=== PATIENT | female | born 2005 | race Caucasian/White ===

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

== ENCOUNTER 2024-06-01 11:57 | Emergency (ER) | payer OTHER, SELFPAY ==
[2024-06-01 12:02] VITALS: BP 124/77; PULSE 92; TEMP 36.6; O2SAT 99; BMI 19.9
--- NOTE | 2024-06-01 12:13 | ED_ITS ---
HPI - Dental/Oral General Chief complaint: Dental/Oral Stated complaint: TOOTHACHE Time Seen by Provider: 06/01/24 12:05 Source: patient Mode of arrival: walk-in Limitations: no limitations History of Present Illness HPI Narrative: 18-year-old female presents to the ED for pain to tooth #17 area. She states she has had for the last day or 2 and it has been more than a year since she saw her dentist. She is going to call tomorrow to make an appointment. No difficulty breathing or swallowing. Related Data Home Medications ?Medication ?Instructions ?Recorded ?Confirmed buspirone 5 mg tablet mg 12/09/22 escitalopram oxalate 10 mg tablet 10 mg PO DAILY 12/09/22 12/09/22 lurasidone 60 mg tablet 60 mg PO DAILY 12/09/22 12/09/22 trazodone 50 mg tablet 50 mg PO .hs 12/09/22 12/09/22 Previous Rx's ?Medication ?Instructions ?Recorded acetaminophen 300 mg-codeine 30 mg 1 tab PO Q6H PRN pain 5 days #20 06/01/24 tablet tabs ibuprofen 800 mg tablet 800 mg PO Q8H PRN pain #20 tabs 06/01/24 penicillin V potassium 250 mg 250 mg PO QID 10 days #40 tabs 06/01/24 tablet Allergies Allergy/AdvReac Type Severity Reaction Status Date / Time No Known Allergies AdvReac Mild Verified 12/09/22 13:53 Review of Systems ROS Narrative A ten point review of systems is negative except as noted above. [facility] Medical History (Updated 06/01/24 @ 12:10 by Freddy England MD) Suicidal ideation ?R45.851 - Suicidal ideations (ICD-10) Depression ?F32.A - Depression, unspecified (ICD-10) Anxiety ?F41.9 - Anxiety disorder, unspecified (ICD-10) Syncope ?R55 - Syncope and collapse (ICD-10) Social History Little interest or pleasure in doing things: not at all Feeling down, depressed, or hopeless: not at all Exam Narrative Exam Narrative: Nurses note and vital signs reviewed and patient is not hypoxic. General: The patient appears well and in no apparent distress. Patient is resting comfortably on cart. Skin: Warm, dry, no pallor noted. There is no rash noted. Head: Normocephalic, atraumatic Eye: Normal conjunctiva, no drainage Ears, Nose, Mouth, and Throat: oral mucosa is moist. Nares patent. No facial swelling or erythema. No swelling to the floor of her mouth. No gingival swelling or erythema. No obvious dental caries noted Cardiovascular: Regular Rate and Rhythm Respiratory: Patient is in no distress, no accessory muscle use, lungs are clear to auscultation, no wheezing, rales or rhonchi Back: non-tender GI: Soft and nontender Musculoskeletal: The patient has no evidence of calf tenderness, no pitting edema, symmetrical pulses noted bilaterally Neurological: A&O, normal speech Psychiatric: Cooperative Constitutional Vital Signs, click to edit/add: Last Vital Signs Temp 97.8 F 06/01/24 12:02 Pulse 92 H 06/01/24 12:02 Resp 18 06/01/24 12:02 BP 124/77 06/01/24 12:02 Pulse Ox 99 06/01/24 12:02 O2 Del Method Room Air 06/01/24 12:02 Course Vital Signs Vital signs: Vital Signs Temperature 97.8 F 06/01/24 12:02 Pulse Rate 92 H 06/01/24 12:02 Respiratory Rate 18 06/01/24 12:02 Blood Pressure 124/77 06/01/24 12:02 Pulse Oximetry 99 06/01/24 12:02 Oxygen Delivery Method Room Air 06/01/24 12:02 Temperature 97.8 F 06/01/24 12:02 Pulse Rate 92 H 06/01/24 12:02 Respiratory Rate 18 06/01/24 12:02 Blood Pressure 124/77 06/01/24 12:02 Pulse Oximetry 99 06/01/24 12:02 Oxygen Delivery Method Room Air 06/01/24 12:02 MDM - Dental/Oral MDM Narrative Medical decision making narrative: She is provided pain medication and antibiotic prescriptions, penicillin, ibuprofen, and Tylenol 3. She will call her dentist in the morning. Treatment diagnosis and follow-up were discussed with the patient. Differential Diagnosis Differential diagnosis: Likely dental caries, toothache and dental abscess Discharge Plan Discharge Chief Complaint: Dental/Oral Clinical Impression: Toothache Patient Disposition: Home, Self-Care Time of Disposition Decision: 12:09 Condition: Good Mode of Transportation: Private Vehicle Prescriptions / Home Meds: New acetaminophen-codeine 300-30 mg tablet 1 tab PO Q6H PRN (Reason: pain) 5 Days Qty: 20 0RF penicillin V potassium 250 mg tablet 250 mg PO QID 10 Days Qty: 40 0RF ibuprofen 800 mg tablet 800 mg PO Q8H PRN (Reason: pain) Qty: 20 0RF No Action buspirone 5 mg tablet trazodone 50 mg tablet 50 mg PO .hs escitalopram oxalate 10 mg tablet 10 mg PO DAILY lurasidone 60 mg tablet 60 mg PO DAILY Print Language: Salvadorean Instructions: Toothache (ED) Additional Instructions: Call your dentist in the morning Referrals: LANCE MELLO [Primary Care Provider] - 1 week
== END 2024-06-01 12:19 | disposition home or self-care (01) ==
LOC: ER 12:18
PROVIDERS: Emergency Provider Emergency Medicine; PCP Nurse Practitioner Family
DX: K08.89 Other specified disorders of teeth and supporting structures (principal)
CPT/HCPCS: 99283

== ENCOUNTER 2024-08-19 10:33 | Emergency (ER) | payer OTHER, SELFPAY ==
--- OUTSIDE RECORDS SUMMARY | 2024-08-19 10:56 | XMS_ITS | CCD ---
Author Organization [facility] Informat ion [facility] Care Team Providers Care Forest [employer] Professor Name Role Phone Penny Newman Attending UnavailPenny Squires Admitting Unavailabl e NO FAMILY, PHYSICIAN Primary Care Unavailable PERLA ., PUSHPA Admitting Unavailable RIAZ, LANCE Primary Care Unavailable MARKER ., DR MAHMOOD Consulting Unavailable PERLA .PUSHPA Attending Unavailable MARKER ., DR MAHMOOD Admitting Unavailable RIAZ, LANCE Primary Care Unavailable MARKER ., DR MAHMOOD Attending Unavailable MARKER ., DR MAHMOOD Consulting Unavailable RIAZ, LANCE Attending Unavailable RIAZ, LANCE Primary Care Unavailable RIAZ, LANCE Admitting Unavailable RIAZ, LANCE Admitting Unavailable RIAZ, LANCE Attending Unavailable RIAZ, LANCE Primary Care Unavailable RIAZ, LANCE Admitting Unavailable RIAZ, LANCE Attending Unavailable RIAZ, LANCE Primary Care Unavailable RIAZ, LANCE Attending Unavailable RIAZ, LANCE Consulting Unavailable RIAZ, LANCE Primary Care Unavailable RIAZ, LANCE Admitting Unavailable RIAZ, LANCE Primary Care Unavailable BONITA MAGANA Admitting Unavailable CARLOS .CHET Consulting UnavailBONITA Fajardo Attending Unavailable Vazquez RIVERS Primary Care Physician EUGENIO HOPE Primary Care Physician EUGENIO HOPE Admitting Unavailable EUGENIO HOPE Attending Unavailable Erik Schwartz Attending Unavailable EUGENIO HOPE Primary Care Unavailable Clayton Beaver Attending Unavailable EUGENIO HOPE Admitting Unavailable EUGENIO HOPE Attending Unavailable Erik Schwartz Attending Unavailable EUGENIO HOPE Primary Care Unavailable EUGENIO KLINE Attending Unavailable EUGENIO KLINE Attending Unavailable EUGENIO KLINE Attending Unavailable EUGENIO HOPE Primary Care Unavailable Vasquez Oliver Referring Unavailable Vasquez Oliver Attending Unavailable Vasquez Oliver Admitting Unavailable EUGENIO HOPE Primary Care Unavailable EUGENIO HOPE Primary Care Unavailable Vasquez Oliver Attending Unavailable Unavailable Primary Care Provider Unavailvirginie DC, MARIANGEL Attending Unavailable TASHA, MARIANGEL Attending Unavailable TASHA, MARIANGEL Attending Unavailable DC, MARIANGEL Referring Unavailable DC, MARIANGEL Admitting Unavailable DC, MARIANGEL Attending Unavailable EUGENIO HOPE Primary Care Unavailable Vasquez Oliver Attending Unavailable EUGENIO HOPE Primary Care Unavailable SHERIF MURPHY Attending Unavailable TASHA, MARIANGEL Referring Unavailable EUGENIO HOPE Primary Care Unavailable DC, MARIANGEL Admitting Unavailable DC, MARIANGEL Attending Unavailable Allergies Allergy Classification Reported Allergen(s) Allergy Type Date of Onset Reaction(s) Facility (3 sources) No Known Medication Allergies; Translations: [No Known Medication Allergies] Propensity to adverse reactions (disorder) [facility] Repository Medications Current Medications Medication Drug Class(es) Dates Sig (Normalized) Sig (Original) 24 hr buPROPion hydrochloride 150 mg extended release oral tablet (5 sources) Aminoketone Start: 07-19-2023 take 1 tablet by mouth once daily in the morning WELLBUTRIN XL 150 mg 24 hr tablet 1 tablet in the morning Orally Once a day 07/19/2023 Active docusate sodium 100 mg oral capsule (4 sources) Start: 12-05-2023 ergocalciferol 1.25 mg oral capsule (4 sources) Provitamin D2 Compound Start: 09-12-2023 take 1 capsule by mouth every week ergocalciferol (DRISDOL) 1,250 mcg (50,000 unit) capsule Take 1 capsule (50,000 Units total) by mouth once a week. 12 capsule 09/12/2023 Active escitalopram 20 mg oral tablet (9 sources) Serotonin Reuptake Inhibitor Start: 05-17-2023 take 1 tablet by mouth once daily escitalopram (LEXAPRO) 20 mg tablet TAKE 1 TABLET BY MOUTH EVERY DAY 0 05/18/2023 Active Ethinyl Estradiol / Ferrous fumarate / Norethindrone (5 sources) Estrogen Start: 06-18-2023 End: 08-11-2024 take 1 tablet by mouth once in the morning 1 mg-20 mcg (24)/75 mg (4) per tablet Take 1 tablet by mouth in the morning. 06/18/2023 08/11/2024 Active Start: 06-18-2023 End: 08-11-2024 take 1 tablet by mouth once in the morning 1 mg-20 mcg (24)/75 mg (4) per tablet Take 1 tablet by mouth in the morning. 0 06/18/2023 08/11/2024 Active hydroxychloroquine sulfate 200 mg oral tablet (5 sources) Antimalarial, Antirheumatic Agent Start: 09-12-2023 End: 05-14-2024 hydroxychloroquine (PLAQUENIL) 200 mg tablet Two pills a day on Sunday/Sunday/Sunday and 1 pill a day on other days of the week 130 tablet 1 05/14/2024 Active lurasidone hydrochloride 60 mg oral tablet (9 sources) Atypical Antipsychotic Start: 08-02-2022 Latuda 60 mg oral tablet 0 Refill(s), Orally Once a day, Refills(s) 0, Depression Start Date: 08/02/22 Status: Ordered pantoprazole 40 mg delayed release oral tablet (4 sources) Proton Pump Inhibitor Start: 02-18-2024 take 1 tablet by mouth once daily Pantoprazole [address] Tab 40 mg = 1 tab(s), Oral, Daily, # 90 tab(s), Refills(s) 3, Pharmacy: [facility]/pharmacy #[id number], 167, cm, 03/24/24 12:12:00 EDT, Height/Length Dosing, 58.1, kg, 03/24/24 12:12:00 EDT, Weight Dosing Start Date: 03/24/24 Status: Ordered QUEtiapine 25 mg oral tablet (9 sources) Atypical Antipsychotic Start: 05-28-2023 QUEtiapine (SEROquel) 25 mg tablet TAKE 1 or 2 TABLET BY MOUTH EVERY DAY AT BEDTIME FOR 90 DAYS for 90 days 05/28/2023 Active sulfamethoxazole 800 mg / trimethoprim 160 mg oral tablet (1 source) Dihydrofolate Reductase Inhibitor Antibacterial, Sulfonamide Antimicrobial Start: 11-24-2023 End: 12-01-2023 Bactrim D.S. 800 mg-160 mg Tab 1 tab(s), Oral, BID for 7 day(s), 14 tab(s), Refill(s) 0, Take one tab by mouth twice a day for seven days, [facility]/pharmacy #[id number], 167, cm, 11/24/23 12:49:00 EDT, Height/Length Dosing, 59, kg, 11/24/23 12:49:00 EDT, Weight Dosing Start Date: 11/24/23 Stop Date: 12/01/23 Status: Ordered Completed/Discontinued Medications Medication Drug Class(es) Dates Sig (Normalized) Sig (Original) ferrous sulfate 60 mg/ml oral solution (5 sources) Start: 07-17-2024 End: 07-17-2024 take 5 mL by mouth in the morning ferrous sulfate (FEOSOL) 300 mg (60 mg elemental iron)/5 mL syrup Take 5 mL (300 mg total) by mouth in the morning. 500 mL 1 07/17/2024 07/17/2024 Discontinued Start: 09-12-2023 End: 05-14-2024 take 1 tablet by mouth once daily at breakfast ferrous sulfate (IRON) 325 (65 FE) mg tablet Take 1 tablet (325 mg total) by mouth daily with breakfast. 30 tablet 2 09/12/2023 05/14/2024 Discontinued ondansetron 4 mg oral tablet (1 source) Serotonin-3 Receptor Antagonist Start: 11-24-2023 take 1 tablet by mouth every six hours as needed for nausea Zofran 4 mg Tab 4 mg = 1 tab(s), Oral, q6hr, PRN Nausea, Take one tab by mouth every six hours as needed for nausea, # 10 tab(s), Refills(s) 0, Pharmacy: [facility]/pharmacy #[id number], 167, cm, 11/24/23 12:49:00 EDT, Height/Length Dosing, 59, kg, 11/24/23 12:49:00 EDT, Weight Dosing Start Date: 11/24/23 Status: Ordered Problems Active Problems Problem Classification Problem Date Documented Da te Episodic/Chronic Anxiety disorders (2 sources) Other specified anxiety disorders; Translations: [Anxiety disorder, unspecified] Onset: Chronic Pichardo (2 sources) Caustic injury gastritis 03-24-2024 Episodic Gastritis and duodenitis (1 source) Gastritis; Translations: [Other gastritis without bleeding] Onset: 4 Episodic Nausea and vomiting (11 sources) Nausea; Translations: [Nausea] Onset: 4 Episodic Nonspecific chest pain (6 sources) Chest pain; Translations: [Other chest pain] Onset: 4 Episodic Nutritional deficiencies (4 sources) Decreased vitamin D Onset: 3 02-05-2024 Chronic Nutritional deficiencies (6 sources) Iron deficiency; Translations: [Iron deficiency] Onset: 5 05-14-2024 Episodic Other aftercare (2 sources) Patient encounter status; Translations: [Encounter for therapeutic drug level monitoring] 05-14-2024 Episodic Other connective tissue disease (3 sources) Fibromyalgia; Translations: [Fibromyalgia] 05-14-2024 Episodic Other gastrointestinal disorders (2 sources) Other constipation; Translations: [Other constipation] Onset: 4 Episodic Other gastrointestinal disorders (4 sources) Chronic constipation 02-06-2024 Episodic Other screening for suspected conditions (not mental disorders or infectious disease) (4 sources) Encounter for observation for other suspected diseases and conditions ruled out; Translations: [Decreased vitamin D] Onset: 3 Episodic Suicide and intentional self-inflicted injury (4 sources) Suicidal ideations; Translations: [Suicidal thoughts] Onset: 3 Episodic Systemic lupus erythematosus and connective tissue disorders (2 sources) Undifferentiated connective tissue disease; 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 connective tissue, unspecified] 05-14-2024 Chronic Unclassified (1 source) New Patient Onset: 4 Urinary tract infections (1 source) Urinary tract infectious disease; Translations: [Urinary tract infection, site not specified] Onset: 4 Episodic Past or Other Problems Problem Classification Problem Date Documented Date Episodic/Chronic Cardiac dysrhythmias (1 source) Tachycardia, unspecified; Translations: [TACHYCARDIA UNSPECIFIED] Onset: 04-24-2022 Episodic Conditions associated with dizziness or vertigo (5 sources) Dizziness and giddiness; Translations: [DIZZINESS AND GIDDINESS] Onset: 03-13-2022 Episodic Deficiency and other anemia (1 source) Anemia, unspecified; Translations: [ANEMIA UNSPECIFIED] Onset: 10-24-2022 Episodic Diabetes mellitus without complication (1 source) Other abnormal glucose; Translations: [OTHER ABNORMAL GLUCOSE] Onset: 04-24-2022 Episodic Immunizations and screening for infectious disease (2 sources) Other specified abnormal immunological findings in serum; Translations: [Anti-nuclear factor positive] Onset: 08-28-2023 08-28-2023 Episodic Malaise and fatigue (2 sources) Other fatigue; Translations: [Fatigue] Onset: 08-28-2023 08-28-2023 Episodic Other connective tissue disease (1 source) Fibromyalgia; Translations: [Fibromyalgia] Onset: 08-28-2023 Episodic Other non-traumatic joint disorders (1 source) Pain in unspecified joint; Translations: [Pain in unspecified joint] Onset: 08-28-2023 Episodic Other non-traumatic joint disorders (1 source) Multiple joint pain; Translations: [Pain in unspecified joint] 08-28-2023 Episodic Results Test Name Value Interpretation Reference Range Facility CHEMISTRYOrdered By: SYSTEM SYSTEM on 07-16-2024 25-hydroxyvitamin D3 [Mass/Vol] 22.3 ng/mL Low 30.0 - 100.0 ng/mL Remisol Chem Ferritin [Mass/Vol] 7 ng/mL Low 11 - 307 ng/mL Remisol Chem Iron [Mass/Vol] 89 ug/dL Normal 35 - 153 mcg/dL Remisol Chem Iron binding capacity [Mass/Vol] 462 ug/dL High 250 - 400 mcg/dL Remisol Chem Transferrin [Mass/Vol] 330 mg/dL Normal 200 - 370 mg/dL Remisol Chem Ferritinon 07-16-2024 Ferritin [Mass/Vol] 7 ng/mL Low 11-[address] [facility] Comment on above: Performed By: #### [id number] #### [facility] [address] [place] [address] TIBC Calculatedon 07-16-2024 Iron binding capacity [Mass/Vol] 462 microgram/dL High 250-400 [facility] Comment on above: Performed By: #### [id number] #### [facility] [address] [place] [address] Transferrin [Mass/Vol] 330 mg/dL Normal 200-370 [facility] Comment on above: Performed By: #### [id number] #### [facility] [address] [place] [address] Vitamin D 25 Hydroxyon 07-16 25-hydroxyvitamin D3 [Mass/Vol] 22.3 ng/mL Low 30.0-100.0 [facility] Comment on above: Performed By: #### [id number] #### [facility] [address] [place] [address] Ambulatory Visit Summaryon 0 03-24-2024 Ambulatory Visit Summary Ambulatory Visit Summary ALLEGRA LOPEZ :2005 Visit Date:03/24/2024 Ambulatory Visit Instructions Your Diagnosis Nausea and vomiting Chronic constipation Chest pain, atypical Chemical gastritis Your Care Team Attending Physician - Vasquez Oliver MD Primary Care Physician - EUGENIO HOPE CNP This Is Your Medications List Contact prescribing physician if questions or concerns docusate (docusate sodium 100 mg Cap) escitalopram (escitalopram 20 mg Tab) lurasidone (Latuda 60 mg oral tablet) pantoprazole (Pantoprazole [address] Tab) quetiapine (quetiapine 25 mg Tab) Procedures Performed EGD - esophagogastroduodenoscopy (02/14/2024). Discharge Vitals Heart Rate (Peripheral) 93 Blood Pressure 102/72 Height 167 cm Height 66 in Weight 58.1 kg Weight 127.82 lb BMI 20.83 Medications What How Much When Instructions Unchanged docusate (docusate sodium 100 mg Cap) 2 times a day 1 Unknown, 0 Refill(s) Contact prescribing physician if questions or concerns Unchanged escitalopram (escitalopram 20 mg Tab) 0 Refill(s), TAKE 1 TABLET BY MOUTH EVERY DAY Contact prescribing physician if questions or concerns Unchanged lurasidone (Latuda 60 mg oral tablet) 0 Refill(s), Orally Once a day Contact prescribing physician if questions or concerns Unchanged pantoprazole (Pantoprazole [address] Tab) 1 Tablets By Mouth Every day Contact prescribing physician if questions or concerns Unchanged quetiapine (quetiapine 25 mg Tab) 1 Tablets By Mouth Once a day (at bedtime) 1 Unknown, 0 Refill(s) Contact prescribing physician if questions or concerns Allergies No Known Medication Allergies Problems Ongoing - Any problem that you are currently receiving treatment for. Chemical gastritis Chest pain, atypical Chronic constipation Nausea Nausea and vomiting Vitamin D below reference range Patient Survey You may receive a survey via text or e-mail asking about your office visit. Please share your experience with us by completing your survey. We appreciate your feedback and thank you for choosing us for your care. Cuca Yeung [facility] Gastroenterology Office/Clin ic Noteon 03-24-2024 Gastroenterology Office/Clinic Note Gastroenterology Office/Clinic Note Chief Complaint Abdominal pain yesterday and EGD results HPI Staff This is a 18 year old female who presents today for a follow-up to EGD. Vomiting has improved. Patient not taking pantoprazole. Last office visit w/ Dr Oliver History of Present Illness pt with lots of stomach issues throwing up jose at night tried to eat different things and she has been throwing up every single time if she does not throw up, stomach still hurts worse in the last 2 months was having issues with constipation since she was a kid she moves her bowels once a week no laxatives tried no straining with BMs some incomplete evacuation no recent stress reported no bloating no dysphagia or heartburn sharp pain in the chest Assessment/Plan 1. Nausea and vomiting (R11.2: Nausea with vomiting, unspecified) 2. Chronic constipation (K59.09: Other constipation) 3. 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 Pending IHC B: DUODENUM, BIOPSY: Chronic inflammation within lamina propria with focal edema and vascular congestion. Villi appear of normal size and shape K History of Present Illness I have reviewed HPI staff note, most recent labs and imaging, more than 30 minutes spent reviewing the chart, during encounter, placing orders and counseling the patient. PT has been doing well one episode of vomiting yesterday no other symptoms a little depressed lately since she ran out of her psych and depression meds Review of Systems PHQ Score Initial Depression Screen Score: 0 SCORE All systems reviewed, negative except as mentioned above Physical Exam Vitals & Measurements HR: 93(Peripheral) BP: 102/72 HT: 66 in HT: 167 cm WT: 58.1 kg WT: 127.82 lb BMI: 20.83 General: alert, no acute distress HEENT: atraumatic normocephalic Cardiovascular: regular rate and rhythm, normal peripheral perfusion Respiratory: Lungs CTA, respirations non labored Extremities: no deformity, no trauma Abdomen: Benign, soft, nontender nondistended Assessment/Plan 1. Nausea and vomiting (R11.2: Nausea with vomiting, unspecified) 2. Chronic constipation (K59.09: Other constipation) 3. Chest pain, atypical (R07.89: Other chest pain) 4. 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 Will prescribe Protonix 40 mg daily Advised to get her depression under good control and talk to PCP to refill her medications She may benefit from TCA in the future Follow-up No qualifying data available Problem List/Past Medical History Ongoing Chemical gastritis Chest pain, atypical Chronic constipation Nausea Nausea and vomiting Vitamin D below reference range Historical No qualifying data Procedure/Surgical History EGD - esophagogastroduodenoscopy (02/14/2024). Medications docusate sodium 100 mg Cap, BID escitalopram 20 mg Tab Latuda 60 mg oral tablet Pantoprazole [address] Tab, 40 mg= 1 tab(s), Oral, Daily, 3 refills quetiapine 25 mg Tab, 25 mg= 1 tab(s), Oral, Once a day (at bedtime), Not taking: Patient has not picked up prescription. Allergies No Known Medication Allergies Social History Alcohol - Denies Alcohol Use, 11/24/2023 Substance Abuse - Denies Substance Abuse, 11/24/2023 Tobacco - Denies Tobacco Use, 11/24/2023 Never (less than 100 in lifetime) Tobacco Use:. Never Smokeless Tobacco Use:., 03/24/2024 Family History Arthritis: Mother. Fibromyalgia: Mother. Immunizations Vaccine Date Status Comments meningococcal group B vaccine 02/15/2021 Recorded 2024-02-05: SYNCOPAL EPISODE WITNESSED. OBSERVED AN ADDITIONAL MINUTES AFTER CONSCIOUSNESS RETURNED. GIVEN COLD WATER TO DRINK AND A COLD RAG TO FOREHEAD. MOTHER STATES CLIENT HAS HAD THESE EPISODES BEFORE. CLIENT TAKES EFFEXOR BUT IT ISN'T REALLY WORKING SO IS meningococcal conjugate vaccine 02/15/2021 Recorded 2024-02-05: SYNCOPAL EPISODE WITNESSED. OBSERVED AN ADDITIONAL MINUTES AFTER CONSCIOUSNESS RETURNED. GIVEN COLD WATER TO DRINK AND A COLD RAG TO FOREHEAD. MOTHER STATES CLIENT HAS HAD THESE EPISODES BEFORE. CLIENT TAKES EFFEXOR BUT IT ISN'T REALLY WORKING SO IS human papillomavirus vaccine 07/20/2016 Recorded human papillomavirus vaccine 03/23/2016 Recorded diphtheria/pertussis, acel/tetanus adult 01/20/2016 Recorded meningococcal conjugate vaccine 01/20/2016 Recorded human papillomavirus vaccine 01/20/2016 Recorded influenza, whole 06/01/2015 Recorded varicella virus vaccine 12/03/2008 Recorded measles/mumps/rubella virus v (more content not included)... [facility] Comment on above: Result Comment: Elec tronically Signed By: Melody GARIBAY, Vasquez Magallon\.br\Date and Time Signed: 03/24/24 12:40 EDT Surgical Pathology Reporton 02-18-2024 Surgical Pathology Report [facility] [address] 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 Pending IHC B: DUODENUM, BIOPSY: Chronic inflammation within lamina propria with focal edema and vascular congestion. Villi appear of normal size and shape K (Electronic Signature) Gage Granado MD 02/18/2024 13:26 Clinical Information Nausea, vomiting, chronic constipation, chest pain Pre-Op Diagnosis: Nausea, vomiting, chronic constipation, chest pain Procedure: EGD Post-Op Diagnosis: Gastropathy Specimen(s) Received A: Gastric biopsy B: Duodenal biopsy Gross Description A: Received in formalin labeled with patient name, number, and gastric biopsy are three fragments of taveras/pink tissue ranging from 0.1 cm up to 0.3 cm in greatest dimension. Specimen is entirely submitted in one cassette. B: Received in formalin labeled with patient name, number, and duodenal biopsy are multiple fragments of taveras tissue ranging from less than 0.1 cm up to 0.3 cm in greatest dimension. Specimen is entirely submitted in one cassette. (DC) DC:MCA Microscopic Description Microscopic examination performed unless gross only specified. The use of one or more reagents in the above tests is regulated as an analyte specific reagent (ASR). The test or tests are ordered following initial H&E microscopic examination. The performance characteristics were determined by the [facility] of [facility]. They have not been cleared or approved by the US Food and Drug Administration. The FDA has determined that such clearance or approval is not necessary. These tests are used for clinical purposes. They should not be regarded as investigational or for research. Appropriate positive and negative controls are performed and are acceptable. Normal [facility] Comment on above: Performed By: #### [id number] #### [facility] [address] [place] [address] Main OR Intraoperative Recor don 02-15-2024 Main OR Intraoperative Record Main OR Intraoperative Record IntraOp Document Type FT Summary Primary Physician: Vasquez Oliver MD Finalized Date/Time: 02/15/24 10:29:18 Pt. Name: ZHAO LOPEZMASTER Rosenthal/Sex: 2005 Female Med Rec #: [id number] Physician: Vasquez Oliver MD Financial #: [id number] Pt. Type: O Room/Bed: / Admit/Disch: 02/14/24 12:21:41 - 02/14/24 23:59:59 Institution: Case Times FT Entry 1 Patient Times In Room 02/14/24 13:17:00 Out Room 02/14/24 13:27:00 Procedure Times Start 02/14/24 13:21:00 Stop 02/14/24 13:25:00 Anesthesia Times Start 02/14/24 13:17:00 Stop 02/14/24 13:27:00 Last Modified By: Ruby Mcginnis RN 02/14/24 13:26:56 General Comments: 02/15/24 Chart opened to review and send charges LRoth CSFA Case Attendance FT Entry 1 Entry 2 Entry 3 Case Attendee Murphy Jimenes RN, Rosalinda Brown Role Performed Anesthesiologist Tower [employer] Traffic Control Specialist - Primary Scrub - Primary Set Rider Time In 02/14/24 13:17:00 02/14/24 13:17:00 02/14/24 13:17:00 Time Out 02/14/24 13:27:00 02/14/24 13:27:00 02/14/24 13:27:00 Procedure EGD(.) EGD(.) EGD(.) Comments Dr. Medrano supervising Last Modified By: Ras RN, Ruby Mcginnis RN, Ruby Mcginnis RN, Ruby 02/14/24 13:26:57 02/14/24 13:26:57 02/14/24 13:26:57 Entry 4 Entry 5 Case Attendee Jono GARCIA, Sheila Oliver MD, Vasquez Yoder Role Performed Staff - Other Surgeon - Primary Time In 02/14/24 13:17:00 02/14/24 13:17:00 Time Out 02/14/24 13:27:00 02/14/24 13:27:00 Procedure EGD(.) EGD(.) Comments help in room Last Modified By: Ras RN, Ruby Mcginnis RN, Ruby 02/14/24 13:26:57 02/14/24 13:26:57 Perioperative Protocols FT Pre-Care Text: Implements protective measures prior to operative or invasive procedure, confirms identity before the operative or invasive procedure, verifies operative procedure, surgical site, and laterality Entry 1 Procedure(s) EGD(.) Patient Identity Birthday, ID Band Verified (select at Check, Patient least 2): Participation Consents / H and P Anesthesia Consent, Operative Site N/A Verified H&P, Surgery/Procedure Marking Verified Consent Surgical Site No Laterality Verified n/a Verified Procedure Verified Yes Correct Patient Yes Position Verified Availability Equipment, Medication Prep Dry n/a Verified (If Applicable) PreOp Antibiotic No Time Out Murphy Jimenes Workman RN, Bairon Beltran Micala E, Jono GARCIA, Melody June MD, Vasquez Magallon Time Out Complete 02/14/24 13:19:00 Outcomes Met? Yes Last Modified By: Ruby Mcginnis RN 02/14/24 13:22:39 Post-Care Text: The patient is free from signs and symptoms of injury caused by extraneous objects Allergy Information FT Pre-Care Text: Verifies allergies Entry 1 Allergies Reviewed? Yes Allergies Reviewed Self/Patient With Outcomes Met? Yes Last Modified By: Ruby Mcginnis RN 02/14/24 13:22:45 Post-Care Text: The patient received appropriate medication(s) safely administered during the perioperative period Surgical Procedures FT Entry 1 Procedure Description Procedure EGD Modifiers . Surgeon Description EGD with duodenal and gastric biopsies Primary Procedure Yes Primary Surgeon Melody GARIBAY, Vasquez Magallon Start 02/14/24 13:21:00 Stop 02/14/24 13:25:00 Anesthesia Type General Surgical Service Gastroenterology Wound Class 2 - Clean-Contaminated Last Modified By: Ruby Mcginnis RN 02/14/24 13:25:34 General Case Data FT Pre-Care Text: Classifies surgical wound, implements aseptic technique, initiates traffic control Entry 1 Case Information OR ENDO 1 FT Case Level Level 2 Wound Class 2 - Clean-Contaminated Specialty Gastroenterology ASA Class 2 Preop Diagnosis NAUSEA, AND VOMITING, Postop Same As Preop No CHRONIC CONSTIPATION, CHEST PAIN ATYPICAL Postop Diagnosis Gastropathy Outcomes Met? Yes Last Modified By: Ruby Mcginnis RN 02/14/24 13:25:40 Post-Care Text: The patient is free from signs and symptoms of infection Skin Assessment (Pre Procedure) FT Pre-Care Text: Implements protective measures to prevent skin/ tissue injury due to thermal or mechanical sources Evaluates for signs and symptoms of physical injury to skin and tissue Entry 1 Skin Integrity Intact, Briar, Warm, & Skin Abnormality No Dry Outcomes Met? Yes Last Modified By: Ruby Mcginnis RN 02/14/24 13:23:52 Post-Care Text: The patient is free from signs and symptoms of injury caused by extraneous objects Patient Positioning FT Pre-Care Text: Identifies physical alterations that require additional precautions for procedure-specific positioning, verifies presence of prosthetics or corrective devices, positions the patient, evaluates the patient for signs and symptoms of injury as a result of positioning Entry 1 Procedure EGD(.) Body Position Lateral, right side up Feet Uncrossed? Yes Left Arm P (more content not included)... Normal [facility] Discharge Instructionson Discharge Instructions Discharge Instructions ALLEGRA LOPEZ :2005 Visit Date:02/14/2024 Inpatient Discharge Instructions Your Care Team Admitting Physician - Vasquez Oliver MD Referring Physician - Vasquez Oliver MD Reason for Your Visit NAUSEA, AND VOMITING, CHRONIC CONSTIPATION, CHEST PAIN ATYPICAL Your Diagnosis Gastropathy Tests Performed Pathology Tissue Exam -- Results Pending -- Please visit your patient portal for your results or contact your primary care physician. This Is Your Medications List docusate (docusate sodium 100 mg Cap) escitalopram (escitalopram 20 mg Tab) lurasidone (Latuda 60 mg oral tablet) quetiapine (quetiapine 25 mg Tab) Procedure History EGD - esophagogastroduodenoscopy (02/14/2024). Discharge Vitals Temperature (Temporal Artery) 36.7 ?C Heart Rate (Monitored) 82 Respiratory Rate 15 Blood Pressure 108/77 Height 167 cm Weight 61 kg BMI 21.87 What to do next Instructions From Your Doctor Event Name Event Result Discharge Activity Resume normal activities in 24 hours Discharge Restrictions No driving for 24 hrs, Do not operate machinery or tools, Do not make important decisions for 24 hours, Do not drink alcoholic beverages for 24 hours Discharge Diet(s) Regular Call Your Doctor For Persistent or heavy bleeding, Temperature above 101.5 degrees, Persistent vomiting Discharge Instructions Discharge Instructions New Follow Up Appointments after Discharge Follow Up with Melody GARIBAY, Vasquez Magallon, [facility], [facility] When: Comments: Office will call to schedule follow up appointment and/or review any pending biopsy results Call for any problems. Where: [address] [place] [address], [address] [place] [address] [phone] Medications What How Much When Instructions Next Dose Unchanged docusate (docusate sodium 100 mg Cap) 2 times a day 1 Unknown, 0 Refill(s) Unchanged escitalopram (escitalopram 20 mg Tab) 0 Refill(s), TAKE 1 TABLET BY MOUTH EVERY DAY Unchanged lurasidone (Latuda 60 mg oral tablet) 0 Refill(s), Orally Once a day Unchanged quetiapine (quetiapine 25 mg Tab) 1 Tablets By Mouth Once a day (at bedtime) 1 Unknown, 0 Refill(s) Allergies No Known Medication Allergies Problems Ongoing - Any problem that you are currently receiving treatment for. Chest pain, atypical Chronic constipation Nausea Nausea and vomiting Vitamin D below reference range Education Materials Endoscopy Care After Procedure Please read the instructions outlined below and refer to this sheet in the next few weeks. These discharge instructions provide you with general information on caring for yourself after you leave the hospital. Your doctor may also give you specific instructions. While your treatment has been planned according to the most current medical practices available, unavoidable complications occasionally occur. If you have any problems or questions after discharge, please call your doctor. ACTIVITY ? You may resume your regular activity but move at a slower pace for the next 24 hours. ? Take frequent rest periods for the next 24 hours. ? Walking will help expel (get rid of) the air and reduce the bloated feeling in your abdomen. ? No driving for 24 hours (because of the anesthesia (medicine) used during the test). ? You may shower. ? Do not sign any important legal documents or operate any machinery for 24 hours (because of the anesthesia used during the test). NUTRITION ? Drink plenty of fluids. ? You may resume your normal diet. ? Begin with a light meal and progress to your normal diet. ? Avoid alcoholic beverages for 24 hours or as instructed by your caregiver. MEDICATIONS ? You may resume your normal medications unless your caregiver tells you otherwise. WHAT YOU CAN EXPECT TODAY ? You may experience abdominal discomfort such as a feeling of fullness or ?gas? pains. FOLLOW-UP ? Your doctor will discuss the results of your test with you. SEEK IMMEDIATE MEDICAL ATTENTION IF ANY OF THE FOLLOWING OCCUR: ? Excessive nausea (feeling sick to your stomach) and/or vomiting. ? Severe abdominal pain and distention (swelling). ? Trouble swallowing. ? Temperature over 100 F (37.8? C). ? Rectal bleeding or vomiting of blood. Document Released: 01/30/2005 Document Re-Released: 12/10/2006 ExitCare? Patient Information ?2009 [employer]. Common Emergency Awareness Tips IS IT A STROKE? Act FAST and Check for these signs: FACE Does the face look uneven? ARM Does one arm drift down? SPEECH Does their speech sound strange? TIME Call at any sign of stroke Heart Attack Signs Chest discomfort: Most heart attacks involve discomfort in the center of the chest and lasts more than a few minutes, or goes away and comes back. It can feel like uncomfortable pressure, squeezing, fullness or pain. Disco (more content not included)... Normal [facility] Comment on above: Result Comment: Elec tronically Signed By: Patrick CHOUDHARY, Renu\.br\Date and Time Signed: 02/14/24 13:52 EDT Inpatient Patient Summaryon 02-14-2024 Inpatient Patient Summary Inpatient Patient Summary [address] [address] [facility] Clinical Discharge Instructions PERSON INFORMATION Name: ALLEGRA LOPEZ PHYSICIANS Admitting Physician: Vasquez Oliver MD Attending Physician: Vasquez Oliver MD PCP: EUGENIO HOPE CNP Discharge Diagnosis: Comment: PATIENT EDUCATION INFORMATION Instructions: Endoscopy, Care After Procedure [facility] ([facility] Medication Leaflets: Follow up: With: Address: When: Vasquez Oliver MD, [address], [address] [place] [id number] [phone] Comments: Office will call to schedule follow up appointment and/or review any pending biopsy results Call for any problems. MEDICATION LIST Medications to Continue with No Changes Other Medications docusate (docusate sodium 100 mg Cap) 2 times a day. 1 Unknown, 0 Refill(s). escitalopram (escitalopram 20 mg Tab) 0 Refill(s), TAKE 1 TABLET BY MOUTH EVERY DAY. lurasidone (Latuda 60 mg oral tablet) 0 Refill(s), Orally Once a day. quetiapine (quetiapine 25 mg Tab) 1 Tablets By Mouth once a day (at bedtime). 1 Unknown, 0 Refill(s). Comment: Normal [facility] Main OR PACU I Recordon 01-30 Main OR PACU I Record Main OR PACU I Record PACU Phase I Document Type FT Summary Primary Physician: Vasquez Oliver MD Finalized Date/Time: 02/14/24 14:21:18 Pt. Name: ALLEGRA LOPEZ /Sex: 2005 Female Med Rec #: [id number] Physician: Vasquez Oliver MD Financial #: [id number] Pt. Type: O Room/Bed: / Admit/Disch: 02/14/24 12:21:41 - Institution: Case Times PACU I FT Pre-Care Text: Identifies barriers to communication and implements measures to provide psychological support Develops individualized plan of care, and ensures continuity of care Maintains patient's dignity and privacy, and maintains patient confidentiality Identifies and reports philosophical, cultural, and spiritual beliefs and values Identifies individual values and wishes concerning care Implements aseptic technique, and administers prescribed antibiotic therapy and immunizing agents as ordered Evaluates postoperative tissue perfusion Implements thermoregulation measures, and monitors body temperature Evaluates postoperative respiratory status Evaluates postoperative cardiac status Evaluates postoperative neurological status Assesses pain control, collaborated in initiating patient-controlled analgesia and implements alternative methods of pain control Verifies allergies, administers prescribed medications and solutions, evaluates response to medications Entry 1 In PACU I 02/14/24 13:29:00 Discharge from PACU 02/14/24 14:05:00 I Outcomes Met? Yes Last Modified By: Renu Nguyen RN 02/14/24 14:21:05 Post-Care Text: The patient demonstrates knowledge of the expected response to the operative or invasive procedure The patient's care is consistent with the individualized perioperative plan of care The patient's right to privacy is maintained The patient's value system, lifestyle, ethnicity, and culture are considered, respected, and incorporated into the perioperative plan of care The patient participates in decisions affecting his or her perioperative plan of care The patient is free from signs and symptoms of infection The patient has wound/tissue perfusion consistent with or improved from baseline levels established preoperatively The patient is at or returning to normothermia at the conclusion of the immediate postoperative period The patient's respiratory function is consistent with or improved from baseline levels established preoperatively The patient's cardiovascular status is consistent with or improved from baseline levels established preoperatively The patient's cardiovascular status is consistent with or improved from baseline levels established preoperatively The patient demonstrates and/or reports adequate pain control throughout the perioperative period The patient received appropriate medication(s), safely administered during the perioperative period Acuity Level PACU I FT Entry 1 Start Time 02/14/24 13:29:00 Stop Time 02/14/24 14:05:00 Acuity Level Acuity Level I Last Modified By: Renu Nguyen RN 02/14/24 14:21:13 Finalized By: Renu Nguyen RN Document Signatures Signed By: Renu Nguyen RN 02/14/24 14:21 Normal [facility] Main OR Preoperative Recordo n 02-14-2024 Main OR Preoperative Record Main OR Preoperative Record Holding Area Document Type FT Summary Primary Physician: Vasquez Oliver MD Finalized Date/Time: 02/14/24 13:01:52 Pt. Name: ALLEGRA LOPEZ Boy Rosenthal/Sex: 2005 Female Med Rec #: [id number] Physician: Vasquez Oliver MD Financial #: [id number] Pt. Type: O Room/Bed: / Admit/Disch: 02/14/24 12:21:41 - Institution: Case Times Holding FT Pre-Care Text: Verifies consent for planned procedure, identifies individual values and wishes concerning care, includes family members in perioperative teaching Secures patient's records' belongings, and valuables, maintains patient's dignity and privacy, and maintains patient confidentiality Entry 1 In Holding 02/14/24 12:45:00 Outcomes Met? Yes Last Modified By: Pipo Lema RN 02/14/24 12:58:58 Post-Care Text: The patient participates in decisions affecting his or her perioperative plan of care The patient's right to privacy is maintained Surgery Checklist FT Entry 1 Patient Birthday, ID Band Procedure History and Physical, Identification: Check, Patient Verification: Surgical Consent, With Participation Patient NPO after Midnight: Yes Results Reviewed n/a Comments: Personal Items no personal items Limitations: none Comment: Complaints of Pain: No Pain Comment: denies pain at this time Operative Site n/a Marked By: n/a Marking: Location: n/a Availability Equipment Verified: Does Patient Smoke No Patient states Yes Comment - Adult dad and grandma postop adult Supervision supervision available Case Cancelled in No Holding Area see comments below for reason Last Modified By: Pipo Lema RN 02/14/24 13:01:49 Finalized By: Pipo Lema RN Document Signatures Signed By: Pipo Lema RN 02/14/24 13:01 [facility] Operative Reporton Operative Report Operative Report Patient: ALLEGRA LOPEZ Age: 18 years Sex: Female : 2005 Associated Diagnoses: None Author: Vasquez Oliver MD Pre-Procedure Procedure Date 02/14/2024 13:28:00 . Procedure Type: Esophagogastroduodenoscopy with biopsy. Procedure provider Performed by Vasquez Oliver MD. Current history and physical Documented on chart. Informed Consent After discussing the rationale, risks and benefits, and alternatives to this procedure, the patient provided signed consent for the procedure. Pre-procedure diagnosis: anemia. Medications (Selected) Inpatient Medications Ordered Lactated Ringers IV Tayler 1000 mL 1,000 mL: 1,000 mL, IV, 100 mL/hr, Routine, Start date 02/14/24 13:01:00 EDT, 10 hour(s), Total volume (mL): 1,000, 61 kg, 1.68, m2 Sodium Chloride 0.9% IV Tayler 1000 mL 1,000 mL: 1,000 mL, IV, 20 mL/hr, Routine, Start date 02/14/24 7:09:00 EDT, 50 hour(s), Total volume (mL): 1,000, 61 kg, 1.68, m2 Documented Medications Documented Latuda 60 mg oral tablet: 0 Refill(s), Orally Once a day, Refills(s) 0, Depression docusate sodium 100 mg Cap: BID, 1 Unknown, 0 Refill(s), Refills(s) 0, Constipation escitalopram 20 mg Tab: 0 Refill(s), TAKE 1 TABLET BY MOUTH EVERY DAY, Refills(s) 0, Depression quetiapine 25 mg Tab: 25 mg = 1 tab(s), Oral, Once a day (at bedtime), 1 Unknown, 0 Refill(s), Refills(s) 0, Other (see comment) Anticoagulant/antiplatelet None. ASA Classification: Class II. . Monitoring: See anesthesia record. . Procedure The procedure was performed in the hospital. See anesthesia record for sedation given during procedure. The patient was positioned starting in the left lateral decubitus position and with safety measures. Endoscope type used was an adult-size, introduced orally, advanced to the 2nd portion of the duodenum. No difficulty was encountered during the procedure. Views were excellent. The patient tolerated the procedure well. Findings 1. Normal esophagus. Z-line at 39 cm 2. Erythema in the antrum, mild patchy. Otherwise normal stomach. Biopsies of the stomach were taken to rule out H. pylori. 3. Normal duodenum. Images Procedure images: [email or web address]__[id number]_ [id number].jpg [id number]_hd_video_2023__T12_ [id number].jpg [id number]_hd_video_2023__T12_ [id number]_[id number].jpg [id number]_hd_video_2023__T12_ [id number].jpg Rec1_hd_video_2023__T12_ [id number].jpg Rec1_hd_video_2023__T12_ [id number].jpg Rec1_hd_video_2023__T12_ [id number].jpg Rec1_hd_video_2023__T12_ [id number].jpg Rec1_hd_video_2023__T12_ [id number].jpg Rec1_hd_video_2023__T12_ [id number].jpg [id number]_hd_video_2023__T12_ [id number].jpg . Post-Procedure Complications: none. Estimated blood loss: minimal. Specimens: sent to pathology. Devices/ implants: none left in place. Impression and Plan Gastropathy Recommendations: -Resume previous diet -Resume home medications -Await pathology results, follow in GI clinic in 1-2 after discharge Will start Protonix and Carafate (office will call with prescription) [facility] Comment on above: Result Comment: Elec tronically Signed By: Melody GARIBAY, Vasquez Magallon\.br\Date and Time Signed: 02/14/24 13:31 EDT Other Comment: Maria T ferreira Attachment - attachment storage system not supported [id number] Can be viewed in source system Missing Attachment - attachment storage system not supported [id number] Can be viewed in source system Missing Attachment - attachment storage system not supported [id number] Can be viewed in source system Missing Attachment - attachment storage system not supported [id number] Can be viewed in source system Missing Attachment - attachment storage system not supported [id number] Can be viewed in source system Missing Attachment - attachment storage system not supported [id number] Can be viewed in source system Missing Attachment - attachment storage system not supported [id number] Can be viewed in source system Missing Attachment - attachment storage system not supported [id number] Can be viewed in source system Missing Attachment - attachment storage system not supported [id number] Can be viewed in source system Missing Attachment - attachment storage system not supported [id number] Can be viewed in source system Missing Attachment - attachment storage system not supported [id number] Can be viewed in source system Outpatient Surgery Discharge Instructionon 02-14-2024 Outpatient Surgery Discharge Instruction Outpatient Surgery Discharge Instruction [place] [id number] Patient Discharge Instructions PERSON INFORMATION Name: ALLEGRA LOPEZ Date of : 2005 Current Date: 02/14/2024 13:51:11 PHYSICIANS Admitting Physician: Vasquez Oliver MD Discharge Diagnosis: ALLEGRA LOPEZ has been given the following list of follow-up instructions, prescriptions, and patient education materials: PATIENT FOLLOW-UP INFORMATION Diet: Regular Discharge Activity: Resume normal activities in 24 hours Discharge Restrictions: No driving for 24 hrs, Do not operate machinery or tools, Do not make important decisions for 24 hours, Do not drink alcoholic beverages for 24 hours Call Your Doctor For: Persistent or heavy bleeding, Temperature above 101.5 degrees, Persistent vomiting IF UNABLE TO CONTACT YOUR PHYSICIAN AND YOU FEEL IT IS AN EMERGENCY, GO TO THE NEAREST EMERGENCY ROOM OR CALL 911 JESSICA Chirinos AMELIA F, have received the attached patient education materials/instructions and have verbalized understanding: May we do a follow up call? Yes No I was present when discharge instructions were given __ Patient Signature Date Clinican/Nurse Signature Date Follow up: With: Address: When: Melody GARIBAY, Vasquez Magallon, [facility], [address], [address] [place] [phone] Comments: Office will call to schedule follow up appointment and/or review any pending biopsy results Call for any problems. Pharmacy Information: You may receive a survey from [facility] asking you to rate your care experience. Your feedback is important and will help us understand what we do well and how we can improve the quality of care we provide to you, your loved ones and our community. It?s an honor to serve you. Thank you for choosing [facility] HERE ARE THE MEDICATION CHANGES THAT OCCURRED DURING YOUR HOSPITAL STAY Medications to Continue with No Changes Other Medications docusate (docusate sodium 100 mg Cap) 2 times a day. 1 Unknown, 0 Refill(s). escitalopram (escitalopram 20 mg Tab) 0 Refill(s), TAKE 1 TABLET BY MOUTH EVERY DAY. lurasidone (Latuda 60 mg oral tablet) 0 Refill(s), Orally Once a day. quetiapine (quetiapine 25 mg Tab) 1 Tablets By Mouth once a day (at bedtime). 1 Unknown, 0 Refill(s). PATIENT EDUCATION INFORMATION Instructions: Endoscopy Care After Procedure Please read the instructions outlined below and refer to this sheet in the next few weeks. These discharge instructions provide you with general information on caring for yourself after you leave the hospital. Your doctor may also give you specific instructions. While your treatment has been planned according to the most current medical practices available, unavoidable complications occasionally occur. If you have any problems or questions after discharge, please call your doctor. ACTIVITY ? You may resume your regular activity but move at a slower pace for the next 24 hours. ? Take frequent rest periods for the next 24 hours. ? Walking will help expel (get rid of) the air and reduce the bloated feeling in your abdomen. ? No driving for 24 hours (because of the anesthesia (medicine) used during the test). ? You may shower. ? Do not sign any important legal documents or operate any machinery for 24 hours (because of the anesthesia used during the test). NUTRITION ? Drink plenty of fluids. ? You may resume your normal diet. ? Begin with a light meal and progress to your normal diet. ? Avoid alcoholic beverages for 24 hours or as instructed by your caregiver. MEDICATIONS ? You may resume your normal medications unless your caregiver tells you otherwise. WHAT YOU CAN EXPECT TODAY ? You may experience abdominal discomfort such as a feeling of fullness or ?gas? pains. FOLLOW-UP ? Your doctor will discuss the results of your test with you. seek immediate medical attention if any of the following occur: ? Excessive nausea (feeling sick to your stomach) and/or vomiting. ? Severe abdominal pain and distention (swelling). ? Trouble swallowing. ? Temperature over 100 F (37.8? C). ? Rectal bleeding or vomiting of blood. Document Released: 01/30/2005 Document Re-Released: 12/10/2006 ExitCare? Patient Information ?2009 [employer]. Medication Leaflets: [facility] Ambulatory Visit Summaryon 0 02-06-2024 Ambulatory Visit Summary Ambulatory Visit Summary ALLEGRA LOPEZ :2005 Visit Date:02/06/2024 Ambulatory Visit Instructions Your Diagnosis Nausea and vomiting Chronic constipation Chest pain, atypical Your Care Team Attending Physician - Melody GARIBAY, Vasquez Magallon Primary Care Physician - JAYY VILLANUEVA, EUGENIO Delgado This Is Your Medications List Contact prescribing physician if questions or concerns docusate (docusate sodium 100 mg Cap) escitalopram (escitalopram 20 mg Tab) lurasidone (Latuda 60 mg oral tablet) quetiapine (quetiapine 25 mg Tab) Discharge Vitals Heart Rate (Peripheral) 93 Blood Pressure 110/72 Height 167 cm Height 66 in Weight 61 kg Weight 134.2 lb BMI 21.87 Medications What When Instructions Unchanged docusate (docusate sodium 100 mg Cap) 2 times a day 1 Unknown, 0 Refill(s) Contact prescribing physician if questions or concerns Unchanged escitalopram (escitalopram 20 mg Tab) 0 Refill(s), TAKE 1 TABLET BY MOUTH EVERY DAY Contact prescribing physician if questions or concerns Unchanged lurasidone (Latuda 60 mg oral tablet) 0 Refill(s), Orally Once a day Contact prescribing physician if questions or concerns Unchanged quetiapine (quetiapine 25 mg Tab) 1 Unknown, 0 Refill(s) Contact prescribing physician if questions or concerns Allergies No Known Medication Allergies Problems Ongoing - Any problem that you are currently receiving treatment for. Chest pain, atypical Chronic constipation Nausea Nausea and vomiting Vitamin D below reference range Patient Survey You may receive a survey via text or e-mail asking about your office visit. Please share your experience with us by completing your survey. We appreciate your feedback and thank you for choosing us for your care. [facility] Gastroenterology Office/Clin ic Noteon 02-06-2024 Gastroenterology Office/Clinic Note Gastroenterology Office/Clinic Note Chief Complaint nausea and vomiting that has worsened over the past 4 months. HPI Staff Patient is a 18 year old female who was referred by Kiran Her CNP for chronic nausea and vomiting. Per Referral: Patient has had nausea and vomiting since childhood. Zofran not helping and promethazine prescribed to take when Zofran doesn't work. [facility] [place] ED: 11/24/2023 Chief Complaint nausea, diarrhea, lower abdominal pain and cramping that started 3 days ago. states has been more dizzy and weak lately. chance of . History of Present Illness 17 female presents emergency department with concerns for . Patient states that she had intercourse for the first time last Sunday 8 days ago. Since then she has been very concerned that she may be she does use control. She also states that she has been having some lower abdominal cramping perhaps some dysuria as well. She is not concerned for any STI and has had no discharge. No prior abdominal surgeries. No other obvious aggravating or alleviating factors she has had some associated nausea and diarrhea but no vomiting. No prior treatments at home. No other aggravating or relieving factors no other associated symptoms no other prior treatments or complaints. Medical Decision Making test is negative patient is treated here with Zofran able to tolerate p.o. challenge. Urinalysis is positive for infection. Patient will be started on Bactrim given Zofran as needed at home for nausea we did send off urine cultures as well as GC chlamydia cultures follow-up in the outpatient setting return to ER symptoms change or worsen she is comfortable with this plan. [facility] [place] ED: 03/24/2023 History of Present Illness 17-year-old female comes to the ED for psychiatric evaluation. [facility] for evaluation of suicidal comments. The patient states that she made comments about how she was she was never born but does not actually feel suicidal. Denies any attempts at self-harm. Denies any drug or alcohol use. Denies any medical complaints. She is cooperative. History of Present Illness I have reviewed HPI staff note, most recent labs and imaging, more than 30 minutes spent reviewing the chart, during encounter, placing orders and counseling the patient. pt with lots of stomach issues throwing up jose at night tried to eat different things and she has been throwing up every single time if she does not throw up, stomach still hurts worse in the last 2 months was having issues with constipation since he was a kid she moves her bowels once a week no laxatives tried no straining with BMs some incomplete evacuation no recent stress reported no bloating no dysphagia or heartburn sharp pain in the chest Review of Systems PHQ Score Initial Depression Screen Score: 0 SCORE All systems reviewed, negative except as mentioned above Physical Exam Vitals & Measurements HR: 93(Peripheral) BP: 110/72 HT: 66 in HT: 167 cm WT: 61 kg WT: 134.2 lb BMI: 21.87 General: alert, no acute distress HEENT: atraumatic normocephalic Cardiovascular: regular rate and rhythm, normal peripheral perfusion Respiratory: Lungs CTA, respirations non labored Extremities: no deformity, no trauma Abdomen: Benign, soft, nontender nondistended Assessment/Plan 1. Nausea and vomiting (R11.2: Nausea with vomiting, unspecified) Ordered: EGD Endoscopy (Hospital Procedure) 2. Chronic constipation (K59.09: Other constipation) Ordered: EGD Endoscopy (Hospital Procedure) 3. Chest pain, atypical (R07.89: Other chest pain) Ordered: EGD Endoscopy (Hospital Procedure) Schedule upper endoscopy to assess worsening nausea/vomiting From PPI or TCA in the future Advised to use squatty potty and advised to use gentle laxatives as needed to have 1-2 bowel movements every day Follow-up No qualifying data available Problem List/Past Medical History Ongoing Chest pain, atypical Chronic constipation Nausea Nausea and vomiting Vitamin D below reference range Historical No qualifying data Medications docusate sodium 100 mg Cap, BID escitalopram 20 mg Tab Latuda 60 mg oral tablet quetiapine 25 mg Tab Allergies No Known Medication Allergies Social History Alcohol - Denies Alcohol Use, 11/24/2023 Substance Abuse - Denies Substance Abuse, 11/24/2023 Tobacco - Denies Tobacco Use, 11/24/2023 Never (less than 100 in lifetime) Tobacco Use:. Never Smokeless Tobacco Use:., 02/06/2024 Family History Arthritis: Mother. Fibromyalgia: Mother. Immunizations Vaccine Date Status Comments meningococcal group B vaccine 02/15/2021 Recorded 2024-02-05: SYNCOPAL EPISODE WITNESSED. OBSERVED AN ADDITIONAL MINUTES AFTER CONSCIOUSNESS RETURNED. GIVEN COLD WATER TO DRINK AND A COLD RAG TO FOREHEAD. MOTHER STATES CLIENT HAS HAD THESE EPISODES BEFORE. CLIENT TAKES EFFEXOR BUT IT ISN'T REALLY WORKING SO IS meningococcal conjuga (more content not included)... [facility] Comment on above: Result Comment: Elec tronically Signed By: Melody GARIBAY, Vaqsuez Magallon\.br\Date and Time Signed: 02/06/24 14:36 EDT Chlam/GC/Trich,NAAon 024 C. trachomatis rRNA EM+probe Ql (Unsp spec) Negative Invalid Interpretation Code Negative [facility] Comment on above: Performed By: #### 1 [id number] ####[facility] [address] [place] [address] N. gonorrhoeae rRNA EM+probe Ql (Unsp spec) Negative Invalid Interpretation Code Negative [facility] Comment on above: Performed By: #### 1 [id number] ####[facility] [address] [place] [address] T. vaginalis rRNA EM+probe Ql (Unsp spec) Negative Invalid Interpretation Code Negative [facility] Comment on above: Result Comment: Perf ormed at: =G [facility] [address] [id number] MD Santa Conrad Performed By: #### 1 [id number] ####[facility] [address] [place] [address] C Urineon 11-26-2023 Bacteria identified Cx Nom (U) Microbiology PROCEDURE: Urine Culture [R1] SOURCE: U CleanCatch BODY SITE: COLLECTED DATE/TIME: 11/24/2023 13:33 EDT RECEIVED DATE/TIME: 11/24/2023 14:28 EDT START DATE/TIME: 11/24/2023 14:28 EDT FREE TEXT SOURCE: Erik Schwartz DO, DO, John FINAL REPORTS Final Report [] Verified Date/Time: 11/26/2023 07:10 EDT 1,000 cfu/ml Mixed skin contaminants Performing Locations R1: This test was performed at: [facility], [address] [place] [address], [id number] , , [facility] Comment on above: Performed By: #### 2 [id number] #### [facility] [address] [place] [address] Consent for Treatmenton 10-31 Consent for Treatment [id number] [facility] Discharge Instructionson Discharge Instructions [id number] [facility] ED Clinical Summaryon 2023 ED Clinical Summary (Inserted Image. Alyson ble to display) [place] [id number] ED Clinical Summary Person Information Name: ALLEGRA LOPEZ [facility] Age: 17 Years : 2005 Sex: Female Language: Montenegrin PCP: EUGENIO HOPE CNP Marital Status: Single Visit Id: Visit Reason: Weakness or fatigue; Diarrhea; Abdominal pain; Nausea; DIZZINESS NAUSEA Speciality: Acuity: 3 Enc Type: Emergency Med Service: Emergency Arrival: 11/24/2023 12:21:37 Discharge: 11/24/2023 14:45:21 LOS: 000 02:24 Checkin: 11/24/2023 12:21:37 Checkout: 11/24/2023 14:45:21 Dispo Type: Home (Routine DC) EVENTS: Event Name Event Status Request Date/Time Start Date/Time Complete Date/Time Arrive Complete 11/24/2023 12:21:37 11/24/2023 12:21:37 11/24/2023 12:21:37 Document Home Meds Request 11/24/2023 12:21:37 Triage Complete 11/24/2023 12:21:37 11/24/2023 12:49:12 11/24/2023 12:49:12 Registration Complete 11/24/2023 12:24:20 11/24/2023 12:24:20 11/24/2023 12:24:20 Reg Complete Request 11/24/2023 12:24:20 Reg Bed Request Complete 11/24/2023 12:24:20 11/24/2023 12:24:20 11/24/2023 12:24:20 EKG Complete 11/24/2023 12:49:10 11/24/2023 13:11:45 Bed Assign Complete 11/24/2023 12:59:39 11/24/2023 12:59:39 11/24/2023 12:59:39 Dr Exam Complete 11/24/2023 12:59:39 11/24/2023 13:15:24 11/24/2023 13:15:24 RN Exam Complete 11/24/2023 12:59:39 11/24/2023 13:48:12 11/24/2023 13:48:12 Registration Request 11/24/2023 13:15:24 Pending Labs Complete 11/24/2023 13:23:58 11/24/2023 14:26:40 Lab Complete 11/24/2023 13:23:58 11/24/2023 14:26:40 Urine Collect Complete 11/24/2023 13:23:58 11/24/2023 14:26:40 Meds Admin Complete 11/24/2023 13:23:58 11/24/2023 13:45:51 Pending Labs Collected 11/24/2023 13:24:28 Pending Labs Inlab 11/24/2023 13:49:46 11/24/2023 13:49:46 Lab Inlab 11/24/2023 13:49:46 11/24/2023 13:49:46 Discharge Complete 11/24/2023 14:31:34 11/24/2023 14:45:26 11/24/2023 14:45:26 Transfer Complete 11/24/2023 14:45:26 11/24/2023 14:45:26 11/24/2023 14:45:26 ADDRESS: [address] [facility] [id number] PHYS DOC NOTES: MEDICAL INFORMATION: Prescriptions Given: New Medications [id number], [address], [place] [id number], [phone] ondansetron (Zofran 4 mg Tab) 1 Tablets By Mouth every 6 hours as needed Nausea. Take one tab by mouth every six hours as needed for nausea. Refills: 0. sulfamethoxazole-trimethopri m (Bactrim D.S. 800 mg-160 mg Tab) 1 Tablets By Mouth 2 times a day for 7 Days. Take one tab by mouth twice a day for seven days. Refills: 0. PATIENT EDUCATION INFORMATION: Instructions: Follow up: With: Address: When: [address] [place], [place] [address] Business (1) In 3 days DIAGNOSIS: Nausea; UTI (urinary tract infection) [facility] ED Note-Physicianon 11-24-19 ED Note-Physician Basic Information Time Seen: Erik Schwartz DO 11/24/2023 13:15 Chief Complaint nausea, diarrhea, lower abdominal pain and cramping that started 3 days ago. states has been more dizzy and weak lately. chance of . History of Present Illness 17 female presents emergency department with concerns for . Patient states that she had intercourse for the first time last Sunday 8 days ago. Since then she has been very concerned that she may be she does use control. She also states that she has been having some lower abdominal cramping perhaps some dysuria as well. She is not concerned for any STI and has had no discharge. No prior abdominal surgeries. No other obvious aggravating or alleviating factors she has had some associated nausea and diarrhea but no vomiting. No prior treatments at home. No other aggravating or relieving factors no other associated symptoms no other prior treatments or complaints. Family: Reviewed and noncontributory Social: lives at home Review of systems negative unless otherwise specified in the HPI. Physical Exam Vitals & Measurements T: 36.7 ?C(Oral) HR: 102(Peripheral) RR: 16 BP: 118/85 SpO2: 99% HT: 167 cm WT: 59 kg BMI: 21.16 General: The patient appears well and in no apparent distress. Patient is resting comfortably on cart. Skin: Warm, dry, no pallor noted. Head: Normocephalic, atraumatic Neck: No JVD Eye: PERRLA, EOMI ENT: Moist mucus membranes Cardiovascular: Regular rate normal peripheral perfusion Respiratory: No respiratory distress no accessory muscle use no obvious audible wheezing Chest Wall: no deformity Musculoskeletal: normal ROM, no deformity, no swelling GI: Soft no obvious distention. No rebound or rigidity. No guarding. No tenderness. : Exam deferred Neurological: A&O moves all extremities equal strength and symmetry Psychiatric: Cooperative and appropriate Medical Decision Making test is negative patient is treated here with Zofran able to tolerate p.o. challenge. Urinalysis is positive for infection. Patient will be started on Bactrim given Zofran as needed at home for nausea we did send off urine cultures as well as GC chlamydia cultures follow-up in the outpatient setting return to ER symptoms change or worsen she is comfortable with this plan. Assessment/Plan Nausea (R11.0: Nausea) UTI (urinary tract infection) (N39.0: Urinary tract infection, site not specified) Orders: ondansetron, 4 mg = 1 tab(s), Oral, q6hr, PRN Nausea, Take one tab by mouth every six hours as needed for nausea, # 10 tab(s), Refills(s) 0, Pharmacy: [id number], 167, cm, 11/24/23 12:49:00 EDT, Height/Length Dosing, 59, kg, 11/24/23 12:49:00 EDT, Weight D... ondansetron, 4 mg = 1 tab(s), Tab-Dis, Oral, Once, Stop date 11/24/23 13:23:00 EDT, STAT, Start date 11/24/23 13:23:00 EDT, 11/24/23 13:23:00 EDT sulfamethoxazole-trimethopri m, 1 tab(s), Oral, BID for 7 day(s), 14 tab(s), Refill(s) 0, Take one tab by mouth twice a day for seven days, [id number], 167, cm, 11/24/23 12:49:00 EDT, Height/Length Dosing, 59, kg, 11/24/23 12:49:00 EDT, Weight Dosing Chlam/GC/Trich,EM U Beta Hcg Qual UA with Cult Rflx Urine Culture Medications Administered Given Zofran ODT 4 mg Tab-Dis, 4 mg, Oral Disposition Plan Discharge Prescription List Prescriptions Bactrim D.S. 800 mg-160 mg Tab, 1 tab(s), Oral, BID Zofran 4 mg Tab, 4 mg= 1 tab(s), Oral, q6hr, PRN Follow-up With When Contact Information EUGENIO HOPE In 3 days [address], [place] [address]- Business (1) Additional Instructions: Problem List/Past Medical History Ongoing No qualifying data Historical No qualifying data Medications Inpatient Zofran ODT 4 mg Tab-Dis, 4 mg= 1 tab(s), Oral, Once Home No active home medications Allergies No Known Medication Allergies Social History Alcohol Substance Abuse Tobacco Never (less than 100 in lifetime) Tobacco Use:. Never Smokeless Tobacco Use:., 03/08/2023 Lab Results UA Spec Desc: Clean Catch (11/24/23 13:33:00) UA Color: Yellow (11/24/23 13:33:00) UA Clarity: Turbid Abnormal (11/24/23 13:33:00) UA Spec Grav: 1.034 (11/24/23 13:33:00) UA pH: 5.5 (11/24/23 13:33:00) UA Protein: Trace Abnormal (11/24/23 13:33:00) UA Glucose: Negat (11/24/23 13:33:00) UA Ketones: Negat (11/24/23 13:33:00) UA Bili: Negat (11/24/23 13:33:00) UA Blood: Negat (11/24/23 13:33:00) UA Nitrite: Negat (11/24/23 13:33:00) UA Urobilinogen: Negat (11/24/23 13:33:00) UA Leuk Est: 250 Ramy/uL Abnormal (11/24/23 13:33:00) UA RBC: 0-3 (11/24/23 13:33:00) UA Squam Epithelial: 5-8 Abnormal (11/24/23 13:33:00) UA WBC: 6-15 Abnormal (11/24/23 13:33:00) UA Mucous: 4+ Abnormal (11/24/23 13:33:00) U beta hCG Ql: Negative (11/24/23 13:33:00) Diagnostic Results No qualifying data available. EKG Results EC11/24/23: SINUS RHYTHM BORDERLINE RIGHT AXIS DEVIATION [QRS AXIS > 90] INCOMPLETE RI (more content not included)... [facility] Comment on above: Result Comment: Elec tronically Signed By: Erik Schwartz DO\.br\Date and Time Signed: 11/24/23 14:35 EDT ED Patient Education Noteon 11-24-2023 ED Patient Education Note [facility] ED Patient Summaryon 024 ED Patient Summary (Inserted Image. Alyson ble to display) [address] [address] Patient Discharge Instructions Person Information Name: ALLEGRA LOPEZ Age: 17 Years Arrival Date: 11/24/2023 12:21:37 Discharge Diagnosis: Nausea; UTI (urinary tract infection) Primary Care Physician: EUGENIO HOPE CNP Provider Information Primary Provider: Erik Schwartz DO [employer] Spec:None The exam and treatment you received in the Emergency Department were for an urgent problem and are not intended as complete care. It is important that you follow up with a doctor, nurse practitioner, or physician?s teachers assistant for ongoing care. If your symptoms become worse or you do not improve as expected and you are unable to reach your usual health care provider, you should return to the Emergency Department. We are available 24 hours a day. ALLEGRA LOPEZ has been given the following list of patient education materials, prescriptions and follow-up instructions: Follow-up Instructions: With: Address: When: EUGENIO HOPE [address] [place], [place] [address] [address] Business (1) In 3 days In the event that this physician does not participate in your insurance network, please consult with your insurance company to find a nearby participating provider. Patient Education Materials: A MESSAGE TO ALL PATIENTS REGARDING OPIOIDS PRESCRIPTION OPIOIDS: WHAT YOU NEED TO KNOW Prescription opioids can be used to help relieve rkhvrwzr-ds-qyppft pain and are often prescribed following a surgery or injury, or for certain health conditions. These medications can be an important part of the treatment but also come with serious risks. It is important to work with your healthcare provider to make sure you are getting the safest, most effective care. WHAT ARE THE RISKS AND SIDE EFFECTS OF OPIOID USE? Prescription opioids carry serious risks of addiction and overdose, especially with prolonged use. An opioid overdose, often marked by slowed breathing, can cause sudden . The use of prescription opioids can have a number of side effects as well, even when taken as directed: ? Tolerance?meaning you might need to take more of the medication for the same pain relief ? Physical dependence?meaning you have symptoms of withdrawal when a medication is stopped ? Increased sensitivity to pain ? Constipation ? Nausea, vomiting, and dry mouth ? Sleepiness and dizziness ? Confusion ? Depression ? Low levels of testosterone that can result in lower sex drive, energy, and strength ? Itching and sweating RISKS ARE GREATER WITH: ? History of drug misuse, substance use disorder, or overdose ? Mental health conditions (such as depression or anxiety) ? Sleep apnea ? Older age (65 years and older) ? Avoid alcohol while taking prescription opioids. Also, unless specifically advised by your health care provider, medications to avoid include: ? Benzodiazepines (such as Xanax or Valium) ? Muscle relaxants (such as Soma or Flexeril) ? Hypnotics (such as Ambien or Lunesta) ? Other prescription opioids KNOW YOUR OPTIONS Talk to your health care provider about ways to manage your pain that don?t involve prescription opioids. Some of these options may actually work better and have fewer risks and side effects. Options may include: ? Pain relievers such as acetaminophen, ibuprofen, and naproxen ? Some medication that are also used for depression or seizures ? Physical therapy and exercise ? Cognitive behavioral therapy, a psychological, goal-directed approach, in which patients learn how to modify physical, behavioral, and emotional triggers of pain and stress. IF YOU ARE PRESCRIBED OPIOIDS FOR PAIN: ? Never take opioids in greater amounts or more often than prescribed. ? Follow up with your primary health care provider. o Work together to create a plan on how to manage your pain. o Talk about ways to help manage your pain that don?t involve prescription opioids. o Talk about any and all concerns and side effects. ? Help prevent misuse and abuse o Never sell or share prescription opioids. o Never use another person?s prescription opioids. ? Store prescription opioids in a secure place and out of reach of others (this may include visitors, children, friends, and family). ? Safely dispose of unused prescription opioids: Find your community drug take-back program or your pharmacy mail-back program, or flush them down the toilet, following guidance from the Food and Drug Administration (www.fda.gov/Drugs/Resources ForYou). ? Visit www.cdc.gov/drugoverdose to learn about the risks of opioids abuse and overdose. ? If you believe you may be struggling with addiction, tell your health rn long term care and ask for guidance or call [facility]?S National Helpline at 8-283-288-ZTKM. o Source: [place] Department of Health and (more content not included)... [facility] SEROLOGYOrdered By: Susy Amaro on 11-24-2023 HCG.beta subunit (U) [Moles/Vol] Negative Normal [facility] [place] Man Sero U BetaHcg Qualon 11-24-2023 HCG.beta subunit (U) [Moles/Vol] Negative [facility] Comment on above: Performed By: #### 2 [id number] #### [facility] [address] [place] [address] UA with Cult Rflxon 11-24-19 24 Bilirubin Ql (U) Negative Normal Negative [facility] Comment on above: Performed By: #### 4 [id number] #### [facility] [address] [place] [address] Clarity (U) Turbid Abnormal Clear [facility] Comment on above: Performed By: #### 4 [id number] #### [facility] [address] [place] [address] Color (U) Yellow Normal Yellow [facility] Comment on above: Result Comment: Micr oscopic readings are only performed on those samples that meet specific criteria set forth by [facility]. Performed By: #### 4 [id number] #### [facility] [address] [place] [address] Epithelial cells.squamous Auto (Urine sed) [#/Area] 5-8 Abnormal 0-2 [facility] Comment on above: Performed By: #### 4 [id number] #### [facility] [address] [place] [address] Glucose Ql (U) Negative Normal Negative [facility] Comment on above: Performed By: #### 4 [id number] #### [facility] [address] [place] [address] Hemoglobin Auto test strip (U) [Mass/Vol] Negative Normal Negative [facility] Comment on above: Performed By: #### 4 [id number] #### [facility] [address] [place] [address] Ketones Auto test strip Ql (U) Negative Normal Negative [facility] Comment on above: Performed By: #### 4 [id number] #### [facility] [address] [place] [address] Leukocyte esterase Auto test strip Ql (U) 250 Ramy/uL Abnormal Negative [facility] Comment on above: Performed By: #### 4 [id number] #### [facility] [address] [place] [address] Mucus Auto Ql (U) 4+ CD:[id number] Abnormal Negative [facility] Comment on above: Performed By: #### 4 [id number] #### [facility] [address] [place] [address] Nitrite Auto test strip Ql (U) Negative Normal Negative [facility] Comment on above: Performed By: #### 4 [id number] #### [facility] [address] [place] [address] pH (U) 5.5 [pH] Invalid Interpretation Code 5.0-9.0 [facility] Comment on above: Performed By: #### 4 [id number] #### [facility] [address] [place] [address] Protein Ql (U) Trace Abnormal Negative [facility] Comment on above: Performed By: #### 4 [id number] #### [facility] [address] [place] [address] RBC Ql (U) 0-3 Normal 0-3 [facility] Comment on above: Performed By: #### 4 [id number] #### [facility] [address] [place] [address] Specific gravity (U) [Rel density] 1.034 Invalid Interpretation Code 1.005-1.030 [facility] Comment on above: Performed By: #### 4 [id number] #### [facility] [address] [place] [address] Urobilinogen (U) [Mass/Vol] Negative Normal Negative [facility] Comment on above: Performed By: #### 4 [id number] #### [facility] [address] [place] [address] WBC Auto (Urine sed) [#/Area] 6-15 Abnormal 0-5 [facility] Comment on above: Performed By: #### 4 [id number] #### [facility] [address] [place] [address] Type of Urine collection method Clean Catch Normal [facility] Comment on above: Performed By: #### 4 [id number] #### [facility] [address] [place] [id number] URINALYSISOrdered By: SYSTEM SYSTEM on 11-24-2023 Bilirubin Ql (U) Negative Normal Negativemg/ dL [facility] UA Auto SS Clarity (U) Turbid *ABN* (11/24/23 1:33 PM) Invalid Interpretation Code Clear [facility] UA Auto SS Color (U) Yellow 1 (11/24/23 1:33 PM) Normal Yellow [facility] UA Auto SS Comment on above: Interpretive Data: M icroscopic readings are only performed on those samples that meet specific criteria set forth by [facility]. Epithelial cells.squamous Auto (Urine sed) [#/Area] 5-8 graded/HPF Invalid Interpretation Code 0-2graded/H PF [facility] UA Auto SS Glucose Ql (U) Negative Normal Negativemg/ dL [facility] UA Auto SS Hemoglobin Auto test strip (U) [Mass/Vol] Negative Normal Negativemg/ dL [facility] UA Auto SS Ketones Auto test strip Ql (U) Negative Normal Negativemg/ dL [facility] UA Auto SS Leukocyte esterase Auto test strip Ql (U) 250 Ramy/uL Ramy/uL Invalid Interpretation Code NegativeLeu /uL [facility] UA Auto SS Mucus Auto Ql (U) 4+ graded/LPF Invalid Interpretation Code Negativegra ded/LPF [facility] UA Auto SS Nitrite Auto test strip Ql (U) Negative Normal Negativemg/ dL [facility] UA Auto SS pH (U) 5.5 *NA* (11/24/23 1:33 PM) Invalid Interpretation Code 5.0 - 9.0 [facility] UA Auto SS Protein Ql (U) Trace mg/dL Invalid Interpretation Code Negativemg/ dL [facility] UA Auto SS RBC Ql (U) 0-3 graded/HPF Normal 0-3graded/H PF [facility] UA Auto SS Specific gravity (U) [Rel density] 1.034 *NA* (11/24/23 1:33 PM) Invalid Interpretation Code 1.005 - 1.030 [facility] UA Auto SS Urobilinogen (U) [Mass/Vol] Negative Normal Negativemg/ dL [facility] UA Auto SS WBC Auto (Urine sed) [#/Area] 6-15 graded/HPF Invalid Interpretation Code 0-5graded/H PF [facility] UA Auto SS URINALYSISOrdered By: Erik boggs on 11-24-2023 UA Spec Desc Clean Catch (11/24/23 1:33 PM) Normal [facility] [place] UA Auto SS Work Phone: [employer] GENERIC ORDERon 024 TEST NAME [id number] DS DNA ANTIB BONNIE IGG BY IFA Normal [facility] Comment on above: Performed By: #### C 34, 37470-8, 27761-5, 1987-, FEPR, 2276- 4, 05192-0, ENAP, 76009-9 #### [facility] ([id number]) [address] [place] [address], [address] [place] [address] #### NAIFA #### [facility] ([id number]) [address] [place] [address], TEST RESULT SEE NOTE Normal [facility] Comment on above: Result Comment: NOTE Test name Result Flag Units RefIntvl Double-Stranded DNA (dsDNA) Ab IgG IFA <1:10 <1:10 INTERPRETIVE INFORMATION: Double-Stranded DNA (dsDNA) Antibody, IgG by IFA (using Crithidia luciliae) Positivity for anti-double stranded DNA (anti-dsDNA) IgG antibody is a diagnostic criterion of systemic lupus erythematosus (SLE). The presence of the anti-dsDNA IgG antibody is identified by IFA titer (Crithidia luciliae indirect fluorescent test [OLIVE]). OLIVE is highly specific for SLE with a sensitivity of 50-60 percent. Some patients with early or inactive SLE may be positive for anti-dsDNA IgG by LADY but negative by OLIVE. If the OLIVE result is negative but the patient has a positive LADY and clinical suspicion remains, consider antinuclear antibody (TYLOR) testing by IFA. Additional information and recommendations for testing may be found at [email or web address]. Performed By: [facility] [address] [place] [address] [place] Captain: Jerel Romo MD, PhD CLIA Number: [id number] Performed By: #### C 34, 41440-6, 15689-3, 1987-10, FEPR, 2276-4, 37097-2, ENAP, 71930-6 #### [facility] ([id number]) [address] [place] [address], [place] [address] #### NAIFA #### [facility] ([id number]) [address] [place] [address], Antinuclear AB, HE-p Substra te, (TYLOR by IFA)on 08-28-2023 TYLOR Pattern: Homogeneous Normal [facility] Comment on above: Result Comment: NOTE Test Performed by: [facility] [address] [place] [address] Biblical Languages Professor: Bowen Hastings M.D. Ph.D.; CLIA# [id number] Performed By: #### C 34, 70773-2, 97121-5, 1987-10, FEPR, 2276-4, 25690-7, ENAP, 20442-0 #### [facility] ([id number]) [address] [place] [address], [address] [place] [address] #### NAIFA #### [facility] ([id number]) [address] [place] [address], TYLOR Titer: 1:320 Normal [facility] Comment on above: Performed By: #### C 34, 45008-8, 76030-0, 1987-10, FEPR, 2276- 4, 67509-7, ENAP, 63519-6 #### [facility] ([id number]) [address], [address] [place] [address] #### NAIFA #### [facility] ([id number]) [address] [place] [address], Antinuclear Ab, HEp-2 Substrate, S Positive Abnormal <1:80 (Negative) [facility] Comment on above: Result Comment: NOTE ADDITIONAL INFORMATION Method: Immunofluorescence using HEp-2 cellular substrate. Performed By: #### C 34, 99689-1, 63514-5, 1987-10, FEPR, 6-4, 83440-3, ENAP, 46428-3 #### [facility] ([id number]) [address], [address] [place] [address] #### NAIFA #### [facility] ([id number]) [address] [place] [address], C REACTIVE PROTEINon 08-28- 024 CRP [Mass/Vol] mg/L Normal 0.000-0.744 [facility] Comment on above: Performed By: #### C 34, 63945-0, 39293-6, 1987-10, FEPR, 2276- 4, 86231-8, ENAP, 16645-9 #### [facility] ([id number]) [address], [address] [place] [address] #### NAIFA #### [facility] ([id number]) [address] [place] [address], C-reactive proteinon 024 CRP [Mass/Vol] mg/dL 0.000 - 0.744 mg/dL [facility] CCP Abon 08-28-2023 Cyclic citrullinated peptide IgG Qn U/ML NINF - 3.0 U/ML [facility] Comment on above: Interpretation-------- <3 Negative >=3 Positive COMPLEMENT PROFILEon 024 COMPLEMENT C3 121 mg/dL Normal 86-184 [facility] Comment on above: Performed By: #### C 34, 05059-1, 37340-0, 1987-10, FEPR, 2276- 4, 95103-1, ENAP, 56556-2 #### [facility] ([id number]) [address] [place] [address], [address] [address] #### NAIFA #### [facility] ([id number]) [address] [place] [address], COMPLEMENT C4 10 mg/dL Low 16-47 [facility] Comment on above: Performed By: #### C 34, 36489-3, 65107-6, 1987-10, FEPR, 2276- 4, 91007-4, ENAP, 73116-1 #### [facility] ([id number]) [address] [place] [address], [address] [place] [address] #### NAIFA #### [facility] ([id number]) [address] [place] [address], CRP [Mass/Vol]on 08-28-2023 [facility] Complement profile (C3 AND C 4)on 08-28-2023 Complement C3 [Mass/Vol] 121 mg/dL 86 - 184 mg/dL [facility] Complement C4 [Mass/Vol] 10 mg/dL Low 16 - 47 mg/dL [facility] Interpretation and review of laboratory results Abnormal [facility] Cyclic citrullinated peptide IgG Qnon 08-28-2023 [facility] CLARY PANELon 02-27-2024 ANTI-JONES AB IGG <0.2 Normal <1.0 [facility] Comment on above: Performed By: #### C 34, 44764-6, 02309-2, 1987-10, FEPR, 2276- 4, 74270-1, ENAP, 46450-5 #### [facility] ([id number]) [address] [facility], [address] [place] [address] #### NAIFA #### [facility] ([id number]) [address] [facility], JO1 ANTIBODY <0.2 Normal <1.0 [facility] Comment on above: Performed By: #### C 34, 43449-0, 88302-4, 1987-10, FEPR, 6- 4, 99678-5, ENAP, 47619-2 #### [facility] ([id number]) [address] [place] [address], [address] [place] [address] #### NAIFA #### [facility] ([id number]) [address] [place] [address], ELECTRIC REPAIR SUPERVISOR ANTIBODY IGG 0.7 AI Normal <1.0 [facility] Comment on above: Performed By: #### C 34, 36193-7, 24952-0, 1987-10, FEPR, 6- 4, 73222-6, ENAP, 44663-8 #### [facility] ([id number]) [address] [facility], [address] [place] [address] #### NAIFA #### [facility] ([id number]) [address] [facility], SCL 70 ANTIBODY <0.2 Normal <1.0 [facility] Comment on above: Performed By: #### C 34, 84975-3, 23567-6, 1987-10, FEPR, 2276- 4, 20125-9, ENAP, 70356-4 #### [facility] ([id number]) [address] [place] [address], [address] [place] [address] #### NAIFA #### [facility] ([id number]) [address] [place] [address], SSA ANTIBODY <0.2 Normal <1.0 [facility] Comment on above: Performed By: #### C 34, 48837-2, 02530-7, 1987-10, FEPR, 2276- 4, 56329-4, ENAP, 39441-5 #### [facility] ([id number]) [address] [place] [address], [address] [place] [address] #### NAIFA #### [facility] ([id number]) [address] [place] [address], SSB ANTIBODY <0.2 Normal <1.0 [facility] Comment on above: Performed By: #### C 34, 99897-6, 62015-0, 1987-10, FEPR, 2276- 4, 86271-2, ENAP, 80616-6 #### [facility] ([id number]) [address] [place] [address], [facility] [address] [place] [address] #### NAIFA #### [facility] ([id number]) [address] [place] [address] Panelon 08-28-2023 Anileridine Ql (U) [facility] Ribonucleoprotein extractable nuclear IgG Qn (S) 0.7 [facility] SCL-70 extractable nuclear Ab Ql (S) [facility] Sjogrens syndrome-A extractable nuclear Ab Qn (S) [facility] Sjogrens syndrome-B extractable nuclear IgG Qn (S) [facility] Jones extractable nuclear IgG Qn (S) [facility] ESR Photometric method (Bld) [Velocity]on 08-28-2023 [facility] ESR, ERYTHROCYTE SEDIMENTATION RATE 9 mm/h Normal 0-20 [facility] Comment on above: Performed By: #### C 34, 89370-6, 30348-0, 1987-10, FEPR, 2276- 4, 93918-5, ENAP, 09808-7 #### [facility] ([id number]) [address] [place] [address], [address] [place] [address] #### NAIFA #### [facility] ([id number]) [address] [place] [address], Erythrocyte Sedimentation Ra te (ESR)on 08-28-2023 ESR Photometric method (Bld) [Velocity] 9 mm/h 0 - 20 mm/h [facility] FERRITINon 08-28-2023 Ferritin [Mass/Vol] 6 ng/mL Low 11-307 [facility] Comment on above: Performed By: #### C 34, 52602-9, 79067-2, 1987-10, FEPR, 2276- 4, 62761-1, ENAP, 09403-8 #### [facility] ([id number]) [address] [place] [address], [address] [place] [address] #### NAIFA #### [facility] ([id number]) [address] [place] [address], Ferritinon 08-28-2023 Ferritin [Mass/Vol] 6 ng/mL Low 11 - 307 ng/mL [facility] IRON PROFILEon 08-28-2023 Iron [Mass/Vol] 60 ug/dL Normal 50-170 [facility] Comment on above: Performed By: #### C 34, 27558-2, 30653-5, 1987-10, FEPR, 2276- 4, 60080-0, ENAP, 46484-7 #### [facility] ([id number]) [address] [place] [address], [address] [place], [place] [address] #### NAIFA #### [facility] ([id number]) [address] [place] [address], IRON BINDING 531 ug/dL High 250-425 [facility] Comment on above: Performed By: #### C 34, 86848-7, 84716-6, 1987-10, FEPR, 2276- 4, 47558-1, ENAP, 80532-7 #### [facility] ([id number]) [address] [facility], [address] [place] [address] #### NAIFA #### [facility] ([id number]) [address] [facility], IRON SATURATION 11 % SATURATION Low 15-50 [facility] Comment on above: Performed By: #### C 34, 49186-7, 75253-9, 1987-10, FEPR, 2276- 4, 06459-7, ENAP, 48062-7 #### [facility] ([id number]) [address] [place] [address] #### NAIFA #### [facility] ([id number]) [facility], Iron and TIBCon 08-28-2023 Iron [Mass/Vol] 60 ug/dL 50 - 170 ug/dL [facility] Iron binding capacity [Mass/Vol] 531 ug/dL High 250 - 425 ug/dL [facility] Iron saturation [Mass fraction] 11 Low [facility] Laboratory comment Rusty (Repo rt)on 08-28-2023 [facility] UNLISTED LAB TEST Sent to reference lab Normal [facility] Comment on above: Performed By: #### C 34, 27346-5, 14622-1, 1987-10, FEPR, 2276- 4, 07499-5, ENAP, 89974-9 #### [facility] ([id number]) [facility], [facility] [address] [place] [address] #### NAIFA #### [facility] ([id number]) [address] [facility], No Panel Informationon 08-28 Interpretation and review of laboratory results Abnormal [facility] Rheumatoid factoron 08-28-19 24 Rheumatoid factor [facility]helometry Qn (S[facility]umatoid factor Nephelomet ry Qn (S)on 08-28-2023 RHEUMATOID FACTOR <10 Normal <20 [facility] Comment on above: Performed By: #### C 34, 21248-3, 19840-7, 1987-, FEPR, 2276- 4, 33647-0, ENAP, 10137-2 #### [facility] ([id number]) [address] [place] [address], [address] [place] [address] #### NAIFA #### [facility] ([id number]) [address] [facility], [facility] Test ds-dna ant ibody by obey ([facility])on 08-28-2023 Laboratory comment Rusty (Report) Sent to reference lab [facility] Vitamin D 25 hydroxyon 08-28 Vitamin D+Metabolites [Mass/Vol] 21.3 ng/mL Low 30 - 100 ng/mL [facility] Comment on above: Vitamin D status 25 [place] Vitamin D Deficiency <20 ng/mL Insufficiency 20-29 ng/mL Sufficiency 30-100 ng/mL Toxicity >100 ng/mL NOTE: A pediatric reference range has not been established by the non destructive testing specialist of this kit. The [employer] recommends a Vitamin D level of = or >20ng/mL in infants and children. Vitamin D+Metabolites [Mass/ Vol]on 08-28-2023 Interpretation and review of laboratory results Abnormal [facility] VITAMIN D 25 HYD TOT 21.3 ng/mL Low 30-100 [facility] Comment on above: Result Comment: Vitamin D status 25 [place] Vitamin D Deficiency <20 ng/mL Insufficiency 20-29 ng/mL Sufficiency 30-100 ng/mL Toxicity >100 ng/mL NOTE: A pediatric reference range has not been established by the non destructive testing specialist of this kit. The [place] recommends a Vitamin D level of = or >20ng/mL in infants and children. Performed By: #### C 34, 26505-3, 04608-3, 1988-5, FEPR, 2276-4, 99600-5, ENAP, 18198-1 #### [facility] ([id number]) [address] [place] [address], [address] [place] [address] #### NAIFA #### [facility] ([id number]) [address] [place] [address] TYLOR Martínez Individual Abson 024 Centromere protein B Ab Qn (S) 3.8 AI High 0.0-0.9 [facility] Comment on above: Performed By: #### 2 357037, 50867822, 07021293, 75032418, 17244285 ####[facility] [address] [place] [address] Chromatin Ab Qn 0.2 AI Invalid Interpretation Code 0.0-0.9 [facility] Comment on above: Performed By: #### 2 643040, 22478954, 86606645, 25457538, 27486466 ####[facility] [address] [place] [address] DNA double strand Ab Qn (S) 1 International_Unit/mL Invalid Interpretation Code 0-9 [facility] Comment on above: Result Comment: Nega tive <5 Equivocal 5 - 9 Positive >9 Performed By: #### 2 313904, 71880582, 15092618, 70050264, 77743058 ####[facility] [address] [place] [address] Shari-1 extractable nuclear Ab Qn (S) <0.2 Invalid Interpretation Code 0.0-0.9 [facility] Comment on above: Performed By: #### 2 938243, 83605871, 43591870, 75962293, 95914396 ####[facility] [address] [place] [address] Ribonucleoprotein extractable nuclear Ab Qn (S) 0.9 AI Invalid Interpretation Code 0.0-0.9 [facility] Comment on above: Performed By: #### 2 204935, 19323965, 43262688, 50949493, 45373689 ####[place] [address] [place] [address] SCL-70 extractable nuclear Ab Qn (S) <0.2 Invalid Interpretation Code 0.0-0.9 [facility] Comment on above: Performed By: #### 2 009978, 28762310, 89500105, 22361867, 52118157 ####[place] [address] See below: Comment Invalid Interpretation Code [facility] Comment on above: Result Comment: Auto antibody Disease Association Condition Frequency --------- Antinuclear Antibody, SLE, mixed connective Direct (TYLOR-D) tissue diseases --------- dsDNA SLE 40 - 60% --------- Chromatin Drug induced SLE 90% SLE 48 - 97% --------- SSA (Ro) SLE 25 - 35% Sjogren's Syndrome 40 - 70% Lupus 100% --------- SSB (La) SLE 10% Sjogren's Syndrome 30% --------- Sm (anti-Jones) SLE 15 - 30% --------- ELECTRIC REPAIR SUPERVISOR Mixed Connective Tissue Disease 95% (U1 nRNP, SLE 30 - 50% anti-ribonucleoprotein) Polymyositis and/or Dermatomyositis 20% --------- Scl-70 (antiDNA Scleroderma (diffuse) 20 - 35% topoisomerase) Crest 13% --------- Shari-1 Polymyositis and/or Dermatomyositis 20 - 40% --------- Centromere B Scleroderma - Crest variant 80% Performed at: [facility] [address] [place], [place] [id number] PhD Christopher Muñiz Performed By: #### 2 876851, 97369165, 75123075, 15309564, 57728838 ####[address] [address] Sjogrens syndrome-A extractable nuclear Ab Qn (S) <0.2 Invalid Interpretation Code 0.0-0.9 [facility] Comment on above: Performed By: #### 2 301805, 24713649, 55481602, 80800311, 73556862 ####[address] [address] Sjogrens syndrome-B extractable nuclear Ab Qn (S) <0.2 Invalid Interpretation Code 0.0-0.9 [facility] Comment on above: Performed By: #### 2 041256, 26242695, 08742227, 29143069, 87968981 ####[address] [address] Jones extractable nuclear Ab Qn (S) <0.2 Invalid Interpretation Code 0.0-0.9 [facility] Comment on above: Performed By: #### 2 775064, 14646476, 34242775, 65695576, 16873384 ####[address] [address] TYLOR w/Reflex if POSon 2023 Nuclear Ab Ql (S) Positive Abnormal Negative [facility] Comment on above: Result Comment: Perf ormed at: [facility] [address] [place], [place] [id number] PhD Christopher Muñiz Performed By: #### 2 186834, 62881018, 05243193, 67830819, 00941636 ####[address] [address] RF Quanton 07-20-2023 Rheumatoid factor Qn [IU]/mL Invalid Interpretation Code <14.0 [facility] Comment on above: Result Comment: Perf ormed at: [facility] [address] [place], [place] [id number] PhD Christopher Muñiz Performed By: #### 2 436134, 87864443, 80896471, 34349514, 03651763 ####[facility] [address] [place] [address] CHEMISTRYOrdered By: SYSTEM SYSTEM on 07-19-2023 Albumin [Mass/Vol] 4.6 g/dL Normal 3.3 - 5.0 gm/dL Remisol Chem Albumin/Globulin [Mass ratio] 1.5 {ratio} Normal 1.1 - 2.2 [facility] Alk Phos 57 [iU]/d Normal 21 - 98 Int._Unit/L [facility] ALT 8 [iU]/d Normal 6 - 46 Int._Unit/L [facility] Anion gap [Moles/Vol] 12 mmol/L Normal 6 - 16 mEq/L [facility] AST 15 [iU]/d Normal 5 - 43 Int._Unit/L [facility] Bili Total 0.7 mg/dL Normal 0.0 - 1.1 mg/dL [facility] Calcium [Mass/Vol] 9.5 mg/dL Normal 8.9 - 11. 1 mg/dL [facility] Chloride [Moles/Vol] 104 mmol/L Normal 101 - 111 mmol/L [facility] CO2 [Moles/Vol] 26 mmol/L Normal 21 - 31 mmol/L [facility] Creatinine [Mass/Vol] 0.9 mg/dL Normal 0.5 - 1.3 mg/dL [facility] eGFR 94 mL/min/1.73 m2 Normal >=59mL/min / 1.73 m2 [facility] Globulin (S) [Mass/Vol] 3.1 g/dL Normal 1.4 - 4.0 gm/dL [facility] Glucose [Mass/Vol] 86 mg/dL Normal 55 - 199 mg/dL [facility] Potassium [Moles/Vol] 3.4 mmol/L Low 3.5 - 5.3 mmol/L [facility] Protein [Mass/Vol] 7.7 g/dL Normal 6.0 - 7.8 gm/dL [facility] Sodium [Moles/Vol] 139 mmol/L Normal 135 - 145 mmol/L [facility] Urea nitrogen [Mass/Vol] 11 mg/dL Normal 5 - 21 mg/dL [facility] Urea nitrogen/Creatinine [Mass ratio] 12 mg/mg Normal 10 - 20 [facility] CMPon 07-19-2023 Albumin [Mass/Vol] 4.6 g/dL Normal 3.3-5.0 [facility] Comment on above: Performed By: #### 2 568470, 51347517, 85218322, 04931177, 02812477 ####[facility] [address] [place] [address] Albumin/Globulin [Mass ratio] 1.5 {ratio} Normal 1.1-2.2 [facility] Comment on above: Performed By: #### 2 126635, 26354834, 80221016, 37474985, 15879328 ####[facility] [address] [place] [address] Alk Phos 57 Int._Unit/L Normal 21-98 [facility] Comment on above: Performed By: #### 2 890585, 00440843, 32783010, 60486608, 24260055 ####[facility] [address] [place] [address] ALT 8 Int._Unit/L Normal 6-46 [facility] Comment on above: Performed By: #### 2 361585, 42924956, 66948747, 76439641, 06373084 ####[facility] [address] [place] [address] Anion gap [Moles/Vol] 12 mmol/L Normal 6-16 [facility] Comment on above: Performed By: #### 2 441898, 71783463, 59779050, 39365973, 94847755 ####[facility] [address] [place] [address] AST 15 Int._Unit/L Normal 5-43 [facility] Comment on above: Performed By: #### 2 452957, 69719051, 79038383, 56070410, 06386821 ####[facility] [address] [place] [address] Bili Total 0.7 mg/dL Normal 0.0-1.1 [facility] Comment on above: Performed By: #### 2 130114, 22232539, 07805309, 78823792, 00897531 ####[facility] [address] [place] [address] BUN/Creat Ratio 12 No Units Normal 10-20 [facility] Comment on above: Performed By: #### 2 624103, 48684629, 42146741, 74678720, 27710462 ####[facility] [address] [place] [address] Calcium [Mass/Vol] 9.5 mg/dL Normal 8.9-11.1 [facility] Comment on above: Performed By: #### 2 774823, 77556784, 25436733, 60315455, 55209468 ####[facility] [address] [place] [address] Chloride [Moles/Vol] 104 mmol/L Normal 101-111 [facility] Comment on above: Performed By: #### 2 627426, 53016062, 27048661, 41986075, 77149105 ####[facility] [address] [place] [address] CO2 [Moles/Vol] 26 mmol/L Normal 21-31 [facility] Comment on above: Performed By: #### 2 625203, 05220651, 26899934, 71325424, 79911610 ####[facility] [address] [place] [address] Creatinine [Mass/Vol] 0.9 mg/dL Normal 0.5-1.3 [facility] Comment on above: Performed By: #### 2 393835, 73292603, 18796189, 82571579, 23595088 ####[facility] [address] [place] [address] Globulin (S) [Mass/Vol] 3.1 g/dL Normal 1.4-4.0 [facility] Comment on above: Performed By: #### 2 290796, 72755197, 77245730, 80753905, 58210226 ####[facility] [address] [place] [address] Glucose [Mass/Vol] 86 mg/dL Normal 55-199 [facility] Comment on above: Performed By: #### 2 771107, 62511239, 85750800, 39706824, 03438562 ####[facility] [address] [place] [address] Potassium [Moles/Vol] 3.4 mmol/L Low 3.5-5.3 [facility] Comment on above: Performed By: #### 2 784573, 67065055, 86985479, 71040699, 34936152 ####[facility] [address] [place] [address] Protein [Mass/Vol] 7.7 g/dL Normal 6.0-7.8 [facility] Comment on above: Performed By: #### 2 670615, 55241336, 01012919, 19777154, 77461607 ####[facility] [address] [place] [address] Sodium [Moles/Vol] 139 mmol/L Normal 135-145 [facility] Comment on above: Performed By: #### 2 291422, 18873907, 93362494, 64865945, 76053305 ####[facility] [address] [place] [address] Urea nitrogen [Mass/Vol] 11 mg/dL Normal 5-21 [facility] Comment on above: Performed By: #### 2 886291, 54715179, 39845366, 51676188, 41145922 ####[facility] [address] [place] [address] Consent for Treatmenton 07-02 Consent for Treatment [id number]#[id number] Normal [facility] Physician Orderon 07-19-2023 Physician Order [id number]#[id number] Normal [facility] XR Shoulder Complete Lefton 07-19-2023 XR Shoulder Complete Left Exam Date/Time: 07/19/2023 10:42 EST Reason for Exam: M25.512 pain in left shoulder Report IMPRESSION: NO ACUTE OSSEOUS ABNORMALITY. EXAM: XR Shoulder Complete Left HISTORY: Shoulder pain and clicking. COMPARISON: None available TECHNIQUE: AP internal, external rotation views , axillary view, and a Y view of the shoulder obtained. FINDINGS: No acute osseous abnormality. The acromioclavicular joint is intact. Soft tissues are within normal limits. Ordering Provider: , FINAL REPORT Dictated: 07/19/2023 1:11 pm Murphy Swanson DO Signed (Electronic Signature): 07/19/2023 1:11 pm Signed by: Murphy Swanson DO Transcribed by: BALBINA Technologist: AJIT Technical Comments Radiation Dose: Ka,r in mGy = na DAP = na [facility] eGFRon 07-19-2023 eGFR 94 mL/min/1.73 m2 Normal >=59 [facility] Comment on above: Order Comment: Order added by Discern Expert. Performed By: #### 2 310102, 10039890, 23698634, 04834793, 42777988 ####[facility] [address] [place] [address] ED Note-Physicianon 03-30-20 ED Note-Physician Basic Information Time Seen: Jez Fabian PA-C 03/08/2023 18:23 Chief Complaint pt reports to ed from [facility] after making SI comments stating she wishes she was never born and it would be better if she was gone. pt takes latuda and lexapro daily. History of Present Illness 17-year-old female comes to the ED for psychiatric evaluation. [facility] evaluation of suicidal comments. The patient states that she made comments about how she was she was never born but does not actually feel suicidal. Denies any attempts at self-harm. Denies any drug or alcohol use. Denies any medical complaints. She is cooperative. Review of Systems A 10 point review of systems is negative except as noted above. Medical and Surgical History: Reviewed and noted Social history: Presents from homeless prison Tobacco: Denies Physical Exam Vitals & Measurements T: 36.9 ?C(Oral) HR: 100(Peripheral) RR: 14 BP: 116/70 SpO2: 99% HT: 167 cm WT: 51 kg BMI: 18.29 Nurses notes and vital signs reviewed and patient is not hypoxic. General: Awake and alert Skin: Warm, dry. Head: Atraumatic. Neck: No JVD. Eye: Normal conjunctiva. Ears, Nose, Mouth, and Throat: Moist mucous membranes. Cardiovascular: Strong distal pulses. Chest wall: Respiratory: Respirations are nonlabored. Back: Normal range of motion. Musculoskeletal: Normal ROM with no gross deformity. Gastrointestinal: Urological: Neurological: Awake and alert. No focal deficits. Follows commands. Psychiatric: Cooperative. Somewhat depressed affect. Denies any suicidal thoughts currently Medical Decision Making Patient presents for evaluation of suicidal comments. She is calm and cooperative on exam. Work-up is initiated and case is discussed with the oncoming physician for follow-up and disposition. The patient presented with suicidal comments. She denies any suicidal ideation to me. The patient was evaluated by P and the decision for safety plan was made. She will follow-up with P as outpatient. The patient feels comfortable with safety plan. She is instructed to return to the emergency room if her thoughts of hurting yourself recur or any new symptoms. Assessment/Plan 1. Suicide ideation (R45.851: Suicidal ideations) Orders: CBC w/ Auto Diff Communication Order Comprehensive Metabolic Panel Consult to Mental Health Drug Screen Urine ECG 12 Lead Adult Ethanol Level Disposition Plan Patient Discharge Condition Stable Discharge Disposition Discharged home Discharge Prescription List Prescriptions No active prescription medications Follow-up No qualifying data available Problem List/Past Medical History Ongoing No qualifying data Historical No qualifying data Medications Inpatient No active inpatient medications Home No active home medications Allergies No Known Medication Allergies Lab Results No qualifying data available. Diagnostic Results No qualifying data available. Patient was treated and evaluated by the Physician Set Rider. The attending physician was in the Emergency Department at all times and supervised care. The case was discussed with the attending physician and diagnostics were reviewed as needed. Normal [facility] Comment on above: Result Comment: Elec tronically Signed By: Sd GARIBAY, Clayton\.br\Date and Time Signed: 03/30/23 20:40 EDT Auto Diffon 03-19-2023 Basophils/100 WBC (Bld) 0.6 % Normal 0.0-2.0 [facility] Comment on above: Order Comment: Order Added by Discern Expert. Performed By: #### 1 1034925, 8674421, 611336425, 8971255, 63027354, 6774111, 5693378 ####[facility] [address] [place] [address] Basophils/Leukocyte s Auto (Bld) [Pure # fraction] 0.0 E9/L Normal 0.0-0.2 [facility] Comment on above: Order Comment: Order Added by Discern Expert. Performed By: #### 1 8646747, 9217007, 390990354, 8743780, 74994603, 0446348, 2162553 ####[facility] [address] [place] [address] Eosinophils/100 WBC (Bld) 2.2 % Normal 0.0-8.0 [facility] Comment on above: Order Comment: Order Added by Discern Expert. Performed By: #### 1 0354430, 0720101, 971048610, 9378380, 60311176, 9734619, 9314076 ####[facility] [address] [place] [address] Eosinophils/Leukocy caitlyn Auto (Bld) [Pure # fraction] 0.1 E9/L Normal 0.0-0.5 [facility] Comment on above: Order Comment: Order Added by Discern Expert. Performed By: #### 1 0491692, 0731009, 408566245, 7751744, 69981389, 5218557, 5781023 ####[facility] [address] [place] [address] Lymphocytes/100 WBC (Bld) 27.5 % Normal 14.0-50.0 [facility] Comment on above: Order Comment: Order Added by Discern Expert. Performed By: #### 1 5248391, 6127208, 359300116, 6317002, 44490357, 2725345, 5861716 ####[address] [place] [address] Lymphocytes/Leukocy caitlyn Auto (Bld) [Pure # fraction] 1.5 E9/L Normal 1.0-4.0 [facility] Comment on above: Order Comment: Order Added by Discern Expert. Performed By: #### 1 3771919, 7830593, 657234442, 8261165, 18094424, 8560663, 4521905 ####[address] [place] [address] Monocytes/100 WBC (Bld) 6.9 % Normal 4.0-14.0 [facility] Comment on above: Order Comment: Order Added by Discern Expert. Performed By: #### 1 7268159, 8272563, 816330213, 0038550, 23199757, 1986739, 8550491 ####[address] [address] Monocytes/Leukocyte s Auto (Bld) [Pure # fraction] 0.4 E9/L Normal 0.2-1.0 [facility] Comment on above: Order Comment: Order Added by Discern Expert. Performed By: #### 1 9405375, 7989734, 112375363, 4406641, 30088402, 7607556, 2040235 ####[address] [place] [address] Neutrophils/100 WBC (Bld) 62.8 % Normal 36.0-75.0 [facility] Comment on above: Order Comment: Order Added by Discern Expert. Performed By: #### 1 4972089, 5015312, 859326703, 9664921, 65945897, 1830789, 1864660 ####[address] [place] [address] Neutrophils/Leukocy caitlyn Auto (Bld) [Pure # fraction] 3.5 E9/L Normal 2.0-7.5 [facility] Comment on above: Order Comment: Order Added by Discern Expert. Performed By: #### 1 5594687, 8932646, 462081230, 5037458, 10525985, 1469653, 8128213 ####[facility] [address] [place] [address] CBC w/ Auto Diffon 3 Erythrocyte distribution width (RBC) [Ratio] 13.4 % Normal 10.9-14.2 [facility] Comment on above: Performed By: #### 1 3012740, 4274732, 222253310, 7876265, 45306282, 9897284, 0064298 ####[address] [place] [address] Hematocrit (Bld) [Volume fraction] 39.4 % Normal 34.0-46.0 [facility] Comment on above: Performed By: #### 1 3465023, 2083293, 646779949, 6705049, 27853453, 9944512, 8176171 ####[address] [place] [address] Hemoglobin (Bld) [Mass/Vol] 13.3 g/dL Normal 12.0-16.0 [facility] Comment on above: Performed By: #### 1 0007709, 0951486, 407452633, 3624880, 90839107, 0603844, 5743945 ####[facility] [address] [place] [address] MCH (RBC) [Entitic mass] 28.4 pg Normal 27.0-34.0 [facility] Comment on above: Performed By: #### 1 9502471, 5315751, 236453118, 6361672, 51489722, 0830466, 5650717 ####[facility] [address] [place] [address] MCHC (RBC) [Mass/Vol] 33.8 g/dL Normal 31.4-36.0 [facility] Comment on above: Performed By: #### 1 2577929, 6552490, 413383413, 5811365, 67247849, 8440081, 9729413 ####[address] [place] [address] MCV (RBC) [Entitic vol] 84.2 fL Normal 80.0-100.0 [facility] Comment on above: Performed By: #### 1 3372461, 5922165, 470075203, 4514385, 81002327, 7428153, 2665879 ####[address] [place] [address] Platelet mean volume (Bld) [Entitic vol] 8.9 fL Normal 6.4-10.8 [facility] Comment on above: Performed By: #### 1 6982267, 6773995, 520487397, 5113892, 37942812, 4834980, 4166733 ####[place] [address] Platelets (Bld) [#/Vol] 244.0 E9/L Normal 150.0-500.0 [facility] Comment on above: Performed By: #### 1 7111314, 1566360, 638571379, 0667861, 86122082, 7179078, 8489800 ####[address] [place] [address] RBC (Bld) [#/Vol] 4.7 E12/L Normal 4.3-5.9 [facility] Comment on above: Performed By: #### 1 8288273, 2516597, 049169144, 9914343, 21949664, 4713808, 7491279 ####[address] [place] [address] WBC corrected for nucl RBC Auto (Bld) [#/Vol] 5.5 E9/L Normal 4.0-11.0 [facility] Comment on above: Performed By: #### 1 7126808, 3517924, 849667511, 3000841, 27815809, 3692814, 5713219 ####[facility] [address] [place] [address] CHEMISTRYOrdered By: Cindy high on 03-19-2023 25-hydroxyvitamin D3 [Mass/Vol] 35.5 ng/mL Normal 30.0 - 100.0 ng/mL [facility] Remisol Albumin [Mass/Vol] 4.7 g/dL Normal 3.3 - 5.0 gm/dL [facility] Remisol Albumin/Globulin [Mass ratio] 1.5 {ratio} Normal 1.1 - 2.2 [facility] Remisol ALP [Catalytic activity/Vol] 54 [iU]/d Normal 21 - 98 Int._Unit/L [facility] Remisol ALT No additional P-5'-P [Catalytic activity/Vol] 12 [iU]/d Normal 6 - 46 Int._Unit/L [facility] Remisol Anion gap [Moles/Vol] 11 mmol/L Normal 6 - 16 mEq/L [facility] Remisol AST [Catalytic activity/Vol] 20 [iU]/d Normal 5 - 43 Int._Unit/L [facility] Bilirubin [Mass/Vol] 1.1 mg/dL Normal 0.0 - 1.1 mg/dL [facility] Calcium [Mass/Vol] 9.4 mg/dL Normal 8.9 - 11. 1 mg/dL [facility] Chloride [Moles/Vol] 106 mmol/L Normal 101 - 111 mmol/L [facility] CO2 [Moles/Vol] 24 mmol/L Normal 21 - 31 mmol/L [facility]isol Creatinine [Mass/Vol] 0.8 mg/dL Normal 0.5 - 1.3 mg/dL [facility] Remisol Globulin (S) [Mass/Vol] 3.2 g/dL Normal 1.4 - 4.0 gm/dL [facility] Glucose [Mass/Vol] 82 mg/dL Normal 55 - 199 mg/dL [facility] Remisol Potassium [Moles/Vol] 3.8 mmol/L Normal 3.5 - 5.3 mmol/L [facility] Protein [Mass/Vol] 7.9 g/dL High 6.0 - 7.8 gm/dL [facility] Sodium [Moles/Vol] 137 mmol/L Normal 135 - 145 mmol/L [facility] T4 [Mass/Vol] 6.6 ug/dL Normal 4.6 - 9.1 mcg/dL [facility] TSH Qn 5.77 m[IU]/L High 0.34 - 5.60 mcIU/mL [facility] Urea nitrogen [Mass/Vol] 14 mg/dL Normal 5 - 21 mg/dL [facility] Urea nitrogen/Creatinine [Mass ratio] 18 mg/mg Normal 10 - 20 [facility] [place] Remisol CHEMISTRYOrdered By: SYSTEM SYSTEM on 03-19-2023 Cobalamin (Vitamin B12) [Mass/Vol] 499 pg/mL Normal 50 - 1500 pg/mL [facility] [place] Remisol GFR/1.73 sq M.predicted among non-blacks MDRD (S/P/Bld) [Vol rate/Area] 109 mL/min/1.73 m2 Normal >=59mL/min/ 1.73 m2 [facility] [place] [place] Chem S CMPon 03-19-2023 Albumin [Mass/Vol] 4.7 g/dL Normal 3.3-5.0 [facility] Comment on above: Performed By: #### 1 6982772, 7250121, 793125581, 7321187, 40108147, 3715921, 2885735 ####[facility] [address] [place] [address] Albumin/Globulin (S) [Mass conc ratio] 1.5 Normal 1.1-2.2 [facility] Comment on above: Performed By: #### 1 1564610, 8897171, 446052870, 4362539, 69792177, 5558545, 8307192 ####[facility] [address] [place] [address] ALP [Catalytic activity/Vol] 54 Int._Unit/L Normal 21-98 [facility] Comment on above: Performed By: #### 1 4455070, 2545693, 182680379, 9028364, 32881249, 3791123, 7785658 ####[facility] [address] [place] [address] ALT No additional P-5'-P [Catalytic activity/Vol] 12 Int._Unit/L Normal 6-46 [facility] Comment on above: Performed By: #### 1 7187240, 1820044, 627178589, 0762052, 02177132, 4526456, 9384290 ####[facility] [address] [place] [address] Anion gap [Moles/Vol] 11 mmol/L Normal 6-16 [facility] Comment on above: Performed By: #### 1 7298164, 0093629, 126847260, 3847950, 25154612, 7300145, 9135500 ####[facility] [address] [place] [address] AST [Catalytic activity/Vol] 20 Int._Unit/L Normal 5-43 [facility] Comment on above: Performed By: #### 1 1638669, 6200697, 226522090, 3278993, 38199896, 9538708, 2772490 ####[facility] [address] [place] [address] Bilirubin [Mass/Vol] 1.1 mg/dL Normal 0.0-1.1 [facility] Comment on above: Performed By: #### 1 9237565, 2197115, 745317714, 7907557, 92573158, 0456126, 7469416 ####[facility] [address] [place] [address] Calcium [Mass/Vol] 9.4 mg/dL Normal 8.9-11.1 [facility] Comment on above: Performed By: #### 1 9432299, 9268807, 077206734, 4087789, 34181060, 5257021, 1624442 ####[facility] [address] [place] [address] Chloride [Moles/Vol] 106 mmol/L Normal 101-111 [facility] Comment on above: Performed By: #### 1 7386049, 3584563, 024549341, 3836447, 31631908, 4325996, 1436042 ####[facility] [address] [place] [address] CO2 [Moles/Vol] 24 mmol/L Normal 21-31 [facility] Comment on above: Performed By: #### 1 2297132, 2726558, 734529256, 7178270, 78950009, 2008246, 9228693 ####[facility] [address] [place] [address] Creatinine [Mass/Vol] 0.8 mg/dL Normal 0.5-1.3 [facility] Comment on above: Performed By: #### 1 7045342, 9769616, 028975918, 4339889, 94333146, 9786813, 4774633 ####[facility] [address] [place] [address] Globulin (S) [Mass/Vol] 3.2 g/dL Normal 1.4-4.0 [facility] Comment on above: Performed By: #### 1 7834567, 0632076, 859401985, 7267132, 00348371, 8672325, 5415602 ####[facility] [address] [place] [address] Glucose [Mass/Vol] 82 mg/dL Normal 55-199 [facility] Comment on above: Result Comment: If t his glucose result represents a fasting glucose, interpretation should refer to the following reference range: 55-99 mg/dL Performed By: #### 1 3606321, 0954161, 605034236, 7443435, 46979711, 6208528, 0490174 ####[facility] [address] [place] [address] Potassium [Moles/Vol] 3.8 mmol/L Normal 3.5-5.3 [facility] Comment on above: Performed By: #### 1 8781678, 1983542, 449377892, 2788521, 37404951, 4938395, 1302550 ####[facility] [address] [place] [address] Protein [Mass/Vol] 7.9 g/dL High 6.0-7.8 [facility] Comment on above: Performed By: #### 1 0424821, 4812097, 050384642, 7945945, 08242013, 1875242, 8278905 ####[facility] [address] [place] [address] Sodium [Moles/Vol] 137 mmol/L Normal 135-145 [facility] Comment on above: Performed By: #### 1 5324266, 7878372, 941296852, 5745934, 79912384, 1616466, 4664739 ####[facility] [address] [place] [address] Urea nitrogen [Mass/Vol] 14 mg/dL Normal 5-21 [facility] Comment on above: Performed By: #### 1 3251249, 1749475, 274905167, 6667257, 18610875, 4479808, 7456508 ####[facility] [address] [place] [address] Urea nitrogen/Creatinine [Mass ratio] 18 No Units Normal 10-20 [facility] Comment on above: Performed By: #### 1 3014284, 8535079, 793965118, 0849911, 86256677, 0805008, 0513051 ####[facility] [address] [place] [address] HEMATOLOGYOrdered By: SYSTEM SYSTEM on 03-19-2023 Basophils/100 WBC (Bld) 0.6 % Normal 0.0 - 2.0 % [facility]eAutoSS Basophils/Leukocyte s Auto (Bld) [Pure # fraction] 0.0 E9/L Normal 0.0 - 0.2 E9/L [facility] HemeAutoSS Eosinophils/100 WBC (Bld) 2.2 % Normal 0.0 - 8.0 % [facility] HemeAutoSS Eosinophils/Leukocy caitlyn Auto (Bld) [Pure # fraction] 0.1 E9/L Normal 0.0 - 0.5 E9/L [facility] HemeAutoSS Lymphocytes/100 WBC (Bld) 27.5 % Normal 14.0 - 50.0 % [facility] HemeAutoSS Lymphocytes/Leukocy caitlyn Auto (Bld) [Pure # fraction] 1.5 E9/L Normal 1.0 - 4.0 E9/L [facility] HemeAutoSS Monocytes/100 WBC (Bld) 6.9 % Normal 4.0 - 14.0 % [facility]eAutoSS Monocytes/Leukocyte s Auto (Bld) [Pure # fraction] 0.4 E9/L Normal 0.2 - 1.0 E9/L [facility] HemeAutoSS Neutrophils/100 WBC (Bld) 62.8 % Normal 36.0 - 75.0 % [facility] HemeAutoSS Neutrophils/Leukocy caitlyn Auto (Bld) [Pure # fraction] 3.5 E9/L Normal 2.0 - 7.5 E9/L [facility] HemeAutoSS HEMATOLOGYOrdered By: Yasmeen Velazco on 03-19-2023 Erythrocyte distribution width (RBC) [Ratio] 13.4 % Normal 10.9 - 14.2 % [facility] Hematocrit (Bld) [Volume fraction] 39.4 % Normal 34.0 - 46.0 % [facility] Hemoglobin (Bld) [Mass/Vol] 13.3 g/dL Normal 12.0 - 16.0 gm/dL [facility] MCH (RBC) [Entitic mass] 28.4 pg Normal 27.0 - 34.0 pg [facility]eAutoSS MCHC (RBC) [Mass/Vol] 33.8 g/dL Normal 31.4 - 36.0 gm/dL [facility] MCV (RBC) [Entitic vol] 84.2 fL Normal 80.0 - 100.0 fL [facility]eAutoSS Platelet mean volume (Bld) [Entitic vol] 8.9 fL Normal 6.4 - 10.8 fL [facility] Platelets (Bld) [#/Vol] 244.0 E9/L Normal 150.0 - 500.0 E9/L [facility]eAutoSS RBC (Bld) [#/Vol] 4.7 E12/L Normal 4.3 - 5.9 E12/L [facility] WBC corrected for nucl RBC Auto (Bld) [#/Vol] 5.5 E9/L Normal 4.0 - 11.0 E9/L [facility] Physician Orderon 03-19-2023 Physician Order [id number]#[id number]:127 Normal [facility] T4 & TSHon 03-19-2023 T4 [Mass/Vol] 6.6 microgram/dL Normal 4.6-9.1 Nils contreras [facility] Comment on above: Performed By: #### 1 8346016, 4428268, 284309593, 1572329, 99422688, 7409492, 8963765 ####[facility] [address] [place] [address] TSH Qn 5.77 m[IU]/L High 0.34-5.60 [facility] Comment on above: Performed By: #### 1 3754080, 2065737, 332861772, 8956006, 71216644, 1869748, 5788809 ####[facility] [address] [place] [address] Vit B12on 03-19-2023 Cobalamin (Vitamin B12) [Mass/Vol] 499 pg/mL Normal 50-1500 [facility] Comment on above: Performed By: #### 1 3457836, 9673608, 312795212, 1248242, 95523137, 0581166, 6575901 ####[facility] [address] [place] [address] Vitamin D 25 Hydroxyon 03-19 25-hydroxyvitamin D3 [Mass/Vol] 35.5 ng/mL Normal 30.0-100.0 [facility] Comment on above: Result Comment: Vit dc D deficiency has been defined as a level of serum 25-OH vitamin D less than 20 ng/mL (1,2) by the [place] of [employer] and an Endocrine Society practice guideline. The Endocrine Society further defined vitamin D insufficiency as a level between 21 and 29 ng/mL (2). 1. IOM ([place] of [employer]). 2010. Dietary reference intakes for calcium and D. [place]: The National Academies Press. 2. Gage MF, Julianna NC, Carol Ann DUARTE, et al. Evaluation, treatment, and prevention of vitamin D deficiency: an Endocrine Society clinical practice guideline. JCEM. 2010; 96 (7):1911-30. Performed By: #### 1 5205000, 1283747, 320949838, 5939160, 44118559, 9911431, 1840701 ####[facility] [address] [place] [address] eGFRon 03-19-2023 GFR/1.73 sq M.predicted among non-blacks MDRD (S/P/Bld) [Vol rate/Area] 109 mL/min/1.73 m2 Normal >=59 [facility] Comment on above: Order Comment: Order added by Discern Expert. Result Comment: T[employer] Maintenance Technician yanely kidney disease could be indicated at eGFR's of less than 60 mL/min/1.73m2. Kidney failure is indicated at less than 15 mL/min/1.73m2. Performed By: #### 1 8918669, 3154988, 139193511, 0669022, 28297240, 9554545, 0510002 ####[facility] [address] [place] [address] Discharge Instructionson Discharge Instructions [id number]#[id number]:127 Normal [facility] Outside Recordson 03-09-2023 Outside Records [id number]#[id number]:127 Normal [facility] Consent for Treatmenton Consent for Treatment [id number]#[id number]:127 Normal [facility] ED Clinical Summaryon 2022 ED Clinical Summary (Inserted Image. Alyson ble to display) [address] [address] ED Clinical Summary Person Information Name: ALLEGRA LOPEZ [place] Age: 17 Years : 2005 Sex: Female Language: Montenegrin PCP: SILVESTRE GARIBAY, [facility] Marital Status: Single Visit Id: Visit Reason: Suicidal ideation; SI Speciality: Acuity: 2 Enc Type: Emergency Med Service: Emergency Arrival: 03/08/2023 17:56:06 Discharge: 03/08/2023 21:57:40 LOS: 000 04:01 Checkin: 03/08/2023 17:56:06 Checkout: 03/08/2023 21:57:40 Dispo Type: Home (Routine DC) EVENTS: Event Name Event Status Request Date/Time Start Date/Time Complete Date/Time Arrive Complete 03/08/2023 17:56:06 03/08/2023 17:56:06 03/08/2023 17:56:06 Document Home Meds Request 03/08/2023 17:56:06 Triage Complete 03/08/2023 17:56:06 03/08/2023 18:19:41 03/08/2023 18:19:41 Bed Assign Complete 03/08/2023 18:15:55 03/08/2023 18:15:55 03/08/2023 18:15:55 Dr Exam Complete 03/08/2023 18:15:55 03/08/2023 18:23:47 03/08/2023 18:23:47 RN Exam Complete 03/08/2023 18:15:55 03/08/2023 19:10:49 03/08/2023 19:10:49 Registration Complete 03/08/2023 18:23:47 03/08/2023 18:50:04 03/08/2023 18:50:04 Consult Request 03/08/2023 18:24:11 EKG Cancel 03/08/2023 18:24:11 03/08/2023 21:51:11 Pending Labs Cancel 03/08/2023 18:24:11 03/08/2023 21:51:11 Lab Cancel 03/08/2023 18:24:11 03/08/2023 21:51:11 Urine Collect Cancel 03/08/2023 18:24:11 03/08/2023 21:51:11 Patient Care Cancel 03/08/2023 18:24:11 03/08/2023 21:51:11 Reg Complete Request 03/08/2023 18:50:04 Reg Bed Request Complete 03/08/2023 18:50:04 03/08/2023 18:50:04 03/08/2023 18:50:04 Dr Exam Complete 03/08/2023 19:43:01 03/08/2023 19:43:01 03/08/2023 19:43:01 Registration Request 03/08/2023 19:43:01 Discharge Complete 03/08/2023 21:52:32 03/08/2023 21:57:44 03/08/2023 21:57:44 Transfer Complete 03/08/2023 21:57:44 03/08/2023 21:57:44 03/08/2023 21:57:44 ADDRESS: [address] [place] [address] [id number] PHYS DOC NOTES: MEDICAL INFORMATION: Prescriptions Given: PATIENT EDUCATION INFORMATION: Instructions: Suicidal Feelings: How to Help Yourself Follow up: With: Address: When: [place] [phone] In 3 days 03/11/2023 Comments: Return to the emergency room if you develop thoughts of hurting yourself or any other concerns. With: Address: When: [facility] [address] [place] [address], [place] [address] [facility] (1) In 3 days DIAGNOSIS: 1:Suicide ideation Normal [facility] ED Note-Nursingon 03-08-2023 ED Note-Nursing MRSS in pt room at this time Normal [facility] ED Patient Education Noteon 03-08-2023 ED Patient Education Note Mental and Behavioral Health Suicidal Feelings: How to Help Yourself Suicide is when you end your own life. Suicidal ideation includes expressing thoughts about, or a preoccupation with, ending your own life. There are many things you can do to help yourself feel better when struggling with these feelings. Many services and people are available to support you and others who struggle with similar feelings. If you ever feel like you may hurt yourself or others, or have thoughts about taking your own life, get help right away. To get help: ? Go to your nearest emergency department. ? Call your local emergency services (911 in the [place] ? Call the [facility] and human services helpline (211 in the [place] ? Call or text a suicide hotline to speak with a trained counselor. The following suicide hotlines are available in the [place]: ? 8-034-528-TALK ( or 508 in the [place] ? 6-375-NEOXQUT ( ). ? Text 979397. This is the Crisis Text Line in the [place] ? . This is a hotline for Icelandic speakers. ? . This is a hotline for TTY users. ? 6-052-5-U-LANDON ( ). This is a hotline for lesbian, gilliland, bisexual, transgender, or questioning youth. ? For a list of hotlines in [place], visit suicide.org/hotlines/interna tional/rxgzwq-vitrfpg-gwdexk es.html ? Contact a crisis center or a local suicide prevention center. To find a crisis center or suicide prevention center: ? Call your local hospital, clinic, community service organization, mental health center, social service provider, or health department. Ask for help with connecting to a crisis center. ? For a list of crisis centers in the [place], visit: suicidepreventionlifeline.or g ? For a list of crisis centers in [place], visit: suicideprevention.ca How to help yourself feel better ? Promise yourself that you will not do anything bad or extreme when you have suicidal feelings. Remember the times you have felt hopeful. ? Many people have gotten through suicidal thoughts and feelings, and you can too. ? If you have had these feelings before, remind yourself that you can get through them again. ? Let family, friends, teachers, or counselors know how you are feeling. Do not separate yourself from those who care about you and want to help you. ? Talk with someone every day, even if you do not feel like talking to anyone or being with other people. ? Gpqi-ug-ydzq conversation is best to help them understand your feelings. ? Contact a mental health care provider and work with this person regularly. ? Make a safety plan that you can follow during a crisis. ? Include phone numbers of suicide prevention hotlines, mental health professionals, and trusted friends and family members you can call during an emergency. ? Save these numbers on your phone. ? If you are thinking of taking a lot of medicine, give your medicine to someone who can give it to you as prescribed. ? If you are on antidepressants and are concerned you will overdose, tell your health care provider so that he or she can give you safer medicines. ? Try to stick to your routines and follow a schedule every day. Make self-care a priority. ? Make a list of realistic goals, and cross them off when you achieve them. Accomplishments can give you a sense of worth. ? Wait until you are feeling better before doing things that you find difficult or unpleasant. ? Do things that you have always enjoyed to take your mind off your feelings. ? Try reading a book, or listening to or playing music. ? Spending time outside, in nature, may help you feel better. Follow these instructions at home: ? Visit your primary health care provider every year for a physical and a mental health checkup. ? Take liyh-igp-izwzcai and prescription medicines only as told by your health care provider. ? Ask your health care provider about the possible side effects of any medicines you are taking. ? Ask your health care provider about whether suicidal ideation is a possible side effect of any of your medicines. ? Learn about suicidal ideation and what increases the risk for the development of suicidal thoughts. ? Eat a well-balanced diet, and eat regular meals. ? Get plenty of rest. ? Exercise if you are able. Just 30 minutes of exercise each day can help you feel better. ? Keep your living space well lit. ? Do not use alcohol or drugs. Remove these substances from your home. General recommendations ? Remove weapons, poisons, knives, and other deadly items from your home. ? Work with a mental health care provider as needed. ? When you are feeling well, write yourself a letter with tips and support that you can read when you are not feeling well. ? Remember that life's difficulties can be sorted out with help. Conditions can be treated, and you can learn behaviors and ways of thinking that will hel (more content not included)... [facility] ED Patient Summaryon 023 ED Patient Summary (Inserted Image. Alyson ble to display) [address] [address] Patient Discharge Instructions Person Information Name: ALLEGRA LOPEZ Age: 17 Years Arrival Date: 03/08/2023 17:56:06 Discharge Diagnosis: 1:Suicide ideation Primary Care Physician: Vazquez RIVERS MD Provider Information Primary Provider: Ashlee Huffman M.D. [employer] Spec:Jez Fabian PA-C The exam and treatment you received in the Emergency Department were for an urgent problem and are not intended as complete care. It is important that you follow up with a doctor, nurse practitioner, or physician?s teachers assistant for ongoing care. If your symptoms become worse or you do not improve as expected and you are unable to reach your usual health care provider, you should return to the Emergency Department. We are available 24 hours a day. ALLEGRA LOPEZ has been given the following list of patient education materials, prescriptions and follow-up instructions: Follow-up Instructions: With: Address: When: [facility] In 3 days 03/11/2023 Comments: Return to the emergency room if you develop thoughts of hurting yourself or any other concerns. With: Address: When: Vazquez RIVERS [address] [place] [address]., [address] [place] [id number] Business (1) In 3 days In the event that this physician does not participate in your insurance network, please consult with your insurance company to find a nearby participating provider. Patient Education Materials: Suicidal Feelings: How to Help Yourself A MESSAGE TO ALL PATIENTS REGARDING OPIOIDS PRESCRIPTION OPIOIDS: WHAT YOU NEED TO KNOW Prescription opioids can be used to help relieve nrjhtody-np-heoipm pain and are often prescribed following a surgery or injury, or for certain health conditions. These medications can be an important part of the treatment but also come with serious risks. It is important to work with your healthcare provider to make sure you are getting the safest, most effective care. WHAT ARE THE RISKS AND SIDE EFFECTS OF OPIOID USE? Prescription opioids carry serious risks of addiction and overdose, especially with prolonged use. An opioid overdose, often marked by slowed breathing, can cause sudden . The use of prescription opioids can have a number of side effects as well, even when taken as directed: ? Tolerance?meaning you might need to take more of the medication for the same pain relief ? Physical dependence?meaning you have symptoms of withdrawal when a medication is stopped ? Increased sensitivity to pain ? Constipation ? Nausea, vomiting, and dry mouth ? Sleepiness and dizziness ? Confusion ? Depression ? Low levels of testosterone that can result in lower sex drive, energy, and strength ? Itching and sweating RISKS ARE GREATER WITH: ? History of drug misuse, substance use disorder, or overdose ? Mental health conditions (such as depression or anxiety) ? Sleep apnea ? Older age (65 years and older) ? Avoid alcohol while taking prescription opioids. Also, unless specifically advised by your health care provider, medications to avoid include: ? Benzodiazepines (such as Xanax or Valium) ? Muscle relaxants (such as Soma or Flexeril) ? Hypnotics (such as Ambien or Lunesta) ? Other prescription opioids KNOW YOUR OPTIONS Talk to your health care provider about ways to manage your pain that don?t involve prescription opioids. Some of these options may actually work better and have fewer risks and side effects. Options may include: ? Pain relievers such as acetaminophen, ibuprofen, and naproxen ? Some medication that are also used for depression or seizures ? Physical therapy and exercise ? Cognitive behavioral therapy, a psychological, goal-directed approach, in which patients learn how to modify physical, behavioral, and emotional triggers of pain and stress. IF YOU ARE PRESCRIBED OPIOIDS FOR PAIN: ? Never take opioids in greater amounts or more often than prescribed. ? Follow up with your primary health care provider. o Work together to create a plan on how to manage your pain. o Talk about ways to help manage your pain that don?t involve prescription opioids. o Talk about any and all concerns and side effects. ? Help prevent misuse and abuse o Never sell or share prescription opioids. o Never use another person?s prescription opioids. ? Store prescription opioids in a secure place and out of reach of others (this may include visitors, children, friends, and family). ? Safely dispose of unused prescription opioids: Find your community drug take-back program or your pharmacy mail-back program, or flush them down the toilet, following guidance from the Food and Drug Administration (www.fda.gov/Drugs/Resources ForYou). ? Visit www.cdc.gov/drugoverdose to learn about the risks of opioids abu (more content not included)... [facility] Pre-Arrival Noteon 3 Pre-Arrival Note Pre-Arrival Summary Name: andrea Current Date: 03/08/2023 17:58:17 EDT Gender: Female Date of : Age: 17 Pre-Arrival Type: EMS ETA: 03/08/2023 18:17:00 EDT Primary Care Physician: Presenting Problem: SI Pre-Arrival User: Mi Dow RN Referring Source: Location: [place] Completion Date/Time: 03/08/2023 17:47:00 [facility] Emergency Department Pre-Hospital Report Form Vital Signs: Pre-Hospital Report: Treatment in Route: Response to Treatment: Misc. Issues: [facility] ACETAMINOPHENon 11-09-2022 Acetaminophen [Mass/Vol] ug/mL Critically low 10.0-30.0 [facility] Comment on above: Performed By: #### S ALYC, ETH, BMP, ACET ####[facility] [address] [place], [place] [address]Dr. Angela Rodriguez CBC AUTO DIFFon 11-09-2022 BASO # 0.1 103/ul Normal 0.0-0.1 [facility] Comment on above: Performed By: #### C BC ####[facility] [address] [place] [address]Dr. Angela Rodriguez Basophils/100 WBC (Bld) 1.1 % Normal 0.2-2.0 [facility] Comment on above: Performed By: #### C BC ####[facility] [address] [place], [place] [address]Dr. Angela Rodriguez EO # 0.1 103/ul Normal 0.0-0.7 [facility] Comment on above: Performed By: #### C BC ####[facility] Rvuqdljuun[address] [place], [place] [address]Dr. Angela Sherif Eosinophils/100 WBC (Bld) 2.0 % Normal 0.9-7.0 [facility] Comment on above: Performed By: #### C BC ####[facility] Lsvhimwulq[address] [place], [place] [address]Dr. Elenamaurilio Rodriguez Erythrocyte distribution width (RBC) [Ratio] 12.8 % Normal 11.0-15.0 [facility] Comment on above: Performed By: #### C BC ####[facility] Dzfxb[address] [place], [place] [address]Dr. Elenamaurilio Rodriguez Hematocrit (Bld) [Volume fraction] 36.3 % Normal 36.0-48.0 [facility] Comment on above: Performed By: #### C BC ####[facility] Iojq[address] [place], [place] [address]Dr. Angela Rodriguez Hemoglobin (Bld) [Mass/Vol] 12.2 g/dL Normal 12.0-16.0 [facility] Comment on above: Performed By: #### C BC ####[facility] Jlgbt[address]azy[address] [place], [place] [address]Dr. Angela Rodriguez IG # 0.02 10e3/ul Normal 0.00-0.03 [facility] Comment on above: Performed By: #### C BC ####[facility] Grinv[address] [place], [place] [address]Dr. Angela Rodriguez IG % 0.3 % Normal 0.0-0.5 [facility] Comment on above: Performed By: #### C BC ####[facility] Zfdmwvzduz[address] [place], [place] [address]Dr. Angela Rodriguez LYMPH # 2.2 103/ul Normal 1.2-3.8 [facility] Comment on above: Performed By: #### C BC ####[facility] W[address] [place], [place] [address]Dr. Angela Rodriguez Lymphocytes/100 WBC (Bld) 33.7 % Normal 20.5-60.0 [facility] Comment on above: Performed By: #### C BC ####[facility] [address] [place] [address]DrDe Rodriguez MANUAL DIFF REQ NO Normal [facility] Comment on above: Performed By: #### C BC ####[facility] [address] [place] [address]Dr. Angela Rodriguez MCH (RBC) [Entitic mass] 28.6 pg Normal 26.7-34.0 [facility] Comment on above: Performed By: #### C BC ####[facility] Ygxqsolbeg[address] [place], [place] [address]Dr. Angela Rodriguez MCHC (RBC) [Mass/Vol] 33.6 g/dL Normal 29.9-35.2 [facility] Comment on above: Performed By: #### C BC ####[facility] Kjmvdxneqs[address] [place], [place] [address]Dr. Angela Rodriguez MCV (RBC) [Entitic vol] 85.2 fL Normal 81.0-99.0 [facility] Comment on above: Performed By: #### C BC ####[facility] Xtis[address] [place], [place] [address]DrDe Rodriguez MONO # 0.6 103/ul Normal 0.3-0.8 [facility] Comment on above: Performed By: #### C BC ####[facility] Sspeup[address] [place], [place] [address]DrDe Rodriguez Monocytes/100 WBC (Bld) 8.4 % Normal 1.7-12.0 [facility] Comment on above: Performed By: #### C BC ####[facility] Nvgodosexk[address] [place], [place] [address]DrDe Rodriguez NEUT # 3.6 103/ul Normal 1.4-6.5 [facility] Comment on above: Performed By: #### C BC ####[facility] Yer[address] [place], [place] [address]DrDe Rodriguez Neutrophils/100 WBC (Bld) 54.5 % Normal 43.0-75.0 [facility] Comment on above: Performed By: #### C BC ####[facility] [address] [place] [address]Dr. Angela Rodriguez Platelet mean volume (Bld) [Entitic vol] 9.5 fL Normal 9.5-13.5 [facility] Comment on above: Performed By: #### C BC ####[facility] [address] [place] [address]Dr. Angela Rodriguez PLT 268 103/ul Normal 150-450 [facility] Comment on above: Performed By: #### C BC ####[facility] [address]se[address] [place], [place] [address]Dr. Angela Rodriguez RBC 4.26 106/ul Normal 4.20-5.40 [facility] Comment on above: Performed By: #### C BC ####[facility] Cdqlpd[address]uq[address] [place], [place] [address]Dr. Angela Rodriguez WBC 6.6 103/ul Normal 4.0-11.0 [facility] Comment on above: Performed By: #### C BC ####[facility] [address]feb[address] [place], [place] [address]Dr. Eelnamaurilio Rodriguez DRUG SCREEN RAPID (URINE)on 11-09-2022 AMP Negative Normal NEGATIVE [facility] Comment on above: Performed By: #### U MICRO, DRUGRPD, PREGU, ERUR ####[facility] C[address]zmp[address] [place], [place] [address]Dr. Angela Rodriguez BAR Negative Normal NEGATIVE [facility] Comment on above: Performed By: #### U MICRO, DRUGRPD, PREGU, ERUR ####[facility] [address] [place] [address]Dr. Angela Rodriguez BUP Negative Normal NEGATIVE [facility] Comment on above: Performed By: #### U MICRO, DRUGRPD, PREGU, ERUR ####[facility] [address] [place] [address]Dr. Angela Rodriguez BZO Negative Normal NEGATIVE [facility] Comment on above: Performed By: #### U MICRO, DRUGRPD, PREGU, ERUR ####[facility] [address] [place] [address]Dr. Angela Rodriguez RENATO Negative Normal NEGATIVE [facility] Comment on above: Performed By: #### U MICRO, DRUGRPD, PREGU, ERUR ####[facility] [address] [place] [address]Dr. Angela Rodriguez CUT-OFFS SEE BELOW Normal [facility] Comment on above: Result Comment: AMP (Amphetamine): 500ng/mL, BAR (Barbituates): 200 ng/mL, BZO (Benzodiazepines): 150 ng/mL, BUP (Buprenorphine): 10 ng/mL, RENATO (Cocaine): 150 ng/mL, mAMP (Methamphetamine): 500 ng/mL, MTD (Methadone): 200 ng/mL, OPI (Opiates): 100 ng/mL, OXY (Oxycodone): 100 ng/mL, PCP (Phencyclidine): 25 ng/mL, PPX (Propoxyphene): 300 ng/mL, THC (Cannabinoids): 50 ng/mL, TCA (Trycyclic Antidepressants): 300 ng/mL Performed By: #### U MICRO, DRUGRPD, PREGU, ERUR ####[facility] [address] [place], [place] [address]Dr. Angela Rodriguez DRUG CUT HEADER DRUG CLASS TEST SYST EM CUT-OFF CONCENTRATIONS ARE FOLLOWS: Normal [facility] Comment on above: Performed By: #### U MICRO, DRUGRPD, PREGU, ERUR ####[facility] [address] [place], [place] [address]Dr. Angela Rodriguez mAMP Negative Normal NEGATIVE [facility] Comment on above: Performed By: #### U MICRO, DRUGRPD, PREGU, ERUR ####[facility] [address] [place], [place] [address]Dr. Angela Rodriguez MTD Negative Normal NEGATIVE [facility] Comment on above: Performed By: #### U MICRO, DRUGRPD, PREGU, ERUR ####[facility] [address] [place], [place] [address]Dr. Angela Rodriguez OPI Negative Normal NEGATIVE [facility] Comment on above: Performed By: #### U MICRO, DRUGRPD, PREGU, ERUR ####[facility] [address] [place] [address]Dr. Angela Rodriguez OXY Negative Normal NEGATIVE [facility] Comment on above: Performed By: #### U MICRO, DRUGRPD, PREGU, ERUR ####[facility] [address] [place] [address]Dr. Angela Rodriguez PCP Negative Normal NEGATIVE [facility] Comment on above: Performed By: #### U MICRO, DRUGRPD, PREGU, ERUR ####[facility] [address] [place] [address]Dr. Angela Rodriguez PPX Negative Normal NEGATIVE [facility] Comment on above: Performed By: #### U MICRO, DRUGRPD, PREGU, ERUR ####[facility] [address]xf[address] [place] [address]Dr. Angela Rodriguez TCA Negative Normal NEGATIVE [facility] Comment on above: Performed By: #### U MICRO, DRUGRPD, PREGU, ERUR ####[facility] [address] [place] [address]Dr. Angela Rodriguez THC Negative Normal NEGATIVE [facility] Comment on above: Performed By: #### U MICRO, DRUGRPD, PREGU, ERUR ####[facility] [address] [place] [address]Dr. Angela Rodriguez ER URINE PROFILEon 3 Bilirubin Ql (U) Negative Normal NEGATIVE [facility] Comment on above: Performed By: #### U MICRO, DRUGRPD, PREGU, ERUR #### [facility] [address] [place] [address] [address] Angela Rodriguez Clarity (U) CLEAR Normal CLEAR [facility] Comment on above: Performed By: #### U MICRO, DRUGRPD, PREGU, ERUR #### [facility] [address] [place] [address] [address] Angela Rodriguez Color (U) LT. YELLOW Normal YELLOW [facility] Comment on above: Performed By: #### U MICRO, DRUGRPD, PREGU, ERUR #### [facility] [address] [place] [address] [address] Angela DIXON A micrscopic examina tion will be performed if indicated. Normal [facility] Comment on above: Performed By: #### U MICRO, DRUGRPD, PREGU, ERUR #### [facility] [address] [place] [address] [address] Angela Rodriguez Glucose Ql (U) Negative Normal NEGATIVE [facility] Comment on above: Performed By: #### U MICRO, DRUGRPD, PREGU, ERUR #### [facility] [address] [place] [address] [address] Angela Rodriguez Hemoglobin Ql (U) LARGE Abnormal NEGATIVE [facility] Comment on above: Performed By: #### U MICRO, DRUGRPD, PREGU, ERUR #### [facility] [address] [place] [address] [address] Agnela Rodriguez Ketones Ql (U) Negative Normal NEGATIVE [facility] Comment on above: Performed By: #### U MICRO, DRUGRPD, PREGU, ERUR #### [facility] [address] [place] [address] [address] Angela Rodriguez LEUKOCYTES Negative Normal NEGATIVE [facility] Comment on above: Performed By: #### U MICRO, DRUGRPD, PREGU, ERUR #### [facility] [address] [place] [address] [address] Angela Rodriguez Nitrite Ql (U) Negative Normal NEGATIVE [facility] Comment on above: Performed By: #### U MICRO, DRUGRPD, PREGU, ERUR #### [facility] [address] [place] [address] [address] Angela Rodriguez pH (U) 5.5 [pH] Normal 5-9 [facility] Comment on above: Performed By: #### U MICRO, DRUGRPD, PREGU, ERUR #### [facility] [address] [place] [address] [address] Angela Rodriguez SPEC GRAVITY 1.025 Normal 1.005-<=1.0 25 [facility] Comment on above: Performed By: #### U MICRO, DRUGRPD, PREGU, ERUR #### [facility] [address] [place] [address] [address] Angela Rodriguez UA PROTEIN Negative Normal NEGATIVE/ TRACE [facility] Comment on above: Performed By: #### U MICRO, DRUGRPD, PREGU, ERUR #### [facility] [address] [place] [address] [address] Angela Rodriguez UR MICRO IND INDICATED Normal [facility] Comment on above: Performed By: #### U MICRO, DRUGRPD, PREGU, ERUR #### [facility] [address] [place] [address] [address] Angela Rodriguez Urobilinogen Qn (U) 0.2 {Andre'U}/dL Normal 0.2 - 1. 0 [facility] Comment on above: Performed By: #### U MICRO, DRUGRPD, PREGU, ERUR #### [facility] [address] [place] [address] [address] Angela Rodriguez ETHANOL (BLD ALC)on 11-10-19 ALC NOTE NOTE: 80 mg/dl is th e legal limit for a blood alcohol level Normal [facility] Comment on above: Performed By: #### S ALYC, ETH, BMP, ACET ####[facility] [address] [place] [address]Dr. Angela Rodriguez Ethanol [Mass/Vol] mg/dL Normal [facility] Comment on above: Performed By: #### S ALYC, ETH, BMP, ACET ####[facility] [address] [place] [address]Dr. Angela Rodriguez URon 11-09-2022 , QUAL Negative Normal NEGATIVE [facility] Comment on above: Performed By: #### U MICRO, DRUGRPD, PREGU, ERUR #### [facility] [address] [place] [address] [address] Angela Rodriguez PROF CHEM 8 (BAS METB)on Anion gap [Moles/Vol] 12.1 mmol/L Normal [facility] Comment on above: Performed By: #### S ALYC, ETH, BMP, ACET ####[facility] [address] [place] [address]Dr. Angela Rodriguez Calcium [Mass/Vol] 8.7 mg/dL Normal 8.5-10.1 [facility] Comment on above: Performed By: #### S ALYC, ETH, BMP, ACET ####[facility] [address] [place] [address]Dr. Angela Rodriguez Chloride [Moles/Vol] 104 mmol/L Normal 98-107 [facility] Comment on above: Performed By: #### S ALYC, ETH, BMP, ACET ####[facility] [address] [place] [address]Dr. Angela Rodriguez CO2 [Moles/Vol] 25.3 mmol/L Normal 21.0-32.0 [facility] Comment on above: Performed By: #### S ALYC, ETH, BMP, ACET ####[facility] [address] [place] [address]Dr. Angela Rodriguez Creatinine [Mass/Vol] 1.09 mg/dL Critically high 0.55-1.02 [facility] Comment on above: Performed By: #### S ALYC, ETH, BMP, ACET ####[facility] [address] [place], [place] [address]Dr. Angela Rodriguez EGFR-AF CITIZ[place] >60 Normal >=60 [facility] Comment on above: Performed By: #### S ALYC, ETH, BMP, ACET ####[facility] [address] [place] [address]Dr. Angela Rodriguez EGFR-NON AF CITIZEN OF [place] >60 Normal >=60 [facility] Comment on above: Performed By: #### S ALYC, ETH, BMP, ACET ####[facility] [address] [place] [address]Dr. Angela Rodriguez Glucose [Mass/Vol] 93 mg/dL Normal 74-106 [facility] Comment on above: Performed By: #### S ALYC, ETH, BMP, ACET ####[facility] [address] [place] [address]Dr. Angela Rodriguez Potassium [Moles/Vol] 3.4 mmol/L Critically low 3.5-5.1 [facility] Comment on above: Performed By: #### S ALYC, ETH, BMP, ACET ####[facility] [address] [place] [address]Dr. Angela Rodriguez Sodium [Moles/Vol] 138 mmol/L Normal 136-145 [facility] Comment on above: Performed By: #### S ALYC, ETH, BMP, ACET ####[facility] [address] [place] [address]Dr. Angela Rodriguez Urea nitrogen [Mass/Vol] 17.0 mg/dL Normal 6.4-19.3 [facility] Comment on above: Performed By: #### S ALYC, ETH, BMP, ACET ####[facility] [address] [place] [address]Dr. Angela Rodriguez Urea nitrogen/Creatinine [Mass ratio] 15.6 mg/mg Normal [facility] Comment on above: Performed By: #### S ALYC, ETH, BMP, ACET ####[facility] [address] [place] [address]Dr. Angela Rodriguez SALICYLATEon 11-09-2022 SALICYLATE <2.8 Normal <=19.9 [facility] Comment on above: Performed By: #### S ALYC, ETH, BMP, ACET ####[facility] [address] [place] [address]Dr. Angela Rodriguez URINE MICROSCOPIC ONLYon BACTERIA TRACE Abnormal NONE SEEN [facility] Comment on above: Performed By: #### U MICRO, DRUGRPD, PREGU, ERUR #### [facility] [address] [place] [address] [address] Angela Rodriguez Bacteria identified Cx Nom (U) NOT INDICATED Normal [facility] Comment on above: Performed By: #### U MICRO, DRUGRPD, PREGU, ERUR #### [facility] [address] [place] [address] [address] Angela Rodriguez CAST NONE SEEN Normal NONE SEEN [facility] Comment on above: Performed By: #### U MICRO, DRUGRPD, PREGU, ERUR #### [facility] [address] [address] [address] Angela Rodriguez Crystals LM Nom (Urine sed) NONE SEEN Normal NONE SEEN [facility] Comment on above: Performed By: #### U MICRO, DRUGRPD, PREGU, ERUR #### [facility] [address] [address] [address] Angela Rodriguez Epithelial cells LM Ql (Urine sed) RARE Normal NONE SEEN /RARE [facility] Comment on above: Performed By: #### U MICRO, DRUGRPD, PREGU, ERUR #### [facility] [address] [address] [address] Angela Rodriguez MUCOUS NONE SEEN Normal NONE SEEN [facility] Comment on above: Performed By: #### U MICRO, DRUGRPD, PREGU, ERUR #### [facility] [address] [place] [address] [address] Angela Rodriguez RBC 20-50 Abnormal 0-2 [facility] Comment on above: Performed By: #### U MICRO, DRUGRPD, PREGU, ERUR #### [facility] [address] [place] [address] [address] Angela Rodriguez WBC NONE SEEN Normal NONE SEEN [facility] Comment on above: Performed By: #### U MICRO, DRUGRPD, PREGU, ERUR #### [facility] [address] [place] [address] [address] Angela Rodriguez INSULINon 04-20-2022 Insulin 9.7 uIU/mL Normal 2.6-24.9 [facility] Comment on above: Performed By: #### I NSULIN #### [facility] [address] [address] Dr. Angela Rodriguez CBC AUTO DIFFon 04-19-2022 BASO # 0.1 103/ul Normal 0.0-0.1 [facility] Comment on above: Performed By: #### C BC ####[facility] [address] [place] [address]Dr. Angela Rodriguez Basophils/100 WBC (Bld) 1.3 % Normal 0.2-2.0 [facility] Comment on above: Performed By: #### C BC ####[facility] [address] [place], [place] [address]Dr. Angela Rodriguez EO # 0.1 103/ul Normal 0.0-0.7 [facility] Comment on above: Performed By: #### C BC ####[facility] [address] [place], [place] [address]Dr. Angela Rodriguez Eosinophils/100 WBC (Bld) 1.6 % Normal 0.9-7.0 [facility] Comment on above: Performed By: #### C BC ####[facility] [address] [place], [place] [address]Dr. Angela Rodriguez Erythrocyte distribution width (RBC) [Ratio] 12.3 % Normal 11.0-15.0 [facility] Comment on above: Performed By: #### C BC ####[facility] [address] [place], [place] [address]Dr. Angela Rodriguez Hematocrit (Bld) [Volume fraction] 39.9 % Normal 36.0-48.0 [facility] Comment on above: Performed By: #### C BC ####[facility] [address] [place], [place] [address]Dr. Angela Rodriguez Hemoglobin (Bld) [Mass/Vol] 13.5 g/dL Normal 12.0-16.0 [facility] Comment on above: Performed By: #### C BC ####[facility] [address] [place], [place] [address]Dr. Angela Rodriguez IG # 0.01 10e3/ul Normal 0.00-0.03 [facility] Comment on above: Performed By: #### C BC ####[facility] [address] [place], [place] [address]Dr. Angela Rodriguez IG % 0.2 % Normal 0.0-0.5 [facility] Comment on above: Performed By: #### C BC ####[facility] [address] [place], [place] [address]DrDe Rodriguez LYMPH # 1.7 103/ul Normal 1.2-3.8 [facility] Comment on above: Performed By: #### C BC ####[facility] [address] [place] [address]Dr. Angela Rodriguez Lymphocytes/100 WBC (Bld) 30.9 % Normal 20.5-60.0 [facility] Comment on above: Performed By: #### C BC ####[facility] [address] [place], [place] [address]DrDe Rodriguez MANUAL DIFF REQ NO Normal [facility] Comment on above: Performed By: #### C BC ####[facility] [address] [place] [address]DrDe Rodriguez MCH (RBC) [Entitic mass] 28.9 pg Normal 26.7-34.0 [facility] Comment on above: Performed By: #### C BC ####[facility] [address] [place], [place] [address]Dr. Angela Rodriguez MCHC (RBC) [Mass/Vol] 33.8 g/dL Normal 29.9-35.2 [facility] Comment on above: Performed By: #### C BC ####[facility] [address] [place], [place] [address]DrDe Rodriguez MCV (RBC) [Entitic vol] 85.4 fL Normal 81.0-99.0 [facility] Comment on above: Performed By: #### C BC ####[facility] [address] [place], [place] [address]DrDe Rodriguez MONO # 0.4 103/ul Normal 0.3-0.8 [facility] Comment on above: Performed By: #### C BC ####[facility] [address] [place], [place] [address]DrDe Rodriguez Monocytes/100 WBC (Bld) 7.6 % Normal 1.7-12.0 [facility] Comment on above: Performed By: #### C BC ####[facility] [address] [place], [place] [address]DrDe Rodriguez NEUT # 3.2 103/ul Normal 1.4-6.5 [facility] Comment on above: Performed By: #### C BC ####[facility] [address] [place] [address]Dr. Angela Rodriguez Neutrophils/100 WBC (Bld) 58.4 % Normal 43.0-75.0 [facility] Comment on above: Performed By: #### C BC ####[facility] [address] [place] [id number]. Angela Rodriguez Platelet mean volume (Bld) [Entitic vol] 9.8 fL Normal 9.5-13.5 [facility] Comment on above: Performed By: #### C BC ####[facility] [address] [place] [address]Dr. Angela Rodriguez PLT 216 103/ul Normal 150-450 [facility] Comment on above: Performed By: #### C BC ####[facility] [address] [address]Dr. Angela Rodriguez RBC 4.67 106/ul Normal 4.20-5.40 [facility] Comment on above: Performed By: #### C BC ####[facility] [address] [id number]. Angela Rodriguez WBC 5.5 103/ul Normal 4.0-11.0 [facility] Comment on above: Performed By: #### C BC ####[facility] [address] [id number]. Angela Rodriguez ECHOCARDIO M/2D COMPLETEon 1 ECHOCARDIO M/2D COMPLETE Patient: ALLEGRA LOPEZ Exam Date: 04/19/2022 : 2005 Gender:F Ordering : [facility] Admission #: [id number] Family : Order #: [id number] CLICK HERE TO VIEW EXAM ECHOCARDIOGRAM REPORT PROCEDURE: CARDIO PULMONARY ECHOCARDIO M/2D COMP INDICATIONS: Tachycardia COMPARISON: None. DESCRIPTION: COMPLETE ECHOCARDIOGRAM Real-time transthoracic echocardiography with 2D, M-mode, spectral and color flow Doppler performed. QUALITY: Technical quality was adequate. LEFT VENTRICLE: Normal chamber size. Normal left ventricular wall thickness. LV EF: Global left ventricular systolic function is normal. Visual estimation of left ventricular ejection fraction is 60% DIASTOLIC: Normal diastolic function. ATRIAL SEPTUM: Technically difficult, not well visualized. LEFT ATRIUM: Normal chamber size. RIGHT ATRIUM: Normal chamber size. RIGHT VENTRICLE: Normal chamber size. Normal right ventricular systolic function. TRICUSPID VALVE: Normal mobility and thickness. No stenosis with trivial regurgitation. No evidence of pulmonary hypertension. RVSP 28mmHg. MITRAL VALVE: The mitral valve leaflets appear somewhat redundant; no obvious prolapse. No evidence of mitral valve stenosis. There is no mitral annular calcification. No mitral regurgitation. AORTIC VALVE: Normal trileaflet appearance. No visible sclerosis. Normal leaflet mobility. No evidence of aortic valve stenosis. No aortic regurgitation. AORTIC ROOT: Normal diameter and appearance. PULMONIC VALVE: Normal thickness and mobility. No stenosis. Trivial regurgitation. PERICARDIUM: No evidence of pericardial effusion. IVC: Collapses with inspirations. Normal size. CONCLUSION: Global left ventricular systolic function is normal; visually estimated ejection fraction is 55 to 60%. No wall motion abnormalities. The right ventricle is normal in size and systolic function. No significant valvular abnormalities. Adult Echocardiography Procedure Report Left Ventricle LVEDD (3.7 - 5.6 cm): 3.73 cm LVESD (2.2 - 4.0 cm): 2.58 cm LVIVS thickness (0.6 - 1.2 cm): 0.66 cm LVPW thickness (0.5 - 1.0 cm): 0.67 cm e': 0.16 m/s E - e': 6.15 LVOT Max Gradient: 2.90 mm[Hg] Peak Velocity (LVOT): 0.85 m/s LVOT Diameter 1.98 cm Left Ventricular Ejection Fraction: 59.20 %, 59.20 % Left Atrium LA Volume Index (2D A2C): 19.96 ml, 19.96 ml Left Atrium Systolic Dimension: 1.69 cm Mitral Valve MV E to A Ratio: 1.51, 1.62 Mitral Valve A-Wave Peak Velocity: 0.65 m/s, 0.65 m/s Mitral Valve E-Wave Peak Velocity: 0.98 m/s, 1.05 m/s Right Ventricle RV Internal Diastolic Dimension: 2.54 cm Aorta AO Root Diam: 2.64 cm Ascending Ao Diam: 1.94 cm Aortic Valve AoV Area (Peak Suman): 2.59 cm2, 2.59 cm2 Peak Velocity(Antegrade Flow): 1.01 m/s Peak Gradient(Antegrade Flow): 4.12 mm[Hg] Tricuspid Valve Peak Velocity (Regurgitant Flow): 2.12 m/s, 2.18 m/s, 2.16 m/s, 2.27 m/s, 2.51 m/s Peak Velocity: 0.74 m/s Pulmonic Valve Mean Gradient: 1.91 mm[Hg] Mean Velocity: 0.64 m/s Peak Velocity: 0.93 m/s, 1.01 m/s Peak Gradient: 3.47 mm[Hg], 4.10 mm[Hg] Right Atrium Right Atrium Systolic Pressure: 26.94 ml, 26.94 ml Dictated by: Ulices Funk M.D. on 04/24/2022 at 11:49 Approved by: Ulices Funk M.D. on 04/24/2022 at 11:52 Normal [facility] FREE THYROXINE INDEX T7on FTI 1.92 Normal 1.30-4.50 [facility] Comment on above: Performed By: #### T SH, LIPID, CMP, T7 #### [facility] [address] [address] [address] Angela Rodriguez T3U 31.0 % Normal 30.0-39.0 [facility] Comment on above: Performed By: #### T SH, LIPID, CMP, T7 #### [facility] [address] [address] [address] Angela Rodriguez T4 [Mass/Vol] 6.20 ug/dL Normal 5.40-10.60 [facility] Comment on above: Performed By: #### T SH, LIPID, CMP, T7 #### [facility] [address] [place] [address] Dr. Angela Rodriguez GLYCOHEMOGLOBIN A1Con 2021 ADA RECOMMENDATION SEE BELOW Normal [facility] Comment on above: Result Comment: ADA RECOMMENDED LIMIT 4.0 - 6.0 ADA THERAPEUTIC TARGET < 7.0 ACTION SUGGESTED > 7.0 Performed By: #### A 1C ####[facility] [address] [place], [place] [address]TaDr. Angela Rodriguez Glucose [Mass/Vol] 88 mg/dL Normal [facility] Comment on above: Performed By: #### A 1C ####[facility] [address] [place], [place] [address]PjDr. Angela Rodriguez HbA1c (Bld) [Mass fraction] 4.7 % Normal 4.5-6.2 [facility] Comment on above: Performed By: #### A 1C ####[facility] [address] [place] [id number]. Angela Rodriguez IRONon 04-19-2022 Iron [Mass/Vol] 103.0 ug/dL Normal 50.0-170.0 [facility] Comment on above: Performed By: #### I JETHRO #### [facility] [address] [place] [address] Dr. Angela Rodriguez LIPID PROFILEon 04-19-2022 CHOL-HDL RATIO NORM SEE BELOW Normal [facility] Comment on above: Result Comment: 3.3 - 4.4 LOW RISK 4.4 - 7.1 AVERAGE RISK 7.1 - 11.0 MODERATE RISK >11.0 HIGH RISK Performed By: #### T SH, LIPID, CMP, T7 #### [facility] [address] [address] [address] Angela Rodriguez Cholesterol [Mass/Vol] 150 mg/dL Normal 104-227 [facility] Comment on above: Performed By: #### T SH, LIPID, CMP, T7 #### [facility] [address] [address] [address] Angela Rodriguez Cholesterol in HDL [Mass/Vol] 52 mg/dL Normal 29-69 [facility] Comment on above: Performed By: #### T SH, LIPID, CMP, T7 #### [facility] [address] [address] [address] Angela Rodriguez Cholesterol in LDL [Mass/Vol] 88.8 mg/dL Normal 46.0-140.0 [facility] Comment on above: Performed By: #### T SH, LIPID, CMP, T7 #### [facility] [address] [address] [address] Angela Rodriguez Cholesterol.total/C holesterol in HDL [Mass ratio] 2.9 {ratio} Normal [facility] Comment on above: Performed By: #### T SH, LIPID, CMP, T7 #### [facility] [address] [address] [address] Angela Rodriguez HDL NORMAL > or = 60 mg/dl - LO W CARDIOVASCULAR RISK <40 mg/dl - HIGH CARDIOVASCULAR RISK Normal [facility] Comment on above: Performed By: #### T SH, LIPID, CMP, T7 #### [facility] [address] [address] [address] Angela Rodriguez LDL CALC NORMAL SEE BELOW Normal [facility] Comment on above: Result Comment: <100 mg/dl OPTIMAL 100 - 129 mg/dl NEAR OR ABOVE OPTIMAL 130 - 159 mg/dl BORDERLINE HIGH 160 - 189 mg/dl HIGH >190 mg/dl VERY HIGH Performed By: #### T SH, LIPID, CMP, T7 #### [facility] [address] [address] [address] Angela Rodriguez Triglyceride [Mass/Vol] 46 mg/dL Critically low 53-208 [facility] Comment on above: Performed By: #### T SH, LIPID, CMP, T7 #### [facility] [address] [address] [address] Angela Rodriguez VLDL CALC 9.2 mg/dL Normal [facility] Comment on above: Performed By: #### T SH, LIPID, CMP, T7 #### [facility] [address] [address] [address] Angela Rodriguez PROF 14(COMP METB)on 022 Albumin [Mass/Vol] 4.3 g/dL Normal 3.4-5.0 [facility] Comment on above: Performed By: #### T SH, LIPID, CMP, T7 #### [facility] [address] [place] [address] Dr. Angela Rodriguez Albumin/Globulin [Mass ratio] 1.2 {ratio} Normal [facility] Comment on above: Performed By: #### T SH, LIPID, CMP, T7 #### [facility] [address] [address] [address] Angela Rodriguez ALP [Catalytic activity/Vol] 58 U/L Normal 46-116 [facility] Comment on above: Performed By: #### T SH, LIPID, CMP, T7 #### [facility] [address] [address] [address] Angela Rodriguez ALT [Catalytic activity/Vol] 46 U/L Normal 14-59 [facility] Comment on above: Performed By: #### T SH, LIPID, CMP, T7 #### [facility] [address] [address] [address] Angela Rodriguez Anion gap [Moles/Vol] 11.8 mmol/L Normal [facility] Comment on above: Performed By: #### T SH, LIPID, CMP, T7 #### [facility] [address] [address] [address] Angela Rodriguez AST [Catalytic activity/Vol] 26 U/L Normal 15-37 [facility] Comment on above: Performed By: #### T SH, LIPID, CMP, T7 #### [facility] [address] [address] [address] Angela Rodriguez Bilirubin [Mass/Vol] 0.5 mg/dL Normal 0.2-1.0 [facility] Comment on above: Performed By: #### T SH, LIPID, CMP, T7 #### [facility] [address] [address] [address] Angela Rodriguez Calcium [Mass/Vol] 8.8 mg/dL Normal 8.5-10.1 [facility] Comment on above: Performed By: #### T SH, LIPID, CMP, T7 #### [facility] [address] [address] [address] Angela Rodriguez Chloride [Moles/Vol] 103 mmol/L Normal 98-107 [facility] Comment on above: Performed By: #### T SH, LIPID, CMP, T7 #### [facility] [address] [place] [address] Dr. Angela Rodriguez CO2 [Moles/Vol] 25.8 mmol/L Normal 21.0-32.0 [facility] Comment on above: Performed By: #### T SH, LIPID, CMP, T7 #### [facility] [address] [address] [address] Angela Rodriguez Creatinine [Mass/Vol] 0.67 mg/dL Normal 0.55-1.02 [facility] Comment on above: Performed By: #### T SH, LIPID, CMP, T7 #### [facility] [address] [place] [address] Dr. Angela Rodriguez EGFR-AF CITIZ[place] >60 Normal >=60 [facility] Comment on above: Performed By: #### T SH, LIPID, CMP, T7 #### [facility] [address] [place] [address] Dr. Angela Rodriguez EGFR-NON AF CITIZEN OF [place] >60 Normal >=60 [facility] Comment on above: Performed By: #### T SH, LIPID, CMP, T7 #### [facility] [address] [place] [address] Dr. Angela Rodriguez Globulin (S) [Mass/Vol] 3.5 g/dL Normal [facility] Comment on above: Performed By: #### T SH, LIPID, CMP, T7 #### [facility] [address] [place] [address] Dr. Angela Rodriguez Glucose [Mass/Vol] 96 mg/dL Normal 74-106 [facility] Comment on above: Performed By: #### T SH, LIPID, CMP, T7 #### [facility] [address] [place] [address] Dr. Angela Rodriguez Potassium [Moles/Vol] 3.6 mmol/L Normal 3.5-5.1 [facility] Comment on above: Performed By: #### T SH, LIPID, CMP, T7 #### [facility] [address] [place] [address] Dr. Angela Rodriguez Protein [Mass/Vol] 7.8 g/dL Normal 6.4-8.2 [facility] Comment on above: Performed By: #### T SH, LIPID, CMP, T7 #### [facility] [address] [place] [address] Dr. Angela Rodriguez Sodium [Moles/Vol] 137 mmol/L Normal 136-145 [facility] Comment on above: Performed By: #### T SH, LIPID, CMP, T7 #### [facility] [address] [address] [address] Angela Rodriguez Urea nitrogen [Mass/Vol] 13.0 mg/dL Normal 6.4-19.3 [facility] Comment on above: Performed By: #### T SH, LIPID, CMP, T7 #### [facility] [address] [address] [address] Angela Rodriguez Urea nitrogen/Creatinine [Mass ratio] 19.4 mg/mg Normal [facility] Comment on above: Performed By: #### T SH, LIPID, CMP, T7 #### [facility] [address] [place] [address] Dr. Angela Rodriguez TSHon 04-19-2022 TSH 9.346 uIU/mL Critically high 0.516-4.130 [facility] Comment on above: Performed By: #### T SH, LIPID, CMP, T7 #### [facility] [address] [place] [address] Dr. Angela Rodriguez Vital Signs Date Time Vital Sign Value Performing Clinician Facility 07-17-2024 15:10-0500 Body height 170.2 cm Sherif Murphy MD Work Phone: [facility] 07-17-2024 15:10-0500 Body mass index (BMI) [Ratio] 20.76 kg/m2 Sherif Murphy MD Work Phone: [facility] 07-17-2024 15:10-0500 Body temperature 98.01 [degF] Sherif Murphy MD Work Phone: [facility] 07-17-2024 15:10-0500 Body weight 60.15 kg Sherif Murphy MD Work Phone: [facility] 07-17-2024 15:10-0500 Diastolic blood pressure 69 mm[Hg] Sherif Murphy MD Work Phone: [facility] 07-17-2024 15:10-0500 Heart rate 100 /min Sherif Murphy MD Work Phone: [facility] 07-17-2024 15:10-0500 Respiratory rate 20 /min Sherif Murphy MD Work Phone: [facility] 07-17-2024 15:10-0500 SaO2% (BldA) [Mass fraction] 100 % Sherif Murphy MD Work Phone: [facility] 07-17-2024 15:10-0500 Systolic blood pressure 94 mm[Hg] Sherif Murphy MD Work Phone: [facility] 03-24-2024 12:07-0400 Blood Pressure Location Mohamad Mouchli [facility] 03-24-2024 12:07-0400 Diastolic blood pressure 72 mm[Hg] Mohamad Mouchli [facility] 03-24-2024 12:07-0400 Heart rate 93 /min Mohamad Mouchli [facility] 03-24-2024 12:07-0400 Systolic blood pressure 102 mm[Hg] Mohamad Mouchli [facility] 02-14-2024 13:55-0400 Blood Pressure Location Mohamad Mouchli [facility] 02-14-2024 13:55-0400 Diastolic blood pressure 74 mm[Hg] Mohamad Mouchli [facility] 02-14-2024 13:55-0400 Heart rate 74 /min Mohamad Mouchli [facility] 02-14-2024 13:55-0400 Mean blood pressure 86 mm[Hg] Mohamad Mouchli [facility] 02-14-2024 13:55-0400 Respiratory rate 12 /min Mohamad Mouchli [facility] 02-14-2024 13:55-0400 SaO2% (BldA) [Mass fraction] 100 % Mohamad Mouchli [facility] 02-14-2024 13:55-0400 Systolic blood pressure 109 mm[Hg] Mohamad Mouchli [facility] 02-14-2024 13:45-0400 Blood Pressure Location Mohamad Mouchli [facility] 02-14-2024 13:45-0400 Diastolic blood pressure 77 mm[Hg] Mohamad Mouchli [facility] 02-14-2024 13:45-0400 Heart rate 82 /min Mohamad Mouchli [facility] 02-14-2024 13:45-0400 Mean blood pressure 87 mm[Hg] Mohamad Mouchli [facility] 02-14-2024 13:45-0400 Respiratory rate 15 /min Mohamad Mouchli [facility] 02-14-2024 13:45-0400 SaO2% (BldA) [Mass fraction] 100 % Mohamad Mouchli [facility] 02-14-2024 13:45-0400 Systolic blood pressure 108 mm[Hg] Mohamad Mouchli [facility] 02-14-2024 13:40-0400 Blood Pressure Location Mohamad Mouchli [facility] 02-14-2024 13:40-0400 Diastolic blood pressure 63 mm[Hg] Mohamad Mouchli [facility] 02-14-2024 13:40-0400 Heart rate 75 /min Mohamad Mouchli [facility] 02-14-2024 13:40-0400 Mean blood pressure 74 mm[Hg] Mohamad Mouchli [facility] 02-14-2024 13:40-0400 Respiratory rate 16 /min Mohamad Mouchli [facility] 02-14-2024 13:40-0400 SaO2% (BldA) [Mass fraction] 96 % Mohamad Mouchli [facility] 02-14-2024 13:40-0400 Systolic blood pressure 95 mm[Hg] Mohamad Mouchli [facility] 02-14-2024 13:35-0400 Respiratory rate 18 /min Mohamad Mouchli [facility] 02-14-2024 13:29-0400 Body temperature 98.06 [degF] Mohamad Mouchli [facility] 02-14-2024 13:25-0400 Respiratory rate 1 /min Mohamad Mouchli [facility] 02-14-2024 13:20-0400 Respiratory rate 12 /min Mohamad Mouchli [facility] 02-14-2024 12:44-0400 Body temperature 99.14 [degF] Mohamad Mouchli [facility] 02-06-2024 14:21-0400 Blood Pressure Location Mohamad Mouchli [facility] 02-06-2024 14:21-0400 Diastolic blood pressure 72 mm[Hg] Mohamad Mouchli [facility] 02-06-2024 14:21-0400 Heart rate 93 /min Vasquez Oliver [facility] 02-06-2024 14:21-0400 Systolic blood pressure 110 mm[Hg] Vasquez Oliver [facility] 11-24-2023 14:39-0400 Diastolic blood pressure 82 mm[Hg] Erik Schwartz [facility] 11-24-2023 14:39-0400 Heart rate 83 /min Erik Schwartz [facility] 11-24-2023 14:39-0400 Respiratory rate 18 /min Erik Schwartz [facility] 11-24-2023 14:39-0400 SaO2% (BldA) [Mass fraction] 99 % Erik Schwartz [facility] 11-24-2023 14:39-0400 Systolic blood pressure 110 mm[Hg] Erik Schwartz [facility] 11-24-2023 12:44-0400 Body temperature 98.06 [degF] Erik Schwartz [facility] 11-24-2023 12:44-0400 bodymassindex -0.17 kg/m2 Erik Schwartz [facility] Comment on above: Result Comment: ^~:!ZScore Source -[facility] 11-24-2023 12:44-0400 Diastolic blood pressure 85 mm[Hg] Erik Schwartz [facility] 11-24-2023 12:44-0400 Heart rate 102 /min Erik Schwartz [facility] 11-24-2023 12:44-0400 Height/Length Percentile 71.45 1 Erik Allene [facility] Comment on above: Result Comment: ^~:!Percentile [facility] 11-24-2023 12:44-0400 Height/Length Z-Score 0.57 1 Erik Schwartz [facility] Comment on above: Result Comment: ^~:!ZScore [facility] 11-24-2023 12:44-0400 Respiratory rate 16 /min Erik Schwartz [facility] 11-24-2023 12:44-0400 SaO2% (BldA) [Mass fraction] 99 % Erik Schwartz [facility] 11-24-2023 12:44-0400 Systolic blood pressure 118 mm[Hg] Erik Schwartz [facility] 11-24-2023 12:44-0400 Weight Percentile 53.24 % Erik Schwartz [facility] Comment on above: Result Comment: ^~:!Percentile Source [facility] 11-24-2023 12:44-0400 Weight Z-Score 0.08 1 Erik Schwartz [facility] Comment on above: Result Comment: ^~:!ZScore [facility] 08-28-2023 13:08-0500 Body height 170.2 cm Mariangel Dc MD Work Phone: [facility] 08-28-2023 13:08-0500 Body mass index (BMI) [Ratio] 19.73 kg/m2 Mariangel Dc MD Work Phone: [facility] 08-28-2023 13:08-0500 Body weight 57.15 kg Mariangel Dc MD Work Phone: [facility] 08-28-2023 13:08-0500 Respiratory rate 16 /min Mariangel Dc MD Work Phone: [facility] 03-08-2023 21:54-0400 Diastolic blood pressure 60 mm[Hg] Clayton Beaver [facility] 03-08-2023 21:54-0400 Heart rate 83 /min Clayton Beaver [facility] 03-08-2023 21:54-0400 Mean blood pressure 77 mm[Hg] Clayton Beaver [facility] 03-08-2023 21:54-0400 Respiratory rate 17 /min Clayton Beaver [facility] 03-08-2023 21:54-0400 SaO2% (BldA) [Mass fraction] 98 % Clayton Beaver [facility] 03-08-2023 21:54-0400 Systolic blood pressure 110 mm[Hg] Clayton Beaver [facility] 03-08-2023 18:16-0400 Body temperature 98.42 [degF] Clayton Beaver [facility] 03-08-2023 18:16-0400 bodymassindex -1.36 Clayton Beaver [facility] Comment on above: Result Comment: ^~:!ZScore [facility] 03-08-2023 18:16-0400 Diastolic blood pressure 70 mm[Hg] Clayton Beaver [facility] 03-08-2023 18:16-0400 Heart rate 100 /min Clayton Beaver [facility] [facility]23 18:16-0400 Height/Length Percentile 71.72 Clayton Beaver [facility] Comment on above: Result Comment: ^~:!Percentile Source -[facility] 03-08-2023 18:16-0400 Height/Length Z-Score 0.57 Clayton Beaver [facility] Comment on above: Result Comment: ^~:!ZScore [facility] 03-08-2023 18:16-0400 Respiratory rate 14 /min Clayton Beaver [facility] 03-08-2023 18:16-0400 SaO2% (BldA) [Mass fraction] 99 % Clayton Beaver [facility] 03-08-2023 18:16-0400 Systolic blood pressure 116 mm[Hg] Clayton Beaver [facility] 03-08-2023 18:16-0400 weight -0.82 Clayton Beaver [facility] Comment on above: Result Comment: ^~:!ZScore Source -[facility] 03-08-2023 18:16-0400 Weight Percentile 20.48 % Clayton Beaver [facility] Comment on above: Result Comment: ^~:!Percentile Source - [place] Encounters Encounter Date Encounter Type Care Provider Facility Start: 07-17-2024 End: 07-17-2024 Office outpatient new 30 minutes Sherif Murphy MD Work Phone: Jenny Smiley [facility] - Medical Oncology Comment on above: Iron deficiency Start: 07-17-2024 End: 07-18-2024 ambulatory SHERIF MURPHY [facility] Start: 07-17-2024 End: 07-17-2024 Refill Sherif Murphy MD Work Phone: [facility] Start: 07-16-2024 End: 07-16-2024 ambulatory MARIANGEL DC Facility:[facility] Start: 07-16-2024 End: 07-16-2024 Patient encounter procedure MARIANGEL DC [facility] Start: 05-14-2024 End: 05-14-2024 Office outpatient visit 25 minutes Mariangel Dc MD Work Phone: 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); Fibromyalgia; Iron deficiency; Low serum vitamin D; Medication monitoring encounter Start: 05-14-2024 End: 05-14-2024 ambulatory MARIANGEL DC [facility] Start: 03-24-2024 End: 03-24-2024 ambulatory [facility] Start: 03-24-2024 End: 03-24-2024 Patient encounter procedure Vasquez Oliver [facility] Start: 02-14-2024 End: 02-14-2024 ambulatory EUGENIO HOPE Facility:[facility] Start: 02-14-2024 End: 02-14-2024 Patient encounter procedure Vasquez Oliver [facility] Start: 02-06-2024 End: 02-06-2024 ambulatory [facility] Start: 02-06-2024 End: 02-06-2024 Patient encounter procedure Vasquez Oliver [facility] Start: 01-22-2024 ambulatory EUGENIO HOPE Fac ility:[facility] Start: 12-11-2023 End: 12-11-2023 ambulatory EUGENIO KLINE Not Available Start: 11-24-2023 End: 11-24-2023 Emergency department patient visit Erik Schwartz Facility:[facility] Start: 11-24-2023 End: 11-24-2023 Emergency department patient visit Erik Schwartz [facility] Start: 10-18-2023 End: 10-18-2023 ambulatory EUGENIO KLINE Not Available Start: 09-12-2023 End: 09-12-2023 ambulatory MARIANGEL DC [facility] Start: 09-12-2023 End: 09-12-2023 Office outpatient visit 25 minutes Mariangel Dc MD Work Phone: 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 Comment on above: TYLOR positive (Primar y Dx); Fibromyalgia; Fatigue, unspecified type; Multiple joint pain Start: 07-19-2023 End: 07-20-2023 ambulatory EUGENIO HOPE Facility:[facility] Start: 07-19-2023 End: 07-19-2023 Patient encounter procedure EUGENIO HOPE [facility] Start: 06-18-2023 End: 06-18-2023 ambulatory EUGENIO KLINE Not Available Start: 05-14-2023 ambulatory Idamay Start: 03-19-2023 End: 03-19-2023 Lab Drop off EUGENIO HOPE [facility] Start: 03-19-2023 End: 03-20-2023 ambulatory EUGENIO HOPE Facility:[facility] Start: 03-08-2023 End: 03-08-2023 Emergency department patient visit Clayton Beaver Facility:[facility] Start: 03-08-2023 End: 03-08-2023 Emergency department patient visit Clayton Beaver [facility] Start: 11-29-2022 End: 11-29-2022 ambulatory LANCE MELLO Facility: Start: 11-09-2022 End: 11-10-2022 ambulatory PUSHPA DUNCAN . Facility:[facility] Start: 11-09-2022 ambulatory Penny Ramos cility:[facility] Start: 07-03-2022 ambulatory LANCE MELLO Facility: [facility] Start: 04-28-2022 ambulatory LANCE MELLO Facility: [facility] Start: 04-19-2022 End: 04-20-2022 ambulatory LANCE MELLO Facility:[facility] Start: 03-31-2022 ambulatory LANCE MELLO Facility: [facility] Start: 03-10-2022 End: 03-10-[address] TIMOTEO GALICIA . Facility: Procedures Date Procedure Procedure Detail Performing Clinician Start: 02-14-2024 Esophagogastroduodenoscopy Pelonglorygregory Pramod krystal Start: 08-28-2023 Cyclic citrullinated peptide antibody MARIANGEL DC Comment on above: Result Comment: Interpretation-------- <3 Negative >=3 Positive Performed By: #### C 34, 39711-1, 36768-8, 1988-5, FEPR, 2276-4, 38371-3, ENAP, 09957-4 #### [facility] ([id number]) [address] [place] [address], [address] [place] [address] #### NAIFA #### [facility] ([id number]) [address] [place] [address] Plan of Treatment Date Care Activity Detail Author Start: 01-19-2026 DTaP,Tdap and Td Vaccines (6 - Td or Tdap) DTaP,Tdap and Td Vaccines (6 - Td or Tdap) [facility] Start: 07-17-2025 Adult BMI Screening Adult BMI Screen ing [facility] Start: 07-17-2025 Tobacco Screening Tobacco Screening [facility] Start: 07-16-2025 End: 07-16-2025 Telemedicine consultation with patient 07/16/2025 1:00 PM EST Telemedicine Jenny Rosario [facility] - [facility] Oncology [address] [place] [phone] Sherif Murphy MD [address] [facility] [address] [place] [id number] Jenny Rosario [facility] Start: 08-28-2024 Adult BMI Screening Adult BMI Screen ing [facility] Start: 03-02-2024 Influenza vaccination Influenza Vacc ine [facility] Start: 09-12-2023 End: 09-12-2023 Telemedicine consultation with patient 09/12/2023 12:30 PM EDT Telemedicine [facility] [address] [phone] Mariangel Dc MD [address] [address] [facility] Start: 03-02-2023 Influenza vaccination Influenza Vacc ine [facility] Start: 11-26-2022 DTaP,Tdap and Td Vaccines (1 - Tdap) DTaP,Tdap and Td Vaccines (1 - Tdap) [facility] Start: 2015 Depression Screening Depression Scre ening [facility] Start: 2015 Tobacco Screening Tobacco Screening [facility] End: 08-28-2024 Antinuclear Ab, HEp-2 Substrate, S Antinuclear Ab, HEp-2 Substrate, S Lab Routine TYLOR positive 1 Occurrences starting 08/28/2023 until 08/28/2024 YR Free Work Phone: Comment on above: 1 Occurrences starti ng 08/28/2023 until 08/28/2024 Antinuclear Ab, HEp- 2 Substrate, S Antinuclear Ab, HEp-2 Substrate, S Lab Routine TYLOR positive 08/28/2023 1:46 PM EST [facility] End: 05-14-2025 Ferritin [Mass/volume] in Serum or Plasma Ferritin Lab Routine Iron deficiency 1 Occurrences starting 05/14/2024 until 05/14/2025 YR Free Work Phone: Comment on above: 1 Occurrences starti ng 05/14/2024 until 05/14/2025 End: 05-14-2025 Iron and TIBC Iron and TIBC Lab Routine Iron deficiency 1 Occurrences starting 05/14/2024 until 05/14/2025 [facility] Comment on above: 1 Occurrences starti ng 05/14/2024 until 05/14/2025 End: 05-14-2025 Vitamin D 25 hydroxy Vitamin D 25 hydroxy Lab Routine Low serum vitamin D 1 Occurrences starting 05/14/2024 until 05/14/[address] [facility] Comment on above: 1 Occurrences starti ng 05/14/2024 until 05/14/2025 Immunizations Immunization Date Immunization Notes Care Provider Richard [email or web address] 02-15-2021 meningococcal ACWY vaccine, unspecified formulation Mohamad Mouchli [facility] Comment on above: Result Comment: 2023: SYNCOPAL EPISODE WITNESSED. OBSERVED AN ADDITIONAL MINUTES AFTER CONSCIOUSNESS RETURNED. GIVEN COLD WATER TO DRINK AND A COLD RAG TO FOREHEAD. MOTHER STATES CLIENT HAS HAD THESE EPISODES BEFORE. CLIENT TAKES EFFEXOR BUT IT ISN'T REALLY WORKING SO IS 02-15-2021 meningococcal B vacc ine, fully recombinant Mohamad Mouchli [facility] Comment on above: Result Comment: 2023: SYNCOPAL EPISODE WITNESSED. OBSERVED AN ADDITIONAL MINUTES AFTER CONSCIOUSNESS RETURNED. GIVEN COLD WATER TO DRINK AND A COLD RAG TO FOREHEAD. MOTHER STATES CLIENT HAS HAD THESE EPISODES BEFORE. CLIENT TAKES EFFEXOR BUT IT ISN'T REALLY WORKING SO IS 07-20-2016 HPV, unspecified formulation Mohamad Mouchli [facility] 03-23-2016 HPV, unspecified formulation Mohamad Mouchli [facility] 01-20-2016 HPV, unspecified formulation Mohamad Mouchli [facility] 01-20-2016 meningococcal ACWY vaccine, unspecified formulation Mohamad Mouchli [facility] 01-20-2016 tetanus toxoid, redu lily diphtheria toxoid, and acellular pertussis vaccine, adsorbed Mohamad Mouchli [facility] 06-01-2015 influenza, whole Mohamad Kailey chli [facility] 06-01-2015 influenza virus vacc ine, unspecified formulation Mariangel Dc MD Work Phone: [facility] 12-03-2008 DTaP, unspecified formulation Mohamad Mouchli [facility] 12-03-2008 Hep A, unspecified formulation Mohamad Mouchli [facility] 12-03-2008 measles, mumps and rubella virus vaccine Mohamad Mouchli [facility] 12-03-2008 varicella virus vaccine Moha mad Mouchli [facility] 06-04-2008 DTaP, unspecified formulation Mohamad Mouchli [facility] 06-04-2008 Hep A, unspecified formulation Mohamad Mouchli [facility] 06-04-2008 influenza, whole Pelonamad Kailey chli [facility] 06-04-2008 poliovirus vaccine, unspecified formulation Mohamad Mouchli [facility] 04-30-2008 DTaP-hepatitis B and poliovirus vaccine Mohamad Mouchli [facility] 04-30-2008 Hib, unspecified formulation Mohamad Mouchli [facility] 04-30-2008 measles, mumps and rubella virus vaccine Mohamad Mouchli [facility] 04-30-2008 varicella virus vaccine Moha mad Mouchli [facility] 07-06-2004 DTaP, unspecified formulation Mohamad Mouchli [facility] 07-06-2004 poliovirus vaccine, unspecified formulation Vasquez Oliver [facility] 2003 hepatitis B vaccine, pediatric or pediatric/adolescent dosage Vasquez Benavidezkrystal [facility] Payers Date Payer Category Payer Medicaid [facility] O [id number] 2023-Present [phone] [address] [place] [address] [id number] 2023 Medicaid HMO [employer] [id number] 2003 Unknown [id number] 2.16.840.1.723912.3.579.2.59 2003 Unknown [id number] 2.16.840.1.961743.3.579.2.593 2003 Unknown [id number] 2.16.840.1.033304.3.579.2.59 2003 Unknown [id number] 2.16.840.1.779391.3.579.2.593 2003 Unknown [id number] 2.16.840.1.642917.3.579.2.593 2003 Unknown [id number] 2.16.840.1.913354.3.579.2.593 2003 Unknown [id number] 2.16.840.1.509507.3.579.2.727 2003 Unknown [id number] 2.16.840.1.335185.3.579.2.727 2003 Unknown [id number] 2.16.840.1.095786.3.579.2.727 2003 Unknown [id number] 2.16.840.1.416494.3.579.2.727 2003 Unknown [id number] 2.16.840.1.693229.3.579.2.1259 2003 Unknown [id number] 2.16.840.1.576136.3.579.2.1259 2003 Unknown [id number] 2.16.840.1.305357.3.579.2.1259 2003 Unknown [id number] 2.16.840.1.252330.3.579.2.72 2003 Unknown [id number] 2.16.840.1.624948.3.579.2.72 2003 Unknown [id number] 2.16.840.1.773535.3.579.2.727 2003 Unknown [id number] 2.16.840.1.898376.3.579.2.128 2003 Unknown [id number] 2.16.840.1.752000.3.579.2.128 2003 Unknown [id number] 2.16.840.1.677363.3.579.2.1285 2003 Unknown [id number] 2.16.840.1.049378.3.579.2.128 2003 Unknown [id number] 2.16.840.1.590125.3.579.2.727 2003 Unknown [id number] 2.16.840.1.826225.3.579.2.727 2003 Unknown [id number] 2.16.840.1.482388.3.579.2.1286 1980 Unknown [id number] 2.16.840.1.192844.3.579.2.593 1980 Unknown [id number] 2.16.840.1.826964.3.579.2.727 1959 Self-pay 1959 Unknown [id number] 1959 Unknown [id number] Unknown [id number] 2.16.840.1.242513.3.579.2.531 Social History Date Type Detail Facility Start: 03-08-2023 End: 07-17-2024 Tobacco smoking status Never smoked tobacco (finding) [facility] Tobacco smoking status Never [facility] Start: 07-17-2024 Sex Assigned At Female F [facility] Tobacco smoking status [facility] Tobacco smoking consumption unknown [facility] Start: 2003 Sex assigned at Not on file P [facility] Start: 08-08-2023 Sex Female (finding) [facility] Start: 07-17-2024 Tobacco use and exposure Smokeless tobacco non-user [facility] Start: 07-17-2024 History of Social function [facility] Functional Status Date Assessment Result Facility 03-24-2024 Functional Status N/A [facility] 02-14-2024 Functional Status N/A [facility] 02-06-2024 Functional Status N/A [facility] 11-24-2023 Functional Status N/A [facility] 03-08-2023 Functional Status N/A [facility] Clinical Notes 03-08-2023 to 07-17-2024 Sherif Murphy MD - 07/17/2024 3:30 PM ESTPatient Randal Dc MD - 05/14/2024 1:00 PM EST Note Date & Type Note Facility 07-17-2024 History of Present illness Narrative Images from the original note were not included. [facility] 07/17/24 Allegra Lopez is a 18 y.o. year old female seen today in the oncology clinic. No chief complaint on file. History of Present Illness: Ms. Lopez is a 18 y.o. female with history of iron deficiency from menorrhagia. She had tried oral iron supplement and doesn't like the taste of the pills. She complains about fatigue and was found to have persistent iron deficiency. She was referred to hematology for further evaluation The patient doesn't like needle poke and told me that she wants to avoid IV treatment if possible. History reviewed. No pertinent past medical history. History reviewed. No pertinent surgical history. History reviewed. No pertinent family history. Social History Socioeconomic History Marital status: Single Tobacco Use Smoking status: Never Smokeless tobacco: Never No Known Allergies Medication List Accurate as of July 17, 2024 9:02 PM. If you have any questions, ask your nurse or doctor. New Medications Ordered This Visit ferrous sulfate 300 mg (60 mg elemental iron)/5 mL syrup Quantity: 500 mL Refills: 1 Dose: 300 mg Signed by: Sherif Murphy 300 mg, oral, Daily Commonly known as: FEOSOL Started by: Sherif Murphy Medications Continued This Visit ergocalciferol 1,250 mcg (50,000 unit) capsule Quantity: 12 capsule Refills: 0 Dose: 50,000 Units Signed by: Dr. Mariangel Dc MD 50,000 Units, oral, Weekly Commonly known as: DRISDOL escitalopram 20 mg tablet Refills: 0 Commonly known as: LEXAPRO hydroxychloroquine 200 mg tablet Quantity: 130 tablet Refills: 1 Doctor's comments: Indication: Connective tissue disease Signed by: Dr. Mariangel Dc MD Two pills a day on Sunday/Sunday/Sunday and 1 pill a day on other days of the week Commonly known as: PLAQUENIL JUNEL FE 24 1 mg-20 mcg (24)/75 mg (4) per tablet Refills: 0 Dose: 1 tablet Generic drug: norethindrone-e.estradioL-iron lurasidone 60 mg tablet tablet Refills: 0 Commonly known as: LATUDA QUEtiapine 25 mg tablet Refills: 0 Commonly known as: SEROquel WELLBUTRIN XL 150 mg 24 hr tablet Refills: 0 Generic drug: buPROPion XL Review of Symptoms: Review of Systems ECO- Symptomatic; fully ambulatory Physical Exam: General: Well appearing, in no acute distress. Vitals: BP 94/69 Pulse 100 Temp 36.7 C (98 F) (Oral) Resp 20 Ht 170.2 cm (5' 7.01 ) Wt 60.1 kg (132 lb 9.6 oz) SpO2 100% BMI 20.76 kg/m Body mass index is 20.76 kg/m . Eyes: No icterus, no conjuctival erythema ENT: Pharyngeal mucosa was moist without exudate and inflammation or ulcerations. Tongue was midline and appeared normal.Gums were unremarkable. Lymph nodes: No palpable adenopathy Neck: Supple. There were no masses, tenderness. Trachea was midline. Respiratory: Respirations were non-labored. Lungs were clear to auscultation. There was no dullness to percussion. Cardiac: Regular rate and rhythm, S1 and S2 sounds were normal. There were no rubs or gallops. Abdomen: Soft, non-tender, Nondistended. Bowel sounds audible in all four quadrants. There were no palpable masses. The liver and spleen were not enlarged. Extremities: There was no clubbing, Cyanosis, edema. Skin: There was no obvious rashes, bruising or ecchymosis. Back exam: No palpable tenderness was appreciated. Neurologic: There was no unilateral weakness. Mood and affect: Normal. Recent Imaging: No results found. Recent Labs: No results found for this or any previous visit (from the past 2 weeks). Diagnosis Problem list: Problem List Items Addressed This Visit Digestive Iron deficiency Impression: Iron deficiency Heavy menses Needle phobia Plan: I reviewed the patient's blood work over the past 12 months. She had borderline iron deficiency. Most likely due to heavy menses. Since patient has needle phobia, I recommend her to try oral liquid form iron supplement. She can slowly increase the intake as tolerated. Rx sent to pharmacy. CBC iron studies every 3 months, print out orders. Patient will have it done at local labs. F/u in 1 year, video visit. Thank you. Sherif Murphy MD Please note that portions of this note were generated using voice recognition M*Modal dictation software. Although every effort was made to ensure the accuracy of this automated anthropology faculty member, some errors in anthropology faculty member may have occurred. CC: No care maintenance team member to display PCP:No primary care provider on file. Referring MD: Mariangel Dc MD documented in this encounter [facility] 07-17-2024 Instructions Sherif Murphy MD - 07/17/2024 3:30 PM EST CBC iron studies every 3 months, print out orders. F/u in 1 year, video visit. documented in this encounter [facility] 05-14-2024 History of Present illness Narrative Images from the original note were not included. [address] [phone] Date of Service: 05/14/2024 Video Visit via Real-time Synchronous Audiovisual Provider Location: [facility] [address] [facility] [phone] Patient Location: Patient's home Patient Location Veneer Sorter: None Video Visit Consent Statement: I discussed risks, benefits, and alternatives of a real-time synchronous audiovisual consultation with the patient (and any accompanying persons) including the risks that the patient's personal health details and medical records will be discussed over real-time, synchronous, interactive video/audio/telecommunication technology, the visit will not be recorded without the express consent of both the provider and the patient, and that there are some limitations compared to [id number] evaluations. We elected to proceed. Chief Complaint: Pain and fatigue. SUBJECTIVE: Allegra Lopez is a 18 y.o. female who has video visit with rheumatology clinic in follow-up evaluation of possible underlying autoimmune disease. The problem has been present for several years. Patient has history of anxiety/depression. She was seen her PCP for having body ache and pain and found to have +TYLOR. Current Symptoms include pain, tenderness to touch of all over body . Onset was gradual. The symptoms are of moderate and severe severity. They are made worse by: movement, sitting, standing, and walking. They are helped by nothing. Associated symptoms include: arthralgia, fatigue, and memory loss. Previously used rheumatologic medications include NSAIDS - Problems: not effective. Limitation on activities include: difficulty with walking and difficulty with ADLs. Rheumatology Family Hx: Fibromyalgia Relation to patient: mother. Previous Meds tried: Previous Procedures: REVIEW OF SYSTEMS: CONSTITUTIONAL: Admits: [] Weight Loss [] Fever [] Frequent Night Sweats OPHTHALMOLOGIC: Admits: [] Glaucoma [] History or Current Inflammatory Eye Disease [] Cataracts ENT: Admits: [] Oral/Nasal Ulcers [] epistaxis [] Recurrent Sinusitis [] Dry Eyes [] Dry mouth CARDIOVASCULAR: Admits: [] Chest pain [] Pericarditis/Pleuritis [] Palpitations [] Edema RESPIRATORY: Admits: [] hemoptysis [] Dyspnea on Exertion [] Cough [] Wheezing GASTROINTESTINAL: Admits: [] Bloody Stool [] Diarrhea [] Vomitting GENITOURINARY: Admits: [] Blood in urine [] Genital Ulcers [] Burning/pain with urination MUSCULOSKELETAL: Admits: [x] Muscle Pain [x] Joint Pain INTEGUMENTARY: Admits: [] Skin changes [] Sclerodactyly [] Raynauds [] Photosensitivity [] Alopecia NEUROLOGIC: Admits: [] Recurrent Headaches [] Limb Weakness [] Numbness/Tingling PSYCHIATRIC: Admits: [x] Insomnia [x] Depression [x] Anxiety ENDOCRINE: Admits: [] Thyroid abnormalities HEMATOLOGY/LYMPH: Admits: [] Notable Swollen Lymph Nodes [] History of Cytopenias [] Bruising tendency [] History of DVT/PE All non checked boxes, patient denies. All other 10 point ROS reviewed and negative. PHYSICAL EXAMINATION: Constitutional: There were no vitals taken for this visit.: reviewed Comfortable, pleasant, no acute distress Eyes: Conjunctiva clear and moist, eyelids without lesions. Extraocular movements fully intact. Ears/Nose/Mouth/Throat: External inspection of ears/nose is normal - no scars, lesions, masses No oral ulcers or lesions on mucosa of inner mouth, tongue. Neck: Symmetrical, tongue midline, no masses, no lymphadenopathy, no thyromegaly Respiratory: Inspiratory and expiratory effort normal. Clear to auscultation bilaterally. No crackles or wheezes. Cardiovascular: Palpation of heart reveals normal PMI. Auscultation: regular rate rhythm, no murmurs/rubs/gallops. Carotid arteries symmetric and 2+. No edema of extremities Gastrointestinal: Soft, nontender, bowel sounds in all quadrants. No hepatosplenomegaly on palpation. Lymphatic: No lymphadenopathy in neck Neurologic: Facial muscles symmetric and of normal strength. Tongue is midline. Dermatologic: Inspection and palpation of skin and subcutaneous tissue of all four extremities without rashes Nailfold capillary exam normal Psychiatric: Normal affect. Judgement/insight intact. Musculoskeletal: Neck: Full ROM. no swelling, No tenderness, Shoulder: Bilateral full active ROM. no swelling, No tenderness, Elbows: Full ROM. no swelling, No tenderness, Wrists: Full ROM. no swelling, No tenderness, Hands: Full ROM. no swelling, No tenderness, Hips: Normal ROM. No swelling, No tenderness, Knees: Normal ROM, no swelling, No tenderness, Feet: Full ROM. no swelling, No tenderness, Ankles: Normal ROM,no swelling, No tenderness, Spine: no tenderness throughout spine, no sacroiliac joint tenderness Tender on 14/16 point Labs & Imaging: Labs and Imaging reviewed and discussed with the patient during the visit. Lab Results Component Value Date C3 121 08/28/2023 C4 10 (L) 08/28/2023 No results found for: WBC , HGB , HCT , MCV , PLT No results found for: CREATININE , BUN , NA , K , CL , CO2 No results found for: ALT , AST , GGT , ALKPHOS , LABBILI Lab Results Component Value Date SEDRATE 9 08/28/2023 Lab Results Component Value Date CRP <0.1 08/28/2023 No results found. ASSESSMENT/PLAN: Allegra was seen today for new patient. 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 - She denies hx of photosensitivity, no dry eye/mouth, no recurrent oral/nasal ulcer, no Raynaud's, no DVT/PE, no miscarriage, no pleurisy. Her energy is low, denies patchy hair loss. She has lots of arthralgia - Based on history and ph/ex, few sign and symptoms of connective tissue disease. - she has low C4 level - she agrees to try Plaquenil. - Antinuclear Ab, HEp-2 Substrate, S; Future - Complement profile (C3 AND C4); Future - Unlisted Lab Test; Future - CLARY Panel; Future Fibromyalgia - She complains of lots of body ache and pain. - Symptoms are worse with daily activity and stress. - She has ineffective sleep. Some headaches but not often, good appetite but complains of constipation. - Exam is benign except of having 14/18 tender point. - W/up including TYLOR, RF and inflammatory markers are all within normal range. - symptoms are related to Fibromyalgia. - she is on Cymbalta, the dose can be increased. Neurontin and Lyrica can be considered. Muscle relaxer can be helpful in patients with Fibromyalgia. - Handouts about Fibro and the Flyer for Support group is given to the patient. Iron deficiency - severe low ferritin level - she could not tolerate oral iron - referring to Hematology for iron infusion . Low serum vitamin-D level - try ergocalciferol Medication monitoring encounter I have explained potential side effects of Plaquenil including short term acute vision changes, nausea, vomiting, weight loss, skin discoloration, mcc risk of retinal toxicity and need for annual retinal eye exams Follow up in 6 months. Total time spent with the patient face to face was 30 minutes which included obtaining and reviewing history, performing an exam, educating and counseling the patient, communicating test results to the patient. Preparing to see the patient (reviewing all results, history, medications, my office notes, other physician notes), ordering tests/medications/referrals, documenting in the patient's health record time spent was 10 minutes This note was created with the assistance of a speech recognition program. While intending to generate a timely document that accurately reflects the content of the visit, no guarantee can be provided that every grammatical or spelling mistake has been or will be identified or corrected. Thank you for your understanding. Any information carried forward was reviewed, updated, and is pertinent to the current visit [facility] Rheumatology Dr. Mariangel Dc M.D. [address] [place] [address], [address] [place] [address] Office: [phone] 05/14/2024 documented in this encounter [facility] 02-14-2024 Hospital Discharge instructions Patient Education 02/14/2024 13:50:02 Endoscopy, Care After Procedure [facility] [place]) Endoscopy Care After Procedure Please read the instructions outlined below and refer to this sheet in the next few weeks. These discharge instructions provide you with general information on caring for yourself after you leave the hospital. Your doctor may also give you specific instructions. While your treatment has been planned according to the most current medical practices available, unavoidable complications occasionally occur. If you have any problems or questions after discharge, please call your doctor. ACTIVITY You may resume your regular activity but move at a slower pace for the next 24 hours. Take frequent rest periods for the next 24 hours. Walking will help expel (get rid of) the air and reduce the bloated feeling in your abdomen. No driving for 24 hours (because of the anesthesia (medicine) used during the test). You may shower. Do not sign any important legal documents or operate any machinery for 24 hours (because of the anesthesia used during the test). NUTRITION Drink plenty of fluids. You may resume your normal diet. Begin with a light meal and progress to your normal diet. Avoid alcoholic beverages for 24 hours or as instructed by your caregiver. MEDICATIONS You may resume your normal medications unless your caregiver tells you otherwise. WHAT YOU CAN EXPECT TODAY You may experience abdominal discomfort such as a feeling of fullness or gas pains. FOLLOW-UP Your doctor will discuss the results of your test with you. SEEK IMMEDIATE MEDICAL ATTENTION IF ANY OF THE FOLLOWING OCCUR: Excessive nausea (feeling sick to your stomach) and/or vomiting. Severe abdominal pain and distention (swelling). Trouble swallowing. Temperature over 100 F (37.8 C). Rectal bleeding or vomiting of blood. Document Released: 01/30/2005 Document Re-Released: 12/10/2006 ExitCare Patient Information 2009 [employer]. Follow Up Care 02/06/2024 14:50:29 With:Melody GARIBAY, LLOYD Benjamin, [facility] Address: [facility] [address], [address] [place] [address]- [phone] When: Unknown Comments:Office will call to schedule follow up appointment and/or review any pending biopsy resultsCall for any problems. [facility] 02-14-2024 Note Progress Note-Physic simon Patient: ALLEGRA LOPEZ Age: 18 years Sex: Female : 2005 Associated Diagnoses: None Author: Sylvester Medrano Jr., DO Postoperative Information Postoperative disposition: Postoperative disposition: Home. Optimetrix number: Optimetrix number [id number]. Anesthetic utilized: General. Physical Examination Vital Signs 02/14/2024 13:55 EDT Heart Rate Monitored 74 bpm Respiratory Rate 12 br/min LOW Systolic Blood Pressure 109 mmHg Diastolic Blood Pressure 74 mmHg Blood Pressure Location Left arm Mean Arterial Pressure, Cuff 86 mmHg SpO2 100 % 02/14/2024 13:45 EDT Heart Rate Monitored 82 bpm Respiratory Rate Monitored 15 br/min Systolic Blood Pressure 108 mmHg Diastolic Blood Pressure 77 mmHg Blood Pressure Location Left arm Mean Arterial Pressure, Cuff 87 mmHg SpO2 100 % 02/14/2024 13:40 EDT Heart Rate Monitored 75 bpm Respiratory Rate Monitored 16 br/min Systolic Blood Pressure 95 mmHg Diastolic Blood Pressure 63 mmHg Blood Pressure Location Left arm Mean Arterial Pressure, Cuff 74 mmHg SpO2 96 % 02/14/2024 13:35 EDT Heart Rate Monitored 76 bpm Respiratory Rate Monitored 18 br/min Systolic Blood Pressure 99 mmHg Diastolic Blood Pressure 61 mmHg Blood Pressure Location Left arm SpO2 97 % 02/14/2024 13:29 EDT Temperature Temporal Artery 36.7 DegC Heart Rate Monitored 80 bpm Respiratory Rate Monitored 18 br/min Systolic Blood Pressure 98 mmHg Diastolic Blood Pressure 61 mmHg Blood Pressure Location Left arm SpO2 96 % Pain Assessment: Controlled. General: Awake, Alert, Appropriate. Respiratory: Adequate air exchange, Non-labored. Cardiovascular: Stable, Normal peripheral perfusion. Neurological: Neurologic exam at baseline. No changes.. Assessment Anesthetic outcome No anesthetic complications noted. No nausea/vomiting. Review / Management Condition: Stable. Plan Transfer/Discharge: Transfer/Discharge Discharge when meets criteria ( From PACU to Ambulatory Surgery Unit, and To home ). [facility] Comment on above: Result Comment: Elec tronically Signed By: Sylvester Medrano Jr., DO\.br\Date and Time Signed: 02/14/24 14:41 EDT 02-14-2024 Evaluation + Plan note Extrac mignon from: Title:ANES Post-operative Note - General Author: Sylvester Medrano Jr., DO Date:02/14/24 Plan Transfer/Discharge: Transfer/Discharge Discharge when meets criteria ( From PACU to Ambulatory Surgery Unit, and To home ). Extracted from: Title:EGD Bx Author:Vasquez Oliver MD te:02/14/24 Patient: ALLEGRA LOPEZ Age: 18 years Sex: Female : 2005 Associated Diagnoses: None Author: Vasquez Oliver MD Pre-Procedure Procedure Date 02/14/2024 13:28:00 . Procedure Type: Esophagogastroduodenoscopy with biopsy. Procedure provider Performed by Vasquez Oliver MD. Current history and physical Documented on chart. Informed Consent After discussing the rationale, risks and benefits, and alternatives to this procedure, the patient provided signed consent for the procedure. Pre-procedure diagnosis: anemia. Medications (Selected) Inpatient Medications Ordered Lactated Ringers IV Tayler 1000 mL 1,000 mL: 1,000 mL, IV, 100 mL/hr, Routine, Start date 02/14/24 13:01:00 EDT, 10 hour(s), Total volume (mL): 1,000, 61 kg, 1.68, m2 Sodium Chloride 0.9% IV Tayler 1000 mL 1,000 mL: 1,000 mL, IV, 20 mL/hr, Routine, Start date 02/14/24 7:09:00 EDT, 50 hour(s), Total volume (mL): 1,000, 61 kg, 1.68, m2 Documented Medications Documented Latuda 60 mg oral tablet: 0 Refill(s), Orally Once a day, Refills(s) 0, Depression docusate sodium 100 mg Cap: BID, 1 Unknown, 0 Refill(s), Refills(s) 0, Constipation escitalopram 20 mg Tab: 0 Refill(s), TAKE 1 TABLET BY MOUTH EVERY DAY, Refills(s) 0, Depression quetiapine 25 mg Tab: 25 mg = 1 tab(s), Oral, Once a day (at bedtime), 1 Unknown, 0 Refill(s), Refills(s) 0, Other (see comment) Anticoagulant/antiplatelet None. ASA Classification: Class II. . Monitoring: See anesthesia record. . Procedure The procedure was performed in the hospital. See anesthesia record for sedation given during procedure. The patient was positioned starting in the left lateral decubitus position and with safety measures. Endoscope type used was an adult-size, introduced orally, advanced to the 2nd portion of the duodenum. No difficulty was encountered during the procedure. Views were excellent. The patient tolerated the procedure well. Findings 1. Normal esophagus. Z-line at 39 cm 2. Erythema in the antrum, mild patchy. Otherwise normal stomach. Biopsies of the stomach were taken to rule out H. pylori. 3. Normal duodenum. Images Procedure images: [email or web address]_hd_video_[id number]__[id number].jpg [id number]_hd_video_2023__[id number].jpg Rec1_hd_video___30_[id number].jpg Rec1_hd_video_2023__T1_[id number].jpg Rec1_hd_video_2023__T1_[id number].jpg Rec1_hd_video_2023__T1_[id number].jpg Rec1_hd_video_2023__T1_[id number].jpg Rec1_hd_video__T1_32_02_[id number].jpg Rec1_hd_video__T1_[id number].jpg Rec1_hd_video__T1_[id number].jpg Rec1_hd_video__T1_33_13_[id number].jpg . Post-Procedure Complications: none. Estimated blood loss: minimal. Specimens: sent to pathology. Devices/ implants: none left in place. Impression and Plan Gastropathy Recommendations: -Resume previous diet -Resume home medications -Await pathology results, follow in GI clinic in 1-2 after discharge Addendum by Melody GARIBAY, Johanny Magallon on February 14, 2024 13:31 EDT Will start Protonix and Carafate (office will call with prescription) Extracted from: Title:SUDHIR Pre-operative Note - Endo Author:Lilli mcgee Jr. Sylvester THAPA Date:02/14/24 Plan [place] [employer] Anesthesiologists (ASA) physical status classification: Class II. Anesthetic Preoperative Plan: Anesthesia General, and -TIVA. [facility] 08-15-2024 NotePatient Education - Text Endoscopy Care After Procedure Please read the instructions outlined below and refer to this sheet in the next few weeks. These discharge instructions provide you with general information [facility] Your doctor may also give you specific instructions. While your treatment has been planned according to the most current medical practices available, unavoidable complications occasionally occur. If you have any problems or questions after discharge, please call your doctor. ACTIVITY ? You may resume your regular activity but move at a slower pace for the next 24 hours. ? Take frequent rest periods for the next 24 hours. ? Walking will help expel (get rid of) the air and reduce the bloated feeling in your abdomen. ? No driving for 24 hours (because of the anesthesia (medicine) used during the test). ? You may shower. ? Do not sign any important legal documents or operate any machinery for 24 hours (because of the anesthesia used during the test). NUTRITION ? Drink plenty of fluids. ? You may resume your normal diet. ? Begin with a light meal and progress to your normal diet. ? Avoid alcoholic beverages for 24 hours or as instructed by your caregiver. MEDICATIONS ? You may resume your normal medications unless your caregiver tells you otherwise. WHAT YOU CAN EXPECT TODAY ? You may experience abdominal discomfort such as a feeling of fullness or ?gas? pains. FOLLOW-UP ? Your doctor will discuss the results of your test with you. seek immediate medical attention if any of the following occur: ? Excessive nausea (feeling sick to your stomach) and/or vomiting. ? Severe abdominal pain and distention (swelling). ? Trouble swallowing. ? Temperature over 100 F (37.8? C). ? Rectal bleeding or vomiting of blood. Document Released: 01/30/2005 Document Re-Released: 12/10/2006 ExitCare? Patient Information ?2009 [employer].[facility] 02-14-2024 NoteProgress Note-Physician Patient: ALLEGRA LOPEZ Age: 18 years Sex: Female : 2005 Associated Diagnoses: None Author: Sylvester Medrano Jr., DO Preoperative Information Anesthesia history: Patient history: No prior anesthetic problems. Informed consent: Signed by patient. Re-evaluation prior to induction: Initial evaluation reviewed: No significant change. Review of Systems Respiratory: Negative except as documented in history of present illness. Cardiovascular: Negative except as documented in history of present illness. Health Status Allergies: Allergic Reactions (Selected) No Known Medication Allergies, Allergies (1) Active Severity Reaction No Known Medication Allergies None Documented Current medications: (Selected) Inpatient Medications Ordered Sodium Chloride 0.9% IV Tayler 1000 mL 1,000 mL: 1,000 mL, IV, 20 mL/hr, Routine, Start date 02/14/24 7:09:00 EDT, 50 hour(s), Total volume (mL): 1,000, 61 kg, 1.68, m2 Documented Medications Documented Latuda 60 mg oral tablet: 0 Refill(s), Orally Once a day, Refills(s) 0, Depression docusate sodium 100 mg Cap: BID, 1 Unknown, 0 Refill(s), Refills(s) 0, Constipation escitalopram 20 mg Tab: 0 Refill(s), TAKE 1 TABLET BY MOUTH EVERY DAY, Refills(s) 0, Depression quetiapine 25 mg Tab: 25 mg = 1 tab(s), Oral, Once a day (at bedtime), 1 Unknown, 0 Refill(s), Refills(s) 0, Other (see comment), Home Medications (4) Active docusate sodium 100 mg Cap , BID escitalopram 20 mg Tab Latuda 60 mg oral tablet quetiapine 25 mg Tab 25 mg = 1 tab(s), Oral, Once a day (at bedtime) , Medications (1) Active Scheduled: (0) Continuous: (1) Sodium Chloride 0.9% 1,000 mL 1,000 mL, IV, 20 mL/hr PRN: (0) Problem list: All Problems Chest pain, atypical / SNOMED CT 752419873 / Confirmed Chronic constipation / SNOMED CT 695445229 / Confirmed Nausea / SNOMED CT 5145420995 / Confirmed Nausea and vomiting / SNOMED CT 89193172 / Confirmed Vitamin D below reference range / [facility] 438[facility] / Confirmed Histories Past Medical History: No active or resolved past medical history items have been selected or recorded. Procedure history: No active procedure history items have been selected or recorded. Social History Social & Psychosocial Habits Alcohol Comment: denadryan - 03/08/2023 19:10 - Light Pipo CHOUDHARY 02/06/2024 Risk Assessment: Denies Alcohol Use Substance Abuse Comment: denies - 03/08/2023 19:10 - Light Pipo CHOUDHARY 02/06/2024 Risk Assessment: Denies Substance Abuse Tobacco 02/06/2024 Risk Assessment: Denies Tobacco Use 02/06/2024 Tobacco Use: Never (less than 100 in l Smokeless tobacco use: Never . Physical Examination Vital Signs 02/14/2024 12:44 EDT Temperature Temporal Artery 37.3 DegC Heart Rate Monitored 101 bpm HI Respiratory Rate Monitored 12 br/min Systolic Blood Pressure 112 mmHg Diastolic Blood Pressure 81 mmHg Blood Pressure Location Left arm SpO2 100 % Airway: Mallampati classification: II (soft palate, fauces, uvula visible). Respiratory: Lungs are clear to auscultation, Respirations are non-labored. Cardiovascular: Regular rhythm. Plan [place] [employer] Anesthesiologists (ASA) physical status classification: Class II. Anesthetic Preoperative Plan: Anesthesia General, and -[facility]IVA[facility] Comment: Electronically Signed By: Sylvester Medrano Jr., DO.laith\Date and Time Signed: 02/14/24 13:01 [id number] Hospital Discharge instructions Follow Up Care 11/24/2023 12:22:46 With:EUGENIO HOPE Address: [address] [place] [id number] Business (1) When:Within 3 Day(s) [facility]05-25-2024 Evaluation + Plan noteExtracted from: Title:ED Note Author:Erik Schwartz DO Date:10/31 11/22 Nausea (R11.0: Nausea) UTI (urinary tract infection) (N39.0: Urinary tract infection, site not specified) Orders: ondansetron, 4 mg = 1 tab(s), Oral, q6hr, PRN Nausea, Take one tab by mouth every six hours as needed for nausea, # 10 tab(s), Refills(s) 0, Pharmacy: [id number], 167, cm, 11/24/23 12:49:00 EDT, Height/Length Dosing, 59, kg, 11/24/23 12:49:00 EDT, Weight D... ondansetron, 4 mg = 1 tab(s), Tab-Dis, Oral, Once, Stop date 11/24/23 13:23:00 EDT, STAT, Start date 11/24/23 13:23:00 EDT, 11/24/23 13:23:00 EDT sulfamethoxazole-trimethoprim, 1 tab(s), Oral, BID for 7 day(s), 14 tab(s), Refill(s) 0, Take one tab by mouth twice a day for seven days, [id number], 167, cm, 11/24/23 12:49:00 EDT, Height/Length Dosing, 59, kg, 11/24/23 12:49:00 EDT, Weight Dosing Chlam/GC/Trich,EM U Beta Hcg Qual UA with Cult Rflx Urine Culture Diagnostic Tests Pending * Chlam/GC/Trich,EM 11/24/23 * Urine Culture 11/24/23 [facility]03-13-2024 History of Present illness Narrative* Mariangel Dc MD - 09/12/2023 12:30 PM EDT Images from the original note were not included. [address] [id number] Date of Service: 09/12/2023 Video Visit via Real-time Synchronous Audiovisual Provider Location: [facility] [address] [place] [id number] Patient Location: Patient's home Patient Location Veneer Sorter: None Video Visit Consent Statement: I discussed risks, benefits, and alternatives of a real-time synchronous audiovisual consultation with the patient (and any accompanying persons) including the risks that the patient's personal health details and medical records will be discussed over real-time, synchronous, interactive video/audio/telecommunication technology, the visit will not be recorded withoutthe express consent of both the provider and the patient, and that there are some limitations compared to [id number] evaluations. We elected to proceed. Chief Complaint: Pain and fatigue. SUBJECTIVE: Allegra Lopez is a 17 y.o. female who has video visit with rheumatology clinic in follow-up evaluation of possible underlying autoimmune disease. The problem has been present for several years. Patient has history of anxiety/depression. She was seen her PCP for having body ache and pain and found to have +TYLOR. Current Symptoms include pain, tenderness to touch of all over body . Onset was gradual. The symptoms are of moderate and severe severity. They are made worse by: movement, sitting, standing, and walking. They are helped by nothing. Associated symptoms include: arthralgia, fatigue, and memory loss. Previously used rheumatologic medications include NSAIDS - Problems: not effective. Limitation on activities include: difficulty with walking and difficulty with ADLs. Rheumatology Family Hx: Fibromyalgia Relation to patient: mother. Previous Meds tried: Previous Procedures: REVIEW OF SYSTEMS: CONSTITUTIONAL: Admits: [] Weight Loss [] Fever [] Frequent Night Sweats OPHTHALMOLOGIC: Admits: [] Glaucoma [] History or Current Inflammatory Eye Disease [] Cataracts ENT: Admits: [] Oral/Nasal Ulcers [] epistaxis [] Recurrent Sinusitis [] Dry Eyes [] Dry mouth CARDIOVASCULAR: Admits: [] Chest pain [] Pericarditis/Pleuritis [] Palpitations [] Edema RESPIRATORY: Admits: [] hemoptysis [] Dyspnea on Exertion [] Cough [] Wheezing GASTROINTESTINAL: Admits: [] Bloody Stool [] Diarrhea [] Vomitting GENITOURINARY: Admits: [] Blood in urine [] Genital Ulcers [] Burning/pain with urination MUSCULOSKELETAL: Admits: [x] Muscle Pain [x] Joint Pain INTEGUMENTARY: Admits: [] Skin changes [] Sclerodactyly [] Raynauds [] Photosensitivity [] Alopecia NEUROLOGIC: Admits: [] Recurrent Headaches [] Limb Weakness [] Numbness/Tingling PSYCHIATRIC: Admits: [x] Insomnia [x] Depression [x] Anxiety ENDOCRINE: Admits: [] Thyroid abnormalities HEMATOLOGY/LYMPH: Admits: [] Notable Swollen Lymph Nodes [] History of Cytopenias [] Bruising tendency [] History of DVT/PE All non checked boxes, patient denies. All other 10 point ROS reviewed and negative. PHYSICAL EXAMINATION: Constitutional: There were no vitals taken for this visit.: reviewed Comfortable, pleasant, no acute distress Eyes: Conjunctiva clear and moist, eyelids without lesions. Extraocular movements fully intact. Ears/Nose/Mouth/Throat: External inspection of ears/nose is normal - no scars, lesions, masses No oral ulcers or lesions on mucosa of inner mouth, tongue. Neck: Symmetrical, tongue midline, no masses, no lymphadenopathy, no thyromegaly Respiratory: Inspiratory and expiratory effort normal. Clear to auscultation bilaterally. No crackles or wheezes. Cardiovascular: Palpation of heart reveals normal PMI. Auscultation: regular rate rhythm, no murmurs/rubs/gallops. Carotid arteries symmetric and 2+. No edema of extremities Gastrointestinal: Soft, nontender, bowel sounds in all quadrants. No hepatosplenomegaly on palpation. Lymphatic: No lymphadenopathy in neck Neurologic: Facial muscles symmetric and of normal strength. Tongue is midline. Dermatologic: Inspection and palpation of skin and subcutaneous tissue of all four extremities without rashes Nailfold capillary exam normal Psychiatric: Normal affect. Judgement/insight intact. Musculoskeletal: Neck: Full ROM. no swelling, No tenderness, Shoulder: Bilateral full active ROM. no swelling, No tenderness, Elbows: Full ROM. no swelling, No tenderness, Wrists: Full ROM. no swelling, No tenderness, Hands: Full ROM. no swelling, No tenderness, Hips: Normal ROM. No swelling, No tenderness, Knees: Normal ROM, no swelling, No tenderness, Feet: Full ROM. no swelling, No tenderness, Ankles: Normal ROM,no swelling, No tenderness, Spine: no tenderness throughout spine, no sacroiliac joint tenderness Tender on 14/16 point Labs & Imaging: Labs and Imaging reviewed and discussed with the patient during the visit. Lab Results Component Value Date C3 121 08/28/2023 C4 10 (L) 08/28/2023 No results found for: WBC , HGB , HCT , MCV , PLT No results found for: CREATININE , BUN , NA , K , CL , CO2 No results found for: ALT , AST , GGT , ALKPHOS , LABBILI Lab Results Component Value Date SEDRATE 9 08/28/2023 Lab Results Component Value Date CRP <0.1 08/28/2023 No results found. ASSESSMENT/PLAN: Allegra was seen today for new patient. 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 - She denies hx of photosensitivity, no dry eye/mouth, no recurrent oral/nasal ulcer, no Raynaud's,no DVT/PE, no miscarriage, no pleurisy. Her energy is low, denies patchy hair loss. She has lots ofarthralgia - Based on history and ph/ex, few sign and symptoms of connective tissue disease. - she has low C4 level - she agrees to try Plaquenil. - Antinuclear Ab, HEp-2 Substrate, S; Future - Complement profile (C3 AND C4); Future - Unlisted Lab Test; Future - CLARY Panel; Future Fibromyalgia - She complains of lots of body ache and pain. - Symptoms are worse with daily activity and stress. - She has ineffective sleep. Some headaches but not often, good appetite but complains of constipation. - Exam is benign except of having 14/18 tender point. - W/up including TYLOR, RF and inflammatory markers are all within normal range. - symptoms are related to Fibromyalgia. - she is on Cymbalta, the dose can be increased. Neurontin and Lyrica can be considered. Muscle relaxer can be helpful in patients with Fibromyalgia. - Handouts about Fibro and the Flyer for Support group is given to the patient. Iron deficiency - severe low ferritin level - she prefers to try oral iron . Low serum vitamin-D level - try ergocalciferol Medication monitoring encounter I have explained potential side effects of Plaquenil including short term acute vision changes, nausea, vomiting, weight loss, skin discoloration, marketing production specialist risk of retinal toxicity and need for annual retinal eye exams Follow up in 3 months. Total time spent with the patient face to face was 30 minutes which included obtaining and reviewing history, performing an exam, educating and counseling the patient, communicating test results to the patient. Preparing to see the patient (reviewing all results, history, medications, my office notes, other physician notes), ordering tests/medications/referrals, documenting in the patient's health record time spent was 10 minutes This note was created with the assistance of a speech recognition program. While intending to generate a timely document that accurately reflects the content of the visit, no guarantee can be provided that every grammatical or spelling mistake has been or will be identified or corrected. Thank you for your understanding. Any information carried forward was reviewed, updated, and is pertinent to the current visit [facility] Dr. Mariangel Dc M.D. [address], [address] [place] [address] Office: [phone] 09/12/2023 documented in this encounterAvita Health SystemYappsa App Store [id number] History of Present illness Narrative* Mariangel Dc MD - 08/28/2023 1:00 PM EST Images from the original note were not included. [address] [facility] [address] [facility] [id number] Date of Service: 08/28/2023 Thank you for the referral to evaluate Allegra Lopez for TYLOR. This is a new patient and is seen at the request of No primary care provider on file.. Chief Complaint: Pain and fatigue. SUBJECTIVE: Allegra Lopez is a 17 y.o. female who came to rheumatology clinic for new patient evaluation of possible underlying autoimmune disease. The problem has been present for several years. Patient has history of anxiety/depression. She was seen her PCP for having body ache and pain and found to have +TYLOR. Current Symptoms include pain, tenderness to touch of all over body . Onset was gradual. The symptoms are of moderate and severe severity. They are made worse by: movement, sitting, standing, and walking. They are helped by nothing. Associated symptoms include: arthralgia, fatigue, and memory loss. Previously used rheumatologic medications include NSAIDS - Problems: not effective. Limitation on activities include: difficulty with walking and difficulty with ADLs. Rheumatology Family Hx: Fibromyalgia Relation to patient: mother. Previous Meds tried: Previous Procedures: Current Outpatient Medications Medication Sig Dispense Refill escitalopram (LEXAPRO) 20 mg tablet TAKE 1 TABLET BY MOUTH EVERY DAY 1 mg-20 mcg (24)/75 mg (4) per tablet Take 1 tablet by mouth in the morning. lurasidone (LATUDA) 60 mg tablet tablet TAKE 1 TABLET BY MOUTH EVERY DAY IN THE EVENING WITH FOOD QUEtiapine (SEROquel) 25 mg tablet TAKE 1 or 2 TABLET BY MOUTH EVERY DAY AT BEDTIME FOR 90 DAYS for90 days WELLBUTRIN XL 150 mg 24 hr tablet 1 tablet in the morning Orally Once a day No current facility-administered medications for this visit. reviewed. There is no problem list on file for this patient. reviewed. No past surgical history on file. reviewed. reviewed. No past medical history on file. reviewed. Social History Social History Narrative Not on file reviewed No family history on file. reviewed. No Known Allergies reviewed. The following portions of the patient's history were reviewed and updated as appropriate: allergies, current medications, past family history, past medical history, past social history, past surgicalhistory and problem list. REVIEW OF SYSTEMS: CONSTITUTIONAL: Admits: [] Weight Loss [] Fever [] Frequent Night Sweats OPHTHALMOLOGIC: Admits: [] Glaucoma [] History or Current Inflammatory Eye Disease [] Cataracts ENT: Admits: [] Oral/Nasal Ulcers [] epistaxis [] Recurrent Sinusitis [] Dry Eyes [] Dry mouth CARDIOVASCULAR: Admits: [] Chest pain [] Pericarditis/Pleuritis [] Palpitations [] Edema RESPIRATORY: Admits: [] hemoptysis [] Dyspnea on Exertion [] Cough [] Wheezing GASTROINTESTINAL: Admits: [] Bloody Stool [] Diarrhea [] Vomitting GENITOURINARY: Admits: [] Blood in urine [] Genital Ulcers [] Burning/pain with urination MUSCULOSKELETAL: Admits: [x] Muscle Pain [x] Joint Pain INTEGUMENTARY: Admits: [] Skin changes [] Sclerodactyly [] Raynauds [] Photosensitivity [] Alopecia NEUROLOGIC: Admits: [] Recurrent Headaches [] Limb Weakness [] Numbness/Tingling PSYCHIATRIC: Admits: [x] Insomnia [x] Depression [x] Anxiety ENDOCRINE: Admits: [] Thyroid abnormalities HEMATOLOGY/LYMPH: Admits: [] Notable Swollen Lymph Nodes [] History of Cytopenias [] Bruising tendency [] History of DVT/PE All non checked boxes, patient denies. All other 10 point ROS reviewed and negative. PHYSICAL EXAMINATION: Constitutional: Resp 16 Ht 170.2 cm (5' 7 ) Wt 57.2 kg (126 lb) BMI 19.73 kg/m : reviewed Comfortable, pleasant, no acute distress Eyes: Conjunctiva clear and moist, eyelids without lesions. Extraocular movements fully intact. Ears/Nose/Mouth/Throat: External inspection of ears/nose is normal - no scars, lesions, masses No oral ulcers or lesions on mucosa of inner mouth, tongue. Neck: Symmetrical, tongue midline, no masses, no lymphadenopathy, no thyromegaly Respiratory: Inspiratory and expiratory effort normal. Clear to auscultation bilaterally. No crackles or wheezes. Cardiovascular: Palpation of heart reveals normal PMI. Auscultation: regular rate rhythm, no murmurs/rubs/gallops. Carotid arteries symmetric and 2+. No edema of extremities Gastrointestinal: Soft, nontender, bowel sounds in all quadrants. No hepatosplenomegaly on palpation. Lymphatic: No lymphadenopathy in neck Neurologic: Facial muscles symmetric and of normal strength. Tongue is midline. Dermatologic: Inspection and palpation of skin and subcutaneous tissue of all four extremities without rashes Nailfold capillary exam normal Psychiatric: Normal affect. Judgement/insight intact. Musculoskeletal: Neck: Full ROM. no swelling, No tenderness, Shoulder: Bilateral full active ROM. no swelling, No tenderness, Elbows: Full ROM. no swelling, No tenderness, Wrists: Full ROM. no swelling, No tenderness, Hands: Full ROM. no swelling, No tenderness, Hips: Normal ROM. No swelling, No tenderness, Knees: Normal ROM, no swelling, No tenderness, Feet: Full ROM. no swelling, No tenderness, Ankles: Normal ROM,no swelling, No tenderness, Spine: no tenderness throughout spine, no sacroiliac joint tenderness Tender on 14/16 point Labs & Imaging: Labs and Imaging reviewed and discussed with the patient during the visit. No results found for: RF , C3 , C4 No results found for: WBC , HGB , HCT , MCV , PLT No results found for: CREATININE , BUN , NA , K , CL , CO2 No results found for: ALT , AST , GGT , ALKPHOS , LABBILI No results found for: SEDRATE No results found for: CRP No results found. ASSESSMENT/PLAN: Allegra was seen today for new patient. Diagnoses and all orders for this visit: TYLOR positive - The TYLOR was checked by PCP as pt has lots of pain and fatigue. - She denies hx of photosensitivity, no dry eye/mouth, no recurrent oral/nasal ulcer, no Raynaud's,no DVT/PE, no miscarriage, no pleurisy. Her energy is low, denies patchy hair loss. - Based on history and ph/ex, no sign and symptoms of connective tissue disease. - Will complete the w/up by checking serologies as below - If the w/up would be unremarkable will continue monitor symptoms - Antinuclear Ab, HEp-2 Substrate, S; Future - Complement profile (C3 AND C4); Future - Unlisted Lab Test; Future - CLARY Panel; Future Fibromyalgia - She complains of lots of body ache and pain. - Symptoms are worse with daily activity and stress. - She has ineffective sleep. Some headaches but not often, good appetite but complains of constipation. - Exam is benign except of having 14/18 tender point. - W/up including TYLOR, RF and inflammatory markers are all within normal range. - symptoms are related to Fibromyalgia. - she is on Cymbalta, the dose can be increased. Neurontin and Lyrica can be considered. Muscle relaxer can be helpful in patients with Fibromyalgia. - Handouts about Fibro and the Flyer for Support group is given to the patient. Fatigue, unspecified type - Ineffective sleep. - It can be considered to get sleep test. - Ferritin; Future - Iron and TIBC; Future - Vitamin D 25 hydroxy; Future Multiple joint pain - No active synovitis on exam. - The pain is secondary to fibromyalgia. - CCP Ab; Future - Rheumatoid factor; Future - C-reactive protein; Future - Erythrocyte Sedimentation Rate (ESR); Future Follow up in 6 weeks. Total time spent with the patient face to face was 45 minutes which included obtaining and reviewing history, performing an exam, educating and counseling the patient, communicating test results to the patient. Preparing to see the patient (reviewing all results, history, medications, my office notes, other physician notes), ordering tests/medications/referrals, documenting in the patient's health record time spent was 10 minutes This note was created with the assistance of a speech recognition program. While intending to generate a timely document that accurately reflects the content of the visit, no guarantee can be provided that every grammatical or spelling mistake has been or will be identified or corrected. Thank you for your understanding. [facility] Dr. Mariangel Dc M.D. [address], [address] [place] [address] Office: [phone] 08/28/2023 documented in this encounterSpring[facility] HospitalBrand[facility] Evaluation + Plan note Diagnostic Tests Pending * TYLOR w/Reflex if POS 07/19/23 * Rheumatoid Factor Quantitative 07/19/23 [facility]09-07-[facility]23 Hospital Discharge instructions Patient Education 03/08/2023 21:57:45 Suicidal Feelings: How to Help Yourself Suicidal Feelings: How to Help Yourself Suicide is when you end your own life. Suicidal ideation includes expressing thoughts about, or a preoccupation with, ending your own life. There are many things you can do to help yourself feel better when struggling with these feelings. Many services and people are available to support you and others who struggle with similar feelings. If you ever feel like you may hurt yourself or others, or have thoughts about taking your own life,get help right away. To get help: Go to your nearest emergency department. Call your local emergency services (911 in the [place] Call the [facility] health and human services helpline (211 in the [place] Call or text a suicide hotline to speak with a trained counselor. The following suicide hotlines are available in the [place]: ?3-784-571-TALK ( or 988 in the [place] ?3-701-NOZVKVD ( ). ?Text 753217. This is the Crisis Text Line in the [place] ? . This is a hotline for Icelandic speakers. ? . This is a hotline for TTY users. ?7-173-7-U-LANDON ( ). This is a hotline for lesbian, gilliland, bisexual, transgender, or questioning youth. ?For a list of hotlines in [place], visit suicide.org/hotlines/international/mdgpfz-wijqywu-udbttnys.html Contact a crisis center or a local suicide prevention center. To find a crisis center or suicide prevention center: ?Call your local hospital, clinic, community service organization, mental health center, social service provider, or health department. Ask for help with connecting to a crisis center. ?For a list of crisis centers in the [place], visit: suicidepreventionlifeline.org ?For a list of crisis centers in [place], visit: suicideprevention.ca How to help yourself feel better Promise yourself that you will not do anything bad or extreme when you have suicidal feelings. Remember the times you have felt hopeful. ?Many people have gotten through suicidal thoughts and feelings, and you can too. ?If you have had these feelings before, remind yourself that you can get through them again. Let family, friends, teachers, or counselors know how you are feeling. Do not separate yourself from those who care about you and want to help you. ?Talk with someone every day, even if you do not feel like talking to anyone or being with other people. ?Pdrk-gj-scjf conversation is best to help them understand your feelings. Contact a mental health care provider and work with this person regularly. Make a safety plan that you can follow during a crisis. ?Include phone numbers of suicide prevention hotlines, mental health professionals, and trusted friends and family members you can call during an emergency. ?Save these numbers on your phone. If you are thinking of taking a lot of medicine, give your medicine to someone who can give it to you as prescribed. ?If you are on antidepressants and are concerned you will overdose, tell your health care provider so that he or she can give you safer medicines. Try to stick to your routines and follow a schedule every day. Make self-care a priority. Make a list of realistic goals, and cross them off when you achieve them. Accomplishments can give you a sense of worth. Wait until you are feeling better before doing things that you find difficult or unpleasant. Do things that you have always enjoyed to take your mind off your feelings. ?Try reading a book, or listening to or playing music. ?Spending time outside, in nature, may help you feel better. Follow these instructions at home: Visit your primary health care provider every year for a physical and a mental health checkup. Take blce-vgd-xgngjur and prescription medicines only as told by your health care provider. ?Ask your health care provider about the possible side effects of any medicines you are taking. ?Ask your health care provider about whether suicidal ideation is a possible side effect of any of your medicines. Learn about suicidal ideation and what increases the risk for the development of suicidal thoughts. Eat a well-balanced diet, and eat regular meals. Get plenty of rest. Exercise if you are able. Just 30 minutes of exercise each day can help you feel better. Keep your living space well lit. Do not use alcohol or drugs. Remove these substances from your home. General recommendations Remove weapons, poisons, knives, and other deadly items from your home. Work with a mental health care provider as needed. When you are feeling well, write yourself a letter with tips and support that you can read when youare not feeling well. Remember that life's difficulties can be sorted out with help. Conditions can be treated, and you can learn behaviors and ways of thinking that will help you. ?Work with your health care provider or counselor to learn ways of coping with your thoughts and feelings. Where to find more information National Suicide Prevention Lifeline: www.suicidepreventionlifeline.org Hopeline: www.hopeline.com [place] for Suicide Prevention: www.afsp.org The [place] Project (for lesbian, gilliland, bisexual, transgender, or questioning youth): www.thetrevorproject.org National [place] of Mental Health: www.nimh.nih.gov/health/topics/suicide-prevention Suicide Prevention Resources: afsp.org/qwpljvt-shcbjzmdpr-qvpftzvil Contact a health care provider if: You feel as though you are a burden to others. You feel agitated, angry, vengeful, or have extreme mood swings. You have withdrawn from family and friends. You are frequently using drugs or alcohol. Get help right away if: You are talking about suicide or wishing to . You start making plans for how to commit suicide. You feel that you have no reason to live. You start making plans for putting your affairs in order, saying goodbye, or giving your possessions away. You feel guilt, shame, or unbearable pain, and it seems like there is no way out. You are engaging in risky behaviors that could lead to . If you have any of these thoughts or symptoms, get help right away: Go to your nearest emergency department or crisis center. Call emergency services (911 in the [place] Call or text a suicide crisis helpline. Summary Suicide is when you take your own life. Suicidal feelings are thoughts about ending your own life. Promise yourself that you will not do anything bad or extreme when you have suicidal feelings. Let family, friends, teachers, or counselors know how you are feeling. Get help right away if you start making plans for how to commit suicide. This information is not intended to replace advice given to you by your health care provider. Make sure you discuss any questions you have with your health care provider. Document Revised: 01/12/2022 Document Reviewed: 10/27/2021 [employer] Patient Education 2022 [employer]. Follow Up Care 03/08/2023 17:56:24 With:[facility] Address:Unknown When:03/11/2023 21:51:52 Comments:Return to the emergency room if you develop thoughts of hurting yourself or any other concerns. 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 Unspecified diffuse connective tissue disease Fibromyalgia Unspecified myalgia and myositis Iron deficiency Disorders of iron metabolism Low serum vitamin D Medication monitoring encounter Encounter for therapeutic drug monitoring [facility] Diagnosis Iron deficiency Disorders of iron metabolism [facility]* Diagnosis TYLOR positive- Primary Fibromyalgia Unspecified myalgia and myositis Fatigue, unspecified type Multiple joint pain Pain in joint, multiple sites [facility]* Diagnosis 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 Unspecified diffuse connective tissue disease Fibromyalgia Unspecified myalgia and myositis Iron deficiency Disorders of iron metabolism Low serum vitamin D Medication monitoring encounter Encounter for therapeutic drug monitoring documented [facility] No data available for this section [facility] CenterInstructionsNot on filedocumented in this encounter [facility]Not on filedocumented in this encounter [facility]* Attachments The following attachments cannot be sent through Care Everywhere. * Fibromyalgia ([place]gr[place]) documented in [facility] encounterOhio[facility] HospitalInstructions* Attachments The following attachments cannot be sent through Care Everywhere. * Hydroxychloroquine, ADULT ([place]) documented in this encounterOhioHealth [facility]in [facility] HospitalProgress note No data available for this section [facility] CenterReason for visit Narrative* Consultation (Routine) - Pending Review Specialty Diagnoses / Procedures Referred By Cara ontiveros Referred To Contact Medical Oncology / Hematology and Oncology Diagnoses Iron deficiency Mariangel Dc MD [address] [address] Phone: tel: fax: Sherif Murphy MD [address] [place] [address] Phone: tel: fax: Referral ID Status Reason Start Date Expiration Date Visits Requested Visits Authorized [id number] Pending Review Specialty Services Required 4 05/14/2025 1 1 [facility] Summary Purpose Family History No Family History Records FoundNo Family History Records FoundNo Family History Records Found No data available for this section No data available for this section No Family History Records FoundNo Family History Records FoundNo Family History Records FoundNo Family History Records FoundNo Family History Records Found No data available for this section No data available for this section No Family History Records FoundNo Family History Records Found No data available for this section No Family History Records Found No data available for this section No Family History Records FoundNo Family History Records FoundNo Family History Records FoundNo Family History Records FoundNo Family History Records Found Advance Directives No Advanced Directives Records FoundNo Advanced Directives Records FoundNo Advanced Directives Records FoundNo Advanced Directives Records FoundNo Advanced Directives Records FoundNo Advanced Directives Records FoundNo Advanced Directives Records FoundNo Advanced Directives Records FoundNo Advanced Directives Records FoundNo Advanced Directives Records FoundNo Advanced Directives Records FoundNo Advanced Directives Records FoundNo Advanced Directives Records FoundNo Advanced Directives Records FoundNo Advanced Directives Records FoundNo Advanced Directives Records Found Additional Source Comments INFORMATION SOURCE (unrecogn ized section and content) DATE CREATED AUTHOR 11/13/2022 [facility] DATE CREATED AUTHOR AUTHOR'S ORGANIZ ATION 12/08/2022 [facility] DATE CREATED AUTHOR AUTHOR'S ORGANIZ ATION 05/28/2023 [facility] DATE CREATED AUTHOR AUTHOR'S ORGANIZ ATION 11/26/2023 [facility] DATE CREATED AUTHOR AUTHOR'S ORGANIZ ATION 2023 [facility] DATE CREATED AUTHOR AUTHOR'S ORGANIZ ATION 12/11/2023 [facility] DATE CREATED AUTHOR AUTHOR'S ORGANIZ ATION 02/16/2024 [facility] DATE CREATED AUTHOR AUTHOR'S ORGANIZ ATION 02/19/2024 [facility] DATE CREATED AUTHOR AUTHOR'S ORGANIZ ATION 05/16/2024 [facility] DATE CREATED AUTHOR AUTHOR'S ORGANIZ ATION 07/19/2024 [facility] DATE CREATED AUTHOR AUTHOR'S ORGANIZ ATION 07/20/2024 [facility] DATE CREATED AUTHOR AUTHOR'S ORGANIZ ATION 07/24/2024 [facility] Patient Care team informatio n (unrecognized section and content) Personnel Name: Vazquez RIVERS MD Address: Address: [address] [place] [address] Personnel Name: Vazquez RIVERS MD Address: Address: [address] [place], [place] [id number] Personnel Name: Vazquez RIVERS MD Address: Address: [address] [place] [address] Personnel Name: EUGENIO HOPE CNP Address: Address: [address] [place] [address] Personnel Name: EUGENIO HOPE CNP Address: Address: [address] [place] [address]- Personnel Name: EUGENIO HOPE CNP Address: Address: [place] [address]- Personnel Name: EUGENIO HOPE CNP Address: Address: [address] [place], [address] Personnel Name: EUGENIO HOPE CNP Address: Address: [address] [place], [place] [address]- Reason for Visit (unrecogniz ed section and content) Reason Comments Med Change Request Reason Comments New Patient R76.8 TYLOR positive FOR RECORDS PERTAINING TO PATIENTS WHO ARE OR HAVE BEEN ENROLLED IN A CHEMICAL DEPENDENCY/SUBSTANCEABUSE PROGRAM, SOME INFORMATION MAY BE OMITTED. This clinical summary was aggregated from multiple sources. Caution should be exercised in using it in the provision of clinical care. This summary normalizes information from multiple sources, and as a consequence, information in this document may materially change the coding, format and clinical context of patient data. In addition, data may be omitted in some cases. CLINICAL DECISIONS SHOULD BE BASED ON THE PRIMARY CLINICAL RECORDS. [employer] [facility]. provides no warranty or guarantee of the accuracy or completeness of information in this document.
[2024-08-19 10:59] VITALS: BP 114/75; PULSE 88; TEMP 36.8; O2SAT 98
--- NOTE | 2024-08-19 11:04 | ECG_ITS ---
[facility] Test Date: 2024-08-19 Pat Name: BECKY LOPEZ Department: Room: - Gender: Female Rn Transport: : 2005 Requested By: [id number] Order Number: [id number] Reading MD: REAGAN YANG Measurements Intervals [place] Rate: 90 P: 91 WI: 120 QRS: 95 QRSD: 102 T: 61 QT: 376 QTc: 424 Interpretive Statements 1100 Sinus rhythm 2440 Incomplete right bundle branch block 7102 Moderate right axis deviation 0101 Possible arm leads reversed, check lead requested 9130 borderline ECG Electronically Signed On 08-20-2024 7:07:00 EST by REAGAN YANG
--- NOTE | 2024-08-19 13:01 | ED_ITS ---
HPI HPI - General Adult General Chief complaint: Extremity Problem, Nontraumatic Stated complaint: URTI COMPLAINTS Time Seen by Provider: 08/19/24 12:30 Source: patient Mode of arrival: walk-in Limitations: no limitations History of Present Illness HPI narrative: 18-year-old female to the emergency department with chief complaint of pain in her left shoulder region. She reports a sharp pain radiates down from her neck into her left side scapular region. She reports she has had pain like this before when she slept funny on things. No shortness of breath. No chest pain. Otherwise at her baseline health. No trauma or injuries. Related Data Home Medications ?Medication ?Instructions ?Recorded ?Confirmed buspirone 5 mg tablet mg 12/09/22 escitalopram oxalate 10 mg tablet 10 mg PO DAILY 12/09/22 12/09/22 lurasidone 60 mg tablet 60 mg PO DAILY 12/09/22 12/09/22 trazodone 50 mg tablet 50 mg PO .hs 12/09/22 12/09/22 Previous Rx's ?Medication ?Instructions ?Recorded acetaminophen 300 mg-codeine 30 mg 1 tab PO Q6H PRN pain 5 days #20 06/01/24 tablet tabs ibuprofen 800 mg tablet 800 mg PO Q8H PRN pain #20 tabs 06/01/24 penicillin V potassium 250 mg 250 mg PO QID 10 days #40 tabs 06/01/24 tablet naproxen 500 mg tablet 500 mg PO BID PRN pain #14 tabs 08/19/24 Allergies Allergy/AdvReac Type Severity Reaction Status Date / Time No Known Allergies AdvReac Mild Verified 12/09/22 13:53 Opioid HPI Opioid Management Most Recent Opioid Data: No Data to Display Review of Systems ROS Status of ROS 10 or more systems reviewed and unremark able except as noted in history and below [facility] Medical History (Updated 08/19/24 @ 12:44 by Tien Keating MD) Suicidal ideation ?R45.851 - Suicidal ideations (ICD-10) Depression ?F32.A - Depression, unspecified (ICD-10) Anxiety ?F41.9 - Anxiety disorder, unspecified (ICD-10) Syncope ?R55 - Syncope and collapse (ICD-10) Social History Little interest or pleasure in doing things: not at all Feeling down, depressed, or hopeless: not at all Exam Narrative Exam Narrative: VITALS: I have reviewed the triage vital signs. GENERAL: Well developed, well appearing adult in no acute distress. NEURO: Alert and oriented. Moves all extremities. Face is symmetric and expressive. EYES: PERRL. No scleral icterus or conjunctival injection. No discharge. HENT: Normocephalic, atraumatic. Hearing is grossly intact. Nares grossly patent and without discharge. Mucous membranes moist. NECK: No JVD. Patient moves neck without restriction. CARDIO: Rhythm regular. Normal rate. No murmur, rub, or gallop. Pulses equal bilaterally in the upper and lower extremity. No lower extremity edema. PULM: Lungs clear to auscultation in all geronimo. No wheezes, rales, or rhonchi. No conversational dyspnea. No splinting, stridor, or accessory muscle use. GI/: Abdomen is soft and non-tender. Normoactive bowel sounds. EXTREMITIES: Symmetric muscle bulk. No joint swelling. No clubbing, cyanosis, or deformity. SKIN: Warm and dry. Normal turgor. No rash or lesions appreciated. PSYCH: Mood, affect, and interaction is appropriate to the setting. Constitutional Vital Signs, click to edit/add: Last Vital Signs Temp 98.2 F 08/19/24 10:59 Pulse 88 08/19/24 10:59 Resp 18 08/19/24 10:59 BP 114/75 08/19/24 10:59 Pulse Ox 98 08/19/24 10:59 Course Vital Signs Vital signs: Vital Signs Temperature 98.2 F 08/19/24 10:59 Pulse Rate 88 08/19/24 10:59 Respiratory Rate 18 08/19/24 10:59 Blood Pressure 114/75 08/19/24 10:59 Pulse Oximetry 98 08/19/24 10:59 Temperature 98.2 F 08/19/24 10:59 Pulse Rate 88 08/19/24 10:59 Respiratory Rate 18 08/19/24 10:59 Blood Pressure 114/75 08/19/24 10:59 Pulse Oximetry 98 08/19/24 10:59 Medical Decision Making [facility] Narrative Medical decision making narrative: 18-year-old female to the emergency department chief complaint of left-sided upper extremity pain. Vital stable, the patient is afebrile. PERC negative, effectively ruling out VTE in this low risk patient. Chest x-ray and shoulder x-ray without acute findings. EKG without evidence of ischemia. Discussed conservative management with NSAIDs. Return precautions were discussed. All questions were answered. The patient was discharged home. Medical Records Medical records reviewed: Yes I reviewed the patient's medical records Lab Data Lab results reviewed: Yes I reviewed the patient's lab results Imaging Data Chest x-ray: Attestation: I have reviewed the pertinent imaging results. Radiologist's impression: Negative study ECG Data Attestation: I personally reviewed and interpreted this ECG as follows: (Normal sinus rhythm at a rate of 90. No STEMI. Normal QTc. ) Discharge Plan Discharge Chief Complaint: Extremity Problem, Nontraumatic Clinical Impression: Muscle strain Patient Disposition: Home, Self-Care Time of Disposition Decision: 12:44 Condition: Good Mode of Transportation: Private Vehicle Prescriptions / Home Meds: New naproxen 500 mg tablet 500 mg PO BID PRN (Reason: pain) Qty: 14 0RF No Action buspirone 5 mg tablet trazodone 50 mg tablet 50 mg PO .hs escitalopram oxalate 10 mg tablet 10 mg PO DAILY lurasidone 60 mg tablet 60 mg PO DAILY acetaminophen-codeine 300-30 mg tablet 1 tab PO Q6H PRN (Reason: pain) 5 Days Qty: 20 0RF penicillin V potassium 250 mg tablet 250 mg PO QID 10 Days Qty: 40 0RF ibuprofen 800 mg tablet 800 mg PO Q8H PRN (Reason: pain) Qty: 20 0RF Print Language: Icelandic Instructions: Muscle Strain (ED) Additional Instructions: Call the office of your primary care doctor to arrange for follow-up within the above-stated timeframe. Your ED visit was focused on your acute issue and does not replace primary care. You should review your labs, imaging, and diagnoses from this ED visit with your primary care physician. There may be non-emergent/ incidental findings that need further evaluation. You should review your vital signs including blood pressure with your PCP. If you were prescribed medications you should discuss possible side-effects and drug interactions with your pharmacist. Call 911 or go to the nearest Emergency Department if you develop any new or worsening symptoms. Seek immediate medical attention if you develop: worsening chest pain, new chest pain, nausea, vomiting, weakness, numbness, tingling, excessive sweating, shortness of breath, difficulty breathing, loss of motion in your arms or legs, or any new or worsening symptoms. Referrals: EUGENIO HOPE [Primary Care Provider] - 1 week
[2024-08-19] MEDS: KETOROLAC TROMETHAMINE 30 MG/ML VIAL IM (13:03)
[2024-08-19 13:07] VITALS: PULSE 84; O2SAT 100
== END 2024-08-19 13:07 | disposition home or self-care (01) ==
PROVIDERS: Emergency Provider Student in an Organized Health Care Education/Training Program; PCP Nurse Practitioner Family
DX: M25.512 Pain in left shoulder (principal); S46.812A Strain of other muscles, fascia and tendons at shoulder and upper arm level, left arm, initial encounter
CPT/HCPCS: 71046; 73020; 73030; 93005; 96372; 99285; J1885

== ENCOUNTER 2025-03-14 15:28 | Emergency (ER) | payer OTHER, SELFPAY ==
[2025-03-14 15:39] VITALS: BP 155/71; PULSE 90; TEMP 36.6; O2SAT 100; BMI 18.8
--- OUTSIDE RECORDS SUMMARY | 2025-03-14 15:41 | XMS_ITS | CCD ---
Author Organization [facility] Care Team Providers Care Residential Real Estate Sales Manager Name Role Phone PUSHPA GARY Admitting Unavailable RIAZ, LANCE Primary Care Unavailable MARKER ., DR MAHMOOD Consulting Unavailable PERLA ., PUSHPA Attending Unavailable MARKER ., DR MAHMOOD Admitting [...] Care Unavailable RIAZ, LANCE Admitting Unavailable RIAZ, ALNCE Primary Care Unavailable BONITA MAGANA Admitting Unavailable CARLOS ., CHET GARCIA Consulting Unavailabl BONITA Garsia Attending Unavailable Vazquez RIVERS Primary Care Physician [phone] KEYA HOPE Primary Care Physician [phone] KEYA HOPE Admitting Unavailable KEYA HOPE Attending Unavailable Erik Schwartz Attending Unavailable KEYA HOPE Primary Care Unavailable Clayton Beaver Attending Unavailable KEYA HOPE Admitting Unavailable KEYA HOPE Attending Unavailable Erik Schwartz Attending Unavailable KEYA HOPE Primary Care Unavailable KEYA KLINE Attending Unavailable KEYA KLINE Attending Unavailable KEYA KLINE Attending Unavailable KEYA HOPE Primary Care Unavailable Vasquez Oliver Referring Unavailable Vasquez Oliver Attending Unavailable Vasquez Oliver Admitting Unavailable KEYA HOPE Primary Care Unavailable KEYA HOPE Primary Care Unavailable Vasquez Oliver Attending Unavailable DC, MARIANGEL Attending Unavailable DC, MARIANGEL Attending Unavailable DC, MARIANGEL Attending Unavailable DC, ALI Referring Unavailable Unavailable Primary Care Provider Unavailvirginie e DC, ALI Admitting Unavailable DC, ALI Attending Unavailable KEYA HOPE Primary Care Unavailable Vasquez Oliver Attending Unavailable KEYA HOPE Primary Care Unavailable SHERIF MURPHY Attending Unavailable DC, ALI Referring Unavailable KEYA HOPE Primary Care Unavailable DC, ALI Admitting Unavailable DC, ALI Attending Unavailable NO FAMILY, PHYSICIAN Primary Care Provider Gilberto Mora MD Attending Provider [facility], PHYSICIAN Primary Care Provider Gilberto Mora MD Attending Provider Gilbetro Espinal MD Referring Provider [facility] Primary Care Provider Gilberto Espinal Admitting Unavai lable Teddy, Gilberto [place] Attending Julia ramirez NO [facility], PHYSICIAN Primary Care Unavailable [facility] Primary Care Unavaila ble Gilberto Espinal Admitting Unavai labfeliciano Espinal, Gilberto [place] Attending Gilberto Gonzalez Referring Gilberto Gonzalez MD Attending Provider [facility] Primary Care Provider Unallocated , [place]oms Provider Primary Care Provi angie Allergies Allergy Classification Reported Allergen(s) Allergy Type Date of Onset Reaction(s) Facility (3 sources) No Known Medication Allergies; Translations: [No Known Medication Allergies] Propensity to adverse reactions (disorder) [facility] Repository Medications Current Medications Medication Drug [...] once a week. 12 capsule 09/12/2023 Active Ethinyl Estradiol / Ferrous fumarate / Norethindrone (6 sources) Estrogen Start: 03-03-2025 take 1 tablet by mouth once daily norethindrone-ethin yl estradiol-ferrous fumarate (Blisovi 24 Fe) 1-20 MG-MCG(24) tablet Indications: Dysmenorrhea , Menorrhagia with irregular cycle TAKE 1 TABLET BY MOUTH EVERY DAY 28 tablet 03/03/2025 Active Start: 06-18-2023 End: 08-11-2024 take 1 tablet by mouth once in the morning FE 24 1 mg-20 mcg (24)/75 mg (4) per tablet Take 1 tablet by mouth in the morning. 06/18/2023 08/11/2024 Active Start: 06-18-2023 End: 08-11-2024 take 1 tablet by mouth once in the morning FE 24 1 mg-20 mcg (24)/75 mg (4) per tablet Take 1 tablet by mouth in the morning. 0 06/18/2023 08/11/2024 Active sulfamethoxazole 800 mg / trimethoprim 160 mg oral tablet (1 source) Dihydrofolate Reductase Inhibitor Antibacterial, Sulfonamide Antimicrobial Start: 11-24-2023 End: 12-01-2023 Bactrim D.S. 800 mg-160 mg Tab 1 tab(s), Oral, BID for 7 day(s), 14 tab(s), Refill(s) 0, Take one tab by mouth twice a day for seven days, [facility]/pharmacy #[id number], 167, cm, 11/24/23 12:49:00 EDT, Height/Length Dosing, 59, kg, 11/24/23 12:49:00 EDT, Weight Dosing Start Date: 11/24/23 Stop Date: 12/01/23 Status: Ordered Completed/Discontinued Medications Medication Drug Class(es) Dates Sig (Normalized) Sig (Original) escitalopram 20 mg oral tablet (14 sources) Serotonin Reuptake Inhibitor Start: 05-17-2023 End: 01-28-2025 take 1 tablet by mouth once daily Escitalopram Oxalate 20 mg tablet Discontinued 20 MG PO Daily August 27, 2024 1:00am January 28, 2025 2:24pm ferrous sulfate 60 mg/ml oral solution (5 [...] breakfast. 30 tablet 2 09/12/2023 05/14/2024 Discontinued hydroxychloroquine sulfate 200 mg oral tablet (9 sources) Antimalarial, Antirheumatic Agent Start: 08-27-2024 End: 01-28-2025 take 1 tablet by mouth once daily Hydroxychloroquine 200 mg tablet Discontinued 200 MG PO Daily August 27, 2024 1:00am January 28, 2025 2:24pm Start: 09-12-2023 End: 05-14-2024 hydroxychloroquine (PLAQUENI L) 200 mg tablet Two pills a day on Sunday/Sunday/Sunday and 1 pill a day on other days of the week 130 tablet 1 05/14/2024 Active lurasidone hydrochloride 20 mg oral tablet (14 sources) Atypical Antipsychotic Start: 08-27-2024 End: 01-28-2025 Lurasidone (Latuda) 20 mg tablet Discontinued 20 MG PO Every morning August 27, 2024 1:00am January 28, 2025 2:24pm must administer with food (at least 350 calories) Start: 08-02-2022 take 1 tablet by kailey th once daily at mealtime lurasidone (Latuda) 60 MG tablet TAKE 1 TABLET BY MOUTH EVERY DAY IN THE EVENING WITH FOOD 06/10/2023 Active naproxen 500 mg oral tablet (4 sources) Nonsteroidal Anti-inflammatory Drug Start: 08-28-2024 End: 01-28-2025 take 1 tablet by mouth twice daily as needed Naproxen 500 mg tablet Discontinued 500 MG PO Twice daily as needed August 28, 2024 1:00am January 28, 2025 2:24pm ondansetron 4 mg oral tablet (10 sources) Serotonin-3 Receptor Antagonist Start: 08-27-2024 End: 01-28-2025 take 1 tablet by mouth every eight hours as needed Ondansetron Hcl 4 mg tablet Discontinued 4 MG PO Every 8 hours as needed August 28, 2024 2:26pm January 28, 2025 2:24pm Start: 11-24-2023 take 1 tablet by kailey th every six hours as needed for nausea Zofran 4 mg Tab 4 mg = 1 tab(s), Oral, q6hr, PRN Nausea, Take one tab by mouth every six hours as needed for nausea, # 10 tab(s), Refills(s) 0, Pharmacy: [facility]/pharmacy #[id number], 167, cm, 11/24/23 12:49:00 EDT, Height/Length Dosing, 59, kg, 11/24/23 12:49:00 EDT, Weight Dosing Start Date: 11/24/23 Status: Ordered pantoprazole 40 mg delayed release oral tablet (8 sources) Proton Pump Inhibitor Start: 08-27-2024 End: 01-28-2025 take 1 tablet by mouth once daily Pantoprazole 40 mg tablet,delayed release (DR/EC) Discontinued 40 MG PO Daily August 27, 2024 1:00am January 28, 2025 2:24pm Start: 02-18-2024 take 1 tablet by kailey th once daily Pantoprazole [address] Tab 40 mg = 1 tab(s), Oral, Daily, # 90 tab(s), Refills(s) 3, Pharmacy: [facility]/pharmacy #[id number], 167, cm, 03/24/24 12:12:00 EDT, Height/Length Dosing, 58.1, kg, 03/24/24 12:12:00 EDT, Weight Dosing Start Date: 03/24/24 Status: Ordered QUEtiapine 50 mg oral tablet (18 sources) Atypical Antipsychotic Start: 08-28-2024 End: 01-28-2025 take 2 tablets by mouth once daily at bedtime Quetiapine 50 mg tablet Discontinued 100 MG PO Daily at bedtime August 28, 2024 2:27pm January 28, 2025 2:25pm Start: 08-27-2024 End: 08-28-2024 take 1 tablet by mouth once daily at bedtime Quetiapine 50 mg tablet Discontinued 50 MG PO Daily at bedtime August 27, 2024 1:00am August 28, 2024 2:27pm Start: 2023 take 1 tablet by kailey th once daily at bedtime QUEtiapine Fumarate 150 MG tablet TAKE 1 TABLET BY MOUTH EVERY DAY AT BEDTIME FOR 30 DAYS 2023 Active Start: 05-28-2023 QUEtiapine (SE ROquel) 25 mg tablet TAKE 1 or 2 TABLET BY MOUTH EVERY DAY AT BEDTIME FOR 90 DAYS for 90 days 05/28/2023 Active Problems Active Problems Problem Classification Problem Date Documented Da te Episodic/Chronic Anxiety disorders (2 sources) Other specified anxiety disorders; Translations: [Anxiety disorder, unspecified] Onset: 2 Chronic Pichardo (2 sources) Caustic injury gastritis 03-24-2024 Episodic Cardiac dysrhythmias (8 sources) Tachycardia, unspecified; Translations: [Palpitations] Onset: 2 08-28-2024 Episodic Conditions associated with dizziness or vertigo (12 sources) Dizziness and giddiness; Translations: [Postural dizziness] Onset: 2 Episodic Gastritis and duodenitis (1 source) Gastritis; Translations: [Other gastritis without bleeding] Onset: 4 Episodic Menstrual disorders (2 sources) Dysmenorrhea; Translations: [Dysmenorrhea, unspecified] 02-28-2025 Chronic Nausea and vomiting (11 sources) Nausea; Translations: [Nausea] Onset: 4 Episodic Nonspecific chest pain (6 sources) Chest pain; Translations: [Other chest pain] Onset: 4 Episodic Nutritional deficiencies (4 sources) Decreased vitamin D Onset: 3 02-05-2024 Chronic Nutritional deficiencies (6 sources) Iron deficiency; Translations: [Iron deficiency] Onset: 5 07-17-2024 Episodic Other gastrointestinal disorders (2 sources) Other constipation; Translations: [Other constipation] Onset: 4 Episodic Other gastrointestinal disorders (4 sources) Chronic constipation 02-06-2024 Episodic Suicide and intentional self-inflicted injury (4 sources) Suicidal ideations; Translations: [Suicidal thoughts] Onset: 3 Episodic Syncope (11 sources) Syncope; Translations: [Syncope and collapse] Onset: 5 08-28-2024 Episodic Systemic lupus erythematosus and connective tissue disorders (2 sources) Undifferentiated connective tissue disease; 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 connective tissue, unspecified] 09-12-2023 Chronic Unclassified (1 source) New Patient Onset: 4 Urinary tract infections (1 source) Urinary tract infectious disease; Translations: [Urinary tract infection, site not specified] Onset: 4 Episodic Past or Other Problems Problem Classification Problem Date Documented Date Episodic/Chronic Deficiency and other anemia (1 source) Anemia, unspecified; Translations: [ANEMIA UNSPECIFIED] Onset: 04-24-2022 Episodic Diabetes mellitus without complication (1 source) Other abnormal glucose; Translations: [OTHER ABNORMAL GLUCOSE] Onset: 04-24-2022 Episodic Immunizations and screening for infectious disease (2 sources) Other specified abnormal immunological findings in serum; Translations: [Anti-nuclear factor positive] Onset: 08-28-2023 08-28-2023 Episodic Malaise and fatigue (2 sources) Other fatigue; Translations: [Fatigue] Onset: 08-28-2023 08-28-2023 Episodic Other aftercare (2 sources) Patient encounter status; Translations: [Encounter for therapeutic drug level monitoring] 09-12-2023 Episodic Other connective tissue disease (1 source) Fibromyalgia; Translations: [Fibromyalgia] Onset: 08-28-2023 Episodic Other connective tissue disease (3 sources) Fibromyalgia; Translations: [Fibromyalgia] 08-28-2023 Episodic Other non-traumatic joint disorders (1 source) Pain in unspecified joint; Translations: [Pain in unspecified joint] Onset: 08-28-2023 Episodic Other non-traumatic joint disorders (1 source) Multiple joint pain; Translations: [Pain in unspecified joint] 08-28-2023 Episodic Other screening for suspected conditions (not mental disorders or infectious disease) (4 sources) Encounter for observation for other suspected diseases and conditions ruled out; Translations: [Decreased vitamin D] Onset: 05-14-2023 Episodic Results Test Name Value Interpretation Reference Range Facility Alanine aminotransferase [En zymatic activity/volume] in Serum or PlasmaOrdered By: Gilberto Espinal on 09-29-2024 ALT [Catalytic activity/Vol] Alanine aminotransferase [Enzymatic activity/volume] in Serum or Plasma Low 7-52 [facility] Albumin [Mass/volume] in Ser um or Plasma by Bromocresol green (BCG) dye binding methoOrdered By: Gilberto Espinal on 09-29-2024 Albumin BCG dye [Mass/Vol] Albumin [Mass/volume] in Serum or Plasma by Bromocresol green (BCG) dye binding metho 3.5-5.7 [facility] Alkaline phosphatase [Enzyma tic activity/volume] in Serum or PlasmaOrdered By: Gilberto Espinal on 09-29-2024 ALP [Catalytic activity/Vol] Alkaline phosphatase [Enzymatic activity/volume] in Serum or Plasma 34-104 [facility] Aspartate aminotransferase [ Enzymatic activity/volume] in Serum or PlasmaOrdered By: Gilberto Espinal on 09-29-2024 AST [Catalytic activity/Vol] Aspartate aminotransferase [Enzymatic activity/volume] in Serum or Plasma 13-39 [facility] Basophils Auto (Bld) [#/Vol] Ordered By: Gilberto Espinal on 09-29-2024 Basophils (Bld) [#/Vol] Automated basophil count 0.0-0.2 [facility] Basophils/100 WBC Auto (Bld) Ordered By: Gilberto Espinal on 09-29-2024 Basophils/100 WBC (Bld) Automated basophil % . [facility] Bilirubin.total [Mass/volume ] in Serum or PlasmaOrdered By: Gilberto Espinal on 09-29-2024 Bilirubin [Mass/Vol] Bilirubin.total [Mass/volume] in Serum or Plasma 0.3-1.0 [facility] Calcium [Mass/volume] in Ser um or PlasmaOrdered By: Gilberto Espinal on 09-29-2024 Calcium [Mass/Vol] Calcium [Mass/volume ] in Serum or Plasma 8.6-10.3 [facility] Carbon dioxide, total [Moles /volume] in Serum or PlasmaOrdered By: Gilberto Espinal on 09-29-2024 CO2 [Moles/Vol] Carbon dioxide, tota l [Moles/volume] in Serum or Plasma 21.0-31.0 [facility] Chloride [Moles/volume] in S margaret or PlasmaOrdered By: Gilberto Espinal on 09-29-2024 Chloride [Moles/Vol] Chloride [Moles/vol ume] in Serum or Plasma 98-107 [facility] Complete Blood Count Auto Di ffon 09-29-2024 Basophils (Bld) [#/Vol] 0.0 10*3/uL Normal 0.0-0.2 [facility] Comment on above: Result Comment: PERF ORMED BY: [place] [address] PATHOLOGIST TON CONTAINER SHIPPER AYSE FULLER M.D. Performed By: #### T SH3 wRFLX, CMP, T4F, CBC #### [address] Basophils/100 WBC (Bld) 0.6 % Normal . [facility] Comment on above: Performed By: #### T SH3 wRFLX, CMP, T4F, CBC #### [address] Eosinophils (Bld) [#/Vol] 0.0 10*3/uL Normal 0.0-0.45 [facility] Comment on above: Performed By: #### T SH3 wRFLX, CMP, T4F, CBC #### [address] Eosinophils/100 WBC (Bld) 0.1 % Normal . [facility] Comment on above: Performed By: #### T SH3 wRFLX, CMP, T4F, CBC #### [address] Erythrocyte distribution width (RBC) [Ratio] 13.1 % Normal 11.9-15.3 [facility] Comment on above: Performed By: #### T SH3 wRFLX, CMP, T4F, CBC #### [address] Hematocrit (Bld) [Volume fraction] 37.3 % Normal 34.0-46.4 [facility] Comment on above: Performed By: #### T SH3 wRFLX, CMP, T4F, CBC #### [address] Hemoglobin (Bld) [Mass/Vol] 12.8 g/dL Normal 11.8-15.4 [facility] Comment on above: Performed By: #### T SH3 wRFLX, CMP, T4F, CBC #### [address] Lymphocytes (Bld) [#/Vol] 1.4 10*3/uL Normal 1.00-4.8 [facility] Comment on above: Performed By: #### T SH3 wRFLX, CMP, T4F, CBC #### [address] Lymphocytes/100 WBC (Bld) 29.2 % Normal . [facility] Comment on above: Performed By: #### T SH3 wRFLX, CMP, T4F, CBC #### [address] MCH (RBC) [Entitic mass] 28.3 pg Normal 24.7-34.3 [facility] Comment on above: Performed By: #### T SH3 wRFLX, CMP, T4F, CBC #### [address] MCV (RBC) [Entitic vol] 82.4 fL Normal 80-100 [facility] Comment on above: Performed By: #### T SH3 wRFLX, CMP, T4F, CBC #### [address] Mean Corpuscular HGB Conc 34.4 g/dL Normal 32.0-35.0 [facility] Comment on above: Performed By: #### T SH3 wRFLX, CMP, T4F, CBC #### [address] Monocytes (Bld) [#/Vol] 0.4 10*3/uL Normal 0.0-0.8 [facility] Comment on above: Performed By: #### T SH3 wRFLX, CMP, T4F, CBC #### [address] Monocytes/100 WBC (Bld) 8.7 % Normal . [facility] Comment on above: Performed By: #### T SH3 wRFLX, CMP, T4F, CBC #### [address] Neutrophils (Bld) [#/Vol] 2.9 10*3/uL Normal 1.8-7.7 [facility] Comment on above: Performed By: #### T SH3 wRFLX, CMP, T4F, CBC #### [address] Neutrophils/100 WBC (Bld) 61.4 % Normal . [facility] Comment on above: Performed By: #### T SH3 wRFLX, CMP, T4F, CBC #### [address] NRBC% 0.1 /100{WBC} Normal 0-0.5 [facility] Comment on above: Performed By: #### T SH3 wRFLX, CMP, T4F, CBC #### [address] Platelet mean volume (Bld) [Entitic vol] 7.6 fL Normal 6.3-10.7 [facility] Comment on above: Performed By: #### T SH3 wRFLX, CMP, T4F, CBC #### [address] Platelets (Bld) [#/Vol] 241 10*3/uL Normal 150-450 [facility] Comment on above: Performed By: #### T SH3 wRFLX, CMP, T4F, CBC #### [address] RBC (Bld) [#/Vol] 4.53 10*6/uL Normal 3.60-5.00 [facility] Comment on above: Performed By: #### T SH3 wRFLX, CMP, T4F, CBC #### [address] WBC (Bld) [#/Vol] 4.8 10*3/uL Normal 3.8-11.6 [facility] Comment on above: Performed By: #### T SH3 wRFLX, CMP, T4F, CBC #### [address] Comprehensive Metabolic Pane wilver 09-29-2024 Albumin [Mass/Vol] 4.6 g/dL Normal 3.5-5.7 [facility] Comment on above: Performed By: #### T SH3 wRFLX, CMP, T4F, CBC #### [address] Albumin/Globulin [Mass ratio] 1.8 {ratio} Normal [facility] Comment on above: Performed By: #### T SH3 wRFLX, CMP, T4F, CBC #### [address] ALP [Catalytic activity/Vol] 50 U/L Normal 34-104 [facility] Comment on above: Performed By: #### T SH3 wRFLX, CMP, T4F, CBC #### [address] ALT [Catalytic activity/Vol] 6 U/L Low 7-52 [facility] Comment on above: Performed By: #### T SH3 wRFLX, CMP, T4F, CBC #### [address] Anion gap [Moles/Vol] 8.6 mmol/L Normal 6.0-15.0 [facility] Comment on above: Performed By: #### T SH3 wRFLX, CMP, T4F, CBC #### [address] AST [Catalytic activity/Vol] 13 U/L Normal 13-39 [facility] Comment on above: Performed By: #### T SH3 wRFLX, CMP, T4F, CBC #### [address] Bilirubin [Mass/Vol] 0.6 mg/dL Normal 0.3-1.0 [facility] Comment on above: Performed By: #### T SH3 wRFLX, CMP, T4F, CBC #### [address] Calcium [Mass/Vol] 8.7 mg/dL Normal 8.6-10.3 [facility] Comment on above: Performed By: #### T SH3 wRFLX, CMP, T4F, CBC #### [address] Chloride [Moles/Vol] 107 mmol/L Normal 98-107 [facility] Comment on above: Performed By: #### T SH3 wRFLX, CMP, T4F, CBC #### [address] CO2 [Moles/Vol] 24.5 mmol/L Normal 21.0-31.0 [facility] Comment on above: Performed By: #### T SH3 wRFLX, CMP, T4F, CBC #### [address] Creatinine [Mass/Vol] 0.70 mg/dL Normal 0.60-1.20 [facility] Comment on above: Performed By: #### T SH3 wRFLX, CMP, T4F, CBC #### [address] GFR/1.73 sq M.predicted MDRD (S/P/Bld) [Vol rate/Area] mL/min/{1.73_m2} Normal [facility] Comment on above: Performed By: #### T SH3 wRFLX, CMP, T4F, CBC #### [address] Globulin (S) [Mass/Vol] 2.6 g/dL Normal [facility] Comment on above: Performed By: #### T SH3 wRFLX, CMP, T4F, CBC #### [address] Glucose [Mass/Vol] 85 mg/dL Normal 70-100 [facility] Comment on above: Result Comment: [facility] Glucose Reference Range is dependent on time and content of last meal. Glucose of more than 200 mg/dL in a nonstressed, ambulatory subject supports the diagnosis of Diabetes Mellitus. ADA recommended reference range Performed By: #### T SH3 wRFLX, CMP, T4F, CBC #### [address] Potassium [Moles/Vol] 4.1 mmol/L Normal 3.5-5.1 [facility] Comment on above: Performed By: #### T SH3 wRFLX, CMP, T4F, CBC #### [address] Protein [Mass/Vol] 7.2 g/dL Normal 6.4-8.9 [facility] Comment on above: Performed By: #### T SH3 wRFLX, CMP, T4F, CBC #### [address] Sodium [Moles/Vol] 136 mmol/L Normal 136-145 [facility] Comment on above: Performed By: #### T SH3 wRFLX, CMP, T4F, CBC #### [place] [address] [place] Urea nitrogen [Mass/Vol] 14 mg/dL Normal 7-25 [facility] Comment on above: Performed By: #### T SH3 wRFLX, CMP, T4F, CBC #### [place] [address] [place] Creatinine [Mass/volume] in Serum or PlasmaOrdered By: Gilberto Espinal on 09-29-2024 Creatinine [Mass/Vol] Creatinine [Mass/v olume] in Serum or Plasma 0.60-1.20 [facility] ECH echo transthoracicon [facility] echo transthoracic [facility] Main [place] [address] [place] [address] Echocardiogram Signed Patient: Allegra Lopez MR#: [id number] : 2005 Acct:[id number] Age/Sex: 18 / F ADM Date: 09/29/24 Loc: Room: Type: [facility] Attending Dr: Gilberto Espinal MD Ordering Provider: Gilberto Espinal MD Date of Service: 09/29/24 ECH/ECH echo transthoracic: R55 - Syncope and collapse Copies to: Gilberto Espinal MD Allegra Brunson AM Patient Location: : 2005 Gender: Female (MM/DD/YYYY) Age: 18 Years Ordering Physician: Gilberto Espinal Height: 66.93 in Referring Physician: Gilberto Espinal Weight: 132.002 lb Performed By: Vanna Bolton RDCS BSA: 1.69 m2 BP: 105 / 77 mmHg HR: 100 bpm Reason For Study: R55 - Syncope and collapse History: No cardiac history per patient + + Interpretation Summary Ejection Fraction = 60-65%. The left ventricular wall motion is normal. The left ventricular size and thickness are normal. There is trace tricuspid regurgitation. There is no comparison study available. Procedure/Quality: A two-dimensional transthoracic echocardiogram with color flow, Doppler and injection of contrast agent Definity was performed. The study was technically fair in quality. Left Ventricle: The left ventricular size and thickness are normal. Ejection Fraction = 60-65%. Inadequate for diastolic assessment. The left ventricular wall motion is normal. Left Atrium: The left atrium appears normal in size. Right Atrium: The right atrium appears normal in size. Right Ventricle: The right ventricle is not well visualized. The right ventricle is grossly normal size. The right ventricular systolic function is normal. Aortic Valve: The aortic valve is normal in structure. No hemodynamically significant valvular aortic stenosis. No aortic regurgitation is present. Mitral Valve: The mitral valve is normal in structure. No significant mitral valve stenosis. There is no mitral regurgitation noted. Tricuspid Valve: The tricuspid valve is normal in structure. There is trace tricuspid regurgitation. Pulmonic Valve: The pulmonic valve is not well visualized. No significant pulmonic regurgitation. Arteries: The aortic root is normal size. Pericardium/Pleura: No pericardial effusion seen. IVC/Hepatic Veins: The inferior vena cava is normal in size, with a normal collapsibility index. MMode/2D Measurements Calculations IVSd (0.7-1.1 cm): 0.68 cm LVIDd (3.7-5.4 cm): 3.6 cm LVPWd (0.7-1.1 cm): 0.81 cm LVIDs (2.3-3.6 cm): 2.46 cm LA dimension (2.3-4.0 Ao root diam (2.0-3.2 cm): 2.7 cm): 1.76 cm cm FS: 31.5 % Ao root area: 5.8 cm2 EDV(Teich): 54.2 ml LVOT diam: 1.96 cm ESV(Teich): 21.5 ml LVOT area: 3.0 cm2 EF(Teich): 60.3 % LAV(MOD-sp2): 13.9 ml LAV(MOD-sp4): 14.0 ml LA A2 area: 8.2 cm2 LA A4 area: 7.7 cm2 LA length (vol): 3.4 cm LA vol: 15.8 ml LA vol index: 9.3 ml/m2 Doppler Measurements Calculations MV E max madan: 91.7 cm/sec Ao V2 max: 108.6 cm/sec MV A max madan: 59.7 cm/sec Ao max P.7 mmHg MV V2 VTI: 27.6 cm Ao mean P.0 mmHg MV dec time: 0.25 sec Ao V2 mean: 82.3 cm/sec MV dec slope: 367.4 cm/sec?? Ao V2 VTI: 20.2 cm E/E' lat: 6.2 TERESA(I,D): 2.23 cm2 E/E' med: 7.8 TERESA(V,D): 2.6 cm2 TV max P.0 mmHg LV V1 max: 92.5 cm/sec TR max madan: 216.0 cm/sec LV V1 max P.4 mmHg TR max P.7 mmHg LV V1 mean: 67.1 cm/sec RAP systole: 3.0 mmHg LV V1 mean P.97 mmHg LV V1 VTI: 14.9 cm + + + + + + + : Electronically : : signed by: Gilberto : : : : Teddy : : : : on: 09/29/2024, : : : : 9:27 PM : + + + Transcribed By: SCV Performed At: 09/29/24830 Signed By: Gilberto Espinal MD 09/29/242126 Normal [facility] Eosinophils Auto (Bld) [#/Vo l]Ordered By: Gilberto Espinal on 09-29-2024 Eosinophils (Bld) [#/Vol] Automated eosinophil count 0.0-0.45 [facility] Eosinophils/100 WBC Auto (Bl d)Ordered By: Gilberto Espinal on 09-29-2024 Eosinophils/100 WBC (Bld) Automated eosinophil % . [facility] Erythrocyte distribution wid th Auto (RBC) [Ratio]Ordered By: Gilberto Espinal on 09-29-2024 Erythrocyte distribution width (RBC) [Ratio] Erythrocyte distribution width [Ratio] by Automated count 11.9-15.3 [facility] Free T4 (Free Thyroxine)on 0 09-29-2024 Free T4 [Mass/Vol] 0.66 ng/dL Normal 0.61-1.12 [facility] Comment on above: Performed By: #### T SH3 wRFLX, CMP, T4F, CBC #### [facility] [address] Globulin Calc (S) [Mass/Vol] Ordered By: Gilberto Espinal on 09-29-2024 Globulin (S) [Mass/Vol] Serum globulin measurement by calculation (mass/volume) [facility] Glucose [Mass/volume] in Ser um or PlasmaOrdered By: Gilberto Espinal on 09-29-2024 Glucose [Mass/Vol] Glucose [Mass/volume ] in Serum or Plasma 70-100 [facility] Comment on above: ADA recommended refe rence rangeRandom Glucose Reference Range is dependent on time and content of last meal. Glucose of more than 200 mg/dL in a nonstressed, ambulatory subject supports the diagnosis of Diabetes Mellitus. Hematocrit Auto (Bld) [Volum e fraction]Ordered By: Gilberto Espinal on 09-29-2024 Hematocrit (Bld) [Volume fraction] Hematocrit [Volume Fraction] of Blood by Automated count 34.0-46.4 [facility] Hemoglobin [Mass/volume] in BloodOrdered By: Gilberto Espinal on 09-29-2024 Hemoglobin (Bld) [Mass/Vol] Hemoglobin [Mass/volume] in Blood 11.8-15.4 [facility] Leukocytes [#/volume] correc mignon for nucleated erythrocytes in Blood by Automated counOrdered By: Gilberto Espinla on 09-29-2024 WBC corrected for nucl RBC Auto (Bld) [#/Vol] Leukocytes [#/volume] corrected for nucleated erythrocytes in Blood by Automated coun 3.8-11.6 [facility] Lymphocytes Auto (Bld) [#/Vo l]Ordered By: Gilberto Espinal on 09-29-2024 Lymphocytes (Bld) [#/Vol] Lymphocytes [#/volume] in Blood by Automated count 1.00-4.8 [facility] Lymphocytes/100 WBC Auto (Bl d)Ordered By: Gilberto Espinal on 09-29-2024 Lymphocytes/100 WBC (Bld) Lymphocytes/100 leukocytes in Blood by Automated count . [facility] MCH Auto (RBC) [Entitic mass ]Ordered By: Gilberto Espinal on 09-29-2024 MCH (RBC) [Entitic mass] MCH [Entitic mass] by Automated count 24.7-34.3 [facility] MCHC Auto (RBC) [Mass/Vol]Or dered By: Gilberto Espinal on 09-29-2024 MCHC (RBC) [Mass/Vol] MCHC [Mass/volume] by Automated count 32.0-35.0 [facility] MCV Auto (RBC) [Entitic vol] Ordered By: Gilberto Espinal on 09-29-2024 MCV (RBC) [Entitic vol] MCV [Entitic volume] by Automated count 80-100 [facility] Monocytes Auto (Bld) [#/Vol] Ordered By: Gilberto Espinal on 09-29-2024 Monocytes (Bld) [#/Vol] Automated blood monocyte count 0.0-0.8 [facility] Monocytes/100 WBC Auto (Bld) Ordered By: Gilberto Espinal on 09-29-2024 Monocytes/100 WBC (Bld) Automated monocyte % . [facility] Neutrophils Auto (Bld) [#/Vo l]Ordered By: Gilberto Espinal on 09-29-2024 Neutrophils (Bld) [#/Vol] Neutrophils [#/volume] in Blood by Automated count 1.8-7.7 [facility] Neutrophils/100 WBC Auto (Bl d)Ordered By: Gilberto Espinal on 09-29-2024 Neutrophils/100 WBC (Bld) Automated neutrophil % . [facility] No Panel InformationOrdered By: Gilberto Espinal on 09-29-2024 Estimated GFR (CKD-EPI) > 60.0 mL/Min [facility] Creatinine Clearance (Chem N/A [facility] Nucleated erythrocytes [Pres ence] in Blood by Automated countOrdered By: Gilberto Espinal on 09-29-2024 Nucleated RBC Auto Ql (Bld) Nucleated erythrocytes [Presence] in Blood by Automated count 0-0.5 [facility] Platelet mean volume Auto (B ld) [Entitic vol]Ordered By: Gilberto Espinal on 09-29-2024 Platelet mean volume (Bld) [Entitic vol] Platelet mean volume [Entitic volume] in Blood by Automated count 6.3-10.7 [facility] Platelets Auto (Bld) [#/Vol] Ordered By: Gilberto Espinal on 09-29-2024 Platelets (Bld) [#/Vol] Platelets [#/volume] in Blood by Automated count 150-450 [facility] Potassium [Moles/volume] in Serum or PlasmaOrdered By: Gilberto Espinal on 09-29-2024 Potassium [Moles/Vol] Potassium [Moles/v olume] in Serum or Plasma 3.5-5.1 [facility] Protein [Mass/volume] in Ser um or PlasmaOrdered By: Gilberto Espinal on 09-29-2024 Protein [Mass/Vol] Protein [Mass/volume ] in Serum or Plasma 6.4-8.9 [facility] RBC Auto (Bld) [#/Vol]Ordere d By: Gilberto Espinal on 09-29-2024 RBC (Bld) [#/Vol] Erythrocytes [#/volu me] in Blood by Automated count 3.60-5.00 [facility] Serum or plasma albumin/glob ulin mass ratioOrdered By: Gilberto Espinal on 09-29-2024 Albumin/Globulin [Mass ratio] Serum or plasma albumin/globulin mass ratio [facility] Serum or plasma anion gap de terminationOrdered By: Gilberto Espinal on 09-29-2024 Anion gap [Moles/Vol] Serum or plasma an ion gap determination 6.0-15.0 [facility] Sodium [Moles/volume] in Ser um or PlasmaOrdered By: Gilberto Espinal on 09-29-2024 Sodium [Moles/Vol] Sodium [Moles/volume ] in Serum or Plasma 136-145 [facility] Thyroid Stim Hormone w/Rflxo n 09-29-2024 Thyroid Stim Hormone w/Rflx 6.02 u[iU]/mL High 0.45-5.33 [facility] Comment on above: Result Comment: PERF ORMED BY: [place] [address] PATHOLOGIST TON CONTAINER SHIPPER AYSE FULLER M.D. Performed By: #### T SH3 wRFLX, CMP, T4F, CBC #### [facility] [address] [place] [address] Thyrotropin [Units/volume] i n Serum or PlasmaOrdered By: Gilberto Espinal on 09-29-2024 TSH Qn Thyrotropin [Units/v olume] in Serum or Plasma High 0.45-5.33 [facility] Thyroxine (T4) free [Mass/vo lume] in Serum or PlasmaOrdered By: Gilberto Espinal on 09-29-2024 Free T4 [Mass/Vol] Thyroxine (T4) free [Mass/volume] in Serum or Plasma 0.61-1.12 [facility] Urea nitrogen [Mass/volume] in Serum or PlasmaOrdered By: Gilberto Espinal on 09-29-2024 Urea nitrogen [Mass/Vol] Urea nitrogen [Mass/volume] in Serum or Plasma 01-23 [facility] WBC Auto (Bld) [#/Vol]Ordere d By: Gilberto Espinal on 09-29-2024 WBC (Bld) [#/Vol] Leukocytes [#/volume ] in Blood by Automated count 3.8-11.6 [facility] FPG ECG *CARDIOLOGY ONLY*on 08-28-2024 FPG ECG *CARDIOLOGY ONLY* [facility] Main [place] [address] [place] [address] Electrocardiograph Report Signed Patient: Allegra Lopez MR#: [id number] 285 : 2005 Acct:[id number] Age/Sex: 18 / F ADM Date: 08/28/24 Loc: EKGCARDIO Room: Type: [facility] Attending Dr: Gilberto Espinal MD Ordering Provider: Gilberto Espinal MD Date of Service: 08/28/24 ECG/FPG ECG *CARDIOLOGY ONLY*: R55 - Syncope and collapse Copies to: Test Reason : Blood Pressure : */* mmHG Vent. Rate : 92 BPM Atrial Rate : 92 BPM P-R Int : 112 ms QRS Dur : 110 ms QT Int : 380 ms P-R-T Axes : 71 94 71 degrees QTcB Int : 469 ms Normal sinus rhythm Rightward axis Incomplete right bundle branch block Borderline ECG No previous ECGs available Confirmed by Gilberto Espinal ([id number]) on 08/28/2024 8:35:40 PM Referred By: Electronically Signed By: Gilberto Espinal Transcribed By: MUS Signed By Gilberto Espinal MD 08/28/242034 Normal [facility] CHEMISTRYOrdered By: SYSTEM SYSTEM on 07-16-2024 25-hydroxyvitamin [...] [Mass/Vol] 7 ng/mL Low 11-307 [facility] Comment on above: Performed By: #### 2 [id number] #### [facility] [address] [place] [address] TIBC Calculatedon 07-16-2024 Iron binding capacity [Mass/Vol] 462 microgram/dL High 250-400 [facility] Comment on above: Performed By: #### 1 [id number] #### [facility] [address] [place] [address] Transferrin [Mass/Vol] 330 mg/dL Normal 200-370 [facility] Comment on above: Performed By: #### 1 [id number] #### [facility] [address] [place] [address] Vitamin D 25 Hydroxyon 07-16 25-hydroxyvitamin D3 [Mass/Vol] 22.3 ng/mL Low 30.0-100.0 [facility] Comment on above: Performed By: #### 5 [id number] #### [facility] [address] [place] [address] Ambulatory Visit Summaryon 0 03-24-2024 Ambulatory Visit Summary Ambulatory Visit Summary ALLEGRA LOPEZ :2005 Visit Date:03/24/2024 Ambulatory Visit Instructions Your Diagnosis Nausea and vomiting Chronic constipation Chest pain, atypical Chemical gastritis Your Care Team Attending Physician - Melody GARIBAY, Vasquez Magallon Primary Care Physician - KEYA HOPE CNP This Is Your Medications List [...] you for choosing us for your care. Normal [facility] Gastroenterology Office/Clin ic Noteon 03-24-2024 Gastroenterology [...] measles/mumps/rubella virus v (more content not included)... Normal [facility] Comment on above: Result Comment: Elec tronically Signed By: Melody GARIBAY, Vasquez Magallon\.br\Date and Time Signed: 03/24/24 12:40 EDT Surgical Pathology Reporton 02-18-2024 Surgical Pathology Report [facility] [address] [facility] [place] [address]- Surgical Pathology Report Collected Date/Time: 02/14/2024 13:25 [...] characteristics were determined by the Laboratory of [facility]. They have not been cleared or approved by the US Food and Drug Administration. The FDA has determined that such clearance or approval is not necessary. These tests are used for clinical purposes. They should not be regarded as investigational or for research. Appropriate positive and negative controls are performed and are acceptable. Normal [facility] Comment on above: Performed By: #### 4 [id number] #### [facility] [address] [place] [address] Main OR Intraoperative Recor don 02-15-2024 Main OR Intraoperative Record Main OR Intraoperative Record IntraOp Document Type FT Summary Primary Physician: Vasquez Oliver MD Finalized Date/Time: 02/15/24 10:29:18 Pt. Name: JESSICA ALLEGRAMASTER Rosenthal/Sex: 2005 Female Med Rec #: [id number] Physician: Vasquez Oliver MD Financial #: [id number] Pt. Type: O Room/Bed: / Admit/Disch: 02/14/24 [...] 1 Entry 2 Entry 3 Case Attendee Bao BROWN, Murphy Mcginnis RN, Rosalinda Brown Role Performed Anesthesiologist Blueprint Clerk - Primary Scrub - Primary Structural Steel Shop Supervisor Time In 02/14/24 13:17:00 02/14/24 13:17:00 02/14/24 13:17:00 Time Out 02/14/24 13:27:00 02/14/24 13:27:00 02/14/24 13:27:00 Procedure EGD(.) EGD(.) EGD(.) Comments Dr. Medrano supervising Last Modified By: Ras CHOUDHARY, Ruby Mcginnis RN, Ruby Mcginnis RN, Ruby 02/14/24 13:26:57 02/14/24 13:26:57 02/14/24 13:26:57 Entry 4 Entry 5 Case Attendee Jono GARCIA, Sheila Oliver MD, Vasquez Yoder Role Performed Staff - Other Surgeon - Primary Time In 02/14/24 13:17:00 02/14/24 13:17:00 Time Out 02/14/24 13:27:00 02/14/24 13:27:00 Procedure EGD(.) EGD(.) Comments help in room Last Modified By: Ras CHOUDHARY, Ruby Mcginnis RN, Ruby 02/14/24 13:26:57 02/14/24 [...] PreOp Antibiotic No Time Out Murphy Jimenes Given Participants Ras Anglin RN, Bairon Beltran Micala E, Jono GARCIA, [...] and tissue Entry 1 Skin Integrity Intact, [place], Warm, & Skin Abnormality No Dry Outcomes [...] Arm P (more content not included)... Normal [facility] Discharge Instructionson Discharge Instructions Discharge Instruc tions ALLEGRA LOPEZ :2005 Visit Date:02/14/2024 Inpatient Discharge [...] Follow Up with Melody GARIBAY, Vasquez Magallon, [facility], [facility] When: Comments: Office will call to schedule follow up appointment and/or review any pending biopsy results Call for any problems. Where: [address] [place] [address], [address] [place] [address]- [phone] Medications What How Much When Instructions Next [...] Document Re-Released: 12/10/2006 ExitCare? Patient Information ?2009 [employer]. Common Emergency Awareness Tips IS IT A [...] pain. Disco (more content not included)... Normal [facility] Comment on above: Result Comment: Elec tronically Signed By: Patrick CHOUDHARY, Renu\.br\Date and Time Signed: 02/14/24 13:52 EDT Inpatient Patient Summaryon 02-14-2024 Inpatient Patient Summary Inpatient Patient Summary [address] [address] [facility] Clinical Discharge Instructions PERSON INFORMATION Name: ALLEGRA LOPEZ PHYSICIANS Admitting Physician: Vasquez Oliver MD Attending Physician: Vasquez Oliver MD PCP: KEYA HOPE CNP Discharge Diagnosis: Comment: PATIENT EDUCATION INFORMATION Instructions: Endoscopy, Care After Procedure [facility] (CUSTOM) Medication Leaflets: Follow up: With: Address: When: Vasquez Oliver MD, [facility], [address], [address] [place] [phone] Comments: Office will call to schedule follow [...] bedtime). 1 Unknown, 0 Refill(s). Comment: Normal [facility] Main OR PACU I Recordon 01-30 Main OR PACU I Record Main OR PACU I Rec ord PACU Phase I Document Type FT Summary Primary Physician: Vasquez Oliver MD Finalized Date/Time: 02/14/24 14:21:18 Pt. Name: ALLEGRA LOPEZ /Sex: 2005 Female Med Rec #: [id number] Physician: Vasquez Oliver MD Financial #: [id number] Pt. Type: O Room/Bed: / Admit/Disch: 02/14/24 [...] Signed By: Renu Nguyen RN 02/14/24 14:21 [facility] Main OR Preoperative Recordo n 02-14-2024 Main OR Preoperative Record Main OR Preoperative Record Holding Area Document Type FT Summary Primary Physician: Vasquez Oliver MD Finalized Date/Time: 02/14/24 13:01:52 Pt. Name: ALLEGRA LOPEZ Boy WeaverB./Sex: 2005 Female Med Rec #: [id number] Physician: Vasquez Oliver MD Financial #: [id number] Pt. Type: O Room/Bed: / Admit/Disch: 02/14/24 [...] Signed By: Pipo Lema RN 02/14/24 13:01 Normal [facility] Operative Reporton Operative Report Operative Report [...] pylori. 3. Normal duodenum. Images Procedure images: Rec1_hd_video_2023__T12 _[id number]_041.jpg Rec1_hd_video_2023__T12 _30_24_272.jpg Rec1_hd_video_2023__T12 _30_30_035.jpg Rec1_hd_video_2023__T12 _30_40_701.jpg Rec1_hd_video_2023__T12 _30_45_054.jpg Rec1_hd_video_2023__T12 _30_57_268.jpg Rec1_hd_video_2023__T12 _31_03_098.jpg Rec1_hd_video_2023__T12 _32_02_400.jpg Rec1_hd_video_2023__T12 _32_44_817.jpg Rec1_hd_video__T12 _33_01_751.jpg Rec1_hd_video__T12 _33_13_500.jpg . Post-Procedure Complications: none. Estimated blood loss: minimal. Specimens: sent to pathology. Devices/ implants: none left in place. Impression and Plan Gastropathy Recommendations: -Resume previous diet -Resume home medications -Await pathology results, follow in GI clinic in 1-2 after discharge Will start Protonix and Carafate (office will call with prescription) Normal [facility] Comment on above: Result Comment: Elec tronically Signed By: Vasquez Oliver MD\.br\Date and Time Signed: 02/14/24 13:31 EDT Other Comment: Maria T ferreira Attachment - attachment storage system not supported [id number] Can be viewed in source system Missing Attachment - attachment storage system not supported [id number] Can be viewed in source system Missing Attachment - attachment storage system not supported [id number] Can be viewed in source system Missing Attachment - attachment storage system not supported [id number] Can be viewed in source system Missing Attachment - attachment storage system not supported [id number] Can be viewed in source system Missing Attachment - attachment storage system not supported [id number] Can be viewed in source system Missing Attachment - attachment storage system not supported [id number] Can be viewed in source system Missing Attachment - attachment storage system not supported [id number] Can be viewed in source system Missing Attachment - attachment storage system not supported [id number] Can be viewed in source system Missing Attachment - attachment storage system not supported [id number] Can be viewed in source system Missing Attachment - attachment storage system not supported [id number] Can be viewed in source system Outpatient Surgery Discharge Instructionon 02-14-2024 Outpatient Surgery Discharge Instruction Outpatient Surgery Discharge Instruction [place] [id number] Patient Discharge Instructions PERSON INFORMATION Name: ALLEGRA LOPEZ Date of : 2005 Current Date: 02/14/2024 13:51:11 PHYSICIANS Admitting Physician: Vasquez Oliver MD Discharge Diagnosis: LALEGRA LOPEZ has been given the following list [...] THE NEAREST EMERGENCY ROOM OR CALL 911 I, ALLEGRA LOPEZ, have received the attached patient education materials/instructions and have verbalized understanding: May we do a follow up call? Yes No I was present when discharge instructions were given ___ Patient Signature Date Clinican/Nurse Signature Date Follow up: With: Address: When: Melody GARIBAY, Vasquez Magallon [facility], [address], [address] [place] [phone] Comments: Office will call to schedule follow up appointment and/or review any pending biopsy results Call for any problems. Pharmacy Information: You may receive a survey from [employer] asking you to rate your care experience. Your feedback is important and will help us understand what we do well and how we can improve the quality of care we provide to you, your loved ones and our community. It?s an honor to serve you. Thank you for choosing [facility] HERE ARE THE MEDICATION CHANGES THAT OCCURRED [...] Document Re-Released: 12/10/2006 ExitCare? Patient Information ?2009 [employer]. Medication Leaflets: [facility] Ambulatory Visit Summaryon 0 02-06-2024 Ambulatory Visit Summary Ambulatory Visit Summary ALLEGRA LOPEZ :2005 Visit Date:02/06/2024 Ambulatory Visit Instructions Your Diagnosis Nausea and vomiting Chronic constipation Chest pain, atypical Your Care Team Attending Physician - Melody GARIBAY, Vasquez Magallon Primary Care Physician - JAYY VILLANUEVA, KEYA Delgado This Is Your Medications List Contact [...] you for choosing us for your care. Normal [facility] Gastroenterology Office/Clin ic Noteon 02-06-2024 Gastroenterology [...] prescribed to take when Zofran doesn't work. [facility] ED: 11/24/2023 Chief Complaint [...] worsen she is comfortable with this plan. [facility] ED: 03/24/2023 History of Present Illness 17-year-old female comes to the ED for psychiatric evaluation. She presents from a homeless half-way for evaluation of suicidal comments. The patient [...] meningococcal conjuga (more content not included)... Normal [facility] Comment on above: Result Comment: Elec tronically Signed By: Melody GARIBAY, Vasquez Magallon\.br\Date and Time Signed: 02/06/24 14:36 EDT Chlam/GC/Trich,NAAon 024 C. trachomatis rRNA EM+probe Ql (Unsp spec) Negative Invalid Interpretation Code Negative [facility] Comment on above: Performed By: #### 1 [id number] ####[facility] [address] [place] [address] N. gonorrhoeae rRNA EM+probe Ql (Unsp spec) Negative Invalid Interpretation Code Negative [facility] Comment on above: Performed By: #### 1 [id number] ####[facility] [address] [place] [address] T. vaginalis rRNA EM+probe Ql (Unsp spec) Negative Invalid Interpretation Code Negative [facility] Comment on above: Result Comment: Perf ormed at: =G [facility] [address] [id number] MD [place] Conrad Performed By: #### 1 [id number] ####[facility] [address] [place] [address] C Urineon 11-26-2023 Bacteria identified Cx Nom (U) Microbiology PROCEDURE: Urine Culture [R1] SOURCE: U CleanCatch BODY SITE: COLLECTED DATE/TIME: 11/24/2023 13:33 EDT RECEIVED DATE/TIME: 11/24/2023 14:28 EDT START DATE/TIME: 11/24/2023 14:28 EDT FREE TEXT SOURCE: Erik Schwartz DO, DO, Erik FINAL REPORTS Final Report [] Verified Date/Time: 11/26/2023 07:10 EDT 1,000 cfu/ml Mixed skin contaminants Performing Locations R1: [facility]: [facility], [address] [place] [address], [address] , , [facility] Comment on above: Performed By: #### 2 [id number] #### [address] [address] Consent for Treatmenton 10-31 Consent for Treatment [id number] [facility] Discharge Instructionson Discharge Instructions [id number] Normal [facility] ED Clinical Summaryon 2023 ED Clinical Summary (Inserted Image. Alyson ble to display) [address] [address] ED Clinical Summary Person Information Name: ALLEGRA LOPEZ [place] Age: 17 Years : 2005 Sex: Female Language: Thai PCP: KEYA HOPE CNP Marital Status: Single Visit Id: [...] 11/24/2023 14:45:26 11/24/2023 14:45:26 ADDRESS: [address] [facility] [id number] PHYS DOC NOTES: MEDICAL INFORMATION: Prescriptions Given: New Medications [facility]/pharmacy #[id number], [address], [place] [id number], [phone] ondansetron (Zofran 4 mg Tab) 1 Tablets By Mouth every 6 hours as needed Nausea. Take one tab by mouth every six hours as needed for nausea. Refills: 0. sulfamethoxazole-trimethopr im (Bactrim D.S. 800 mg-160 mg Tab) 1 Tablets By Mouth 2 times a day for 7 Days. Take one tab by mouth twice a day for seven days. Refills: 0. PATIENT EDUCATION INFORMATION: Instructions: Follow up: With: Address: When: [place] [address] [facility] (1) In 3 days DIAGNOSIS: Nausea; UTI (urinary tract infection) Normal [facility] ED Note-Physicianon 11-24-19 ED Note-Physician Basic [...] nausea, # 10 tab(s), Refills(s) 0, Pharmacy: [facility]/pharmacy #[id number], 167, cm, 11/24/23 12:49:00 EDT, Height/Length Dosing, 59, kg, 11/24/23 12:49:00 EDT, Weight D... ondansetron, 4 mg = 1 tab(s), Tab-Dis, Oral, Once, Stop date 11/24/23 13:23:00 EDT, STAT, Start date 11/24/23 13:23:00 EDT, 11/24/23 13:23:00 EDT sulfamethoxazole-trimethopr im, 1 tab(s), Oral, BID for 7 day(s), [...] q6hr, PRN Follow-up With When Contact Information KEYA HOPE In 3 days [address] [place] [address]- Business (1) Additional Instructions: Problem [...] INCOMPLETE RI (more content not included)... Normal [facility] Comment on above: Result Comment: Elec tronically Signed By: Erik Schwartz DO\.laith\Date and Time Signed: 11/24/23 14:35 EDT ED Patient Education Noteon 11-24-2023 ED Patient Education Note Normal [facility] ED Patient Summaryon 024 ED Patient Summary (Inserted Image. Alyson ble to display) [address] [place] [address] Patient Discharge Instructions Person Information Name: ALLEGRA LOPEZ Age: 17 Years Arrival Date: 11/24/2023 12:21:37 Discharge Diagnosis: Nausea; UTI (urinary tract infection) Primary Care Physician: KEYA HOPE CNP Provider Information Primary Provider: Erik Schwartz DO Advanced Corner Bead Operator:None The exam and treatment you received in the Emergency Department were for an urgent problem and are not intended as complete care. It is important that you follow up with a doctor, nurse practitioner, or physician?s equal opportunity assistant for ongoing care. If your symptoms become worse or you do not improve as expected and you are unable to reach your usual health care provider, you should return to the Emergency Department. We are available 24 hours a day. ALLEGRA LOPEZ has been given the following list of patient education materials, prescriptions and follow-up instructions: Follow-up Instructions: With: Address: When: KEYA HOPE [address] [place] [address] [place] [phone] Business (1) In 3 days In the event that this physician does not participate in your insurance network, please consult with your insurance company to find a nearby participating provider. Patient Education Materials: A MESSAGE TO ALL PATIENTS REGARDING OPIOIDS PRESCRIPTION OPIOIDS: WHAT YOU NEED TO KNOW Prescription opioids can be used to help relieve ovjyqnft-eu-zswzlu pain and are often prescribed following a [...] guidance from the Food and Drug Administration (www.fda.gov/Drugs/Resource sForYou). ? Visit www.cdc.gov/drugoverdose to learn about the risks of opioids abuse and overdose. ? If you believe you may be struggling with addiction, tell your health director of career resources and ask for guidance or call SAMHSA?S National Helpline at 7-543-112-HELP. v Source: US Department of Health and (more content not included)... [facility] SEROLOGYOrdered By: Susy Amaro on 11-24-2023 HCG.beta subunit (U) [Moles/Vol] Negative Normal [facility] Man Sero U BetaHcg Qualon 11-24-2023 HCG.beta subunit (U) [Moles/Vol] Negative Normal [facility] Comment on above: Performed By: #### 2 [id number] #### [facility] [address] [place] [address] UA with Cult Rflxon 11-24-19 24 Bilirubin Ql (U) Negative Normal Negative [facility] Comment on above: Performed By: #### 4 [id number] #### [facility] [address] [place] [address] Clarity (U) Turbid Abnormal Clear [facility] Comment on above: Performed By: #### 4 [id number] #### [facility] [address] [place] [address] Color (U) Yellow Normal Yellow [facility] Comment on above: Result Comment: Micr oscopic readings are only performed on those samples that meet specific criteria set forth by [facility]. Performed By: #### 4 [id number] #### [facility] [address] [place] [address] Epithelial cells.squamous Auto (Urine sed) [#/Area] 5-8 Abnormal 0-2 [facility] Comment on above: Performed By: #### 4 [id number] #### [facility] [address] [place] [address] Glucose Ql (U) Negative Normal Negative [facility] Comment on above: Performed By: #### 4 [id number] #### [facility] [address] [place] [address] Hemoglobin Auto test strip (U) [Mass/Vol] Negative Normal Negative [facility] Comment on above: Performed By: #### 4 [id number] #### [facility] [address] [place] [address] Ketones Auto test strip Ql (U) Negative Normal Negative [facility] Comment on above: Performed By: #### 4 [id number] #### [facility] [address] [place] [address] Leukocyte esterase Auto test strip Ql (U) 250 Ramy/uL Abnormal Negative [facility] Comment on above: Performed By: #### 4 [id number] #### [facility] [address] [place] [address] Mucus Auto Ql (U) 4+ [id number] Abnormal Negative [facility] Comment on above: Performed By: #### 4 [id number] #### [facility] [address] [place] [address] Nitrite Auto test strip Ql (U) Negative Normal Negative [facility] Comment on above: Performed By: #### 4 [id number] #### [facility] [address] [place] [address] pH (U) 5.5 [pH] Invalid Interpretation Code 5.0-9.0 [facility] Comment on above: Performed By: #### 4 [id number] #### [facility] [address] [place] [address] Protein Ql (U) Trace Abnormal Negative [facility] Comment on above: Performed By: #### 4 [id number] #### [facility] [address] [place] [address] RBC Ql (U) 0-3 Normal 0-3 [facility] Comment on above: Performed By: #### 4 [id number] #### [facility] [address] [place] [address] Specific gravity (U) [Rel density] 1.034 Invalid Interpretation Code 1.005-1.03 0 [facility] Comment on above: Performed By: #### 4 [id number] #### [facility] [address] [place] [address] Urobilinogen (U) [Mass/Vol] Negative Normal Negative [facility] Comment on above: Performed By: #### 4 [id number] #### [facility] [address] [place] [address] WBC Auto (Urine sed) [#/Area] 6-15 Abnormal 0-5 [facility] Comment on above: Performed By: #### 4 [id number] #### [facility] [address] [place] [address] Type of Urine collection method Clean Catch Normal [facility] Comment on above: Performed By: #### 4 [id number] #### [facility] [address] [place] [address] URINALYSISOrdered By: SYSTEM SYSTEM on 11-24-2023 Bilirubin Ql (U) Negative Normal Negativemg /dL [facility] UA Auto SS Clarity (U) Turbid *ABN* (11/24/23 1:33 PM) Invalid Interpretation Code Clear [facility] UA Auto SS Color (U) Yellow 1 (11/24/23 1:33 PM) Normal Yellow [facility] UA Auto SS Comment on above: Interpretive Data: M icroscopic readings are only performed on those samples that meet specific criteria set forth by [facility]. Epithelial cells.squamous Auto (Urine sed) [#/Area] 5-8 graded/HPF Invalid Interpretation Code 0-2graded/ HPF [facility] UA Auto SS Glucose Ql (U) Negative Normal Negativemg /dL [facility] UA Auto SS Hemoglobin Auto test strip (U) [Mass/Vol] Negative Normal Negativemg /dL [facility] UA Auto SS Ketones Auto test strip Ql (U) Negative Normal Negativemg /dL [facility] UA Auto SS Leukocyte esterase Auto test strip Ql (U) 250 Ramy/uL Ramy/uL Invalid Interpretation Code NegativeLe u/uL [facility] UA Auto SS Mucus Auto Ql (U) 4+ graded/LPF Invalid Interpretation Code Negativegr aded/LPF [facility] UA Auto SS Nitrite Auto test strip Ql (U) Negative Normal Negativemg /dL [facility] UA Auto SS pH (U) 5.5 *NA* (11/24/23 1:33 PM) Invalid Interpretation Code 5.0 - 9.0 [facility] UA Auto SS Protein Ql (U) Trace mg/dL Invalid Interpretation Code Negativemg /dL [facility] UA Auto SS RBC Ql (U) 0-3 graded/HPF Normal 0-3graded/ HPF [facility] UA Auto SS Specific gravity (U) [Rel density] 1.034 *NA* (11/24/23 1:33 PM) Invalid Interpretation Code 1.005 - 1.030 [facility] UA Auto SS Urobilinogen (U) [Mass/Vol] Negative Normal Negativemg /dL [facility] UA Auto SS WBC Auto (Urine sed) [#/Area] 6-15 graded/HPF Invalid Interpretation Code 0-5graded/ HPF [facility] UA Auto SS URINALYSISOrdered By: Erik boggs on 11-24-2023 UA Spec Desc Clean Catch (11/24/23 1:33 PM) Normal [facility] UA Auto SS Work Phone: [employer] GENERIC ORDERon 024 TEST NAME [id number] DS DNA ANTIB BONNIE IGG BY IFA Normal [facility] Comment on above: Performed By: #### C 34, 43734-4, 80791-0, 1987-, FEPR, 2276- 4, 17699-5, ENAP, 07380-4 #### [facility] ([id number]) [address] [place] [address], [address] [place] [address] #### NAIFA #### [facility] ([id number]) [address] [place] [address], TEST RESULT SEE NOTE Normal [facility] Comment on above: Result Comment: NOTE Test [...] recommendations for testing may be found at [email or web address]. Performed By: [employer] [address] [place] [address] Gage Maker: Jerel Romo MD, PhD CLIA Number: [id number] Performed By: #### C 34, 18224-3, 09537-1, 1987-10, FEPR, 2276-4, 83186-6, ENAP, 22849-7 #### [facility] ([id number]) [address] [place] [address], [place] [address] #### NAIFA #### [facility] ([id number]) [address] [place] [address], Antinuclear AB, HE-p Substra te, (TYLOR by IFA)on 08-28-2023 TYLOR Pattern: Homogeneous Normal [facility] Comment on above: Result Comment: NOTE Test Performed by: [facility] [address] [place] [address] Warehouse Selector: Bowen Hastings M.D. Ph.D.; CLIA# [id number] Performed By: #### C 34, 17920-8, 83033-3, 1987-10, FEPR, 2276-4, 53027-2, ENAP, 31227-1 #### [facility] ([id number]) [address] [place] [address], [address] [place] [address] #### NAIFA #### [facility] ([id number]) [address] [place] [address], TYLOR Titer: 1:[address] [facility] Comment on above: Performed By: #### C 34, 94650-7, 34308-6, 1987-10, FEPR, 2276- 4, 29899-0, ENAP, 23949-5 #### [facility] ([id number]) [address] [place] [address], [place] [address] #### NAGAYEA #### [facility] ([id number]) [address] [place] [address], Antinuclear Ab, HEp-2 Substrate, S Positive Abnormal <1:80 (Negative) [facility] Comment on above: Result Comment: NOTE ADDITIONAL INFORMATION Method: Immunofluorescence using HEp-2 cellular substrate. Performed By: #### C 34, 22217-3, 60534-8, 1987-10, FEPR, 2276-4, 30853-1, ENAP, 44893-7 #### [facility] ([id number]) [address] [place] [address] #### NAIFA #### [facility] ([id number]) [address] [place] [address], C REACTIVE PROTEINon 08-28- 024 CRP [Mass/Vol] mg/L Normal 0.000-0.[address] [facility] Comment on above: Performed By: #### C 34, 22806-5, 49245-2, 1987-10, FEPR, 2276- 4, 84395-0, ENAP, 32063-7 #### [facility] ([id number]) [address] [place] [address], [place] [address] #### NAIFA #### [facility] ([id number]) [address] [place] [address], C-reactive proteinon 2 024 CRP [Mass/Vol] mg/dL 0.000 - 0.744 mg/dL [facility] [employer] [facility] CCP Abon 08-28-2023 Cyclic citrullinated peptide IgG Qn U/ML NINF - 3.0 U/ML [facility] Comment on above: Interpretation-------- <3 Negative >=3 Positive COMPLEMENT PROFILEon 024 COMPLEMENT C3 121 mg/dL Normal 86-[address] [facility] Comment on above: Performed By: #### C 34, 17688-4, 42416-2, 1987-10, FEPR, 6- 4, 27250-5, ENAP, 79928-3 #### [facility] ([id number]) [address] [place] [address], [address] [place] [address] #### NAIFA #### [facility] ([id number]) [address] [place] [address], COMPLEMENT C4 10 mg/dL Low 16-[address] [facility] Comment on above: Performed By: #### C 34, 40822-2, 80070-3, 1987-10, FEPR, 2276- 4, 01923-5, ENAP, 99483-6 #### [facility] ([id number]) [address] [place] [address], [address] [place] [address] #### NAIFA #### [facility] ([id number]) [address] [place] [address], CRP [Mass/Vol]on 08-28-2023 [facility] Complement profile (C3 AND C 4)on 08-28-2023 Complement C3 [Mass/Vol] 121 mg/dL 86 - 184 mg/dL [facility] Complement C4 [Mass/Vol] 10 mg/dL Low 16 - 47 mg/dL [facility] Interpretation and review of laboratory results Abnormal [facility] Cyclic citrullinated peptide IgG Qnon 08-28-2023 [facility] CLARY PANELon 08-28-2023 ANTI-JONES AB IGG <0.2 Normal <1.0 [facility] Comment on above: Performed By: #### C 34, 11765-1, 52722-4, 1987-10, FEPR, 2276- 4, 24224-0, ENAP, 29907-8 #### [facility] ([id number]) [address] [place] [address], [address] [place] [address] #### NAIFA #### [facility] ([id number]) [address] [facility], JO1 ANTIBODY <0.2 Normal <1.[address] [facility] Comment on above: Performed By: #### C 34, 00092-5, 36170-5, 1987-10, FEPR, 2276- 4, 33133-5, ENAP, 47273-8 #### [facility] ([id number]) [address] [place] [address], [address] [place] [address] #### NAIFA #### [facility] ([id number]) [address] [place] [address], [employer] ANTIBODY IGG 0.7 AI Normal <1.0 [facility] Comment on above: Performed By: #### C 34, 31416-0, 02683-5, 1987-10, FEPR, 2275- , 19923-8, ENAP, 60508-2 #### [facility] ([id number]) [address] [place] [address], [address] [place] [id number] #### NAIFA #### [facility] ([id number]) [address] [place] [address], SCL 70 ANTIBODY <0.2 Normal <1.[address] [facility] Comment on above: Performed By: #### C 34, 73938-1, 70903-8, 1987-10, FEPR, 2275- , 43336-9, ENAP, 31062-4 #### [facility] ([id number]) [address] [place] [address], [address] [place] [address] #### NAIFA #### [facility] ([id number]) [address] [place] [address], SSA ANTIBODY <0.2 Normal <1.[address] [facility] Comment on above: Performed By: #### C 34, 32756-9, 40446-4, 1987-10, FEPR, 2276- 4, 61140-6, ENAP, 62855-9 #### [facility] ([id number]) [address] [facility], [address] [place] [address] #### NAIFA #### [facility] ([id number]) [address] [facility], SSB ANTIBODY <0.2 Normal <1.[address] [facility] Comment on above: Performed By: #### C 34, 66203-2, 49310-4, 1987-10, FEPR, 2275- , 75859-5, ENAP, 45069-2 #### [facility] ([id number]) [address] [place] [address], [address] [place] [address] #### NAIFA #### [facility] ([id number]) [address] [facility] CLARY Panelon 08-28-2023 Anileridine Ql (U) [facility] Ribonucleoprotein extractable nuclear IgG Qn (S) 0.7 [facility] SCL-70 extractable nuclear Ab Ql (S) [facility] Sjogrens syndrome-A extractable nuclear Ab Qn (S) [facility] Sjogrens syndrome-B extractable nuclear IgG Qn (S) [facility] Jones extractable nuclear IgG Qn (S) [facility] ESR Photometric method (Bld) [Velocity]on 08-28-2023 [facility] ESR, ERYTHROCYTE SEDIMENTATION RATE 9 mm/h Normal 0-[address] [facility] Comment on above: Performed By: #### C 34, 76985-3, 71244-9, 1987-10, FEPR, 2276- 4, 72005-7, ENAP, 92749-7 #### [facility] ([id number]) [facility] [place] [address], [place] [address] #### NAIFA #### [facility] ([id number]) [address] [place] [address], Erythrocyte Sedimentation Ra te (ESR)on 08-28-2023 ESR Photometric method (Bld) [Velocity] 9 mm/h 0 - 20 mm/h [facility] FERRITINon 08-28-2023 Ferritin [Mass/Vol] 6 ng/mL Low 11-[address] [facility] Comment on above: Performed By: #### C 34, 68259-3, 65222-8, 1987-10, FEPR, 2276- 4, 83886-5, ENAP, 05557-5 #### [facility] ([id number]) [address] [place] [address], [place] [address] #### NAIFA #### [facility] ([id number]) [address] [place] [address], Ferritinon 08-28-2023 Ferritin [Mass/Vol] 6 ng/mL Low 11 - 307 ng/mL [facility] IRON PROFILEon 08-28-2023 Iron [Mass/Vol] 60 ug/dL Normal 50-[address] [facility] Comment on above: Performed By: #### C 34, 54154-1, 07331-4, 1987-10, FEPR, 2276- 4, 96251-7, ENAP, 35364-3 #### [facility] ([id number]) [address] [place] [address], [place] [address] #### NAIFA #### [facility] ([id number]) [address] [place] [address], IRON BINDING 531 ug/dL High 250-[address] [facility] Comment on above: Performed By: #### C 34, 73619-0, 07470-1, 1987-10, FEPR, 2276- 4, 61148-7, ENAP, 32721-5 #### [facility] ([id number]) [address] [place] [address], [address] [place] [address] #### NAIFA #### [facility] ([id number]) [address] [place] [address], IRON SATURATION 11 % SATURATION Low 15-50 [facility] Comment on above: Performed By: #### C 34, 89925-6, 64879-2, 1987-10, FEPR, 2276- 4, 80910-2, ENAP, 74544-2 #### [facility] ([id number]) [address] [place] [address], [place] [address] #### NAIFA #### [facility] ([id number]) [address] [place] [address], Iron and TIBCon 08-28-2023 Iron [Mass/Vol] 60 ug/dL 50 - 170 ug/dL [facility] Iron binding capacity [Mass/Vol] 531 ug/dL High 250 - 425 ug/dL [facility] Iron saturation [Mass fraction] 11 Low [facility] Laboratory comment Rusty (Repo rt)on 08-28-2023 [facility] UNLISTED LAB TEST Sent to reference lab Normal [facility] Comment on above: Performed By: #### C 34, 64593-3, 14505-7, 1987-10, FEPR, 2276- 4, 62584-2, ENAP, 74548-3 #### [facility] ([id number]) [address] [place] [address] #### NAIFA #### [facility] ([id number]) [address] [place] [address], No Panel Informationon 08-28 Interpretation and review of laboratory results Abnormal [facility] Rheumatoid factoron 08-28-19 Rheumatoid factor Nephelometry Qn (S) NINF [facility] Rheumatoid factor Nephelomet ry Qn (S)on 08-28-2023 RHEUMATOID FACTOR <10 Normal <20 [facility] Comment on above: Performed By: #### C 34, 98145-7, 72137-7, 1988-5, FEPR, 2276- 4, 32276-1, ENAP, 64257-8 #### [facility] ([id number]) [address] [facility], [address] [place] [address] #### KEIKO #### [facility] ([id number]) [address] [facility] Test ds-dna ant ibody by obey ([facility])on 08-28-2023 Laboratory comment Rusty (Report) Sent to reference lab [facility] [employer] [facility] Vitamin D 25 hydroxyon 08-28 Vitamin D+Metabolites [Mass/Vol] 21.3 ng/mL Low 30 - 100 ng/mL [facility] Comment on above: Vitamin D status 25 [place] Vitamin D Deficiency <20 ng/mL Insufficiency 20-29 ng/mL Sufficiency 30-100 ng/mL Toxicity >100 ng/mL NOTE: A pediatric reference range has not been established by the fitness centre manager of this kit. The [place] [employer] recommends a Vitamin D level of = or >20ng/mL in infants and children. Vitamin D+Metabolites [Mass/ Vol]on 08-28-2023 Interpretation and review of laboratory results Abnormal [facility] VITAMIN D 25 HYD TOT 21.3 ng/mL Low 30-100 [facility] Comment on above: Result Comment: Vitamin D status 25 [place] Vitamin D Deficiency <20 ng/mL Insufficiency 20-29 ng/mL Sufficiency 30-100 ng/mL Toxicity >100 ng/mL NOTE: A pediatric reference range has not been established by the fitness centre manager of this kit. The [place] [employer] recommends a Vitamin D level of = or >20ng/mL in infants and children. Performed By: #### C 34, 32115-4, 32660-2, 1988-5, FEPR, 2276-4, 31928-5, ENAP, 05144-6 #### [facility] ([id number]) [address] [place] [address], [address] [place] [address] #### NAIFA #### [facility] ([id number]) [address] [place] [address] TYLOR Martínez Individual Abson 024 Centromere protein B Ab Qn (S) 3.8 AI High 0.0-0.9 [facility] Comment on above: Performed By: #### 2 996441, 56041301, 52589799, [id number], [id number] ####[facility] [address] [place] [address] Chromatin Ab Qn 0.2 AI Invalid Interpretation Code 0.0-0.9 [facility] Comment on above: Performed By: #### 2 197695, 00152952, 54945005, 24447114, [id number] ####[facility] [address] [place] [address] DNA double strand Ab Qn (S) 1 International_Unit/mL Invalid Interpretation Code 0-9 [facility] Comment on above: Result Comment: Nega tive <5 Equivocal 5 - 9 Positive >9 Performed By: #### 2 550642, [id number], 41788236, 92623205, [id number] ####[facility] [address] [place] [address] Shari-1 extractable nuclear Ab Qn (S) <0.2 Invalid Interpretation Code 0.0-0.9 [facility] Comment on above: Performed By: #### 2 089359, 77686147, 76325408, 11820399, 74325430 ####[facility] [address] [place] [address] Ribonucleoprotein extractable nuclear Ab Qn (S) 0.9 AI Invalid Interpretation Code 0.0-0.9 [facility] Comment on above: Performed By: #### 2 031419, 99914861, 05074133, 47163697, [id number] ####[facility] [address] [place] [address] SCL-70 extractable nuclear Ab Qn (S) <0.2 Invalid Interpretation Code 0.0-0.9 [facility] Comment on above: Performed By: #### 2 678748, 96895896, 86758569, 53922171, 84464757 ####[facility] [address] [place] [address] See below: Comment Invalid Interpretation Code [facility] Comment on above: Result Comment: Auto [...] Sm (anti-Jones) SLE 15 - 30% --------- [employer] Mixed Connective Tissue Disease 95% (U1 nRNP, SLE 30 - 50% anti-ribonucleoprotein) Polymyositis and/or Dermatomyositis 20% --------- Scl-70 (antiDNA Scleroderma (diffuse) 20 - 35% topoisomerase) Crest 13% --------- Shari-1 Polymyositis and/or Dermatomyositis 20 - 40% --------- Centromere B Scleroderma - Crest variant 80% Performed at: [facility] [id number] PhD Christopher Muñiz Performed By: #### 2 204664, 71305561, 63336035, 18485776, 36546908 ####[facility] [address] [address] Sjogrens syndrome-A extractable nuclear Ab Qn (S) <0.2 Invalid Interpretation Code 0.0-0.9 [facility] Comment on above: Performed By: #### 2 809767, 46893122, 28624820, 31172404, 62788790 ####[place] [address] [place] [address] Sjogrens syndrome-B extractable nuclear Ab Qn (S) <0.2 Invalid Interpretation Code 0.0-0.9 [facility] Comment on above: Performed By: #### 2 506311, 18716119, 81173666, 76250430, 28895963 ####[place] [address] [place] [address] Jones extractable nuclear Ab Qn (S) <0.2 Invalid Interpretation Code 0.0-0.9 [facility] Comment on above: Performed By: #### 2 261821, 66234525, 85912452, 93128944, 03754690 ####[place] [address] [place] [address] TYLOR w/Reflex if POSon 2023 Nuclear Ab Ql (S) Positive Abnormal Negative [facility] Comment on above: Result Comment: Perf ormed at: [address] [id number] PhD Christopher Muñiz Performed By: #### 2 823158, 07888411, 41869805, 13299823, [id number] ####[place] [address] [place] [address] RF Quanton 07-20-2023 Rheumatoid factor Qn [IU]/mL Invalid Interpretation Code <14.0 [facility] Comment on above: Result Comment: Perf ormed at: [address] [id number] PhD Christopher Muñiz Performed By: #### 2 917461, 56484592, 25011011, 59601206, [id number] ####[facility] [address] [place] [address] CHEMISTRYOrdered By: SYSTEM SYSTEM on 07-19-2023 Albumin [Mass/Vol] 4.6 g/dL Normal 3.3 - 5.0 gm/dL Remisol Chem Albumin/Globulin [Mass ratio] 1.5 {ratio} Normal 1.1 - 2.2 Remisol Chem Alk Phos 57 [iU]/d Normal 21 - 98 Int._Unit/ L Remisol Chem ALT 8 [iU]/d Normal 6 - 46 Int._Unit/ L [facility] Anion gap [Moles/Vol] 12 mmol/L Normal 6 - 16 mEq/L [facility] AST 15 [iU]/d Normal 5 - 43 Int._Unit/ L [facility] Bili Total 0.7 mg/dL Normal 0.0 - 1.1 mg/dL [facility] Calcium [Mass/Vol] 9.5 mg/dL Normal 8.9 - 11. 1 mg/dL [facility] Chloride [Moles/Vol] 104 mmol/L Normal 101 - 1 11 mmol/L [facility] CO2 [Moles/Vol] 26 mmol/L Normal 21 - 31 mmol/L [facility] Creatinine [Mass/Vol] 0.9 mg/dL Normal 0.5 - 1.3 mg/dL [facility] eGFR 94 mL/min/1.73 m2 Normal >=59mL/min /1.73 m2 [facility] Globulin (S) [Mass/Vol] 3.1 [...] 07-19-2023 Albumin [Mass/Vol] 4.6 g/dL Normal 3.3-5.0 [facility] Comment on above: Performed By: #### 2 803339, 05822913, 39730235, 53874897, 49061542 ####[facility] [address] [place] [address] Albumin/Globulin [Mass ratio] 1.5 {ratio} Normal 1.1-2.2 [facility] Comment on above: Performed By: #### 2 041695, 13162670, 82535472, 68103261, 95636557 ####[facility] [address] [place] [address] Alk Phos 57 Int._Unit/L Normal 21-98 [facility] Comment on above: Performed By: #### 2 750624, 73927344, 05262430, 32801837, 24617561 ####[facility] [address] [place] [address] ALT 8 Int._Unit/L Normal 6-46 [facility] Comment on above: Performed By: #### 2 047453, 31078854, 09263345, 92834127, 05811337 ####[facility] [address] [place] [address] Anion gap [Moles/Vol] 12 mmol/L Normal 6-16 [facility] Comment on above: Performed By: #### 2 784874, 71005804, 58028477, 44028984, 59455877 ####[facility] [address] [place] [address] AST 15 Int._Unit/L Normal 5-43 [facility] Comment on above: Performed By: #### 2 719880, 88370561, 50267004, 46397411, 80988360 ####[facility] [address] [place] [address] Bili Total 0.7 mg/dL Normal 0.0-1.1 [facility] Comment on above: Performed By: #### 2 491022, 83816864, 58461419, 40124684, 90607407 ####[facility] [address] [place] [address] BUN/Creat Ratio 12 No Units Normal 10-20 [facility] Comment on above: Performed By: #### 2 614140, 74856546, 39283117, 57505562, 18129351 ####[facility] [address] [place] [address] Calcium [Mass/Vol] 9.5 mg/dL Normal 8.9-11.1 [facility] Comment on above: Performed By: #### 2 902133, 11612620, 40711212, 71668682, 92316443 ####[facility] [address] [place] [address] Chloride [Moles/Vol] 104 mmol/L Normal 101-111 [facility] Comment on above: Performed By: #### 2 585963, 40739180, 14875518, 01795253, 09981290 ####[facility] [address] [place] [address] CO2 [Moles/Vol] 26 mmol/L Normal 21-31 [facility] Comment on above: Performed By: #### 2 894628, 05817465, 03838274, 56602075, 99004257 ####[facility] [address] [place] [address] Creatinine [Mass/Vol] 0.9 mg/dL Normal 0.5-1.3 [facility] Comment on above: Performed By: #### 2 461580, 74320560, 12080041, 68156787, 33890826 ####[facility] [address] [place] [address] Globulin (S) [Mass/Vol] 3.1 g/dL Normal 1.4-4.0 [facility] Comment on above: Performed By: #### 2 870654, 62116936, 46625459, 66101511, 08100482 ####[facility] [address] [place] [address] Glucose [Mass/Vol] 86 mg/dL Normal 55-199 [facility] Comment on above: Performed By: #### 2 932713, 31612576, 63946256, 56752764, 17732164 ####[facility] [address] [place] [address] Potassium [Moles/Vol] 3.4 mmol/L Low 3.5-5.3 [facility] Comment on above: Performed By: #### 2 676962, 64931553, 42448119, 37201675, 52508687 ####[facility] [address] [place] [address] Protein [Mass/Vol] 7.7 g/dL Normal 6.0-7.8 [facility] Comment on above: Performed By: #### 2 077762, 85394909, 21299364, 31582269, 72248524 ####[facility] [address] [place] [address] Sodium [Moles/Vol] 139 mmol/L Normal 135-145 [facility] Comment on above: Performed By: #### 2 981923, 66432273, 13157534, 54927539, 86884175 ####[facility] [address] [place] [address] Urea nitrogen [Mass/Vol] 11 mg/dL Normal 5-21 [facility] Comment on above: Performed By: #### 2 624852, 11503850, 98172284, 97101982, 52041778 ####[facility] [address] [place] [address] Consent for Treatmenton 07-02 Consent for Treatment [id number]#1.00TIFF Normal [facility] Physician Orderon 07-19-2023 Physician Order [id number]#1.00TIFF Normal [facility] XR Shoulder Complete Lefton 07-19-2023 XR [...] mGy = na DAP = na Normal [facility] eGFRon 07-19-2023 eGFR 94 mL/min/1.73 m2 Normal >=59 [facility] Comment on above: Order Comment: Order added by Discern Expert. Performed By: #### 2 786791, 39584069, 08160189, 70332069, 07221108 ####[facility] [address] [place] [address] ED Note-Physicianon 03-30-20 ED Note-Physician Basic Information Time Seen: Jez Fabian PA-C 03/08/2023 18:23 Chief Complaint pt reports to ed from [facility] after making SI comments stating she wishes she was never born and it would be better if she was gone. pt takes latuda and lexapro daily. History of Present Illness 17-year-old female comes to the ED for psychiatric evaluation. She presents from a homeless half-way for evaluation of suicidal comments. The patient [...] and noted Social history: Presents from homeless half-way Tobacco: Denies Physical Exam Vitals & Measurements [...] to me. 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 The attending physician was in the Emergency Department at all times and supervised care. The case was discussed with the attending physician and diagnostics were reviewed as needed. Normal [facility] Comment on above: Result Comment: Elec tronically Signed By: Sd GARIBAY, Clayton\.br\Date and Time Signed: 03/30/23 20:40 EDT Auto Diffon 03-19-2023 Basophils/100 WBC (Bld) 0.6 % Normal 0.0-2.0 [facility] Comment on above: Order Comment: Order Added by Discern Expert. Performed By: #### 1 3414048, 5724218, 125006553, 5214056, 05505665, 4365834, 7426871 ####[address] [place] [address] Basophils/Leukocytes Auto (Bld) [Pure # fraction] 0.0 E9/L Normal 0.0-0.2 [facility] Comment on above: Order Comment: Order Added by Discern Expert. Performed By: #### 1 4555225, 2514154, 117850708, 7167453, 32232604, 2119913, 6711880 ####[address] [address] Eosinophils/100 WBC (Bld) 2.2 % Normal 0.0-8.0 [facility] Comment on above: Order Comment: Order Added by Discern Expert. Performed By: #### 1 4485201, 1662523, 344201722, 6326424, 53200689, 6253462, 5143412 ####[address] [address] Eosinophils/Leukocytes Auto (Bld) [Pure # fraction] 0.1 E9/L Normal 0.0-0.5 [facility] Comment on above: Order Comment: Order Added by Discern Expert. Performed By: #### 1 1677250, 0105923, 707513953, 5548710, 05314531, 4352112, 5546678 ####[address] [place] [address] Lymphocytes/100 WBC (Bld) 27.5 % Normal 14.0-50.0 [facility] Comment on above: Order Comment: Order Added by Megan Expert. Performed By: #### 1 3354387, 5421419, 741585860, 3455623, 23515597, 0584006, 2935991 ####[address] [place] [address] Lymphocytes/Leukocytes Auto (Bld) [Pure # fraction] 1.5 E9/L Normal 1.0-4.0 [facility] Comment on above: Order Comment: Order Added by Discern Expert. Performed By: #### 1 1475377, 4847145, 535614351, 9207869, 23620496, 3504606, 4975879 ####[address] [place] [address] Monocytes/100 WBC (Bld) 6.9 % Normal 4.0-14.0 [facility] Comment on above: Order Comment: Order Added by Discern Expert. Performed By: #### 1 1822051, 9419796, 611703103, 0808290, 81206348, 5547653, 1428048 ####[address] [address] Monocytes/Leukocytes Auto (Bld) [Pure # fraction] 0.4 E9/L Normal 0.2-1.0 [facility] Comment on above: Order Comment: Order Added by Discern Expert. Performed By: #### 1 9999487, 9628676, 449313346, 4965936, 30669864, 3942088, 9023944 ####[address] [place] [address] Neutrophils/100 WBC (Bld) 62.8 % Normal 36.0-75.0 [facility] Comment on above: Order Comment: Order Added by Discern Expert. Performed By: #### 1 8729796, 6904943, 802004731, 8887195, 15580633, 1464296, 8605549 ####[address] [place] [address] Neutrophils/Leukocytes Auto (Bld) [Pure # fraction] 3.5 E9/L Normal 2.0-7.5 [facility] Comment on above: Order Comment: Order Added by Discern Expert. Performed By: #### 1 7722621, 5840773, 196832151, 5966691, 11736718, 8898477, 4881593 ####[facility] [address] [place] [address] CBC w/ Auto Diffon 3 Erythrocyte distribution width (RBC) [Ratio] 13.4 % Normal 10.9-14.2 [facility] Comment on above: Performed By: #### 1 2822892, 1638829, 153321633, 6382107, 03627835, 3073308, 5037157 ####[facility] [address] [place] [address] Hematocrit (Bld) [Volume fraction] 39.4 % Normal 34.0-46.0 [facility] Comment on above: Performed By: #### 1 4573063, 2356854, 005776166, 2933836, 64543902, 2464056, 2259723 ####[facility] [address] [place] [address] Hemoglobin (Bld) [Mass/Vol] 13.3 g/dL Normal 12.0-16.0 [facility] Comment on above: Performed By: #### 1 7125039, 5048064, 136146201, 8821378, 51330892, 4177083, 6232631 ####[facility] [address] [place] [address] MCH (RBC) [Entitic mass] 28.4 pg Normal 27.0-34.0 [facility] Comment on above: Performed By: #### 1 5852675, 9274479, 393548907, 3953582, 81342617, 5076196, 8842135 ####[facility] [address] [place] [address] MCHC (RBC) [Mass/Vol] 33.8 g/dL Normal 31.4-36.0 [facility] Comment on above: Performed By: #### 1 1861691, 3359303, 849642971, 7061988, 25944878, 0456852, 6585111 ####[address] [place] [address] MCV (RBC) [Entitic vol] 84.2 fL Normal 80.0-100.0 [facility] Comment on above: Performed By: #### 1 1702854, 2122328, 318820792, 1422605, 64627557, 4046720, 3064259 ####[facility] [address] [place] [address] Platelet mean volume (Bld) [Entitic vol] 8.9 fL Normal 6.4-10.8 [facility] Comment on above: Performed By: #### 1 9298528, 0103513, 027957973, 5301831, 88510544, 1526922, 8529334 ####[facility] [address] [place] [address] Platelets (Bld) [#/Vol] 244.0 E9/L Normal 150.0-500. 0 [facility] Comment on above: Performed By: #### 1 0854886, 8254856, 205250541, 8311724, 55583961, 7342825, 1230889 ####[facility] [address] [place] [address] RBC (Bld) [#/Vol] 4.7 E12/L Normal 4.3-5.9 [facility] Comment on above: Performed By: #### 1 1842323, 1308355, 794182360, 1664392, 72175397, 5580613, 0588908 ####[facility] [address] [place] [address] WBC corrected for nucl RBC Auto (Bld) [#/Vol] 5.5 E9/L Normal 4.0-11.0 [facility] Comment on above: Performed By: #### 1 8910414, 2090191, 894903948, 2666782, 31467929, 0625232, 2049269 ####[facility] [address] [place] [address] CHEMISTRYOrdered By: Cindy high on 03-19-2023 25-hydroxyvitamin D3 [Mass/Vol] 35.5 ng/mL Normal 30.0 - 100.0 ng/mL [facility] Remisol Albumin [Mass/Vol] 4.7 g/dL Normal 3.3 - 5.0 gm/dL [facility] Remisol Albumin/Globulin [Mass ratio] 1.5 {ratio} Normal 1.1 - 2.2 [facility] Remisol ALP [Catalytic activity/Vol] 54 [iU]/d Normal 21 - 98 Int._Unit/ L [facility] Remisol ALT No additional P-5'-P [Catalytic activity/Vol] 12 [iU]/d Normal 6 - 46 Int._Unit/ L [facility] Remisol Anion gap [Moles/Vol] 11 mmol/L Normal 6 - 16 mEq/L [facility] Remisol AST [Catalytic activity/Vol] 20 [iU]/d Normal 5 - 43 Int._Unit/ L [facility] Remisol Bilirubin [Mass/Vol] 1.1 mg/dL Normal 0.0 - 1 .1 mg/dL [facility] Remisol Calcium [Mass/Vol] 9.4 mg/dL Normal 8.9 - 11. 1 mg/dL [facility]isol Chloride [Moles/Vol] 106 mmol/L Normal 101 - 1 11 mmol/L [facility]isol CO2 [Moles/Vol] 24 mmol/L [...] 137 mmol/L Normal 135 - 145 mmol/L [facility] Remisol T4 [Mass/Vol] 6.6 ug/dL Normal 4.6 - 9.1 mcg/dL [facility] Remisol TSH Qn 5.77 m[IU]/L High 0.34 - 5.60 mcIU/mL [facility] Remisol Urea nitrogen [Mass/Vol] 14 mg/dL Normal 5 - 21 mg/dL [facility] Remisol Urea nitrogen/Creatinine [Mass ratio] 18 mg/mg Normal 10 - 20 [facility] Remisol CHEMISTRYOrdered By: SYSTEM SYSTEM on 03-19-2023 Cobalamin (Vitamin B12) [Mass/Vol] 499 pg/mL Normal 50 - 1500 pg/mL [facility] Remisol GFR/1.73 sq M.predicted among non-blacks MDRD (S/P/Bld) [Vol rate/Area] 109 mL/min/1.73 m2 Normal >=59mL/min /1.73 m2 [facility] Chem S CMPon 03-19-2023 Albumin [Mass/Vol] 4.7 g/dL Normal 3.3-5.0 [facility] Comment on above: Performed By: #### 1 5452370, 9428357, 683847658, 1479104, 92851920, 3392683, 9766400 ####[facility] [address] [place] [address] Albumin/Globulin (S) [Mass conc ratio] 1.5 Normal 1.1-2.2 [facility] Comment on above: Performed By: #### 1 2706843, 4830836, 640599911, 0455601, 46895366, 8679478, 5334856 ####[facility] [address] [place] [address] ALP [Catalytic activity/Vol] 54 Int._Unit/L Normal 21-98 [facility] Comment on above: Performed By: #### 1 0468657, 9322279, 054300944, 0249025, 33914934, 1215427, 7263826 ####[facility] [address] [place] [address] ALT No additional P-5'-P [Catalytic activity/Vol] 12 Int._Unit/L Normal 6-46 [facility] Comment on above: Performed By: #### 1 0375585, 5822796, 114361370, 5728419, 46394279, 1596374, 2179438 ####[facility] [address] [place] [address] Anion gap [Moles/Vol] 11 mmol/L Normal 6-16 [facility] Comment on above: Performed By: #### 1 1420816, 3462025, 333351369, 5265191, 97723106, 1518012, 3275751 ####[facility] [address] [place] [address] AST [Catalytic activity/Vol] 20 Int._Unit/L Normal 5-43 [facility] Comment on above: Performed By: #### 1 0441903, 9006503, 033741196, 5311097, 43681731, 7445598, 0522085 ####[facility] [address] [place] [address] Bilirubin [Mass/Vol] 1.1 mg/dL Normal 0.0-1.1 [facility] Comment on above: Performed By: #### 1 6157225, 4761242, 165673357, 9194361, 99285375, 4183293, 3605076 ####[facility] [address] [place] [address] Calcium [Mass/Vol] 9.4 mg/dL Normal 8.9-11.1 [facility] Comment on above: Performed By: #### 1 8259698, 2370089, 382374355, 3327660, 86827675, 9392123, 8632679 ####[facility] [address] [place] [address] Chloride [Moles/Vol] 106 mmol/L Normal 101-111 [facility] Comment on above: Performed By: #### 1 2238343, 8310786, 073412256, 7542938, 89798169, 5947469, 1460741 ####[facility] [address] [place] [address] CO2 [Moles/Vol] 24 mmol/L Normal 21-31 [facility] Comment on above: Performed By: #### 1 5881474, 5126450, 004087085, 0515745, 96113496, 3640530, 8077504 ####[facility] [address] [place] [address] Creatinine [Mass/Vol] 0.8 mg/dL Normal 0.5-1.3 [facility] Comment on above: Performed By: #### 1 8038432, 3631235, 780487419, 8903633, 34317537, 1360589, 6661775 ####[facility] [address] [place] [address] Globulin (S) [Mass/Vol] 3.2 g/dL Normal 1.4-4.0 [facility] Comment on above: Performed By: #### 1 3071417, 0394642, 357456807, 8745325, 79355985, 4714533, 5391200 ####[facility] [address] [place] [address] Glucose [Mass/Vol] 82 mg/dL Normal 55-199 [facility] Comment on above: Result Comment: If t his glucose result represents a fasting glucose, interpretation should refer to the following reference range: 55-99 mg/dL Performed By: #### 1 9935231, 9813227, 953255193, 2053722, 63197641, 8329588, 1999648 ####[facility] [address] [place] [address] Potassium [Moles/Vol] 3.8 mmol/L Normal 3.5-5.3 [facility] Comment on above: Performed By: #### 1 5937533, 7911441, 188137163, 4241262, 44512275, 0028820, 1976476 ####[facility] [address] [place] [address] Protein [Mass/Vol] 7.9 g/dL High 6.0-7.8 [facility] Comment on above: Performed By: #### 1 3789125, 5650593, 866757150, 6919165, 50476156, 0838913, 5452023 ####[facility] [address] [place] [address] Sodium [Moles/Vol] 137 mmol/L Normal 135-145 [facility] Comment on above: Performed By: #### 1 9607178, 6895243, 705221775, 6406786, 05182302, 1499987, 9641170 ####[facility] [address] [place] [address] Urea nitrogen [Mass/Vol] 14 mg/dL Normal 5-21 [facility] Comment on above: Performed By: #### 1 7986491, 1505986, 563873444, 5533241, 41713824, 8278329, 5670430 ####[facility] [address] [place] [address] Urea nitrogen/Creatinine [Mass ratio] 18 No Units Normal 10-20 [facility] Comment on above: Performed By: #### 1 7658410, 9295660, 306100262, 9648032, 34816821, 2409092, 2724791 ####[facility] [address] [place] [address] HEMATOLOGYOrdered By: SYSTEM SYSTEM on 03-19-2023 Basophils/100 WBC (Bld) 0.6 % Normal 0.0 - 2.0 % [facility] HemeAutoSS Basophils/Leukocytes Auto (Bld) [Pure # fraction] 0.0 E9/L Normal 0.0 - 0.2 E9/L [facility] HemeAutoSS Eosinophils/100 WBC (Bld) 2.2 % Normal 0.0 - 8.0 % [facility] HemeAutoSS Eosinophils/Leukocytes Auto (Bld) [Pure # fraction] 0.1 E9/L Normal 0.0 - 0.5 E9/L [facility] HemeAutoSS Lymphocytes/100 WBC (Bld) 27.5 % Normal 14.0 - 50.0 % [facility] HemeAutoSS Lymphocytes/Leukocytes Auto (Bld) [Pure # fraction] 1.5 E9/L Normal 1.0 - 4.0 E9/L [facility] HemeAutoSS Monocytes/100 WBC (Bld) 6.9 % Normal 4.0 - 14.0 % [facility] HemeAutoSS Monocytes/Leukocytes Auto (Bld) [Pure # fraction] 0.4 E9/L Normal 0.2 - 1.0 E9/L [facility] HemeAutoSS Neutrophils/100 WBC (Bld) 62.8 % Normal 36.0 - 75.0 % [facility] HemeAutoSS Neutrophils/Leukocytes Auto (Bld) [Pure # fraction] 3.5 E9/L Normal 2.0 - 7.5 E9/L [facility] HemeAutoSS HEMATOLOGYOrdered By: Yasmeen Velazco on 03-19-2023 Erythrocyte distribution width (RBC) [Ratio] 13.4 % Normal 10.9 - 14.2 % [facility] HemeAutoSS Hematocrit (Bld) [Volume fraction] 39.4 % Normal 34.0 - 46.0 % [facility] HemeAutoSS Hemoglobin (Bld) [Mass/Vol] 13.3 g/dL Normal 12.0 - 16.0 gm/dL [facility] HemeAutoSS MCH (RBC) [Entitic mass] 28.4 pg Normal 27.0 - 34.0 pg [facility] HemeAutoSS MCHC (RBC) [Mass/Vol] 33.8 g/dL Normal 31.4 - 36.0 gm/dL [facility] HemeAutoSS MCV (RBC) [Entitic vol] 84.2 fL Normal 80.0 - 100.0 fL [facility]eAutoSS Platelet mean volume (Bld) [Entitic vol] 8.9 fL Normal 6.4 - 10.8 fL [facility] HemeAutoSS Platelets (Bld) [#/Vol] 244.0 E9/L Normal 150.0 - 500.0 E9/L [facility] HemeAutoSS RBC (Bld) [#/Vol] 4.7 E12/L Normal 4.3 - 5.9 E12/L [facility] HemeAutoSS WBC corrected for nucl RBC Auto (Bld) [#/Vol] 5.5 E9/L Normal 4.0 - 11.0 E9/L [facility] HemeAutoSS Physician Orderon 03-19-2023 Physician Order [id number]#1.00CD:127 Normal [facility] T4 & TSHon 03-19-2023 T4 [Mass/Vol] 6.6 microgram/dL Normal 4.6-9.[address] [facility] Comment on above: Performed By: #### 1 8913583, 7248797, 768335299, 2539985, 19469319, 2317053, 4040411 ####[facility] [address] [place] [address] TSH Qn 5.77 m[IU]/L High 0.34-5.60 [facility] Comment on above: Performed By: #### 1 0119474, 8783377, 784551115, 9784974, 63375381, 3742119, 4810800 ####[facility] [address] [place] [address] Vit B12on 03-19-2023 Cobalamin (Vitamin B12) [Mass/Vol] 499 pg/mL Normal 50-1500 [facility] Comment on above: Performed By: #### 1 6228074, 4569330, 075670547, 9150120, 58733349, 7694177, 6665790 ####[facility] [address] [place] [address] Vitamin D 25 Hydroxyon 03-19 25-hydroxyvitamin D3 [Mass/Vol] 35.5 ng/mL Normal 30.0-100.0 [facility] Comment on above: Result Comment: Vit dc D deficiency has been defined as a level of serum 25-OH vitamin D less than 20 ng/mL (1,2) by the [place] of Medicine and an Endocrine Society practice guideline. The Endocrine Society further defined vitamin D insufficiency as a level between 21 and 29 ng/mL (2). 1. IOM ([place] of Medicine). 2010. Dietary reference intakes for calcium and D. [place]: The National Academies Press. 2. Gage MF, Julianna NC, Carol Ann DUARTE, et al. Evaluation, treatment, and prevention of vitamin D deficiency: an Endocrine Society clinical practice guideline. JCEM. 2010; 96 (7):1911-30. Performed By: #### 1 5835026, 3149652, 900591240, 0566757, 57787651, 3264397, 3476019 ####[facility] [address] [place] [address] eGFRon 03-19-2023 GFR/1.73 sq M.predicted among non-blacks MDRD (S/P/Bld) [Vol rate/Area] 109 mL/min/1.73 m2 Normal >=59 [facility] Comment on above: Order Comment: Order added by Discern Expert. Result Comment: Tape Recorder Repairer yanely kidney disease could be indicated at eGFR's of less than 60 mL/min/1.73m2. Kidney failure is indicated at less than 15 mL/min/1.73m2. Performed By: #### 1 5551715, 6050250, 938703358, 6791178, 02422858, 0788106, 5837603 ####[facility] [address] [place] [address] Discharge Instructionson Discharge Instructions [id number]#1.00CD:127 Normal [facility] Outside Recordson 03-09-2023 Outside Records [id number]#1.00CD:127 Normal [facility] Consent for Treatmenton Consent for Treatment [id number]#[id number]:127 Normal [facility] ED Clinical Summaryon 2022 ED Clinical Summary (Inserted Image. Alyson ble to display) [address] [address] ED Clinical Summary Person Information Name: ALLEGRA LOPEZ [place] Age: 17 Years : 2005 Sex: Female Language: Thai PCP: Vazquez RIVERS MD Marital Status: Single MRN: [id number] Visit Id: Visit Reason: Suicidal ideation; SI [...] 03/08/2023 21:57:44 03/08/2023 21:57:44 03/08/2023 21:57:44 ADDRESS: [address] [place] [address] [address] [facility] [id number] PHYS DOC NOTES: MEDICAL INFORMATION: Prescriptions Given: PATIENT EDUCATION INFORMATION: Instructions: Suicidal Feelings: How to Help Yourself Follow up: With: Address: When: [facility] In 3 days 03/11/2023 Comments: Return to the emergency room if you develop thoughts of hurting yourself or any other concerns. With: Address: When: Vazquez RIVERS [address] [place] [address], [place] [address] [facility] (1) In 3 days DIAGNOSIS: 1:Suicide ideation Normal [facility] ED Note-Nursingon 03-08-2023 ED Note-Nursing PEDRO LUIS in pt room at t his time Normal [facility] ED Patient Education Noteon 03-08-2023 ED [...] (911 in the [place] ? Call the [facility] health and human services helpline (211 in the [place] ? Call or text a suicide hotline to speak with a trained counselor. The following suicide hotlines are available in the [place]: ? 9-570-477-TALK ( or 848 in the [place] ? 1-732-MTHLGAC ( ). ? Text 911744. This is the Crisis Text Line in the [place] ? . This is a hotline for Vincentian speakers. ? . This is a hotline for TTY users. ? 9-228-9-U-LANDON ( ). This is a hotline for lesbian, gilliland, bisexual, transgender, or questioning youth. ? For a list of hotlines in [place], visit suicide.[email or web address]/hotlines/jewelry [email or web address]-[email or web address]-[email or web address] [email or web address] ? Contact a crisis center or a local suicide prevention center. To find a crisis center or suicide prevention center: ? Call your local hospital, clinic, community service organization, mental health center, social service provider, or health department. Ask for help with connecting to a crisis center. ? For a list of crisis centers in the [place], visit: suicidepreventionlifeline.o rg ? For a list of crisis centers [...] anyone or being with other people. ? Nyme-ac-khzs conversation is best to help them understand [...] and a mental health checkup. ? Take wjxe-bem-lifgdev and prescription medicines only as told by [...] will hel (more content not included)... Normal [facility] ED Patient Summaryon 023 ED Patient Summary (Inserted Image. Alyson ble to display) [place] [id number] Patient Discharge Instructions Person Information Name: ALLEGRA LOPEZ Age: 17 Years Arrival Date: 03/08/2023 17:56:06 Discharge Diagnosis: 1:Suicide ideation Primary Care Physician: Vazquez RIVERS MD Provider Information Primary Provider: Ashlee Huffman M.D. Advanced Corner Bead Operator:Jez Fabian PA-C The exam and treatment you received in the Emergency Department were for an urgent problem and are not intended as complete care. It is important that you follow up with a doctor, nurse practitioner, or physician?s equal opportunity assistant for ongoing care. If your symptoms become worse or you do not improve as expected and you are unable to reach your usual health care provider, you should return to the Emergency Department. We are available 24 hours a day. ALLEGRA LOPEZ has been given the following list of patient education materials, prescriptions and follow-up instructions: Follow-up Instructions: With: Address: When: [facility] In 3 days 03/11/2023 Comments: Return to the emergency room if you develop thoughts of hurting yourself or any other concerns. With: Address: When: Vazquez RIVERS [address], [address] [place] [id number] [facility] (1) In 3 days In the event that this physician does not participate in your insurance network, please consult with your insurance company to find a nearby participating provider. Patient Education Materials: Suicidal Feelings: How to Help Yourself A MESSAGE TO ALL PATIENTS REGARDING OPIOIDS PRESCRIPTION OPIOIDS: WHAT YOU NEED TO KNOW Prescription opioids can be used to help relieve bgtztvzs-vs-nnlcyb pain and are often prescribed following a [...] guidance from the Food and Drug Administration (www.fda.gov/Drugs/Resource sForYou). ? Visit www.cdc.gov/drugoverdose to learn about the risks of opioids abu (more content not included)... [facility] Pre-Arrival Noteon 3 Pre-Arrival Note Pre-Arrival Summary Name: andrea Current Date: 03/08/2023 17:58:17 EDT Gender: Female Date of : Age: 17 Pre-Arrival Type: EMS ETA: 03/08/2023 18:17:00 EDT Primary Care Physician: Presenting Problem: SI Pre-Arrival User: Mi Dow RN Referring Source: Location: [place] Completion Date/Time: 03/08/2023 17:47:00 [facility] Emergency Department Pre-Hospital Report Form Vital Signs: Pre-Hospital Report: Treatment in Route: Response to Treatment: Misc. Issues: Normal [facility] ACETAMINOPHENon 11-09-2022 Acetaminophen [Mass/Vol] ug/mL Critically low 10.0-30.0 [facility] Comment on above: Performed By: #### S ALYC, ETH, BMP, ACET ####[facility] [address] [place], [place] [address]DrDe Rodriguez CBC AUTO DIFFon 11-09-2022 BASO # 0.1 103/ul Normal 0.0-0.1 [facility] Comment on above: Performed By: #### C BC ####[facility] F[address]vc[address] [place] [address]Dr. Angela Rodriguez Basophils/100 WBC (Bld) 1.1 % Normal 0.2-2.0 [facility] Comment on above: Performed By: #### C BC ####[facility] Qygcuh[address]fo[address] [place] [address]DrDe Rodriguez EO # 0.1 103/ul Normal 0.0-0.7 [facility] Comment on above: Performed By: #### C BC ####[facility] Oazrbplmjk[address] [place], [place] [address]Dr. Angela Rodriguez Eosinophils/100 WBC (Bld) 2.0 % Normal 0.9-7.0 [facility] Comment on above: Performed By: #### C BC ####[facility] Aminubarim01[address] [place], [place] [address]Dr. Elenamaurilio Sherif Erythrocyte distribution width (RBC) [Ratio] 12.8 % Normal 11.0-15.0 [facility] Comment on above: Performed By: #### C BC ####[facility] Rbwdsyypsw[address] [place], [place] [address]Dr. Angela Rodriguez Hematocrit (Bld) [Volume fraction] 36.3 % Normal 36.0-48.0 [facility] Comment on above: Performed By: #### C BC ####[facility] Nvybigytnz[address] [place], [place] [address]Dr. Angela Rodriguez Hemoglobin (Bld) [Mass/Vol] 12.2 g/dL Normal 12.0-16.0 [facility] Comment on above: Performed By: #### C BC ####[facility] Pfpexogywn6[address] [place], [place] [address]Dr. Angela Rodriguez IG # 0.02 10e3/ul Normal 0.00-0.03 [facility] Comment on above: Performed By: #### C BC ####[facility] Lqblwwguwx18[address] [place], [place] [address]Dr. Angela Rodriguez IG % 0.3 % Normal 0.0-0.5 [facility] Comment on above: Performed By: #### C BC ####[facility] Bnruqvitau[address] [place], [place] [address]Dr. Angela Rodriguez LYMPH # 2.2 103/ul Normal 1.2-3.8 [facility] Comment on above: Performed By: #### C BC ####[facility] Mklxytqoek[address] [place], [place] [address]Dr. Angela Rodriguez Lymphocytes/100 WBC (Bld) 33.7 % Normal 20.5-60.0 [facility] Comment on above: Performed By: #### C BC ####[facility] Jxrlssexjq[address] [place], [place] [address]Dr. Angela Rodriguez MANUAL DIFF REQ NO Normal [facility] Comment on above: Performed By: #### C BC ####[facility] Wx[address] [place] [address]DrDe Rodriguez MCH (RBC) [Entitic mass] 28.6 pg Normal 26.7-34.0 [facility] Comment on above: Performed By: #### C BC ####[facility] Pedkwxfiek[address] [place] [address]DrDe Rodriguez MCHC (RBC) [Mass/Vol] 33.6 g/dL Normal 29.9-35.2 [facility] Comment on above: Performed By: #### C BC ####[facility] Llhdbtmqvt[address] [place], [place] [address]DrDe Rodriguez MCV (RBC) [Entitic vol] 85.2 fL Normal 81.0-99.0 [facility] Comment on above: Performed By: #### C BC ####[facility] Xkjtxavtbi[address] [place], [place] [address]DrDe Rodriguez MONO # 0.6 103/ul Normal 0.3-0.8 [facility] Comment on above: Performed By: #### C BC ####[facility] Atlvrqlker[address] [place], [place] [address]DrDe Rodriguez Monocytes/100 WBC (Bld) 8.4 % Normal 1.7-12.0 [facility] Comment on above: Performed By: #### C BC ####[facility] Flxwsqsdku[address] [place], [place] [address]DrDe Rodriguez NEUT # 3.6 103/ul Normal 1.4-6.5 [facility] Comment on above: Performed By: #### C BC ####[facility] Sinumzvtjw[address] [place], [place] [address]DrDe Rodriguez Neutrophils/100 WBC (Bld) 54.5 % Normal 43.0-75.0 [facility] Comment on above: Performed By: #### C BC ####[facility] Cycvpgexaz9[address] [place], [place] [address]DrDe Rodriguez Platelet mean volume (Bld) [Entitic vol] 9.5 fL Normal 9.5-13.5 [facility] Comment on above: Performed By: #### C BC ####[facility] Lkcmphuutv[address] [place] [address]Dr. Angela Rodriguez PLT 268 103/ul Normal 150-450 [facility] Comment on above: Performed By: #### C BC ####[facility] Odrwmqkoed35[address] [place] [address]Dr. Angela Rodriguez RBC 4.26 106/ul Normal 4.20-5.40 [facility] Comment on above: Performed By: #### C BC ####[facility] [address]ft[address]ivvmrr[address] [place] [address]Dr. Angela Rodriguez WBC 6.6 103/ul Normal 4.0-11.0 [facility] Comment on above: Performed By: #### C BC ####[facility] Zrtkzirfgg[address] [place], [place] [address]Dr. Angela Rodriguez DRUG SCREEN RAPID (URINE)on 11-09-2022 AMP Negative Normal NEGATIVE [facility] Comment on above: Performed By: #### U MICRO, DRUGRPD, PREGU, ERUR ####[facility] Lxxcnfyazc[address] [place], [place] [address]Dr. Angela Rodriguez BAR Negative Normal NEGATIVE [facility] Comment on above: Performed By: #### U MICRO, DRUGRPD, PREGU, ERUR ####[facility] F[address]llqmh[address] [place], [place] [address]Dr. Angela Rodriguez BUP Negative Normal NEGATIVE [facility] Comment on above: Performed By: #### U MICRO, DRUGRPD, PREGU, ERUR ####[facility] [address] [place] [address]Dr. Elenamaurilio Rodriguez BZO Negative Normal NEGATIVE [facility] Comment on above: Performed By: #### U MICRO, DRUGRPD, PREGU, ERUR ####[facility] [address]ss[address] [place] [address]Dr. Elenamaurilio Rodriguez RENATO Negative Normal NEGATIVE [facility] Comment on above: Performed By: #### U MICRO, DRUGRPD, PREGU, ERUR ####[facility] [address]zcsiwkpvt[address] [place] [address]Dr. Angela Rodriguez CUT-OFFS SEE BELOW Normal [facility] Comment on above: Result Comment: AMP (Amphetamine): [...] By: #### U MICRO, DRUGRPD, PREGU, ERUR ####[facility] [address]vspqnah[address] [place], [place] [address]Dr. Angela Rodriguez DRUG CUT HEADER DRUG CLASS TEST SYST EM CUT-OFF CONCENTRATIONS ARE FOLLOWS: Normal [facility] Comment on above: Performed By: #### U MICRO, DRUGRPD, PREGU, ERUR ####[facility] [address]hepfp[address] [place], [place] [address]Dr. Angela Rodriguez mAMP Negative Normal NEGATIVE [facility] Comment on above: Performed By: #### U MICRO, DRUGRPD, PREGU, ERUR ####[facility] C[address]javcrqmg[address] [place], [place] [address]Dr. Angela Rodriguez MTD Negative Normal NEGATIVE [facility] Comment on above: Performed By: #### U MICRO, DRUGRPD, PREGU, ERUR ####[facility] [address]zeujgneo[address] [place], [place] [address]Dr. Angela Rodriguez OPI Negative Normal NEGATIVE [facility] Comment on above: Performed By: #### U MICRO, DRUGRPD, PREGU, ERUR ####[facility] Uuygyxxfox[address] [place], [place] [address]Dr. Angela Rodriguez OXY Negative Normal NEGATIVE [facility] Comment on above: Performed By: #### U MICRO, DRUGRPD, PREGU, ERUR ####[facility] [address]vzu[address] [place] [address]Dr. Angela Rodriguez PCP Negative Normal NEGATIVE [facility] Comment on above: Performed By: #### U MICRO, DRUGRPD, PREGU, ERUR ####[facility] [address] [place] [address]Dr. Angela Rodriguez PPX Negative Normal NEGATIVE [facility] Comment on above: Performed By: #### U MICRO, DRUGRPD, PREGU, ERUR ####[facility] [address] [place] [address]Dr. Angela Rodriguez TCA Negative Normal NEGATIVE [facility] Comment on above: Performed By: #### U MICRO, DRUGRPD, PREGU, ERUR ####[facility] [address] [place] [address]Dr. Angela Rodriguez THC Negative Normal NEGATIVE [facility] Comment on above: Performed By: #### U MICRO, DRUGRPD, PREGU, ERUR ####[facility] [address]jurroml[address] [place] [address]Dr. Angela Rodriguez ER URINE PROFILEon 3 Bilirubin Ql (U) Negative Normal NEGATIVE [facility] Comment on above: Performed By: #### U MICRO, DRUGRPD, PREGU, ERUR #### [facility] [address] [place] [address] [address] Angela Rodriguez Clarity (U) CLEAR Normal CLEAR [facility] Comment on above: Performed By: #### U MICRO, DRUGRPD, PREGU, ERUR #### [facility] [address] [place] [address] [address] Angela Rodriguez Color (U) LT. YELLOW Normal YELLOW [facility] Comment on above: Performed By: #### U MICRO, DRUGRPD, PREGU, ERUR #### [facility] [address] [place] [address] [address] Angela Rodriguez ERUAHD A micrscopic examina tion will be performed if indicated. Normal [facility] Comment on above: Performed By: #### U MICRO, DRUGRPD, PREGU, ERUR #### [facility] [address] [place] [address] [address] Angela Rodriguez Glucose Ql (U) Negative Normal NEGATIVE [facility] Comment on above: Performed By: #### U MICRO, DRUGRPD, PREGU, ERUR #### [facility] [address] [place] [address] [address] Angela Rodriguez Hemoglobin Ql (U) LARGE Abnormal NEGATIVE [facility] Comment on above: Performed By: #### U MICRO, DRUGRPD, PREGU, ERUR #### [facility] [address] [place] [address] [address] Angela Rodriguez Ketones Ql (U) Negative Normal NEGATIVE [facility] Comment on above: Performed By: #### U MICRO, DRUGRPD, PREGU, ERUR #### [facility] [address] [place] [address] [address] Angela Rodriguez LEUKOCYTES Negative Normal NEGATIVE [facility] Comment on above: Performed By: #### U MICRO, DRUGRPD, PREGU, ERUR #### [facility] [address] [place] [address] [address] Angela Rodriguez Nitrite Ql (U) Negative Normal NEGATIVE [facility] Comment on above: Performed By: #### U MICRO, DRUGRPD, PREGU, ERUR #### [facility] [address] [place] [address] [address] Angela Rodriguez pH (U) 5.5 [pH] Normal 5-9 [facility] Comment on above: Performed By: #### U MICRO, DRUGRPD, PREGU, ERUR #### [facility] [address] [place] [address] [address] Angela Rodriguez SPEC GRAVITY 1.025 Normal 1.005-<=1. 025 [facility] Comment on above: Performed By: #### U MICRO, DRUGRPD, PREGU, ERUR #### [facility] [address] [place] [address] [address] Angela Rodriguez UA PROTEIN Negative Normal NEGATIVE/ TRACE [facility] Comment on above: Performed By: #### U MICRO, DRUGRPD, PREGU, ERUR #### [facility] [address] [place] [address] [address] Angela Rodriguez UR MICRO IND INDICATED Normal [facility] Comment on above: Performed By: #### U MICRO, DRUGRPD, PREGU, ERUR #### [facility] [address] [place] [address] [address] Angela Rodriguez Urobilinogen Qn (U) 0.2 {Andre'U}/dL Normal 0.2 - 1. 0 [facility] Comment on above: Performed By: #### U MICRO, DRUGRPD, PREGU, ERUR #### [facility] [address] [place] [address] [address] Angela Rodriguez ETHANOL (BLD ALC)on 11-10-19 23 ALC NOTE NOTE: 80 mg/dl is legal limit for a blood alcohol level Normal [facility] Comment on above: Performed By: #### S ALYC, ETH, BMP, ACET ####[facility] [address]yt[address]fs[address] [place] [address]DrDe Rodriguez Ethanol [Mass/Vol] mg/dL Normal [facility] Comment on above: Performed By: #### S ALYC, ETH, BMP, ACET ####[facility] V[address] [place] [address]Dr. Angela Rodriguez URon 11-09-2022 , QUAL Negative Normal NEGATIVE [facility] Comment on above: Performed By: #### U MICRO, DRUGRPD, PREGU, ERUR #### [facility] [address] [place] [address] [address] Angela Rodriguez PROF CHEM 8 (BAS METB)on Anion gap [Moles/Vol] 12.1 mmol/L Normal e [facility] Comment on above: Performed By: #### S ALYC, ETH, BMP, ACET ####[facility] Qfhjblessn4329 [place] [address]DrDe Rodriguez Calcium [Mass/Vol] 8.7 mg/dL Normal 8.5-10.1 [facility] Comment on above: Performed By: #### S ALYC, ETH, BMP, ACET ####[facility] Ox[address] [place] [address]Dr. Angela Rodriguez Chloride [Moles/Vol] 104 mmol/L Normal 98-107 [facility] Comment on above: Performed By: #### S ALYC, ETH, BMP, ACET ####[facility] [address]ua[address]yz[address] [place] [address]Dr. Angela Rodriguez CO2 [Moles/Vol] 25.3 mmol/L Normal 21.0-32.0 [facility] Comment on above: Performed By: #### S ALYC, ETH, BMP, ACET ####[facility] [address] [place] [address]Dr. Angela Rodriguez Creatinine [Mass/Vol] 1.09 mg/dL Critically high 0.55-1.02 [facility] Comment on above: Performed By: #### S ALYC, ETH, BMP, ACET ####[facility] [address]mdcbo[address] [place] [address]Dr. Angela Rodriguez EGFR-AF GRENADIAN >60 Normal >=60 [facility] Comment on above: Performed By: #### S ALYC, ETH, BMP, ACET ####[facility] [address]cs[address] [place] [address]Dr. Angela Rodriguez EGFR-NON AF GRENADIAN >60 Normal >=60 [facility] Comment on above: Performed By: #### S ALYC, ETH, BMP, ACET ####[facility] [address]vpfxhrax[address] [place] [address]Dr. Angela Rodriguez Glucose [Mass/Vol] 93 mg/dL Normal 74-106 [facility] Comment on above: Performed By: #### S ALYC, ETH, BMP, ACET ####[facility] [address]rg[address]rqhc[address] [place] [address]Dr. Angela Rodriguez Potassium [Moles/Vol] 3.4 mmol/L Critically low 3.5-5.1 [facility] Comment on above: Performed By: #### S ALYC, ETH, BMP, ACET ####[facility] Qfjnrrhgwn7[address] [place] [address]Dr. Angela Rodriguez Sodium [Moles/Vol] 138 mmol/L Normal 136-145 [facility] Comment on above: Performed By: #### S ALYC, ETH, BMP, ACET ####[facility] Bspvfeidmz[address] [place] [address]Dr. Angela Rodriguez Urea nitrogen [Mass/Vol] 17.0 mg/dL Normal 6.4-19.3 [facility] Comment on above: Performed By: #### S ALYC, ETH, BMP, ACET ####[facility] [address]etsigfxy[address] [place] [address]Dr. Angela Rodriguez Urea nitrogen/Creatinine [Mass ratio] 15.6 mg/mg Normal [facility] Comment on above: Performed By: #### S ALYC, ETH, BMP, ACET ####[facility] [address]qsxjrpf[address] [place] [address]Dr. Angela Rodriguez SALICYLATEon 11-09-2022 SALICYLATE <2.8 Normal <=19.9 [facility] Comment on above: Performed By: #### S ALYC, ETH, BMP, ACET ####[facility] [address]rsizz[address] [place] [address]Dr. Angela Rodriguez URINE MICROSCOPIC ONLYon BACTERIA TRACE Abnormal NONE SEEN [facility] Comment on above: Performed By: #### U MICRO, DRUGRPD, PREGU, ERUR #### [facility] [address] [place] [address] [address] Angela Rodriguez Bacteria identified Cx Nom (U) NOT INDICATED Normal [facility] Comment on above: Performed By: #### U MICRO, DRUGRPD, PREGU, ERUR #### [facility] [address] [place] [address] [address] Angela Rodriguez CAST NONE SEEN Normal NONE SEEN [facility] Comment on above: Performed By: #### U MICRO, DRUGRPD, PREGU, ERUR #### [facility] [address] [place] [address] [address] Angela Rodriguez Crystals LM Nom (Urine sed) NONE SEEN Normal NONE SEEN [facility] Comment on above: Performed By: #### U MICRO, DRUGRPD, PREGU, ERUR #### [facility] [address] [place] [address] [address] Angela Rodriguez Epithelial cells LM Ql (Urine sed) RARE Normal NONE SEEN /RARE [facility] Comment on above: Performed By: #### U MICRO, DRUGRPD, PREGU, ERUR #### [facility] [address] [place] [address] [address] Angela Rodriguez MUCOUS NONE SEEN Normal NONE SEEN [facility] Comment on above: Performed By: #### U MICRO, DRUGRPD, PREGU, ERUR #### [facility] [address] [place] [address] [address] Angela Rodriguez RBC 20-50 Abnormal 0-2 [facility] Comment on above: Performed By: #### U MICRO, DRUGRPD, PREGU, ERUR #### [facility] [address] [place] [address] [address] Angela Rodriguez WBC NONE SEEN Normal NONE SEEN [facility] Comment on above: Performed By: #### U MICRO, DRUGRPD, PREGU, ERUR #### [facility] [address] [place] [address] [address] Angela Rodriguez INSULINon 04-20-2022 Insulin 9.7 uIU/mL Normal 2.6-24.9 [facility] Comment on above: Performed By: #### I NSULIN #### [facility] [address] [place] [address] [address] Angela Rodriguez CBC AUTO DIFFon 04-19-2022 BASO # 0.1 103/ul Normal 0.0-0.1 [facility] Comment on above: Performed By: #### C BC ####[facility] [address]ha[address] [place] [address]Dr. Angela Rodriguez Basophils/100 WBC (Bld) 1.3 % Normal 0.2-2.0 [facility] Comment on above: Performed By: #### C BC ####[facility] F[address]juzekdez[address] [place] [address]Dr. Angela Rodriguez EO # 0.1 103/ul Normal 0.0-0.7 [facility] Comment on above: Performed By: #### C BC ####[facility] Sz[address]te[address] [place], [place] [address]Dr. Angela Rodriguez Eosinophils/100 WBC (Bld) 1.6 % Normal 0.9-7.0 [facility] Comment on above: Performed By: #### C BC ####[facility] [address]ww[address] [place], [place] [address]Dr. Angela Rodriguez Erythrocyte distribution width (RBC) [Ratio] 12.3 % Normal 11.0-15.0 [facility] Comment on above: Performed By: #### C BC ####[facility] [address]raztunna[address] [place], [place] [address]Dr. Angela Rodriguez Hematocrit (Bld) [Volume fraction] 39.9 % Normal 36.0-48.0 [facility] Comment on above: Performed By: #### C BC ####[facility] [address]yslhep[address] [place], [place] [address]Dr. Angela Rodriguez Hemoglobin (Bld) [Mass/Vol] 13.5 g/dL Normal 12.0-16.0 [facility] Comment on above: Performed By: #### C BC ####[facility] [address]rzspjrbg[address] [place], [place] [address]Dr. Angela Sherif IG # 0.01 10e3/ul Normal 0.00-0.03 [facility] Comment on above: Performed By: #### C BC ####[facility] [address]covscoy[address] [place], [place] [address]Dr. Angela Sherif IG % 0.2 % Normal 0.0-0.5 [facility] Comment on above: Performed By: #### C BC ####[facility] [address]sgzjl[address] [place], [place] [address]Dr. Angela Rodriguez LYMPH # 1.7 103/ul Normal 1.2-3.8 [facility] Comment on above: Performed By: #### C BC ####[facility] [address]gfyv[address] [place], [place] [address]Dr. Angela Rodriguez Lymphocytes/100 WBC (Bld) 30.9 % Normal 20.5-60.0 [facility] Comment on above: Performed By: #### C BC ####[facility] [address]ulfyri[address] [place] [address]Dr. Angela Rodriguez MANUAL DIFF REQ NO Normal [facility] Comment on above: Performed By: #### C BC ####[facility] Edftbsgtqp[address] [place] [address]Dr. Angela Rodriguez MCH (RBC) [Entitic mass] 28.9 pg Normal 26.7-34.0 [facility] Comment on above: Performed By: #### C BC ####[facility] [address]ufn[address] [place], [place] [address]Dr. Angela Rodriguez MCHC (RBC) [Mass/Vol] 33.8 g/dL Normal 29.9-35.2 [facility] Comment on above: Performed By: #### C BC ####[facility] T[address]lewogab[address] [place], [place] [address]Dr. Angela Rodriguez MCV (RBC) [Entitic vol] 85.4 fL Normal 81.0-99.0 [facility] Comment on above: Performed By: #### C BC ####[facility] Aod[address]ftgvei[address] [place], [place] [address]Dr. Angela Rodriguez MONO # 0.4 103/ul Normal 0.3-0.8 [facility] Comment on above: Performed By: #### C BC ####[facility] [address]lamrgl[address] [place], [place] [address]Dr. Angela Rodriguez Monocytes/100 WBC (Bld) 7.6 % Normal 1.7-12.0 [facility] Comment on above: Performed By: #### C BC ####[facility] [address]pitv[address] [place], [place] [address]DrDe Rodriguez NEUT # 3.2 103/ul Normal 1.4-6.5 [facility] Comment on above: Performed By: #### C BC ####[facility] [address]zbtm[address] [place], [place] [address]Dr. Angela Rodriguez Neutrophils/100 WBC (Bld) 58.4 % Normal 43.0-75.0 [facility] Comment on above: Performed By: #### C BC ####[facility] [address] [place] [address]Dr. Angela Rodirguez Platelet mean volume (Bld) [Entitic vol] 9.8 fL Normal 9.5-13.5 [facility] Comment on above: Performed By: #### C BC ####[facility] [address] [place] [id number]. Angela Rodriguez PLT 216 103/ul Normal 150-450 [facility] Comment on above: Performed By: #### C BC ####[facility] [address] [place] [id number]. Angela Rodriguez RBC 4.67 106/ul Normal 4.20-5.40 [facility] Comment on above: Performed By: #### C BC ####[facility] [address]trsysfgou[address] [place] [id number]. Angela Rodriguez WBC 5.5 103/ul Normal 4.0-11.0 [facility] Comment on above: Performed By: #### C BC ####[facility] [address] [place] [id number]. Angela Rodriguez ECHOCARDIO M/2D COMPLETEon 1 ECHOCARDIO M/2D COMPLETE Patient: ALLEGRA LOPEZ Exam Date: 04/19/2022 : 2005 Gender:F Ordering : [facility] MELLO [facility] Admission #: [id number] Family : Order #: [id number] CLICK HERE TO VIEW EXAM ECHOCARDIOGRAM REPORT [...] 1.94 cm Aortic Valve AoV Area (Peak Madan): 2.59 cm2, 2.59 cm2 Peak Velocity(Antegrade Flow): [...] Funk M.D. on 04/24/2022 at 11:52 Normal [facility] FREE THYROXINE INDEX T7on FTI 1.92 Normal 1.30-4.50 [facility] Comment on above: Performed By: #### T BETH, LIPID, CMP, T7 #### [facility] [address] [address] [address] Angela Rodriguez T3U 31.0 % Normal 30.0-39.0 [facility] Comment on above: Performed By: #### T BETH, LIPID, CMP, T7 #### [facility] [address] [address] [address] Angela Rodriguez T4 [Mass/Vol] 6.20 ug/dL Normal 5.40-10.60 [facility] Comment on above: Performed By: #### T SH, LIPID, CMP, T7 #### [facility] [address] [address] [address] Angela Rodriguez GLYCOHEMOGLOBIN A1Con 2021 ADA RECOMMENDATION SEE BELOW Normal [facility] Comment on above: Result Comment: ADA RECOMMENDED LIMIT 4.0 - 6.0 ADA THERAPEUTIC TARGET < 7.0 ACTION SUGGESTED > 7.0 Performed By: #### A 1C ####[facility] [id number] [address]Dr. Angela Rodriguez Glucose [Mass/Vol] 88 mg/dL Normal [facility] Comment on above: Performed By: #### A 1C ####[facility] [address] [place], [place] [address]UuDr. Angela Rodriguez HbA1c (Bld) [Mass fraction] 4.7 % Normal 4.5-6.2 [facility] Comment on above: Performed By: #### A 1C ####[facility] [address] [place], [place] [address]KiDr. Angela Rodriguez IRONon 04-19-2022 Iron [Mass/Vol] 103.0 ug/dL Normal 50.0-170.0 [facility] Comment on above: Performed By: #### I JETHRO #### [facility] [address] [address] [address] Angela Rodriguez LIPID PROFILEon 04-19-2022 CHOL-HDL RATIO NORM SEE BELOW Normal [facility] Comment on above: Result Comment: 3.3 - 4.4 LOW RISK 4.4 - 7.1 AVERAGE RISK 7.1 - 11.0 MODERATE RISK >11.0 HIGH RISK Performed By: #### T SH, LIPID, CMP, T7 #### [facility] [address] [address] [address] Angela Rodriguez Cholesterol [Mass/Vol] 150 mg/dL Normal 104-227 [facility] Comment on above: Performed By: #### T SH, LIPID, CMP, T7 #### [facility] [address] [address] [address] Angela Rodriguez Cholesterol in HDL [Mass/Vol] 52 mg/dL Normal 29-69 [facility] Comment on above: Performed By: #### T SH, LIPID, CMP, T7 #### [facility] [address] [address] [address] Angela Rodriguez Cholesterol in LDL [Mass/Vol] 88.8 mg/dL Normal 46.0-140.0 [facility] Comment on above: Performed By: #### T SH, LIPID, CMP, T7 #### [facility] [address] [address] [address] Angela Rodriguez Cholesterol.total/Chol esterol in HDL [Mass ratio] 2.9 {ratio} Normal [facility] Comment on above: Performed By: #### T SH, LIPID, CMP, T7 #### [facility] [address] [address] [address] Angela Rodriguez HDL NORMAL > or = 60 mg/dl - LO W CARDIOVASCULAR RISK <40 mg/dl - HIGH CARDIOVASCULAR RISK Normal [facility] Comment on above: Performed By: #### T SH, LIPID, CMP, T7 #### [facility] [address] [address] [address] Angela Rodriguez LDL CALC NORMAL SEE BELOW Normal [facility] Comment on above: Result Comment: <100 mg/dl OPTIMAL 100 - 129 mg/dl NEAR OR ABOVE OPTIMAL 130 - 159 mg/dl BORDERLINE HIGH 160 - 189 mg/dl HIGH >190 mg/dl VERY HIGH Performed By: #### T SH, LIPID, CMP, T7 #### [facility] [address] [address] [address] Angela Rodriguez Triglyceride [Mass/Vol] 46 mg/dL Critically low 53-208 [facility] Comment on above: Performed By: #### T SH, LIPID, CMP, T7 #### [facility] [address] [address] [address] Angela Rodriguez VLDL CALC 9.2 mg/dL Normal [facility] Comment on above: Performed By: #### T SH, LIPID, CMP, T7 #### [facility] [address] [address] [address] Angela Rodriguez PROF 14(COMP METB)on 04-19- 022 Albumin [Mass/Vol] 4.3 g/dL Normal 3.4-5.0 [facility] Comment on above: Performed By: #### T SH, LIPID, CMP, T7 #### [facility] [address] [address] [address] Angela Rodriguez Albumin/Globulin [Mass ratio] 1.2 {ratio} Normal [facility] Comment on above: Performed By: #### T SH, LIPID, CMP, T7 #### [facility] [address] [place] [address] Dr. Angela Rodriguez ALP [Catalytic activity/Vol] 58 U/L Normal 46-116 [facility] Comment on above: Performed By: #### T SH, LIPID, CMP, T7 #### [facility] [address] [address] [address] Angela Rodriguez ALT [Catalytic activity/Vol] 46 U/L Normal 14-59 [facility] Comment on above: Performed By: #### T SH, LIPID, CMP, T7 #### [facility] [address] [address] [address] Angela Rodriguez Anion gap [Moles/Vol] 11.8 mmol/L Normal [facility] Comment on above: Performed By: #### T SH, LIPID, CMP, T7 #### [facility] [address] [address] [address] Angela Rodriguez AST [Catalytic activity/Vol] 26 U/L Normal 15-37 [facility] Comment on above: Performed By: #### T SH, LIPID, CMP, T7 #### [facility] [address] [place] [address] Dr. Angela Rodriguez Bilirubin [Mass/Vol] 0.5 mg/dL Normal 0.2-1.0 [facility] Comment on above: Performed By: #### T SH, LIPID, CMP, T7 #### [facility] [address] [address] [address] Angela Rodriguez Calcium [Mass/Vol] 8.8 mg/dL Normal 8.5-10.1 [facility] Comment on above: Performed By: #### T SH, LIPID, CMP, T7 #### [facility] [address] [address] [address] Angela Rodriguez Chloride [Moles/Vol] 103 mmol/L Normal 98-107 [facility] Comment on above: Performed By: #### T SH, LIPID, CMP, T7 #### [facility] [address] [address] [address] Angela Rodriguez CO2 [Moles/Vol] 25.8 mmol/L Normal 21.0-32.0 [facility] Comment on above: Performed By: #### T SH, LIPID, CMP, T7 #### [facility] [address] [address] [address] Angela Rodriguez Creatinine [Mass/Vol] 0.67 mg/dL Normal 0.55-1.02 [facility] Comment on above: Performed By: #### T SH, LIPID, CMP, T7 #### [facility] [address] [place] [address] Dr. Angela Rodriguez EGFR-AF GRENADIAN >60 Normal >=60 [facility] Comment on above: Performed By: #### T SH, LIPID, CMP, T7 #### [facility] [address] [place] [address] Dr. Angela Rodriguez EGFR-NON AF GRENADIAN >60 Normal >=60 [facility] Comment on above: Performed By: #### T SH, LIPID, CMP, T7 #### [facility] [address] [place] [address] Dr. Angela Rodriguez Globulin (S) [Mass/Vol] 3.5 g/dL Normal [facility] Comment on above: Performed By: #### T SH, LIPID, CMP, T7 #### [facility] [address] [place] [address] Dr. Angela Rodriguez Glucose [Mass/Vol] 96 mg/dL Normal 74-106 [facility] Comment on above: Performed By: #### T SH, LIPID, CMP, T7 #### [facility] [address] [place] [address] Dr. Angela Rodriguez Potassium [Moles/Vol] 3.6 mmol/L Normal 3.5-5.1 [facility] Comment on above: Performed By: #### T SH, LIPID, CMP, T7 #### [facility] [address] [place] [address] Dr. Angela Rodriguez Protein [Mass/Vol] 7.8 g/dL Normal 6.4-8.2 [facility] Comment on above: Performed By: #### T SH, LIPID, CMP, T7 #### [facility] [address] [place] [address] Dr. Angela Rodriguez Sodium [Moles/Vol] 137 mmol/L Normal 136-145 [facility] Comment on above: Performed By: #### T SH, LIPID, CMP, T7 #### [facility] [address] [place] [address] Dr. Angela Rodriguez Urea nitrogen [Mass/Vol] 13.0 mg/dL Normal 6.4-19.3 [facility] Comment on above: Performed By: #### T SH, LIPID, CMP, T7 #### [facility] [address] [address] [address] Angela Rodriguez Urea nitrogen/Creatinine [Mass ratio] 19.4 mg/mg Normal [facility] Comment on above: Performed By: #### T SH, LIPID, CMP, T7 #### [facility] [address] [address] [address] Angela Rodriguez TSHon 04-19-2022 TSH 9.346 uIU/mL Critically high 0.516-4.13 0 [facility] Comment on above: Performed By: #### T SH, LIPID, CMP, T7 #### [facility] [address] [address] [address] Angela Rodriguez Vital Signs Date Time Vital Sign Value Performing Clinician Facility 01-28-2025 [id number]:28040 Body height 170.18 cm [facility] [email or web address] Work Phone: [facility] 01-28-2025 14:28-040 Body mass index (BMI) [Ratio] 19.8 kg/m2 [email or web address] Work Phone: [facility] 01-28-2025 14:28-040 Body weight 57.6 kg [email or web address] Work Phone: [facility] 01-28-2025 14:28-040 Diastolic blood pressure 72 mm[Hg] [facility] [email or web address] Work Phone: [facility] 01-28-2025 14:28-0400 Heart rate 81 /min [facility] [email or web address] Work Phone: [facility] 01-28-2025 14:28-040 Respiratory rate 18 /min Services [facility] [employer] Work Phone: [facility] 01-28-2025 14:28-0400 SaO2% (BldA) [Mass fraction] 99 % [email or web address] Work Phone: [facility] 01-28-2025 14:28-0400 Systolic blood pressure 112 mm[Hg] [facility] Work Phone: [facility] 08-29-2024 11:10-0500 Body height 170.18 cm PHYSICIAN NO [facility] 08-29-2024 11:09-0500 Body mass index (BMI) [Ratio] 19.3 kg/m2 PHYSICIAN NO [facility] 08-29-2024 11:09-0500 Body weight 55.79 kg PHYSICIAN [facility] 08-28-2024 13:33-0500 Diastolic blood pressure 64 mm[Hg] PHYSICIAN NO [facility] 08-28-2024 13:33-0500 Heart rate 90 /min PHYSICIAN NO [facility] 08-28-2024 13:33-0500 Systolic blood pressure 102 mm[Hg] PHYSICIAN NO [facility] 08-28-2024 13:32-0500 Body height 170.18 cm PHYSICIAN NO [facility] 08-28-2024 13:32-0500 Respiratory rate 18 /min PHYSICIAN NO [facility] 07-17-2024 15:10-0500 Body height 170.2 cm Sherif Murphy MD Work Phone: [facility] 07-17-2024 15:10-0500 Body mass index (BMI) [Ratio] 20.76 kg/m2 Sherif Murphy MD Work Phone: [facility] 07-17-2024 15:10-0500 Body temperature 98.01 [degF] Sherif Murphy MD Work Phone: [facility] [employer] [facility] 07-17-2024 15:10-0500 Body weight 60.15 kg Sherif Murphy MD Work Phone: [facility] [employer] [facility] 07-17-2024 15:10-0500 Diastolic blood pressure 69 mm[Hg] Sherif Murphy MD Work Phone: [facility] [employer] [facility] 07-17-2024 15:10-0500 Heart rate 100 /min Sherif Murphy MD Work Phone: [facility] 07-17-2024 15:10-0500 Respiratory rate 20 /min Sherif Murphy MD Work Phone: [facility] 07-17-2024 15:10-0500 SaO2% (BldA) [Mass fraction] 100 % Sherif Murphy MD Work Phone: [facility] 07-17-2024 15:10-0500 Systolic blood pressure 94 mm[Hg] Sherif Murphy MD Work Phone: [facility] 03-24-2024 12:07-0400 Blood Pressure Location Mohamad Mouchli [facility] 03-24-2024 12:07-0400 Diastolic blood pressure 72 mm[Hg] Mohamad Mouchli [facility] 03-24-2024 12:07-0400 Heart rate 93 /min Mohamad Mouchli [facility] 03-24-2024 12:07-0400 Systolic blood pressure 102 mm[Hg] Mohamad Mouchli [facility] 02-14-2024 13:55-0400 Blood Pressure Location Mohamad Mouchli [facility] 02-14-2024 13:55-0400 Diastolic blood pressure 74 mm[Hg] Mohamad Mouchli [facility] 02-14-2024 13:55-0400 Heart rate 74 /min Mohamad Mouchli [facility] 02-14-2024 13:55-0400 Mean blood pressure 86 mm[Hg] Mohamad Mouchli [facility] 02-14-2024 13:55-0400 Respiratory rate 12 /min Mohamad Mouchli [facility] 02-14-2024 13:55-0400 SaO2% (BldA) [Mass fraction] 100 % Mohamad Mouchli [facility] 02-14-2024 13:55-0400 Systolic blood pressure 109 mm[Hg] Mohamad Mouchli [facility] 02-14-2024 13:45-0400 Blood Pressure Location Mohamad Mouchli [facility] 02-14-2024 13:45-0400 Diastolic blood pressure 77 mm[Hg] Mohamad Mouchli [facility] 02-14-2024 13:45-0400 Heart rate 82 /min Mohamad Mouchli [facility] 02-14-2024 13:45-0400 Mean blood pressure 87 mm[Hg] Mohamad Mouchli [facility] 02-14-2024 13:45-0400 Respiratory rate 15 /min Mohamad Mouchli [facility] 02-14-2024 13:45-0400 SaO2% (BldA) [Mass fraction] 100 % Mohamad Mouchli [facility] 02-14-2024 13:45-0400 Systolic blood pressure 108 mm[Hg] Mohamad Mouchli [facility] 02-14-2024 13:40-0400 Blood Pressure Location Mohamad Mouchli [facility] 02-14-2024 13:40-0400 Diastolic blood pressure 63 mm[Hg] Mohamad Mouchli [facility] 02-14-2024 13:40-0400 Heart rate 75 /min Mohamad Mouchli [facility] 02-14-2024 13:40-0400 Mean blood pressure 74 mm[Hg] Mohamad Mouchli [facility] 02-14-2024 13:40-0400 Respiratory rate 16 /min Mohamad Mouchli [facility] 02-14-2024 13:40-0400 SaO2% (BldA) [Mass fraction] 96 % Mohamad Mouchli [facility] 02-14-2024 13:40-0400 Systolic blood pressure 95 mm[Hg] Mohamad Mouchli [facility] 02-14-2024 13:35-0400 Respiratory rate 18 /min Mohamad Mouchli [facility] 02-14-2024 13:29-0400 Body temperature 98.06 [degF] Mohamad Mouchli [facility] 02-14-2024 13:25-0400 Respiratory rate 1 /min Mohamad Mouchli [facility] 02-14-2024 13:20-0400 Respiratory rate 12 /min Mohamad Mouchli [facility] 02-14-2024 12:44-0400 Body temperature 99.14 [degF] Mohamad Mouchli [facility] 02-06-2024 14:21-0400 Blood Pressure Location Mohamad Mouchli [facility] 02-06-2024 14:21-0400 Diastolic blood pressure 72 mm[Hg] Mohamad Mouchli [facility] 02-06-2024 14:21-0400 Heart rate 93 /min Mohamad Mouchli [facility] 02-06-2024 14:21-0400 Systolic blood pressure 110 mm[Hg] Vasquez Oliver [facility] 11-24-2023 14:39-0400 Diastolic blood pressure 82 mm[Hg] Erik Schwartz [facility] 11-24-2023 14:39-0400 Heart rate 83 /min Erik Allene [facility] 11-24-2023 14:39-0400 Respiratory rate 18 /min Erik Schwartz [facility] 11-24-2023 14:39-0400 SaO2% (BldA) [Mass fraction] 99 % Erik Schwartz [facility] 11-24-2023 14:39-0400 Systolic blood pressure 110 mm[Hg] Erik Schwartz [facility] 11-24-2023 12:44-0400 Body temperature 98.06 [degF] Erik Schwartz [facility] 11-24-2023 12:44-0400 bodymassindex -0.17 kg/m2 Erik Schwartz [facility] Comment on above: Result Comment: ^~:!ZScore Source -[facility] 11-24-2023 12:44-0400 Diastolic blood pressure 85 mm[Hg] Erik Schwartz [facility] 11-24-2023 12:44-0400 Heart rate 102 /min Erik Schwartz [facility] 11-24-2023 12:44-0400 Height/Length Percentile 71.45 1 Erik Schwartz [facility] Comment on above: Result Comment: ^~:!Percentile Source -[facility] 11-24-2023 12:44-0400 Height/Length Z-Score 0.57 1 Erik Schwartz [facility] Comment on above: [facility] 12:44-0400 Respiratory rate 16 /min Erik Schwartz [facility] 11-24-2023 12:44-0400 SaO2% (BldA) [Mass fraction] 99 % Erik Schwartz [facility] 11-24-2023 12:44-0400 Systolic blood pressure 118 mm[Hg] Erik Schwartz [facility] 11-24-2023 12:44-0400 Weight Percentile 53.24 % Erik Schwartz [facility] Comment on above: Result Comment: ^~:!Percentile Source [facility] 11-24-2023 12:44-0400 Weight Z-Score 0.08 1 Erik Schwartz [facility] Comment on above: Result Comment: [facility] 08-28-2023 13:08-0500 Body height 170.2 cm Mariangel Dc MD Work Phone: [facility] 08-28-2023 13:08-0500 Body mass index (BMI) [Ratio] 19.73 kg/m2 Mariangel Dc MD Work Phone: [facility] 08-28-2023 13:08-0500 Body weight 57.15 kg Mariangel Dc MD Work Phone: [facility] 08-28-2023 13:08-0500 Respiratory rate 16 /min Mariangel Dc MD Work Phone: [facility] 03-08-2023 21:54-0400 Diastolic blood pressure 60 mm[Hg] Clayton Beaver [facility] 03-08-2023 21:54-0400 Heart rate 83 /min Clayton Beaver [facility] 03-08-2023 21:54-0400 Mean blood pressure 77 mm[Hg] Clayton Beaver [facility] 03-08-2023 21:54-0400 Respiratory rate 17 /min Clayton Beaver [facility] 03-08-2023 21:54-0400 SaO2% (BldA) [Mass fraction] 98 % Clayton Beaver [facility] 03-08-2023 21:54-0400 Systolic blood pressure 110 mm[Hg] Clayton Beaver [facility] 03-08-2023 18:16-0400 Body temperature 98.42 [degF] Clayton Beaver [facility] 03-08-2023 18:16-0400 bodymassindex -1.36 Clayton Beaver [facility] Comment on above: Result Comment: ^~:!ZScore [facility] 03-08-2023 18:16-0400 Diastolic blood pressure 70 mm[Hg] Clayton Beaver [facility] 03-08-2023 18:16-0400 Heart rate 100 /min Clayton Beaver [facility] 03-08-2023 18:16-0400 Height/Length Percentile 71.72 Clayton Beaver [facility] Comment on above: Result Comment: ^~:!Percentile Source -[facility] 03-08-2023 18:16-0400 Height/Length Z-Score 0.57 Clayton Beaver [facility] Comment on above: Result Comment: ^~:!ZScore [facility] 03-08-2023 18:16-0400 Respiratory rate 14 /min Clayton Beaver [facility] 03-08-2023 18:16-0400 SaO2% (BldA) [Mass fraction] 99 % Clayton Beaver [facility] 03-08-2023 18:16-0400 Systolic blood pressure 116 mm[Hg] Clayton Beaver [facility] 03-08-2023 18:16-0400 weight -0.82 Clayton Beaver [facility] Comment on above: Result Comment: ^~:!ZScore Source -[facility] 03-08-2023 18:16-0400 Weight Percentile 20.48 % Clayton Beaver [facility] Comment on above: Result Comment: ^~:!Percentile Source -[facility] DC Encounters Encounter Date Encounter Type Care Provider Facility Start: 02-28-2025 End: 03-03-2025 Refill Keya Kline NP Work Phone: [facility] Comment on above: Dysmenorrhea; Menorrhagia with irregular cycle Start: 01-28-2025 End: 01-28-2025 ambulatory Services [facility] Work Phone: [facility] Work Phone: Start: 01-28-2025 End: 01-28-2025 Patient encounter procedure Gilberto Espinal MD -[facility] Work Phone: Start: 09-29-2024 End: 09-29-2024 Patient encounter procedure PHYSICIAN NO [facility] Work Phone: Start: 09-29-2024 End: 09-29-2024 ambulatory PHYSICIAN NO [facility] Work Phone: Start: 08-28-2024 End: 08-28-2024 ambulatory PHYSICIAN NO [facility] Work Phone: Start: 08-28-2024 End: 08-28-2024 Patient encounter procedure PHYSICIAN NO [facility] Work Phone: Start: 08-20-2024 Non-patient / Non-visit PHYSICIAN [facility] Work Phone: Start: 07-17-2024 End: 07-17-2024 Office outpatient new 30 minutes Sherif Murphy MD Work Phone: Jenny Smiley [facility] Comment on above: Iron deficiency Start: 07-17-2024 End: 07-18-2024 ambulatory SHERIF MURPHY [facility] Start: 07-17-2024 End: 07-17-2024 Refill Sherif Murphy MD Work Phone: Jenny Smiley [facility] Start: 07-16-2024 End: 07-16-2024 ambulatory MARIANGEL DC Facility:[facility] Start: 07-16-2024 End: 07-16-2024 Patient encounter procedure MARIANGEL DC [facility] Start: 05-14-2024 End: 05-14-2024 Office outpatient visit 25 minutes Mariangel Dc MD Work Phone: [facility] Comment on above: 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); Fibromyalgia; Iron deficiency; Low serum vitamin D; Medication monitoring encounter Start: 05-14-2024 End: 05-14-2024 ambulatory MARIANGEL DC [facility] Start: 03-24-2024 End: 03-24-2024 ambulatory Vasquez Oliver Facility:[facility] Start: 03-24-2024 End: 03-24-2024 Patient encounter procedure Vasquez Oliver [facility] Start: 02-14-2024 End: 02-14-2024 ambulatory KEYA HOPE Facility:[facility] Start: 02-14-2024 End: 02-14-2024 Patient encounter procedure Vasquez Oliver [facility] Start: 02-06-2024 End: 02-06-2024 ambulatory KEYA HOPE Facility:[facility] Start: 02-06-2024 End: 02-06-2024 Patient encounter procedure Vasquez RosalieDe Tinojeanette [facility] Start: 01-22-2024 ambulatory KEYA HOPE [facility] Start: 12-11-2023 End: 12-11-2023 ambulatory KEYA KLINE Not Available Start: 11-24-2023 End: 11-24-2023 Emergency department patient visit Erik Schwartz Facility:[facility] Start: 11-24-2023 End: 11-24-2023 Emergency department patient visit Erik Schwartz [facility] Start: 10-18-2023 End: 10-18-2023 ambulatory KEYA KLINE Not Available Start: 09-12-2023 End: 09-12-2023 ambulatory [facility] Start: 09-12-2023 End: 09-12-2023 Office outpatient visit 25 minutes Mariangel Dc MD Work Phone: [facility] Comment on above: 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); Fibromyalgia; Iron deficiency; Low serum vitamin D; Medication monitoring encounter Start: 08-28-2023 End: 08-28-2023 ambulatory [facility] Start: 08-28-2023 End: 08-28-2023 Office outpatient new 45 minutes Mariangel Dc MD Work Phone: [facility] Comment on above: TYLOR positive (Primar y Dx); Fibromyalgia; Fatigue, unspecified type; Multiple joint pain Start: 07-19-2023 End: 07-20-2023 ambulatory KEYA HOPE Facility:[facility] Start: 07-19-2023 End: 07-19-2023 Patient encounter procedure KEYA HOPE [facility] Start: 06-18-2023 End: 06-18-2023 ambulatory KEYA KLINE Not Available Start: 05-14-2023 ambulatory [facility] Start: 03-19-2023 End: 03-19-2023 Lab Drop off KEYA Delgado JAYY [facility] Start: 03-19-2023 End: 03-20-2023 ambulatory KEYA HOPE Facility:[facility] Start: 03-08-2023 End: 03-08-2023 Emergency department patient visit Clayton Beaver Facility:[facility] Start: 03-08-2023 End: 03-08-2023 Emergency department patient visit Clayton [facility] Start: 11-29-2022 End: 11-29-2022 ambulatory LANCE MELLO Facility: Start: 11-09-2022 End: 11-10-2022 ambulatory PUSHPA Kc Facility: Start: 07-03-2022 ambulatory LANCE MELLO Facility: Start: 04-28-2022 ambulatory LANCE MELLO Facility: Start: 04-19-2022 End: 04-20-2022 ambulatory LANCE MELLO Facility: Start: 03-31-2022 ambulatory LANCE MELLO Facility: Start: 03-10-2022 End: 03-10-[address] TIMOTEO GALICIA . Facility: Procedures Date Procedure Procedure Detail Performing Clinician Start: 02-14-2024 Esophagogastroduodenoscopy Vasquez rice Start: 08-28-2023 Cyclic citrullinated peptide antibody MARIANGEL DC Comment on above: Result Comment: Interpretation-------- <3 Negative >=3 Positive Performed By: #### C 34, 37791-8, 17356-1, 1988-5, FEPR, 2276-4, 38306-4, ENAP, 73471-7 #### [facility] ([id number]) [address] [place] [address], [address] [place] [address] #### NAIFA #### [facility] ([id number]) [address] [facility] Plan of Treatment Date Care Activity Detail Author Start: 01-19-2026 DTaP,Tdap and Td Vaccines (6 - Td or Tdap) DTaP,Tdap and Td Vaccines (6 - Td or Tdap) [facility] Start: 07-17-2025 Adult BMI Screening Adult BMI Screen ing [facility] Start: 07-17-2025 Tobacco Screening Tobacco Screening [facility] Start: 07-16-2025 End: 07-16-2025 Telemedicine consultation with patient 07/16/2025 1:00 PM EST Telemedicine [facility] - Medical Oncology [address] [place] [phone] Sherif Murphy MD [address] [place] [address] [address] [place] [address] Jenny [facility] - Medical Oncology Start: 03-02-2025 Influenza vaccination Influenza Vacc ine (#1) [facility] Start: 08-28-2024 Adult BMI Screening Adult BMI Screen ing [facility] Start: 08-28-2024 [facility] Start: 03-02-2024 Influenza vaccination Influenza Vacc ine [facility] Start: 09-12-2023 End: 09-12-2023 Telemedicine consultation with patient 09/12/2023 12:30 PM EDT Telemedicine [facility] [address] [address] Mariangel Dc MD [address] [address] [facility] Start: 03-02-2023 Influenza vaccination Influenza Vacc ine [facility] Start: 11-26-2022 DTaP,Tdap and Td Vaccines (1 - Tdap) DTaP,Tdap and Td Vaccines (1 - Tdap) [facility] Start: 2015 Depression Screening Depression Scre ening [facility] Start: 2015 Tobacco Screening Tobacco Screening [facility] End: 08-28-2024 Antinuclear Ab, HEp-2 Substrate, S Antinuclear Ab, HEp-2 Substrate, S Lab Routine TYLOR positive 1 Occurrences starting 08/28/2023 until 08/28/2024 [facility] Comment on above: 1 Occurrences starti ng 08/28/2023 until 08/28/2024 Antinuclear Ab, HEp- 2 Substrate, S Antinuclear Ab, HEp-2 Substrate, S Lab Routine TYLOR positive 08/28/2023 1:46 PM EST [facility] Comprehensive metabo lic 2000 panel - Serum or Plasma [facility] End: 05-14-2025 Ferritin [Mass/volume] in Serum or Plasma Ferritin Lab Routine Iron deficiency 1 Occurrences starting 05/14/2024 until 05/14/2025 [facility] Work Phone: Comment on above: 1 Occurrences starti ng 05/14/2024 until 05/14/2025 End: 05-14-2025 Iron and TIBC Iron and TIBC Lab Routine Iron deficiency 1 Occurrences starting 05/14/2024 until 05/14/2025 [facility] Comment on above: 1 Occurrences starti ng 05/14/2024 until 05/14/2025 Tilt table test [facility] US Heart Transthoracic [facility] End: 05-14-2025 Vitamin D 25 hydroxy Vitamin D 25 hydroxy Lab Routine Low serum vitamin D 1 Occurrences starting 05/14/2024 until 05/14/2025 [facility] Comment on above: 1 Occurrences starti ng 05/14/2024 until 05/14/2025 Immunizations Immunization Date Immunization Notes Care Provider Richard infante 02-15-2021 meningococcal ACWY vaccine, unspecified formulation Vasquez [facility] Comment on above: Result Comment: 2023: SYNCOPAL EPISODE WITNESSED. OBSERVED AN ADDITIONAL MINUTES AFTER CONSCIOUSNESS RETURNED. GIVEN COLD WATER TO DRINK AND A COLD RAG TO FOREHEAD. MOTHER STATES CLIENT HAS HAD THESE EPISODES BEFORE. CLIENT TAKES EFFEXOR BUT IT ISN'T REALLY WORKING SO IS 02-15-2021 meningococcal B vacc ine, fully recombinant Mohamad Mouchli [facility] Comment on above: Result Comment: 2023: SYNCOPAL EPISODE WITNESSED. OBSERVED AN ADDITIONAL MINUTES AFTER CONSCIOUSNESS RETURNED. GIVEN COLD WATER TO DRINK AND A COLD RAG TO FOREHEAD. MOTHER STATES CLIENT HAS HAD THESE EPISODES BEFORE. CLIENT TAKES EFFEXOR BUT IT ISN'T REALLY WORKING SO IS 07-20-2016 HPV, unspecified formulation Mohamad Mouchli [facility] 03-23-2016 HPV, unspecified formulation Mohamad Mouchli [facility] 01-20-2016 HPV, unspecified formulation Mohamad Mouchli [facility] 01-20-2016 meningococcal ACWY vaccine, unspecified formulation Mohamad Mouchli [facility] 01-20-2016 tetanus toxoid, redu lily diphtheria toxoid, and acellular pertussis vaccine, adsorbed Mohamad Mouchli [facility] 06-01-2015 influenza, whole Mohamad Kailey chli [facility] 06-01-2015 influenza virus vacc ine, unspecified formulation Mariangel Dc MD Work Phone: [facility] 12-03-2008 DTaP, unspecified formulation Mohamad Mouchli [facility] 12-03-2008 Hep A, unspecified formulation Mohamad Mouchli [facility] 12-03-2008 measles, mumps and rubella virus vaccine Mohamad Mouchli [facility] 12-03-2008 varicella virus vaccine Moha mad Mouchli [facility] 06-04-2008 DTaP, unspecified formulation Mohamad Mouchli [facility] 06-04-2008 Hep A, unspecified formulation Mohamad Mouchli [facility] 06-04-2008 influenza, whole Mohamad Kailey chli [facility] 06-04-2008 poliovirus vaccine, unspecified formulation Mohamad Mouchli [facility] 04-30-2008 DTaP-hepatitis B and poliovirus vaccine Mohamad Mouchli [facility] 04-30-2008 Hib, unspecified formulation Mohamad Mouchli [facility] 04-30-2008 measles, mumps and rubella virus vaccine Mohamad Mouchli [facility] 04-30-2008 varicella virus vaccine Moha mad Mouchli [facility] 07-06-2004 DTaP, unspecified formulation Mohamad Mouchli [facility] 07-06-2004 poliovirus vaccine, unspecified formulation Mohamad Mouchli [facility] 2003 hepatitis B vaccine, pediatric or pediatric/adolescent dosage Mohamad Mouchli [facility] Payers Date Payer Category Payer Medicaid [employer] HMO [id number] 2023-Present [phone] [address] [place] [address] [id number] 2023 Medicaid [facility] [id number] 2023 Private Health Insurance [facility] MEDICA[facility] [id number] 2003 Unknown [id number] 2.840.1.390065.3.579.2. 59 2003 Unknown [id number] 2.16840.1.730981.3.579.2. 593 2003 Unknown [id number] 2.16840.1.938246.3.579.2. 593 2003 Unknown [id number] 2.16840.1.299880.3.579.2. 593 2003 Unknown [id number] 2.16.840.1.166416.3.579.2. 593 2003 Unknown [id number] 2.16.840.1.828629.3.579.2. 593 2003 Unknown [id number] 2.16.840.1.359484.3.579.2. 727 2003 Unknown [id number] 2.16.840.1.189673.3.579.2. 727 2003 Unknown [id number] 2.16.840.1.047719.3.579.2. 727 2003 Unknown [id number] 2.16.840.1.479704.3.579.2. 727 2003 Unknown [id number] 2.16.840.1.805935.3.579.2. 1259 2003 Unknown [id number] 2.16.840.1.400419.3.579.2. 1259 2003 Unknown [id number] 2.16.840.1.375758.3.579.2. 1259 2003 Unknown [id number] 2.16.840.1.758061.3.579.2. 727 2003 Unknown [id number] 2.16.840.1.043184.3.579.2. 727 2003 Unknown [id number] 2.16.840.1.016503.3.579.2. 727 2003 Unknown [id number] 2.16.840.1.629792.3.579.2. 128 2003 Unknown [id number] 2.16.840.1.612279.3.579.2. 128 2003 Unknown [id number] 2.16.840.1.662540.3.579.2. 128 2003 Unknown [id number] 2.16.840.1.077964.3.579.2. 1286 2003 Unknown [id number] 2.16.840.1.777429.3.579.2. 727 2003 Unknown [id number] 2.16.840.1.279733.3.579.2. 727 2003 Unknown [id number] 2.16.840.1.567708.3.579.2. 1286 1980 Unknown [id number] 2.16.840.1.426823.3.579.2. 593 1980 Unknown [id number] 2.16.840.1.855961.3.579.2. 727 1959 Self-pay 1959 Unknown [id number] 1959 Unknown [id number] Unknown [id number] 2.16.840.1.101429.3.579.2. 531 Unknown [id number] 2.16.840.1.505987.3.579.2. 531 Social History Date Type Detail Facility Start: 03-08-2023 End: 06-18-2023 Tobacco smoking status Never smoked tobacco (finding) [facility] Tobacco smoking status Never [facility] Start: 06-18-2023 End: 07-17-2024 Sex Assigned At Female [facility] Start: 06-18-2023 End: 07-17-2024 Tobacco use and exposure Smokeless tobacco non-user [facility] Start: 06-18-2023 End: 07-17-2024 History of Social function [facility] Start: 2003 Sex assigned at Not on file P [facility] Start: 08-08-2023 End: 09-30-2024 Sex Female (finding) [facility] Tobacco smoking stat [facility] Tobacco smoking consumption unknown [facility] Start: 2003 Sex Assigned At Female F [facility] Start: 12-11-2023 Alcoholic beverage intake Lifetime non-drinker (finding) [facility] How often to you hav e a drink containing alcohol? Never [facility] Functional Status Date Assessment Result Facility 03-24-2024 Functional Status N/A [facility] 02-14-2024 Functional Status N/A [facility] 02-06-2024 Functional Status N/A [facility] 11-24-2023 Functional Status N/A [facility] 03-08-2023 Functional Status N/A [facility] Clinical Notes 03-08-2023 to 08-28-2024 Note Date & Type Note Facility 08-28-2024 Evaluation note Diagnosis Onset Date Resolution Palpitations acute August 12:53pm Postural dizziness acute Februa ry 2024 12:53pm Vasovagal syncope acute Februar y 2024 12:53pm [facility] Work Phone: [phone] 350-730301-16-2025 History of Present illness Narrative* Sherif Murphy MD - 07/17/2024 3:30 PM EST Images from the original note were not included. [facility] 07/17/24 Allegra Lopez is a 18 y.o. year old female seen today in the oncology clinic. No chief complaint on file. History of Present Illness: Ms. Lopez is a 18 y.o. female with history of iron deficiency from menorrhagia. She had tried oraliron supplement and doesn't like the taste of [...] were clear to auscultation. There was no dullnessto percussion. Cardiac: Regular rate and rhythm, S1 [...] this note were generated using voice recognition [employer] dictation software. Although every effort was made to ensure the accuracy of this automated metal or wood blocker, some errors in metal or wood blocker may have occurred. CC: No care bioinformatics team member to display PCP:No primary care provider on file. Referring MD: Mariangel Dc MD [facility] Instructions* Patient Instructions* Sherif Murphy MD - 07/17/2024 3:30 PM EST CBC iron studies every 3 months, print out orders. F/u in 1 year, video visit. [facility] History of Present illness Narrative* Mariangel Dc MD - 05/14/2024 1:00 PM EST Images from the original note were not included. [address] [address] Date of Service: 05/14/2024 Video Visit via Real-time Synchronous Audiovisual Provider Location: [facility] [address] [facility] [address] Patient Location: Patient's home Patient Location Parts Counterperson: None Video Visit Consent Statement: I discussed [...] that there are some limitations compared to nboi-uu-hnbk evaluations. We elected to proceed. Chief Complaint: [...] - positive TYLOR homogeneous pattern - The TLYOR was checked by PCP as pt has [...] changes, nausea, vomiting, weight loss, skin discoloration, care home risk of retinal toxicity and need for [...] and is pertinent to the current visit [facility] Dr. Mariangel Dc M.D. [address] [facility], [address] [place] [address] Office: [phone] 05/14/2024 documented in [facility] Hospital Discharge instructions Patient Education 02/14/2024 13:50:02 Endoscopy, Care After Procedure [facility] Endoscopy Care After Procedure Please read the instructions outlined below and refer to this sheet in the next few weeks. These discharge instructions provide you with general information on caring for yourself [facility] Your doctor may also give you [...] Document Re-Released: 12/10/2006 ExitCare Patient Information 2009 [employer]. Follow Up Care 02/06/2024 14:50:29 With:Melody GARIBAY, Vasquez Magallon, GAS, [facility] Address: [address] [place] [address], [address] [place] [address] [phone] When: Unknown Comments:Office will call to schedule follow up appointment and/or review any pending biopsy resultsCall forany problems. [facility] 08-15-2024 NoteProgress Note-Physician Patient: ALLEGRA LOPEZ Age: 18 years Sex: Female : 2005 Associated Diagnoses: None Author: Sylvester Medrano Jr., DO Postoperative Information Postoperative disposition: Postoperative disposition: Home. Optimetrix number: Optimetrix number [id number]. Anesthetic utilized: General. Physical Examination Vital Signs [...] to Ambulatory Surgery Unit, and To home ).[facility]:Result Comment: Electronically Signed By: Sylvester Medrano Jr., DO\.br\Date and Time Signed: 02/14/24 14:41 [id number] Evaluation + Plan note Extracted from: Title:ANES Post-operative Note - General Author: [...] pylori. 3. Normal duodenum. Images Procedure images: Rec1_hd_video__17_041.jpg Rec1_hd_video__24_272.jpg Rec1_hd_video__30_035.jpg Rec1_hd_video__40_701.jpg Rec1_hd_video__45_054.jpg Rec1_hd_video__57_268.jpg Rec1_hd_video__31_03_098.jpg Rec1_hd_video____02_400.jpg Rec1_hd_video____44_817.jpg Rec1_hd_video____01_751.jpg Rec1_hd_video___33_13_500.jpg . Post-Procedure Complications: none. Estimated blood loss: [...] (office will call with prescription) Extracted from: Title:ANES Pre-operative Note - Endo Author:Sylvester Crowell Jr., DO Date:02/14/24 Plan [place] Society of Anesthesiologists (ASA) physical status classification: Class II. Anesthetic Preoperative Plan: Anesthesia General, and -TIVA. [facility] 08-15-2024 NotePatient Education - Text Endoscopy Care After Procedure Please read the instructions outlined below and refer to this sheet in the next few weeks. These discharge instructions provide you with general information on caring for yourself [facility]. Your doctor may also give you [...] Document Re-Released: 12/10/2006 ExitCare? Patient Information ?2009 [employer].[facility] 02-14-2024 NoteProgress Note-Physician Patient: ALLEGRA LOPEZ [...] Problems Chest pain, atypical / SNOMED CT 358988842 / Confirmed Chronic constipation / SNOMED CT 747209720 / Confirmed Nausea / SNOMED CT 0524257924 / Confirmed Nausea and vomiting / SNOMED CT 04898051 / Confirmed Vitamin D below reference range / SNOMED CT 7073562243 / Confirmed Histories Past Medical History: No active or resolved past medical history items have been selected or recorded. Procedure history: No active procedure history items have been selected or recorded. Social History Social & Psychosocial Habits Alcohol Comment: bashir - 03/08/2023 19:10 - Light Pipo CHOUDHARY 02/06/2024 Risk Assessment: Denies Alcohol Use Substance Abuse Comment: bashir - 03/08/2023 19:10 - Light Pipo CHOUDHARY [...] Respirations are non-labored. Cardiovascular: Regular rhythm. Plan [place] Society of Anesthesiologists (ASA) physical status classification: Class II. Anesthetic Preoperative Plan: Anesthesia General, and -TIVA.[facility] HospitalComment on above:Result Comment: Electronically Signed By: Sylvester Medrano Jr., DO.laith\Date and Time Signed: 02/14/24 13:01 [id number] Hospital Discharge instructions Follow Up Care 11/24/2023 12:22:46 With:KEYA HOPE Address: [facility] [place] [address] Business (1) When:Within 3 Day(s) [facility]05-25-2024 Evaluation + Plan noteExtracted from: [...] * Chlam/GC/Trich,EM 11/24/23 * Urine Culture 11/24/23 [facility]03-13-2024 History of Present illness Narrative* Mariangel Dc MD - 09/12/2023 12:30 PM EDT Images from the original note were not included. [address] [address] Date of Service: 09/12/2023 Video Visit via Real-time Synchronous Audiovisual Provider Location: [facility] [address] [facility] [address] Patient Location: Patient's home Patient Location Parts Counterperson: None Video Visit Consent Statement: I discussed [...] that there are some limitations compared to fhte-dy-tfqo evaluations. We elected to proceed. Chief Complaint: [...] changes, nausea, vomiting, weight loss, skin discoloration, care home risk of retinal toxicity and need for [...] Physicians Rheumatology Dr. Mariangel Dc M.D. [address] [address] Office: [phone] 09/12/2023 documented in this encounterDel[facility]02-27-2024 History of Present illness Narrative* Mariangel Dc MD - 08/28/2023 1:00 PM EST Images from the original note were not included. [address] [facility] [address] [facility] [address] Date of Service: 08/28/2023 Thank you for [...] or corrected. Thank you for your understanding. [facility]icians Rheumatology Dr. Mariangel Dc M.D. [address] [place] [address], [address] [place] [address] Office: [phone] 08/28/2023 documented in this encounterVermont [facility] Hospitalmarker.to01-18-2024 Evaluation + Plan note Diagnostic Tests Pending * TYLOR w/Reflex if POS 07/19/23 * Rheumatoid Factor Quantitative 07/19/23 [facility]09-07-2023 Hospital Discharge instructions Patient Education [...] services (911 in the [place] Call the [facility] and human services helpline (211 in the [place] Call or text a suicide hotline to speak with a trained counselor. The following suicide hotlines are available in the [place]: ?6-117-947-TALK ( or 008 in the [place] ?1-820-SFDVINY ( ). ?Text 244981. This is the Crisis Text Line in the [place] ? . This is a hotline for Vincentian speakers. ? . This is a hotline for TTY users. ?8-765-4-U-LANDON ( ). This is a hotline for lesbian, gilliland, bisexual, transgender, or questioning youth. ?For a list of hotlines in [place], visit suicide.org/hotlines/international/ypbxaz-ppxogpn-fkydymlw.html Contact a crisis center or a local [...] to anyone or being with other people. ?Rfic-fa-vvhx conversation is best to help them understand [...] physical and a mental health checkup. Take zawf-hqh-bqmruza and prescription medicines only as told by [...] National Suicide Prevention Lifeline: www.suicidepreventionlifeline.org Hopeline: www.hopeline.com M[place] Foundation for Suicide Prevention: www.afsp.org The [place]andon Project (for lesbian, gilliland, bisexual, transgender, or questioning youth): www.thetrevorproject.org National [place] of Mental Health: www.nimh.nih.gov/health/topics/suicide-prevention Suicide Prevention Resources: afsp.org/sibgtja-wzednfosay-dndwatjjg Contact a health care provider if: You [...] provider. Document Revised: 01/12/2022 Document Reviewed: 10/27/2021 [employer] Patient Education 2022 [employer]. Follow Up Care 03/08/2023 17:56:24 With:[facility] Address:Unknown When:03/11/2023 21:51:52 Comments:Return to the emergency room if you develop thoughts of hurting yourself or any other concerns. With:Vazquez RIVERS Address: [address] [facility] [place] [address]- Business (1) When:Within 3 Day(s) [facility] note No data available for this section [facility] note Future Appointments Appointment Date:02/14/2024 02:00:00 PM Scheduled Provider: Location:[facility] Appointment Type:[facility]gery [facility] Evaluation note* Diagnosis Iron deficiency Disorders of iron metabolism [facility] Diagnosis TYLOR positive- Primary Fibromyalgia Unspecified myalgia and myositis Fatigue, unspecified type Multiple joint pain Pain in joint, multiple sites documented 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 Unspecified diffuse connective tissue disease Fibromyalgia Unspecified myalgia and myositis Iron deficiency Disorders of iron metabolism Low serum vitamin D Medication monitoring encounter Encounter for therapeutic drug monitoring documented in this encounter [facility] noteNo assessment information available [facility] Work Phone: evaluojpcj note* Diagnosis Onset Date Resolution Status Admit Date Palpitations acute January 28, 2 025 2:23pm Postural dizziness acute January 012024 2:23pm Vasovagal syncope acute January 282024 2:23pm [facility] Work Phone: Evaluation note* Diagnosis Dysmenorrhea Menorrhagia with irregular cycle documented [facility] No data available for this section [facility] CenterInstructionsNot on filedocumented in this encounter [facility]Instructions* Attachments The following attachments cannot be sent through Care Everywhere. * Fibromyalgia (Thai) documented in this encounterProMercy Health SystemInstructions* Attachments The following attachments cannot be sent through Care Everywhere. * Hydroxychloroquine, ADULT (Thai) documented in this encounterProMercy Health SystemInstructionsNot on file documented in this encounterProMercy Health SystemProgress note No data available for this section [facility] CenterReason for referral (narrative)No reason for referral information availableC[facility] Work Phone: Reason for visit Narrative* Consultation (Routine) - Pending Review Specialty Diagnoses / Procedures Referred By Cara ontiveros Referred To Contact Medical Oncology / Hematology and Oncology Diagnoses Iron deficiency Mariangel Dc MD [address] [address] Phone: tel: fax: Sherif Murphy MD [address] [place] [address] Phone: tel: fax: Referral ID Status Reason Start Date Expiration Date Visits Requested Visits Authorized [id number] Pending Review Specialty Services Required 4 05/14/2025 1 1 [facility] Summary Purpose Family History No Family [...] FoundNo Family History Records Found Advance Directives Advance Directive Response Recorded Date/ Time Advance Directives No October 27 7:04am Advance Directive Response Recorded Date/ Time Advance Directives No October 27 8:04am Chief Complaint and Reason for Visit Chief Complaint Admit Date Syncope and collapse August 28, 2024 12:53pm Reason for Visit Admit Date Palpitations August 28, 2024 12:53pm Postural dizziness August 28, 2024 12:53pm Vasovagal syncope August 28, 2024 12:53pm Chief Complaint Admit Date Syncope and collapse August 28, 2024 12:53pm R55 August 28, 2024 1:22pm R55 R00.2 R42 September 29, 2024 8:1 2am Chief Complaint Admit Date 4 months January 28, 2025 2:23 pm Reason for Visit Admit Date Palpitations January 28, 2025 2:23 pm Postural dizziness January 28, 2025 2:23 pm Vasovagal syncope January 28, 2025 2:23 pm Additional Source Comments INFORMATION SOURCE (unrecogn ized section and content) DATE CREATED AUTHOR 12/08/2022 [facility] DATE CREATED AUTHOR AUTHOR'S ORGANIZ ATION 05/28/2023 [facility] DATE CREATED AUTHOR AUTHOR'S ORGANIZ ATION 11/26/2023 [facility] DATE CREATED AUTHOR AUTHOR'S ORGANIZ ATION 2023 [facility] DATE CREATED AUTHOR AUTHOR'S ORGANIZ ATION 12/11/2023 [facility] DATE CREATED AUTHOR AUTHOR'S ORGANIZ ATION 02/16/2024 [facility] DATE CREATED AUTHOR AUTHOR'S ORGANIZ ATION 02/19/2024 [facility] DATE CREATED AUTHOR AUTHOR'S ORGANIZ ATION 05/16/[address] [facility] DATE CREATED AUTHOR AUTHOR'S ORGANIZ ATION 07/19/2024 [facility] DATE CREATED AUTHOR AUTHOR'S ORGANIZ ATION 07/20/2024 [facility] DATE CREATED AUTHOR AUTHOR'S ORGANIZ ATION 07/24/2024 [facility] DATE CREATED AUTHOR AUTHOR'S ORGANIZ ATION 11/03/2024 [facility] Patient Care team informatio n (unrecognized section and content) Team Status: Active Member Role Status Dates Services Family Health Primary Care Provider Active Team Status: Inactive Member Role Status Dates Gilberto Espinal MD Attending Provider Activ e Start: January 28, 2025 End: January 28, 2025 Services Family Health Primary Care Provider Active Start: January 28, 2025 End: January 28, 2025 Team Status: Active Member Role Status Dates PHYSICIAN NO FAMILY Primary Care Provider Active Team Status: Inactive Member Role Status Dates PHYSICIAN NO FAMILY Primary Care Provider Active Start: August 28, 2024 End: August 28, 2024 CORTEZ Saunders- Referring Provider Active Start: August 28, 2024 End: August 28, 2024 Gilberto Espinal MD Attending Provider Activ e Start: August 28, 2024 End: August 28, 2024 Team Status: Active Member Role Status Dates PHYSICIAN NO FAMILY Primary Care Provider Active Start: August 28, 2024 Gilberto Espinal MD Attending Provider Activ e Start: August 28, 2024 Team Status: Inactive Member Role Status Dates PHYSICIAN NO FAMILY Primary Care Provider Active Start: August 28, 2024 End: August 28, 2024 Gilberto Espinal MD Attending Provider Activ e Start: August 28, 2024 End: August 28, 2024 Team Status: Active Member Role Status Dates PHYSICIAN NO FAMILY Primary Care Provider Active Start: August 20, 2024 Ronaldo Yeboah DO Attending Provider Active Sta rt: August 20, 2024 Team Status: Inactive Member Role Status Dates Gilberto Espinal MD Attending Provider, Referring Provider Active Start: September 29, 2024 End: September 29, 2024 [facility] Primary Care Provider Active Start: September 29, 2024 End: September 29, 2024 [employer]idential [employer] Sales [employer] Relationship Specialty Start Date End Date Unallocated, [place] [facility] [place] [address] PCP - General Family Medicine 06/18/23 Reason for Visit (unrecogniz ed section and content) Reason Comments Med Change Request Reason Comments New Patient R76.8 TYLOR positive Reason Comments Med Refill Goals (unrecognized section and content) Goals may be documented in a n alternate section FOR RECORDS PERTAINING TO PATIENTS WHO ARE [...] BE BASED ON THE PRIMARY CLINICAL RECORDS. [employer] [facility]. provides no warranty or guarantee of the accuracy or completeness of information in this document.
--- NOTE | 2025-03-14 17:40 | ECG_ITS ---
[facility] Test Date: 2025-03-14 Pat Name: BECKY LOPEZ Department: Room: - Gender: Female Radiation Therapy Technologist: : 2005 Requested By: [id number] Order Number: [id number] Reading MD: JOSH HERNANDEZ Measurements Intervals [place] Rate: 78 P: 47 MT: 120 QRS: 95 QRSD: 100 T: 72 QT: 402 QTc: 435 Interpretive Statements 1100 Sinus rhythm 1102 Sinus arrhythmia 2440 Incomplete right bundle branch block 7102 Moderate right axis deviation 9130 borderline ECG Compared to ECG 08/19/2024 11:04:45 No significant changes Electronically Signed On 03-16-2025 16:45:44 EDT by JOSH HERNANDEZ
[2025-03-14 18:10] VITALS: PULSE 78
[2025-03-14 18:12] LABS: Hematocrit 39.3 % (36.0-48.0); Hemoglobin 13.4 g/dL (12.0-16.0); Immature Granulocytes Abs Auto 0.01 10^3/uL (0.00-0.03); Immature Granulocytes Pct Auto 0.1 % (0.0-0.5); Lymphocytes Absolute Auto 2.2 10^3/uL (1.2-3.8); Mean Corpuscular HGB Conc 34.1 g/dL (29.9-35.2); Mean Corpuscular Hemoglobin 29.1 pg (26.7-34.0); Mean Corpuscular Volume 85.2 fL (81.0-99.0); Platelet Count 370 10^3/uL (150-450); Red Blood Count 4.61 10^6/uL (4.20-5.40); White Blood Count 8.2 10^3/uL (4.0-11.0)
[2025-03-14 18:13] LABS: Glucose Urine UA NEGATIVE (NEGATIVE)
[2025-03-14 18:14] LABS: HCG Qualitative Urine* NEGATIVE (NEGATIVE)
[2025-03-14 18:20] LABS: Cast Seen? NONE SEEN #/LPF (NONE SEEN); Crystals Seen? None Seen #/HPF (None Seen); Urine Culture Indicated YES-FRMC
[2025-03-14 18:28] LABS: Alanine Aminotransferase 18 U/L (14-59); Albumin Globulin Ratio 1.1; Albumin Level 4.3 g/dL (3.4-5.0); Alkaline Phosphatase 73 U/L (46-116); Anion Gap 13.8; Aspartate Amino Transferase 15 U/L (15-37); Blood Urea Nitrogen 13.0 mg/dL (7.0-18.0); Calcium 9.2 mg/dL (8.5-10.1); Carbon Dioxide 28.1 mmol/L (21.0-32.0); Chloride 103 mmol/L (98-107); Estimated GFR (African America >60 (>=60 mL/min/1.73m^2); Estimated GFR (Non-African Ame >60 (>=60 mL/min/1.73m^2); Globulin 3.9 g/dL; Glucose 89 mg/dL (74-106); Potassium 3.9 mmol/L (3.5-5.1); Sodium 141 mmol/L (136-145); Total Protein 8.2 g/dL (6.4-8.2)
[2025-03-14 18:43] LABS: Magnesium 2.1 mg/dL (1.8-2.4)
[2025-03-14 18:45] LABS: TSH W/ REFLEX FT4 3.247 uIU/mL (0.358-3.740)
[2025-03-14] MEDS: PREDNISONE 20 MG TABLET 40 MG PO (19:23)
[2025-03-14 20:25] VITALS: BP 99/70; PULSE 77; TEMP 36.9; O2SAT 98
--- NOTE | 2025-03-14 20:43 | ED_ITS ---
HPI - URI/Sore Throat General Chief Complaint: Dizziness Stated Complaint: SOB, LIGHT HEADED, NAUSEAUS Time Seen by Provider: 03/14/25 17:09 Source: patient History of Present Illness HPI Narrative: 19-year-old female presents to the ED with sinus congestion for the past 3 weeks, which has significantly worsened over the past week. She reports being unable to breathe through her nose and producing greenish nasal discharge, associated with a frontal headache that worsens when leaning forward. She notes intermittent sore throat related to post-nasal drainage. The patient also reports intermittent shortness of breath, often accompanied by anxiety and feelings of being ?out of sorts?, which typically resolve with self-directed breathing exercises. She expresses concern about her shortness of breath in the context of her sinus illness. She describes fatigue and recent initiation of Midrin for orthostatic hypotension. She also reports stress from multiple recent life changes, including family issues, starting a new job, and moving into a new apartment. She denies chest pain, ongoing shortness of breath, lightheadedness, generalized weakness, numbness, tingling, abdominal pain, nausea, or vomiting. She reports limited oral intake today, having consumed a bottle of water and half a breakfast sandwich, and otherwise denies other medications for her current symptoms. Related Data Home Medications ?Medication ?Instructions ?Recorded ?Confirmed midodrine 2.5 mg tablet 2.5 mg PO .3 times daily 03/14/25 Previous Rx's ?Medication ?Instructions ?Recorded amoxicillin 875 mg-potassium 1 tab PO Q12H 10 days #20 tabs 03/14/25 clavulanate 125 mg tablet ipratropium bromide 21 mcg (0.03 2 spray intranasal TI D PRN 03/14/25 %) nasal spray congestion #30 mL prednisone 20 mg tablet 40 mg (2 x 20 mg) PO QDAY 5 days 03/14/25 #10 tabs Allergies Allergy/AdvReac Type Severity Reaction Status Date / Time No Known Allergies AdvReac Mild none Verified 03/14/25 15:37 [facility] Medical History (Updated 03/14/25 @ 20:45 by CHET BARKSDALE) Suicidal ideation ?R45.851 - Suicidal ideations (ICD-10) Depression ?F32.A - Depression, unspecified (ICD-10) Anxiety ?F41.9 - Anxiety disorder, unspecified (ICD-10) Syncope ?R55 - Syncope and collapse (ICD-10) Social History Little interest or pleasure in doing things: not at all Feeling down, depressed, or hopeless: not at all Exam Narrative Exam Narrative: General: Tearful, fatigued, alert and oriented, no acute distress. HEENT: Nasal passages red and very boggy, TMs bulging without redness, maxillary sinus tenderness bilaterally on percussion. Transillumination consistent with left maxillary sinusitis. Pharynx clear, no erythema or exudate. Lymph: No cervical or other lymphadenopathy. Cardiac: Regular rate and rhythm, no murmurs. Pulmonary: Clear to auscultation bilaterally. Neuro: No deficits, no numbness or tingling in extremities. Abdomen: Soft, non-tender, normal bowel sounds. Psych: anxious with tearful affect. Alert and oriented with no SI or HI. She has good insight and able to talk through her situation appropriately. Constitutional Vital Signs, click to edit/add: Last Vital Signs Temp 98.4 F 03/14/25 20:25 Pulse 77 03/14/25 20:25 Resp 16 03/14/25 20:25 BP 99/70 03/14/25 20:25 Pulse Ox 98 03/14/25 20:25 O2 Del Method Room Air 03/14/25 20:25 Course Vital Signs Vital signs: Vital Signs Temperature 97.9 F 03/14/25 15:39 Pulse Rate 90 03/14/25 15:39 Respiratory Rate 18 03/14/25 15:39 Blood Pressure 155/71 H 03/14/25 15:39 Pulse Oximetry 100 03/14/25 15:39 Oxygen Delivery Method Room Air 03/14/25 15:39 Temperature 98.4 F 03/14/25 20:25 Pulse Rate 77 03/14/25 20:25 Respiratory Rate 16 03/14/25 20:25 Blood Pressure 99/70 03/14/25 20:25 Pulse Oximetry 98 03/14/25 20:25 Oxygen Delivery Method Room Air 03/14/25 20:25 MDM - URI/Sore Throat MDM Narrative Medical decision making narrative: 19-year-old female with 3-week history of worsening sinus congestion, frontal headache, green nasal discharge, and intermittent sore throat. She reports intermittent shortness of breath associated with anxiety. Exam notable for boggy nasal passages, bulging TMs, maxillary sinus tenderness bilaterally, and left- sided sinus transillumination consistent with sinusitis. Labs, EKG, troponin, D- dimer, thyroid, and electrolytes were within normal limits. Patient declined IV fluids and chest X-ray. She received PO antibiotics and steroids for acute sinusitis in the ED. She declined IV placement. No acute cardiopulmonary or neurological abnormalities identified. Vital signs stable aside from baseline orthostatic hypotension. Patient tolerated visit well, understood treatment plan, and is being discharged in stable condition with recommendations for hydration, continued medications, and breathing/relaxation techniques. This chart has been completed using [employer] Electronically signed by: Zelalem Madison PA-C Differential Diagnosis Differential diagnosis: Likely upper respiratory infection, otitis media, sinusitis, viral infection and bronchitis Medical Records Attestation: I reviewed the patient's medical records. Lab Data Attestation: I reviewed the patient's lab results. Labs: Lab Results 03/14/25 03/14/25 Range/Units 17:59 18:05 WBC 8.2 (4.0-11.0) 10^3/uL RBC 4.61 (4.20-5.40) 10^6/uL Hgb 13.4 (12.0-16.0) g/dL Hct 39.3 (36.0-48.0) % MCV 85.2 (81.0-99.0) fL MCH 29.1 (26.7-34.0) pg MCHC 34.1 (29.9-35.2) g/dL RDW 12.4 (11.0-15.0) % Plt Count 370 (150-450) 10^3/uL MPV 9.7 (9.5-13.5) fL Neut % (Auto) 62.9 (43.0-75.0) % Lymph % (Auto) 27.3 (20.5-60.0) % [place] % (Auto) 7.0 (1.7-12.0) % Eos % (Auto) 1.7 (0.9-7.0) % Baso % (Auto) 1.0 (0.2-2.0) % Neut # (Auto) 5.1 (1.4-6.5) 10^3/uL Lymph # (Auto) 2.2 (1.2-3.8) 10^3/uL [place] # (Auto) 0.6 (0.3-0.8) 10^3/uL Eos # (Auto) 0.1 (0.0-0.7) 10^3/uL Baso # (Auto) 0.1 (0.0-0.1) 10^3/uL Abs Immat Gran (auto) 0.01 (0.00-0.03) 10^3/uL Imm/Tot Granulo (auto) 0.1 (0.0-0.5) % D-Dimer <0.19 (<=0.59) mg/L FEU Sodium 141 (136-145) mmol/L Potassium 3.9 (3.5-5.1) mmol/L Chloride 103 (98-107) mmol/L Carbon Dioxide 28.1 (21.0-32.0) mmol/L Anion Gap 13.8 BUN 13.0 (7.0-18.0) mg/dL Creatinine 0.83 (0.55-1.02) mg/dL Est GFR ( Amer) >60 (>=60 mL/min/1.73m^2) Est GFR (Non-Af Amer) >60 (>=60 mL/min/1.73m^2) BUN/Creatinine Ratio 15.7 Glucose 89 (74-106) mg/dL Calcium 9.2 (8.5-10.1) mg/dL Magnesium 2.1 (1.8-2.4) mg/dL Total Bilirubin 0.5 (0.2-1.0) mg/dL AST 15 (15-37) U/L ALT 18 (14-59) U/L Alkaline Phosphatase 73 (46-116) U/L Troponin I High Sens 12.7 (4.0-51.3) pg/mL Total Protein 8.2 (6.4-8.2) g/dL Albumin 4.3 (3.4-5.0) g/dL Globulin 3.9 g/dL Albumin/Globulin Ratio 1.1 TSH & Free T4 Interp 3.247 (0.358-3.740) uIU/mL Urine Color Lt. yellow (YELLOW) Urine Clarity Clear (CLEAR) Urine pH 7.5 (5.0-9.0) Ur Specific [place] 1.020 (1.005-1.025) Urine Protein Negative (NEG/TRACE) mg/dL Urine Glucose (UA) Negative (NEGATIVE) mg/dL Urine Ketones 15 A (NEGATIVE) mg/dL Urine Occult Blood Negative (NEGATIVE) Urine Nitrite Negative (NEGATIVE) Urine Bilirubin Negative (NEGATIVE) Urine Urobilinogen 2.0 A (0.2-1.0) EU/dL Ur Leukocyte Esterase Small A (NEGATIVE) Urine RBC 2-5 A (0-2) #/HPF Urine WBC 5-10 A (NONE SEEN) #/HPF Ur Squamous Epith Cells Moderate A (NONE/RARE) #/LPF Urine Crystals None seen (None Seen) #/HPF Urine Bacteria Small A (NONE SEEN) #/HPF Urine Casts None seen (NONE SEEN) #/LPF Urine Mucus Small A (NONE SEEN) Ur Culture Indicated? Yes-[facility] [place] Urine HCG, Qual Negative (NEGATIVE) ECG Data ECG interpretation date: 03/14/25 ECG interpretation time: 18:10 Prior ECG tracings: available for review (unChange from previous) Interpretation: Patient is sinus rhythm with ventricular rate of 78 bpm, [place] interval 120, QRS of 100, QT/QTc of 402/435, P does have an incomplete right bundle branch and right axis deviation present on her previous EKG of August 19, 2024. She has no ST elevation or depression. Discharge Plan Discharge Chief Complaint: Dizziness Clinical Impression: Sinusitis, Malaise and fatigue Patient Disposition: Home, Self-Care Time of Disposition Decision: 20:45 Condition: Good Prescriptions / Home Meds: New amoxicillin-pot clavulanate 875-125 mg tablet 1 tab PO Q12H 10 Days Qty: 20 0RF ipratropium bromide 21 mcg (0.03 %) spray,non-aerosol 2 spray intranasal TID PRN (Reason: congestion) Qty: 30 0RF Rx Instructions: administer into each nostril prednisone 20 mg tablet 40 mg PO QDAY 5 Days Qty: 10 0RF No Action midodrine 2.5 mg tablet 2.5 mg PO .3 times daily Print Language: Citizen Of [place] Instructions: Sinusitis (ED), Relaxation and Meditation (ED), Fatigue (ED), Anxiety (ED) Additional Instructions: Visit Reason: Sinus congestion / sinusitis Diagnosis: Acute sinusitis Summary of Visit: You were seen in the ED for sinus congestion, green nasal discharge, frontal headache, and intermittent sore throat. You also reported occasional shortness of breath likely related to anxiety and stress fatigue. Exam and labs did not show any serious heart, lung, or neurological problems. You were prescribed oral antibiotics and steroids as you declined IV medications. Medications Prescribed: * Augmentin 875 mg ? Take 1 tablet by mouth twice daily for 10 days with food. * Atrovent (ipratropium) nasal spray ? Use 2 sprays in each nostril twice daily as directed. * Prednisone 40mg - once a day for 5 days Home Care Instructions: * Take all medications exactly as prescribed; complete the full course of antibiotics. * Stay well-hydrated and maintain adequate nutrition. * Use breathing exercises and relaxation techniques to help with anxiety-related shortness of breath. * Rest and avoid strenuous activity until you feel better. * Saline nasal sprays or gentle nasal irrigation may be used for additional symptom relief. Warning Signs / When to Return: Seek care immediately if you experience: * Worsening headache or facial pain * Fever or chills * Chest pain, persistent shortness of breath, or rapid heart rate * Swelling or redness around eyes * Any new neurological symptoms (weakness, numbness, vision changes) Follow-Up: * Follow up with your primary care provider or ENT as needed for ongoing sinus symptoms. Other Instructions: * Avoid exposure to sick contacts if possible. * Take medications with food if stomach upset occurs. Referrals: EUGENIO HOPE [Primary Care Provider, Unknown] - 1 week Discharge Date/Time: 03/14/25 21:14
[2025-03-14] MEDS: AMOXICILLIN/POT CLAV 875-125 MG TABLET 1 TAB PO (21:10)
== END 2025-03-14 21:14 | disposition home or self-care (01) ==
PROVIDERS: Physician Assistant; Emergency Provider Emergency Medicine; PCP Nurse Practitioner Family
DX: J32.9 Chronic sinusitis, unspecified (principal); R53.81 Other malaise; R53.83 Other fatigue
CPT/HCPCS: 36415; 80053; 81001; 83735; 84443; 84484; 84703; 85025; 85378; 87086; 93005; 99285; J7512